=== PATIENT | female | born 1975 | race Caucasian/White ===

== ENCOUNTER → 2017-11-04 10:59 | Outpatient (CLI) | payer OTHER, SELFPAY ==
--- NOTE | 2017-11-04 11:03 | XR_ITS ---
XR chest 2V HISTORY: ITS.REASON: Dyspnea ORDERING PHYSICIAN: CATHY Corral PATIENT AGE: 42 years COMPARISON: 07/19/2009 FINDINGS: The cardiomediastinal silhouette and pulmonary vascularity are within normal limits. The lungs are clear without infiltrates, suspicious nodules, or pleural effusions. There is a small opacity in the left lung base adjacent to the cardiac apex which could be due to small area of atelectasis or even summation artifact. Follow-up may confirm stability. No acute bony abnormalities. IMPRESSION: 1. No definite acute finding. 2. Nonspecific nodular opacity left lung base for which follow-up may confirm stability or resolution
== END ==
PROVIDERS: PCP Physician Assistant; Visit Provider Physician Assistant
DX: R60.0 Localized edema (principal)
CPT/HCPCS: 71046

== ENCOUNTER → 2017-11-26 07:49 | Outpatient (CLI) | payer OTHER, SELFPAY ==
--- NOTE | 2017-11-26 07:52 | CA_ITS ---
PROCEDURE: 2-D M-mode and color Doppler study INDICATIONS FOR THE TEST: Chest pain COPD Heart Murmur Tobacco Smoking+ Palpitations Fatigue+ Syncope Edema+ Hypertension Diabetes Mellitus Rheumatic Fever SOB+HTOMAS+Obesity Hyperlipidemia+ Family History HD Additional History PATIENT INFORMATION HEIGHT: 60 WEIGHT: 142 GENDER: Female B/P: 102/75 2-D/M-MODE INTERPRETATION: 2-D MEASUREMENTS OBSERVED VALUES IN CMS Right Ventricular Dimension (RVDd) 2.2 Interventricular Septum (Thickness)(IVsd) 0.9 Left Ventricular Internal Dimensions(LVIDd) 4.1 Left Ventricular Posterior Wall (Thickness)(LVPWd) 0.8 Aortic Root 2.6 Aortic Cusp Separation 2.0 Left Atrial Dimensions (LAD) 3.4 2D 1. Left atrium is normal size, left ventricle is normal size, there is no concentric left ventricular hypertrophy, visually estimated ejection fraction of 55% with no obvious regional wall motion abnormality. 2. The right atrium and right ventricle are normal size and contractility. 3. The aortic, mitral and tricuspid valve are structurally normal. 4. The pulmonic valve is poorly visualized. 5. No significant pericardial effusion noted. DOPPLER INTERROGATION: Doppler interrogation of the aortic, mitral and tricuspid valvular presence of mild mitral and tricuspid regurgitation, tricuspid and jet velocity insufficient for calculation of the right ventricular systolic pressure, grade 1 diastolic dysfunction seen without tissue Doppler evidence of raised left atrial pressure. CONCLUSION: 1. Normal left ventricular size, preserved left ventricular systolic function, visually estimated ejection fraction 55% with no obvious regional wall motion abnormality, grade 1 diastolic dysfunction seen without tissue Doppler evidence of raised left atrial pressure. 2. Mild mitral and tricuspid regurgitation 3. No significant pericardial effusion noted.
== END ==
PROVIDERS: Family Provider Physician Assistant; PCP Physician Assistant; Visit Provider Physician Assistant
DX: R06.02 Shortness of breath (principal)
CPT/HCPCS: 93306

== ENCOUNTER → 2018-02-22 06:27 | Outpatient (CLI) | payer OTHER, SELFPAY ==
--- NOTE | 2018-02-22 06:30 | CT_ITS ---
CT chest wo con HISTORY: Chest pain ITS.REASON: cp ORDERING PHYSICIAN: Raj Levin MD PATIENT AGE: 43 years COMPARISON: None Technique: Axial images obtained. Sagittal and coronal reformatted images are also generated and reviewed. All CT scans at the facility use one or more dose reduction, viz: automated exposure control; ma/kV adjustment per patient size (including targeted exams where dose is matched to indication; i.e. head); or iterative reconstruction technique. FINDINGS: No mediastinal or hilar mass or adenopathy. Normal heart size. No coronary artery calcifications evident. No evidence of pericardial effusion. Scattered small nodes are present in the axilla. Lungs are clear aside from a few 2 mm nodular opacities one in the right lower lobe anteriorly and one in the right lower lobe posteriorly. These are too small to categorize. No acute bony anomalies. Upper abdominal images are unremarkable. IMPRESSION: Essentially negative CT chest without contrast
--- NOTE | 2018-02-22 06:30 | NM_ITS ---
SPECT MYOCARDIAL PERFUSION SCAN, REST AND STRESS: EXERCISE STRESS: [facility] REVIEW QGS EF AND WALL MOTION EVALUATION: QPS - PERFUSION EVALUATION: HISTORY: Chest pain, SOB, Tobacco use, Fatigue PROCEDURE: Rest imaging performed after administration of10.20 millicuries Tc MIBI. Dose administered at6:45 a.m., with imaging thereafter. Stress imaging was then performed following7 minutes 30 seconds of exercise stress. The patient achieved a heart [id number] with projected heart rate of150 . Resting BP101/55 with stress 116/60. At maximum exercise stress,29.7 millicuries Tc MIBI administered at8:20 a.m. with [id number] minutes thereafter. FINDINGS: Perfusion Evaluation: The single slice spect images as well as the [facility] bull's-eye data summary were reviewed. Wall Motion and Ejection Fraction Evaluation: Gated SPECT review and analysis used to evaluate these features. There is a 56 % left ventricular ejection fraction. There seems to be good wall motion Uniform myocardial activity at both stress and rest IMPRESSION: No scintigraphic evidence of exercise-induced myocardial ischemia. Normal ejection fraction normal wall motion
--- NOTE | 2018-02-22 09:01 | HMH.ITSHM ---
ASA DEPRESSION MED 3 MIGRAINE MEDS MUSCLE RELAXER ACID REFLUX MED
== END ==
PROVIDERS: Family Provider Physician Assistant; PCP Physician Assistant; Visit Provider Internal Medicine
DX: R06.09 Other forms of dyspnea (principal); R11.0 Nausea; R00.2 Palpitations; R07.9 Chest pain, unspecified; R14.0 Abdominal distension (gaseous); E78.5 Hyperlipidemia, unspecified; Z82.49 Family history of ischemic heart disease and other diseases of the circulatory system
CPT/HCPCS: 71250; 78452; 93017; A9502

== ENCOUNTER → 2018-08-30 21:42 | Outpatient (CLI) | payer OTHER, SELFPAY ==
[2018-08-30 21:48] LABS: Basophils # 0.1 K/mm3 (0-0.2); Basophils % 0.4 % (0.1-2.0); Eosinophils # 0.2 K/mm3 (0.0-0.4); Eosinophils % 1.7 % (0.1-12.0); Hematocrit 38.6 % (37.0-47.0); Hemoglobin 12.4 g/dL (12.2-16.2); Lymphocytes # 3.5 K/mm3 (0.7-4.5); Lymphocytes % 27.4 % (10-50); Mean Corpuscular HGB Conc 32.1 g/dL (31.8-35.4); Mean Corpuscular Hemoglobin 31.5 pg (27.0-31.2); Mean Corpuscular Volume 98.3 fl (81-99); Mean Platelet Volume 9.9 fl (7.4-10.4); Monocytes # 0.8 K/mm3 (0.1-1.0); Monocytes % 6.4 % (1.7-9.3); Neutrophils # 8.2 K/mm3 (1.8-7.8); Neutrophils % 64.1 % (37.0-80.0); Platelet Count 366 K/mm3 (142-424); Red Blood Count 3.93 M/mm3 (4.20-5.40); Red Cell Distribution Width 13.6 % (11.5-17.5); White Blood Count 12.8 K/mm3 (4.8-10.8)
[2018-08-30 22:37] LABS: Alanine Aminotransferase 23 U/L (12-78); Albumin Level 3.7 gm/dL (3.4-5.0); Albumin/Globulin Ratio 0.9 (1.1-1.8); Alkaline Phosphatase 115 U/L (46-116); Anion Gap 16.9 mEq/L (5-15); Aspartate Amino Transferase 12 U/L (15-37); Bilirubin,Total 0.3 mg/dL (0.2-1.0); Blood Urea Nitrogen 5 mg/dL (7-18); Calcium 8.7 mg/dL (8.5-10.1); Carbon Dioxide 24 mmol/L (21.0-32.0); Chloride 103 mmol/L (98-107); Chol/HDL Ratio 4.9 (1-3.5); Cholesterol 171 mg/dL (140-200); Creatinine,Serum 0.68 mg/dL (0.55-1.02); Estimated Glomerular Filt Rate 94 ml/min (>60); GFR (African American) 114 ML/MIN (>60); Globulin 3.9 gm/dl (1.3-3.2); Glucose 68 mg/dL (74-106); HDL Cholesterol 35 mg/dL (29-89); LDL Cholesterol 82 mg/dL (0-130); Sodium 141 mmol/L (136-145); T4 (Thyroxine) 6.9 ug/dl (4.7-13.3); Thyroid Stimulating Hormone 1.38 uIU/ml (0.358-3.740); Total Protein,Serum 7.6 gm/dL (6.4-8.2); Triglycerides 270 mg/dL (30-200); VLDL Cholesterol 54 mg/dL (0-40)
[2018-08-30 22:58] LABS: Potassium 2.9 mmoL/L (3.5-5.1)
[2018-09-01 19:50] LABS: Vitamin D 25 Hydroxy 39.8 ng/mL (30.0-100.0)
== END ==
PROVIDERS: Visit Provider Physician Assistant
DX: R42 Dizziness and giddiness (principal); R55 Syncope and collapse
CPT/HCPCS: 80053; 80061; 82652; 84436; 84443; 85025

== ENCOUNTER → 2019-06-16 09:42 | Outpatient (CLI) | payer OTHER, SELFPAY | PROVIDERS: PCP Physician Assistant; Visit Provider Physician Assistant | DX: R06.02 Shortness of breath (principal); R94.2 Abnormal results of pulmonary function studies; Z13.0 Encounter for screening for diseases of the blood and blood-forming organs and certain disorders involving the immune mechanism | CPT/HCPCS: 94060; 94618; 94727; 94729 ==

== ENCOUNTER → 2019-06-20 15:06 | Outpatient (CLI) | payer OTHER, SELFPAY ==
[2019-06-20 15:56] LABS: Basophils % 0.3 % (0.1-2.0); Eosinophils # 0.3 K/mm3 (0.0-0.4); Eosinophils % 2.6 % (0.1-12.0); Hematocrit 35.9 % (37.0-47.0); Lymphocytes # 4.2 K/mm3 (0.7-4.5); Lymphocytes % 35.4 % (10-50); Mean Corpuscular HGB Conc 33.4 g/dL (31.8-35.4); Mean Corpuscular Hemoglobin 31.5 pg (27.0-31.2); Mean Corpuscular Volume 94.3 fl (81-99); Mean Platelet Volume 7.5 fl (7.4-10.4); Monocytes # 0.8 K/mm3 (0.1-1.0); Monocytes % 6.3 % (1.7-9.3); Neutrophils # 6.6 K/mm3 (1.8-7.8); Neutrophils % 55.4 % (37.0-80.0); Platelet Count 350 K/mm3 (142-424); Red Blood Count 3.81 M/mm3 (4.20-5.40); Red Cell Distribution Width 13.2 % (11.5-17.5); White Blood Count 11.9 K/mm3 (4.8-10.8)
== END ==
PROVIDERS: Visit Provider Physician Assistant
DX: R94.2 Abnormal results of pulmonary function studies (principal); Z13.0 Encounter for screening for diseases of the blood and blood-forming organs and certain disorders involving the immune mechanism
CPT/HCPCS: 36415; 85025

== ENCOUNTER → 2019-11-22 13:30 | Outpatient (CLI) | payer MEDICAID, SELFPAY ==
[2019-11-22 13:38] LABS: Basophils % 0.4 % (0.1-2.0); Eosinophils # 0.2 K/mm3 (0.0-0.4); Eosinophils % 1.5 % (0.1-12.0); Lymphocytes # 3.6 K/mm3 (0.7-4.5); Lymphocytes % 36.1 % (10-50); Mean Corpuscular HGB Conc 33.3 g/dL (31.8-35.4); Mean Corpuscular Hemoglobin 32.3 pg (27.0-31.2); Mean Corpuscular Volume 97.1 fl (81-99); Mean Platelet Volume 9.5 fl (7.4-10.4); Monocytes # 0.8 K/mm3 (0.1-1.0); Monocytes % 7.8 % (1.7-9.3); Neutrophils # 5.4 K/mm3 (1.8-7.8); Neutrophils % 54.2 % (37.0-80.0); Platelet Count 314 K/mm3 (142-424); Red Blood Count 4.02 M/mm3 (4.20-5.40); White Blood Count 9.9 K/mm3 (4.8-10.8)
[2019-11-22 13:59] LABS: Alanine Aminotransferase 23 U/L (9-52); Albumin Level 3.6 g/dL (3.4-5.0); Alkaline Phosphatase 101 U/L (46-116); Anion Gap 17.3 mEq/L (5-15); Aspartate Amino Transferase 14 U/L (15-37); Bilirubin,Total 0.2 mg/dL (0.2-1.0); Blood Urea Nitrogen 7 mg/dL (7-18); Calcium 8.7 mg/dL (8.5-10.1); Carbon Dioxide 22 mmol/L (21.0-32.0); Chloride 109 mmol/L (98-107); Chol/HDL Ratio 5.3 (1-3.5); Cholesterol 192 mg/dL (140-200); Creatinine,Serum 0.78 mg/dL (0.55-1.02); Estimated Glomerular Filt Rate 80 ml/min (>60); GFR (African American) 97 ML/MIN (>60); Globulin 3.5 gm/dl (1.3-3.2); Glucose 85 mg/dL (74-106); HDL Cholesterol 36 mg/dL (29-89); LDL Cholesterol 110 mg/dL (0-130); Potassium 4.3 mmoL/L (3.5-5.1); Sodium 144 mmol/L (137-145); T4 (Thyroxine) 4.6 ug/dl (4.7-13.3); Thyroid Stimulating Hormone 0.78 uIU/ml (0.358-3.740); Total Protein,Serum 7.1 g/dL (6.4-8.2); Triglycerides 228 mg/dL (30-200); VLDL Cholesterol 46 mg/dL (0-40)
[2019-11-23 09:25] LABS: Iron 57 ug/dL (27-159); UIBC 262 ug/dL (131-425)
[2019-11-23 10:29] LABS: Iron Saturation 18 % (15-55); Vitamin D 25 Hydroxy 27.8 ng/mL (30.0-100.0)
== END ==
PROVIDERS: Visit Provider Physician Assistant
DX: R11.0 Nausea (principal); E78.5 Hyperlipidemia, unspecified; D64.9 Anemia, unspecified; E55.9 Vitamin D deficiency, unspecified
CPT/HCPCS: 80053; 80061; 82652; 83540; 83550; 84436; 84443; 85025

== ENCOUNTER → 2020-06-26 15:05 | Outpatient (CLI) | payer MEDICAID, SELFPAY ==
[2020-06-26 15:17] LABS: Basophils % 0.5 % (0.1-2.0); Eosinophils # 0.1 K/mm3 (0.0-0.4); Eosinophils % 1.6 % (0.1-12.0); Hematocrit 40.5 % (37.0-47.0); Hemoglobin 13.7 g/dL (12.2-16.2); Lymphocytes # 2.8 K/mm3 (0.7-4.5); Lymphocytes % 31.7 % (10-50); Mean Corpuscular HGB Conc 33.8 g/dL (31.8-35.4); Mean Corpuscular Hemoglobin 33.4 pg (27.0-31.2); Mean Platelet Volume 9.5 fl (7.4-10.4); Monocytes # 0.7 K/mm3 (0.1-1.0); Monocytes % 7.5 % (1.7-9.3); Neutrophils # 5.1 K/mm3 (1.8-7.8); Neutrophils % 58.8 % (37.0-80.0); Platelet Count 313 K/mm3 (142-424); Red Blood Count 4.09 M/mm3 (4.20-5.40); Red Cell Distribution Width 13.2 % (11.5-17.5); White Blood Count 8.7 K/mm3 (4.8-10.8)
[2020-06-26 15:25] LABS: Chloride 109 mmol/L (98-107); Potassium 3.8 mmoL/L (3.5-5.1); Sodium 142 mmol/L (136-145)
[2020-06-26 15:28] LABS: Alanine Aminotransferase 18 U/L (12-78); Albumin Level 3.9 g/dl (3.5-5.0); Albumin/Globulin Ratio 1.3 (1.1-1.8); Alkaline Phosphatase 102 U/L (38-126); Anion Gap 13.8 mEq/L (5-15); Aspartate Amino Transferase 20 U/L (14-36); Bilirubin,Total 0.3 mg/dl (0.2-1.3); Blood Urea Nitrogen 6 mg/dl (7-17); Carbon Dioxide 23 mmol/L (22.0-30.0); Estimated Glomerular Filt Rate 90 ml/min (>60); GFR (African American) 109 ML/MIN (>60); Globulin 3.1 g/dL (1.3-3.2)
[2020-06-26 15:29] LABS: Calcium 9.1 mg/dl (8.4-10.2); Glucose 89 mg/dl (74-100)
[2020-06-26 15:34] LABS: C-Reactive Protein 4.9 mg/L (0-4)
[2020-06-26 15:40] LABS: Erythrocyte Sedimentation Rate 42 mm/hr (0-20)
[2020-06-26 15:45] LABS: T4 (Thyroxine) 5.7 ug/dl (5.53-11.0)
[2020-06-29 18:14] LABS: RA Latex Turbid. <10.0 IU/mL (0.0-13.9)
[2020-07-01 09:28] LABS: Antinuclear Antibodies (ANA) Negative
== END ==
PROVIDERS: Visit Provider Physician Assistant
DX: R60.9 Edema, unspecified (principal); J40 Bronchitis, not specified as acute or chronic; M54.31 Sciatica, right side
CPT/HCPCS: 80053; 84436; 84443; 85025; 85651; 86038; 86140; 86431

== ENCOUNTER 2020-09-22 10:20 | Emergency (ER) | payer MEDICAID, SELFPAY ==
[2020-09-22 10:29] VITALS: BP 117/89; PULSE 87; RESP 19; TEMP 37; O2SAT 99; BMI 23.1
--- NOTE | 2020-09-22 10:32 | XR_ITS ---
PROCEDURE: XR CHEST 2V CLINICAL HISTORY: cough congestion COMPARISON: DX CXR2V XR chest 2V from 11/04/[address] chest wo con from 02/22/2018 FINDINGS: The cardiomediastinal silhouette and pulmonary vascularity are within normal limits. Mild or borderline emphysematous changes seen with mild hyperexpansion lung marin. There is no infiltrate and there is no pleural fluid. IMPRESSION: No acute findings. Dictated by: Dr. Nathan Mckinnon MD 09/22/2020 12:07 Dr. Nathan Mckinnon MD in [place] 09/22/2020 12:07
--- NOTE | 2020-09-22 10:33 | HMH.EDUTC ---
[facility] [place] Disposition Clinical Impression: Bronchitis Disposition: Home, Self-Care Condition on Discharge: Good Instructions: DI for Cough -- Adult, Preventing the Spread of Coronavirus Discharge Instructions, Benzonatate Additional Instructions: ? Monitor temp. Tylenol every 4 hours as needed and / or ibuprofen every 6 hours as needed ( As long as your primary care physician has told you that it ok to take both. For fever/aches/pains ER if no less than 101 despite Tylenol or Motrin ? Humidifier/vaporizer or hot steamy shower *Warm salt water gargles may help to soothe the throat *Throat Lozenges *Warm fluids like tea with honey may help to soothe the throat *Sleep elevated Follow up IMMEDIATELY for new or worsening of symptoms OR no noticeable improvement over the next 48-72 hours. 911 immediately for any life threatening symptoms such as chest pain or difficulty breathing You were tested for today for COVID19 your test result should be back in the next 24-48 hours, you may call to the [facility] to see if your test results are back in the next 48 hours [phone] [facility] hours are 9am-9pm You was given a handout with instructions for Self Quarantine and Self isolation for while you wait on test results and what to do if they are positive If you are positive the Health Dept will be contacting you also Prescriptions: Promethazine HCl [Phenergan 12.5mg tablet] 12.5 mg PO Q6H PRN #4 tab PRN Reason: Vomiting Transmission Status: Pending to [facility] Benzonatate [Tessalon Perle 100mg Cap*] 100 mg PO TID PRN #15 cap PRN Reason: Cough Transmission Status: Pending to [facility] Referrals: Maddy Sims PA [Primary Care Provider] - As needed Time of Disposition: 11:41 Medical Decision Making - Carmelo Inquiry Pt receiving controlled substance: No Carmelo was queried for this patient: No Vital Signs: 09/22/20 10:29 Temperature 98.6 F Temperature Source Oral Pulse Rate [Radial] 87 Respiratory Rate 19 Blood Pressure [Right Radial Artery] 117/89 Blood Pressure Mean [Right Radial Artery] 98 Blood Pressure Source [Right Radial Artery] Automatic Cuff Blood Pressure Position [Right Radial Artery] Sitting 02 Sat by Pulse Oximetry 99 Oxygen Delivery Method Room Air Orders (Tests/Meds): ORDERS Category Date Time Status XR chest 2V Stat Exams 09/22/20 10:32 Taken - Radiology Data #1 Image(s): Chest Image Reviewed: Yes I reviewed the patient's radiology image w/the ED provider Preliminary Findings: Normal/NAD no acute finding Medical Decision Narrative: Patient states that she has taken Phenergan before without reactions or complications [facility] HPI - General Stated complaint: lungs hurt, vomiting Time Seen by Provider: 09/22/20 10:33 Mode of Arrival: Ambulatory Source of Information: Patient Limitations: No Limitations Description of Symptoms (Recalled from Triage Doc. by RN): cough, vomiting, SOB, lung pain x 1 week HEENT Symptoms (Recalled from RN notes): Yes Resp Symptoms (Recalled from RN notes): No Skin Symptoms (Recalled from RN notes): No MS Symptoms (Recalled from RN notes): No Functional Status (Recalled from RN notes): wnl - History of Present Illness Provider Complaint: Patient state thats he has been having pain in her lungs when she coughs States that she is an everyday smoker, States thats that at times when she is coughing she feels a little SOA States that she hasnt been exposed to COVID that she is aware of and vomited earlier this morning - Related Data Previous Rx's Medication Instructions Recorded aspirin 81 mg tablet,delayed 81 mg PO DAILY #90 tab 08/10/18 release esomeprazole magnesium 40 mg 40 mg PO DAILY #30 cap 08/30/18 capsule,delayed release gemfibrozil 600 mg tablet 600 mg PO BID #180 tab 08/30/18 loratadine 10 mg tablet 10 mg PO Q24H #30 tab 08/30/18 potassium chloride 20 mEq 20 meq PO DAILY #30 tab 08/31/18 tablet,extended release albut
[2020-09-22 11:45] VITALS: BP 117/89; PULSE 87; RESP 19; TEMP 37; O2SAT 99
[2020-09-23 09:37] LABS: Covid-19 Nasal PCR Sendout UK Not Detected
== END 2020-09-22 11:47 | disposition home or self-care (01) ==
PROVIDERS: Emergency Provider Nurse Practitioner; PCP Physician Assistant
DX: Z20.828 Contact with and (suspected) exposure to other viral communicable diseases (principal); J20.9 Acute bronchitis, unspecified; F17.210 Nicotine dependence, cigarettes, uncomplicated; F41.8 Other specified anxiety disorders; E78.5 Hyperlipidemia, unspecified; Z79.899 Other long term (current) drug therapy
CPT/HCPCS: 71046; 99202; U0003

== ENCOUNTER → 2020-10-21 09:46 | Outpatient (CLI) | payer MEDICAID, SELFPAY | PROVIDERS: PCP Physician Assistant; Visit Provider Physician Assistant | DX: Z11.52 Encounter for screening for COVID-19 (principal) | CPT/HCPCS: U0003 ==

== ENCOUNTER 2020-12-08 11:01 | Emergency (ER) | payer MEDICAID, SELFPAY ==
[2020-12-08] VITALS (8 sets, daily range): BP systolic 92–127; BP diastolic 58–87; PULSE 72–84; RESP 16–18; TEMP 36.9–37; O2SAT 98–100; BMI 27.2
--- NOTE | 2020-12-08 10:59 | ECG_ITS ---
APPROVED REPORT Exam: Resting ECG HR:79 bpm ECG Measurements Heart Rate 79 AXES UT 136 P 55 QRSd 78 QRS 31 QT 392 T 48 QTc 449 Conclusion Normal sinus rhythm Possible Left atrial enlargement Borderline ECG Electronically signed by : Raffy Smith, 12/08/2020 11:43:52
--- NOTE | 2020-12-08 11:02 | HMH.EDGENADL ---
ED Disposition Clinical Impression: Atypical chest pain Disposition: Home, Self-Care Condition on Discharge: Good Instructions: DI for Atypical Chest Pain Additional Instructions: Additional instructions for CHEST PAIN: See your physician as soon as possible for further evaluation, call tomorrow. Return immediately if worsening chest pain, vomiting, shortness of breath, fever, coughing of blood. Referrals: PCP,No [Non-Staff] - Forms: Work/School Release - Critical Care Critical Care Time: No Attestation: On , the high probability of a clinically significant, sudden or life threatening deterioration of the following system(s) required my full and direct attention, intervention and personal management. The time I documented below is in addition to time spent performing reported procedures but includes the following listed in this critical care notation. Medical Decision Making - Medical Records Medical records reviewed: Yes: I reviewed the patient's medical records. MR Comment: Reviewed cardiac cath and stress test results from 2018, see below - Carmelo Inquiry Pt receiving controlled substance: No Vital Signs: 12/08/20 11:01 12/08/20 11:50 12/08/20 12:41 Temperature 98.6 F Temperature Source Oral Pulse Rate Pulse Rate [Left] 82 79 78 Respiratory Rate 16 16 18 Blood Pressure Blood Pressure [Right Arm] 113/73 92/58 L 102/63 L Blood Pressure Mean [Right Arm] 86 69 76 Blood Pressure Source Blood Pressure Source [Right Arm] Automatic Cuff Blood Pressure Position Blood Pressure Position [Right Arm] Sitting 02 Sat by Pulse Oximetry 100 99 99 Oxygen Delivery Method Room Air 12/08/20 13:09 12/08/20 13:40 12/08/20 14:05 Temperature Temperature Source Pulse Rate Pulse Rate [Left] 72 77 73 Respiratory Rate 16 16 16 Blood Pressure Blood Pressure [Right Arm] 108/74 L 121/78 97/73 L Blood Pressure Mean [Right Arm] 85 92 81 Blood Pressure Source Blood Pressure Source [Right Arm] Automatic Cuff Blood Pressure Position Blood Pressure Position [Right Arm] Sitting 02 Sat by Pulse Oximetry 100 100 100 Oxygen Delivery Method Room Air 12/08/20 14:47 12/08/20 15:03 Temperature 98.5 F Temperature Source Oral Pulse Rate 84 Pulse Rate [Left] 79 Respiratory Rate 18 16 Blood Pressure 127/87 Blood Pressure [Right Arm] 117/72 Blood Pressure Mean [Right Arm] 87 Blood Pressure Source Automatic Cuff Blood Pressure Source [Right Arm] Blood Pressure Position Sitting Blood Pressure Position [Right Arm] 02 Sat by Pulse Oximetry 100 Oxygen Delivery Method Room Air - Lab Data Lab results reviewed: Yes: I reviewed the patient's lab results. Lab Results 12/08/20 11:05: WBC 13.0 H, RBC 4.01 L, Hgb 12.8, Hct 38.7, MCV 96.5, MCH 31.8 H, MCHC 32.9, RDW 13.1, Plt Count 302, MPV 8.6, Neut % (Auto) 55.3, Lymph % (Auto) 38.4, Avery % (Auto) 4.7, Eos % (Auto) 1.2, Baso % (Auto) 0.4, Neut # (Auto) 7.2, Lymph # (Auto) 5.0 H, Avery # (Auto) 0.6, Eos # (Auto) 0.2, Baso # (Auto) 0.1 12/08/20 11:05: Sodium 140, Potassium 3.4 L, Chloride 109 H, Carbon Dioxide 24, Anion Gap 10.4, BUN 7, Creatinine 0.80, Estimated Creat Clear 86, Estimated GFR 78, Est GFR ( Amer) 94, Glucose 105 H, Calcium 9.0, Troponin I < 0.01 12/08/20 14:04: Troponin I < 0.01 Result diagrams: 12/08/20 11:05 12/08/20 11:05 Orders (Tests/Meds): ED MEDICATIONS Discontinued Medications Generic Name Dose Route Start Last Admin Trade Name Freq PRN Reason Stop Dose Admin Aspirin 324 mg 12/08/20 11:06 12/08/20 11:10 Aspirin 81mg Chewable Tablet PO 12/08/20 11:07 324 mg ONCE ONE Administration Ketorolac Tromethamine 30 mg 12/08/20 11:29 12/08/20 11:32 Ketorolac 30mg/Ml Vial IV 12/08/20 11:30 30 mg ONCE ONE Administration - Radiology Data #1 Image(s): Chest Image Reviewed: Yes I reviewed the patient's radiology image Preliminary Findings: Normal/NAD - ECG
--- NOTE | 2020-12-08 11:06 | XR_ITS ---
PROCEDURE: XR CHEST 2V CLINICAL HISTORY: chest pain COMPARISON: DX CXR2V XR chest 2V from 11/04/[address] chest wo con from 02/22/2018 CR XR CHEST 2V from 09/22/2020 FINDINGS: The cardiomediastinal silhouette and pulmonary vascularity are within normal limits. COPD changes with mild prominence of the interstitium. No acute bony abnormalities. IMPRESSION: COPD. No change with no acute finding Dictated by: Clemente Dixon MD 12/08/2020 11:48 Clemente Dixon MD in [place] 12/08/2020 11:48
[2020-12-08 11:16] LABS: Basophils # 0.1 K/mm3 (0-0.2); Basophils % 0.4 % (0.1-2.0); Eosinophils # 0.2 K/mm3 (0.0-0.4); Eosinophils % 1.2 % (0.1-12.0); Hematocrit 38.7 % (37.0-47.0); Hemoglobin 12.8 g/dL (12.2-16.2); Lymphocytes % 38.4 % (10-50); Mean Corpuscular HGB Conc 32.9 g/dL (31.8-35.4); Mean Corpuscular Hemoglobin 31.8 pg (27.0-31.2); Mean Corpuscular Volume 96.5 fl (81-99); Mean Platelet Volume 8.6 fl (7.4-10.4); Monocytes # 0.6 K/mm3 (0.1-1.0); Monocytes % 4.7 % (1.7-9.3); Neutrophils # 7.2 K/mm3 (1.8-7.8); Neutrophils % 55.3 % (37.0-80.0); Platelet Count 302 K/mm3 (142-424); Red Blood Count 4.01 M/mm3 (4.20-5.40); Red Cell Distribution Width 13.1 % (11.5-17.5)
[2020-12-08 11:21] LABS: Chloride 109 mmol/L (98-107)
[2020-12-08 11:22] LABS: Potassium 3.4 mmoL/L (3.5-5.1); Sodium 140 mmol/L (136-145)
[2020-12-08 11:24] LABS: Blood Urea Nitrogen 7 mg/dl (7-17); Creatinine Clearance Estimated 86 mL/min (50-200); Estimated Glomerular Filt Rate 78 ml/min (>60); GFR (African American) 94 ML/MIN (>60)
[2020-12-08 11:25] LABS: Anion Gap 10.4 mEq/L (5-15); Carbon Dioxide 24 mmol/L (22.0-30.0); Glucose 105 mg/dl (74-100)
[2020-12-08 11:38] LABS: Troponin I < 0.01 ng/ml (0.00-0.034)
--- NOTE | 2020-12-08 13:41 | PC.NURSE ---
Pt resting. No needs at this time
[2020-12-08 14:47] LABS: Troponin I < 0.01 ng/ml (0.00-0.034)
== END 2020-12-08 15:04 | disposition home or self-care (01) ==
PROVIDERS: Emergency Provider Emergency Medicine; PCP Physician Assistant
DX: R07.89 Other chest pain (principal); M54.5 Low back pain; E78.5 Hyperlipidemia, unspecified; F41.8 Other specified anxiety disorders; F17.210 Nicotine dependence, cigarettes, uncomplicated; Z79.899 Other long term (current) drug therapy
CPT/HCPCS: 71046; 80048; 84484; 85025; 93005; 99283

== ENCOUNTER 2021-01-30 09:36 | Emergency (ER) | payer MEDICAID, SELFPAY ==
[2021-01-30 09:37] VITALS: BP 116/79; PULSE 89; RESP 18; TEMP 37.1; O2SAT 97; BMI 27.1
--- NOTE | 2021-01-30 10:05 | HMH.EDUTC ---
[facility] [place] Disposition Clinical Impression: Otitis media Qualifiers: Otitis media type: unspecified Laterality: bilateral Qualified Code(s): H66.93 - Otitis media, unspecified, bilateral Sinusitis Qualifiers: Sinusitis location: unspecified location Chronicity: unspecified Qualified Code(s): J32.9 - Chronic sinusitis, unspecified Disposition: Home, Self-Care Condition on Discharge: Good Instructions: Sinusitis, Middle Ear Infection, DI for Sinusitis, Amoxicillin and Clavulanic Acid Additional Instructions: *Monitor Temp, Over the counter Motrin or Tylenol as directed/as needed Tylenol every 4 hours and Motrin every 6 hours (as long as your family doctor has told you that you can take it) for fever or pain. and straight to ER if unable to lower temp less than 101.0 after medication given *Warm salt water gargles may help to soothe the throat *Throat Lozenges *Warm fluids like tea with honey may help to soothe the throat *Sleep elevated *Humidifier/Vaporizer Take medication as prescribed Follow up with Family Doctor if no improvement or any worsening of symptoms Follow up IMMEDIATELY for new or worsening symptoms or no Noticeable improvement over the next 48-72 hours. 911 for difficulty breathing or swallowing Prescriptions: Amoxicillin/Potassium Clav [Augmentin 875-125 Tablet] 1 tab PO Q12H 10 Days #20 tab Transmission Status: Received by [facility] Fluticasone Propionate [Flonase 50mcg nasal spray 16gm] 1 spr NS DAILY #1 bottle Transmission Status: Received by [facility] Referrals: Maddy Sims PA [Primary Care Provider] - As needed Forms: Work/School Release Time of Disposition: 10:18 Medical Decision Making - Carmelo Inquiry Pt receiving controlled substance: No Carmelo was queried for this patient: No Vital Signs: 01/30/21 09:37 01/30/21 10:24 Temperature 98.8 F 98.1 F Temperature Source Oral Oral Pulse Rate 79 Pulse Rate [Right] 89 Respiratory Rate 18 18 Blood Pressure 122/71 Blood Pressure [Right Arm] 116/79 Blood Pressure Mean [Right Arm] 91 02 Sat by Pulse Oximetry 97 Oxygen Delivery Method Room Air [facility] [place] HPI - General Stated complaint: ear pain and sinus pain Time Seen by Provider: 01/30/21 10:05 Mode of Arrival: Family Vehicle Source of Information: Patient Limitations: No Limitations Description of Symptoms (Recalled from Triage Doc. by RN): PATIENT C/O EAT ACHE, SINUS INFECTION AND VOMITTING FOR THE LAST TWO DAYS. HEENT Symptoms (Recalled from RN notes): No Resp Symptoms (Recalled from RN notes): No Skin Symptoms (Recalled from RN notes): No MS Symptoms (Recalled from RN notes): No Functional Status (Recalled from RN notes): NA - History of Present Illness Provider Complaint: Patient states that she has been having sinus problems for over a week but for the last couple of days she has been having worsnening of sinus pain and pressure and feeling of pressure behind her eyes States that she also started having pain in both ears with the worse being in her right ear States that she has also been having some vomiting so this morning they sent her home from work and wanted her to get checked - Related Data Previous Rx's Medication Instructions Recorded aspirin 81 mg tablet,delayed 81 mg PO DAILY #90 tab 08/10/18 release esomeprazole magnesium 40 mg 40 mg PO DAILY #30 cap 08/30/18 capsule,delayed release potassium chloride 20 mEq 20 meq PO DAILY #30 tab 08/31/18 tablet,extended release albuterol sulfate 90 mcg/actuation 2 puff INHALATION Q6H 30 Days #6.7 05/25/19 aerosol inhaler g venlafaxine 75 mg capsule,extended See Rx Instructions .ROUTE 09/03/20 release 24 hr .COMPLEX #90 each ergocalciferol (vitamin D2) 1,250 See Rx Instructions .ROUTE 11/12/20 mcg (50,000 unit) capsule .COMPLEX #12 cap cariprazine 3 mg capsule See Rx Instructions .ROUTE 11/16/20 .COMPLEX #90 cap topiramate 50 mg tablet See Rx Instructions .ROUTE 11/27/20 .COMPLEX #
[2021-01-30 10:24] VITALS: BP 122/71; PULSE 79; RESP 18; TEMP 36.7; O2SAT 99
== END 2021-01-30 10:23 | disposition home or self-care (01) ==
PROVIDERS: Emergency Provider Nurse Practitioner; PCP Physician Assistant
DX: H66.93 Otitis media, unspecified, bilateral (principal); J32.9 Chronic sinusitis, unspecified; F41.8 Other specified anxiety disorders; E78.5 Hyperlipidemia, unspecified; F17.210 Nicotine dependence, cigarettes, uncomplicated; Z79.899 Other long term (current) drug therapy
CPT/HCPCS: 99202; G0463

== ENCOUNTER → 2021-02-04 09:11 | Outpatient (CLI) | payer MEDICAID, SELFPAY | PROVIDERS: PCP Physician Assistant; Referring Provider Physician Assistant; Visit Provider Physician Assistant | DX: Z20.822 Contact with and (suspected) exposure to COVID-19 (principal) | CPT/HCPCS: U0003 ==

== ENCOUNTER → 2021-02-25 14:51 | Outpatient (CLI) | payer MEDICAID, SELFPAY ==
[2021-02-25 15:01] LABS: Basophils # 0.1 K/mm3 (0-0.2); Basophils % 0.5 % (0.1-2.0); Eosinophils # 0.1 K/mm3 (0.0-0.4); Eosinophils % 1.4 % (0.1-12.0); Hematocrit 38.5 % (37.0-47.0); Hemoglobin 13.2 g/dL (12.2-16.2); Lymphocytes # 3.8 K/mm3 (0.7-4.5); Lymphocytes % 36.2 % (10-50); Mean Corpuscular HGB Conc 34.1 g/dL (31.8-35.4); Mean Corpuscular Volume 96.6 fl (81-99); Monocytes # 0.5 K/mm3 (0.1-1.0); Monocytes % 5.2 % (1.7-9.3); Neutrophils # 5.9 K/mm3 (1.8-7.8); Neutrophils % 56.8 % (37.0-80.0); Platelet Count 305 K/mm3 (142-424); Red Blood Count 3.99 M/mm3 (4.20-5.40); Red Cell Distribution Width 13.2 % (11.5-17.5); White Blood Count 10.4 K/mm3 (4.8-10.8)
[2021-02-25 15:20] LABS: Alanine Aminotransferase 16 U/L (12-78); Albumin Level 4.4 g/dl (3.5-5.0); Albumin/Globulin Ratio 1.4 (1.1-1.8); Alkaline Phosphatase 80 U/L (38-126); Anion Gap 12.3 mEq/L (5-15); Aspartate Amino Transferase 20 U/L (14-36); Bilirubin,Total 0.4 mg/dl (0.2-1.3); Blood Urea Nitrogen 4 mg/dl (7-17); Calcium 8.9 mg/dl (8.4-10.2); Carbon Dioxide 21 mmol/L (22.0-30.0); Chloride 111 mmol/L (98-107); Chol/HDL Ratio 4.8 (1-3.5); Cholesterol 205 mg/dl (140-200); Estimated Glomerular Filt Rate 90 ml/min (>60); GFR (African American) 109 ML/MIN (>60); Globulin 3.2 g/dL (1.3-3.2); Glucose 90 mg/dl (74-100); HDL Cholesterol 43 mg/dl (40-60); Potassium 3.3 mmoL/L (3.5-5.1); Sodium 141 mmol/L (136-145); Total Protein,Serum 7.6 g/dl (6.3-8.2); Triglycerides 156 mg/dl (30-150); VLDL Cholesterol 31 mg/dL (0-40)
[2021-02-25 15:32] LABS: Direct LDL Cholesterol 126.43 mg/dL (100-129)
[2021-02-25 15:36] LABS: 25-OH Vitamin D, Total 42.6 ng/mL (30-100)
[2021-02-25 15:39] LABS: Free T4 (Free Thyroxine) 0.74 ng/dl (0.78-2.19)
[2021-02-25 15:51] LABS: Thyroid Stimulating Hormone 0.86 uIU/mL (0.465-4.68)
[2021-02-25 16:11] LABS: Vitamin B12 247 pg/mL (239-931)
== END ==
PROVIDERS: Visit Provider Physician Assistant
DX: R69 Illness, unspecified (principal); E78.5 Hyperlipidemia, unspecified; F41.9 Anxiety disorder, unspecified; K21.9 Gastro-esophageal reflux disease without esophagitis; Z82.49 Family history of ischemic heart disease and other diseases of the circulatory system; Z68.27 Body mass index [BMI] 27.0-27.9, adult
CPT/HCPCS: 80053; 80061; 82306; 82607; 84439; 84443; 85025

== ENCOUNTER 2021-04-30 11:25 | Emergency (ER) | payer OTHER, SELFPAY ==
[2021-04-30 11:27] VITALS: BP 120/85; PULSE 89; RESP 18; TEMP 36.8; O2SAT 99; BMI 27.2
--- NOTE | 2021-04-30 11:51 | HMH.EDGENADL ---
ED Disposition Clinical Impression: Lumbar strain Qualifiers: Encounter type: initial encounter Qualified Code(s): S39.012A - Strain of muscle, fascia and tendon of lower back, initial encounter Disposition: Home, Self-Care Condition on Discharge: Good Instructions: DI for Low Back Pain Additional Instructions: Toradol as needed for pain. Robaxin for muscle relaxation. Do not take this while at work or driving. Only take while at home or at night. Sitting job only for 2 days. Follow-up with your primary care provider if not improved in 2 days. Additional instructions for BACK PAIN: See your physician as soon as possible for further evaluation. Return immediately if back pain becomes intolerable, or if fever, numbness or weakness of your legs, loss of control of your bowels or bladder. Prescriptions: Ketorolac Tromethamine [Toradol 10mg tablet] 10 mg PO Q6HP PRN #10 tab PRN Reason: Moderate Pain Transmission Status: Pending to [facility] methocarbamoL [Methocarbamol] 750 mg PO TIDP PRN #10 tab PRN Reason: Muscle Pain Transmission Status: Pending to [facility] Referrals: Maddy Sims PA [Primary Care Provider] - Forms: Work/School Release - Critical Care Critical Care Time: No Attestation: On 04/30/21, the high probability of a clinically significant, sudden or life threatening deterioration of the following system(s) required my full and direct attention, intervention and personal management. The time I documented below is in addition to time spent performing reported procedures but includes the following listed in this critical care notation. Medical Decision Making - Carmelo Inquiry Pt receiving controlled substance: No Vital Signs: 04/30/21 11:27 Temperature 98.2 F Temperature Source Oral Pulse Rate [Right] 89 Respiratory Rate 18 Blood Pressure [Right Arm] 120/85 Blood Pressure Mean [Right Arm] 96 02 Sat by Pulse Oximetry 99 Oxygen Delivery Method Room Air Orders (Tests/Meds): ED MEDICATIONS Discontinued Medications Generic Name Dose Route Start Last Admin Trade Name Freq PRN Reason Stop Dose Admin Ketorolac Tromethamine 60 mg 04/30/21 11:57 04/30/21 12:36 Ketorolac 60mg/2ml Vial IM 04/30/21 11:58 60 mg ONCE ONE Administration - Radiology Data #1 Image(s): L-Spine Image Reviewed: Yes I have reviewed radiologist's interpretation PROCEDURE: XR LUMBAR SPINE 2-3V CLINICAL INDICATION: injury COMPARISON: No exams were available for comparison FINDINGS: There is normal curvature and alignment. L1 through L5 appear intact, disc spaces are well maintained throughout. The SI joints are normal. There is a large amount stool in the visualized portion of the colon. There are opaque densities projecting through the stool in the distal transverse colon and also in the mid rectum possibly representing non digested tablets. There are surgical clips right upper quadrant likely from previous cholecystectomy. IMPRESSION: Essentially unremarkable lumbar spine Dictated by: Dr. Nathan Mckinnon MD 04/30/2021 12:42 Dr. Nathan Mckinnon MD in [place] 04/30/2021 12:42 General Adult HPI - General Chief complaint: Back Pain/Injury Stated complaint: ao pulled back muscle 04/30 11:00 Time Seen by Provider: 04/30/21 11:51 Mode of Arrival: Ambulatory Limitations: No Limitations Description of Symptoms (Recalled from ER Triage Doc. by RN): Pt was at work, lifted an empty pallet heard pop to lower back now with 10/10 pain. denies numbness/tingling down legs, denies incontinence. - History of Present Illness HPI narrative: States that at 11 AM at work she tried to lift a palate, estimated weight 10 pounds, and felt a pop in her back. Now has pain across her mid lumbar area. Denies any numbness or weakness. Denies loss of bowel or bladder control. Denies previous back problems. Pain is increased with movement, walkin
--- NOTE | 2021-04-30 11:58 | XR_ITS ---
PROCEDURE: XR LUMBAR SPINE 2-3V CLINICAL INDICATION: injury COMPARISON: No exams were available for comparison FINDINGS: There is normal curvature and alignment. L1 through L5 appear intact, disc spaces are well maintained throughout. The SI joints are normal. There is a large amount stool in the visualized portion of the colon. There are opaque densities projecting through the stool in the distal transverse colon and also in the mid rectum possibly representing non digested tablets. There are surgical clips right upper quadrant likely from previous cholecystectomy. IMPRESSION: Essentially unremarkable lumbar spine Dictated by: Dr. Nathan Mckinnon MD 04/30/2021 12:42 Dr. Nathan Mckinnon MD in [place] 04/30/2021 12:42
[2021-04-30 13:21] VITALS: BP 126/84; PULSE 73; RESP 16; TEMP 36.6; O2SAT 100
== END 2021-04-30 13:23 | disposition home or self-care (01) ==
PROVIDERS: Emergency Provider Emergency Medicine; PCP Physician Assistant
DX: S39.012A Strain of muscle, fascia and tendon of lower back, initial encounter (principal); X50.0XXA Overexertion from strenuous movement or load, initial encounter; Y92.69 Other specified industrial and construction area as the place of occurrence of the external cause; Y99.0 Civilian activity done for income or pay
CPT/HCPCS: 72100; 99282

== ENCOUNTER → 2021-05-20 10:42 | Outpatient (CLI) | payer MEDICAID, SELFPAY | PROVIDERS: PCP Physician Assistant; Visit Provider Physician Assistant | DX: Z20.822 Contact with and (suspected) exposure to COVID-19 (principal) | CPT/HCPCS: U0003 ==

== ENCOUNTER 2021-06-06 13:00 | Outpatient (RCR) | payer OTHER, SELFPAY ==
--- NOTE | 2021-05-28 14:29 | HMH.PTOPEV ---
PT Outpatient Evaluation Rehab PT Outpatient Evaluation Start: 05/28/21 14:12 Freq: Status: Active Protocol: Document 05/28/21 14:12 VICK (Rec: 05/28/21 14:29 VICK [id number]) Electronically Signed By Neil Wynn, PT 05/28/21 14:12 Outpatient Therapy Subjective History Subjective History Pt reports injury to low back ~3 weeks ago while at work at . Pt reports lifting/ twisting injury caused by attempting to throw pallet. Pt reports right>left sided LBP since injury, and reports RLE s/s from hip to posterior thigh to knee level. Pt reports severe stiffness, pain , and weakness. Chief Complaint Pain,Stiff,Paresthesia, Weakness Symptom Type Ache,Sharp,Dull Symptoms Relieved By Rest/Positioning,Heat Symptoms Aggravated By Standing,Twisting,Walking, Lifting Prior Functional Limitations None Current Functional Limitations Lifting,Housework,Standing, Walking,Bending/Stooping Symptom Description Constant but Variable Level of pain today (0-10) 5 Pain scale - at its best (0-10) 4 Pain scale - at its worst (0-10) 9 Lumbopelvic Eval Posture Thoracic Spine Posture Standing Position Neutral Lumbar Spine Posture Standing Position Increased Lordosis Gait Observation General Gait Pattern Observation Antalgic Gait Palapation tenderness bilateral lumbar spinal tenderness Yes: 3/4 paraspinal tenderness Yes: 4/4 buttock tenderness Yes: 4/4 Lumbar/Sacral Palpation Findings Tenderness,Spasm,Trigger Point ,Muscle Guarding Accessory Movement L-spine Vertebrae Accessory Movements [facility] [place] that Elicit Symptoms L2 bilateral L3 bilateral L4 bilateral L5 bilateral S1 bilateral Range of Motion Lumbar Spine Active Flexion Range of 0-30 Motion (degrees) Lumbar Spine Active Extension Range of 0 Motion (degrees) Left Lumbar Spine Lateral Flexion Active 0-15 Range of Motion (degrees) Right Lumbar Spine Lateral Flexion 0-10 Active Range of Motion (degrees) Lumbar Spine ROM Limitations Soft Tissue Tightness,Pain Manual Muscle Test Right Knee Extension Strength Grade 3+ Fair+ Knee Flexion Strength Grade 3+ Fair+ Hip Flexion Strength Grade 4- Good- Extensor H
== END 2021-06-06 13:05 | disposition home or self-care (01) ==
LOC: PT 13:00
PROVIDERS: PCP Physician Assistant; Visit Provider Physician Assistant
DX: M54.5 Low back pain (principal)
CPT/HCPCS: 97010; 97014; 97035; 97110; 97163; G0283

== ENCOUNTER 2021-07-09 09:03 | Emergency (ER) | payer MEDICAID, SELFPAY ==
[2021-07-09 09:26] VITALS: BP 121/71; PULSE 92; RESP 20; TEMP 36.8; O2SAT 98; BMI 26.4
--- NOTE | 2021-07-09 10:13 | HMH.EDUTC ---
[facility] [place] Clinical Impression: Viral syndrome Otitis media Qualifiers: Otitis media type: suppurative Chronicity: acute Laterality: bilateral Recurrence: non-recurrent Spontaneous tympanic membrane rupture: without spontaneous rupture Qualified Code(s): H66.003 - Acute suppurative otitis media without spontaneous rupture of ear drum, bilateral Disposition: Home, Self-Care Condition on Discharge: Good Instructions: Middle Ear Infection, DI for COVID-19 (Suspected or Confirmed ), Preventing the Spread of Coronavirus Discharge Instructions Additional Instructions: Drink plenty of fluids. Take tylenol or ibuprofen for pain or fever. Take the medications as directed. Follow up with your regular doctor. GO TO THE ER FOR ANY WORSENING SYMPTOMS Quarantine until you know the results of your covid-19 test. If it is positive, the health department should call you and give you further instructions about your length of Quarantine and other things. Notify your school or workplace of your results and follow their instructions regarding return to work/school. Prescriptions: predniSONE [Prednisone 20mg Tab] 20 mg PO BID 4 Days #8 tab Transmission Status: Received by [facility] Benzonatate [Tessalon Perle 100mg Cap] 100 mg PO TIDP PRN #30 cap PRN Reason: Cough Transmission Status: Received by [facility] Azithromycin [Z-Jayy 250mg Tab*] 250 mg PO UD DOSE PK #6 tab Transmission Status: Received by [facility] Referrals: Maddy Sims PA [Primary Care Provider] - Forms: Work/School Release Time of Disposition: 10:27 Medical Decision Making - Medical Records Medical records reviewed: No: I reviewed the patient's medical records. - Carmelo Inquiry Pt receiving controlled substance: No Vital Signs: 07/09/21 09:26 07/09/21 10:39 Temperature 98.2 F 98 F Temperature Source Oral Oral Pulse Rate 74 Pulse Rate [Radial] 92 H Respiratory Rate 20 16 Blood Pressure 132/74 Blood Pressure [Right Arm] 121/71 Blood Pressure Mean [Right Arm] 87 Blood Pressure Position Sitting Blood Pressure Position [Right Arm] Sitting 02 Sat by Pulse Oximetry 98 Oxygen Delivery Method Room Air Room Air - Lab Data Lab results reviewed: Yes: I reviewed the patient's lab results. Lab Results 07/09/21 10:11: Strep Scn Rapid Clinic Negative Orders (Tests/Meds): ORDERS Category Date Time Status Covid-19 Nasal PCR ([facility]) Routine Lab 07/09/21 10:19 Received Strep Screen Confirmation Stat Micro 07/09/21 10:11 Received [facility] [place] HPI - General Stated complaint: sore throat, bilateral ear ache Time Seen by Provider: 07/09/21 10:13 Mode of Arrival: Ambulatory Source of Information: Patient Limitations: No Limitations Description of Symptoms (Recalled from Triage Doc. by RN): to [facility] with c/o sorethroat, earache, bodyaches, headache x 2 days. motrin lastnight HEENT Symptoms (Recalled from RN notes): No Resp Symptoms (Recalled from RN notes): Yes Skin Symptoms (Recalled from RN notes): No MS Symptoms (Recalled from RN notes): No Functional Status (Recalled from RN notes): na - History of Present Illness Provider Complaint: She was running a low grade fever at her job at the [email or web address] this morning, so she was sent home. She came here to get tested for covid-19 and check out. She has been having sore throat, nonproductive cough, nausea, diarrhea and body aches since yesterday. She has been vaccinated against covid-19. Her boyfriend is also sick with simialar symptoms at this time. - Related Data Previous Rx's Medication Instructions Recorded aspirin 81 mg tablet,delayed 81 mg PO DAILY #90 tab 08/10/18 release potassium chloride 20 mEq 20 meq PO DAILY #30 tab 08/31/18 tablet,extended release venlafaxine 75 mg capsule,extended See Rx Instructions .ROUTE 09/03/20 release 24 hr .COMPLEX #90 each ergocalciferol (vitamin D2) 1,250 See Rx Instructions .ROUTE 01/11
[2021-07-09 10:31] LABS: UTC Strep Screen (Rapid) Negative (Negative)
[2021-07-09 10:39] VITALS: BP 132/74; PULSE 74; RESP 16; TEMP 36.6; O2SAT 98
== END 2021-07-09 10:41 | disposition home or self-care (01) ==
PROVIDERS: Emergency Provider Nurse Practitioner Family; PCP Physician Assistant
DX: U07.1 COVID-19 (principal); H66.003 Acute suppurative otitis media without spontaneous rupture of ear drum, bilateral; B34.9 Viral infection, unspecified; F41.8 Other specified anxiety disorders; E78.5 Hyperlipidemia, unspecified; F17.210 Nicotine dependence, cigarettes, uncomplicated
CPT/HCPCS: 87880; 99202; C9803; G0463; U0003; U0005

== ENCOUNTER → 2021-08-01 12:54 | Outpatient (CLI) | payer OTHER, SELFPAY ==
--- NOTE | 2021-08-01 12:54 | MR_ITS ---
PROCEDURE: MR LUMBAR SPINE WO CON CLINICAL INDICATION: low back pain COMPARISON: CR XR LUMBAR SPINE 2-3V from 04/30/2021 TECHNIQUE: Standard multiplanar multiecho sequences are performed without contrast. 3-D MIP and myelographic images are also rendered and reviewed FINDINGS: There is normal alignment. The spinal cord ends at the L1 level. L1-L2: Unremarkable. L2-L3: Unremarkable. L3-L4: Unremarkable. L4-5: Minimal bulging disc with facet and ligamentum hypertrophy with mild bilateral lateral recess narrowing left greater than right and mild left-sided foraminal narrowing. L5-S1: Mild facet and ligamentum hypertrophic change with mild bilateral foraminal narrowing left greater than IMPRESSION: 1. L4-5: Minimal bulging disc with facet and ligamentum hypertrophy with mild bilateral lateral recess narrowing left greater than right and mild left-sided foraminal narrowing. 2. L5-S1: Mild facet and ligamentum hypertrophic change with mild bilateral foraminal narrowing left greater than 3. No extruded herniated disc or canal stenosis Dictated by: Clemente Dixon MD 08/03/2021 07:08 Clemente Dixon MD in [place] 08/03/2021 07:08
== END ==
PROVIDERS: PCP Physician Assistant; Visit Provider Physician Assistant
DX: M54.50 Low back pain, unspecified (principal)
CPT/HCPCS: 72148; 76376

== ENCOUNTER → 2021-08-06 12:12 | Outpatient (CLI) | payer OTHER, SELFPAY ==
--- NOTE | 2021-08-06 12:13 | XR_ITS ---
PROCEDURE: XR CHEST PORTABLE CLINICAL HISTORY: s/p covid, cough, shortness of breath COMPARISON: DX CXR2V XR chest 2V from 11/04/[address] chest wo con from 02/22/2018 CR XR CHEST 2V from 09/22/2020 CR XR CHEST 2V from 12/08/2020 FINDINGS: The cardiomediastinal silhouette and pulmonary vascularity are within normal limits. There is mild hyperinflation lung marin. The lungs are clear without infiltrates, suspicious nodules, or pleural effusions. There is minimal linear stranding in the right upper lobe probably representing postinflammatory scarring. No acute bony abnormalities. IMPRESSION: Mild or borderline COPD, no definite acute chest pathology noted Dictated by: Dr. Nathan Mckinnon MD 08/06/2021 12:41 Dr. Nathan Mckinnon MD in [place] 08/06/2021 12:41
== END ==
PROVIDERS: PCP Physician Assistant; Visit Provider Physician Assistant
DX: Z86.16 Personal history of COVID-19 (principal); R06.02 Shortness of breath; R05.9 Cough, unspecified
CPT/HCPCS: 71045

== ENCOUNTER → 2021-08-14 10:28 | Outpatient (POV) | payer OTHER, SELFPAY ==
[2021-08-14 10:59] VITALS: BP 130/76; PULSE 68; RESP 18; O2SAT 99; BMI 28.8
--- NOTE | 2021-08-14 12:33 | HMH.PMCON ---
Assessment and Plan (1) Degenerative joint disease (DJD) of lumbar spine Status: Chronic Category: Medical Code(s): M47.816 - Spondylosis without myelopathy or radiculopathy, lumbar region (2) Facet arthropathy, lumbar Status: Chronic Category: Medical Code(s): M47.816 - Spondylosis without myelopathy or radiculopathy, lumbar region (3) Lumbar spondylosis Status: Chronic Category: Medical Code(s): M47.816 - Spondylosis without myelopathy or radiculopathy, lumbar region - Assessment and plan all Dx Assessment and Plan for all problems:: Patient and I did review her MRI today. She does have facet arthropathy and spondylosis noted at the L4-L5 and L5-S1 area per her MRI report. Patient does have a positive Kemps test. She is tender to palpation to her low back area. She has tried physical therapy but unable to tolerate due to significant pain. She attempts home stretching but is modified due to pain. She does take anti-inflammatories. We will schedule the patient for medial branch block/facet joint injections at L4-L5 L5-S1 bilaterally. We will plan to see the patient back after her medial branch block/facet joint injections to see if she gets relief. If the patient does undergo 2 rounds of medial branch block/facet joint injections with greater than 70 to 80% relief, we can proceed with RFA. We did discuss this today. If patient does not get relief she may be a candidate for an epidural steroid injection. Patient's MRI does report her to also have a disc bulge at the L4-L5 area. Patient is not diabetic and is not on any anticoagulation therapy. Possible side effects of corticosteroids have been discussed with the patient. Risks and benefits of the procedure have been explained to the patient. Patient would like to proceed with the procedure. Patient has been instructed to contact the clinic with any concerns before the next appointment. Dr. Briones has reviewed this note and agrees with this plan of care. This note was dictated using voice recognition software and make contain errors or omissions. HPI - Data of Consult Patient: new to practice Consult date: 08/14/21 Requesting Physician: Trinh Jaed APRN - Consult Narrative Reason for consult: Low back pain History of present illness: Ms. Blevins is a 46 year old female who presents today for consultation for 4 months of low back pain. Patient says while working with a pallet at work she bent forward and did feel a popping sensation. Patient says that she experienced severe pain that progressively worsened. She does not have any radicular pain into bilateral lower extremities. She is experiencing pain in bilateral groin. Pain is made worse with bending forward as well as with extension and twisting at waist. She does rate her pain a 7 or an 8 out of 10. She has tried ibuprofen without significant relief. She has also tried physical therapy but unable to tolerate the therapy without significant pain. She continues with a limited home stretching program. She reports the pain is throbbing sensation across the low back area. The pain is worse on the right side. Ice and heat therapy have been provided minimal relief. Patient is not on anticoagulation therapy and is not diabetic. She does have imaging of her lumbar spine. CC: Trinh Jade APRN [facility] History I have reviewed the patient's past medical history: Yes Medical History: Reports:: Anxiety, Depression, Gastroesophageal Reflux Disease(GERD), Hyperlipidemia, Palpitations Denies:: Cancer, Diabetes Mellitus Type 2, Internal Pacemaker, MRSA, Seizures *Have you ever received a pneumonia vaccine?: No *Have you received a flu vaccine this season?: Yes Other Surgeries: Yes: Cardiac Catheterization, Cholecystectomy, (x2), Dilation and Curettage, Diagnostic Lap, Hysterectomy-Total. No: Pacemaker Amputation: No Fractures: No - *Social History Smoking Status: Current every day smoker [place]
== END ==
PROVIDERS: Visit Provider Clinical Nurse Specialist Family Health
DX: M47.816 Spondylosis without myelopathy or radiculopathy, lumbar region (principal); M51.36 Other intervertebral disc degeneration, lumbar region; M54.06 Panniculitis affecting regions of neck and back, lumbar region
CPT/HCPCS: 99202; G0463

== ENCOUNTER 2021-08-29 13:24 | Day surgery (SDC) | payer MEDICAID, SELFPAY ==
[2021-08-29 13:32] VITALS: BP 130/76; PULSE 83; RESP 18; TEMP 36.7; O2SAT 100; BMI 27.8
[2021-08-29 14:12] VITALS: BP 136/88; PULSE 76; RESP 18; O2SAT 99
[2021-08-29 14:13] VITALS: PULSE 78; RESP 18; O2SAT 99
--- NOTE | 2021-08-29 14:16 | HMH.PMPROC ---
- Procedure Date: 08/29/21 Time: 14:16 Anesthesiologist:: Angelic Leong MD Complications:: None Pre-procedure Diagnosis:: Disc disease of the lumbar spine, lumbar facet arthropathy, lumbar spondylosis Post-procedure Diagnosis:: Same Indications for Procedure:: Patient is a very pleasant 46-year-old white female who presents today with chronic low back pain related to the above diagnosis. She has tried and failed conservative treatment including oral pain medications and home stretching program for greater than 6 weeks. The pain is worse with bending and twisting activities and is worse on the right side. The plan for today is for the patient to undergo diagnostic lumbar facet joint/medial branch block injections at L4-L5 and L5-S1 bilaterally #1 Procedure Details:: Lumbar medial branch block Informed consent was obtained and the risks and benefits of the procedure was explained to the patient. The back was prepped using ChloraPrep. The skin and subcutaneous tissues were anesthetized using lidocaine. I placed 22-gauge spinal needles into the facet joint/medial branches of L4-L5 and L5-S1 bilaterally. Needle placement was confirmed with dye. After this we injected 3 mL bupivacaine 0.25% and Depo-Medrol 13 mg into each facet joint/medial branch of L4- L5 and L5-S1 bilaterally. We used a total of 80 mg Depo-Medrol for all 2 levels bilaterally. The patient tolerated the procedure well with no complications. Plan and Disposition:: We will follow-up with patient in 2 weeks. Will reevaluate pain symptoms at that time.
[2021-08-29 14:27] VITALS: BP 140/87; PULSE 80; RESP 20; O2SAT 100
== END 2021-08-29 14:28 | disposition home or self-care (01) ==
LOC: SC.PAINP 13:25
PROVIDERS: PCP Physician Assistant; Visit Provider Anesthesiology Pain Medicine
DX: M51.36 Other intervertebral disc degeneration, lumbar region (principal); M54.06 Panniculitis affecting regions of neck and back, lumbar region; M47.816 Spondylosis without myelopathy or radiculopathy, lumbar region; I10 Essential (primary) hypertension; K21.9 Gastro-esophageal reflux disease without esophagitis; F32.A Depression, unspecified; F41.9 Anxiety disorder, unspecified; Z72.0 Tobacco use; E78.5 Hyperlipidemia, unspecified; G43.909 Migraine, unspecified, not intractable, without status migrainosus; Z88.1 Allergy status to other antibiotic agents
CPT/HCPCS: 64493; 64494; J1040

== ENCOUNTER → 2021-09-18 14:23 | Outpatient (POV) | payer MEDICAID, SELFPAY ==
[2021-09-18 14:56] VITALS: BP 129/75; PULSE 88; RESP 18; O2SAT 99; BMI 27.8
--- NOTE | 2021-09-18 15:07 | HMH.PAINSOAP ---
[facility] Pain Management SOAP Note Subjective:: Patient is a pleasant 56-year-old female who comes in for a follow-up after a lumbar medial branch block. Patient is currently being treated for degenerative disc disease of the lumbar spine, lumbar facet arthropathy, lumbar spondylosis. After the procedure, patient says that it is helped her tremendously and had 80% relief for about 2 days. Patient rates her pain today as 6 out of 10. Patient denies any side effects from this procedure. Patient is currently not taking any oral medications right now. Patient has tried and failed oral medication and home stretching program for greater than 6 weeks. Her Laisha number is [phone] with an active morphine equivalent of 0. Drug screens have been reviewed and appropriate Review of Systems General: No recent weight changes, no fever, no sleep disturbances Respiratory: No cough, no shortness of air, no recurring pulmonary infections Cardiovascular/peripheral vascular: No chest pain, no palpitations, no edema, no shortness of breath Gastrointestinal: No new onset incontinence, normal bowel movements reported Genitourinary: No new onset incontinence Musculoskeletal: Low back pain Psychiatric: [Normal mood/affect] Neurological: [Denies weakness in extremities], [denies balance issues] Objective:: Physical exam General: Alert and oriented x3, no acute distress, pleasant and cooperative Lungs: Respirations even and unlabored, symmetrical chest expansion Eyes: PERRL Musculoskeletal: Flexion and extension of lumbar [spine] somewhat guarded secondary to pain, [antalgic gait noted] Neurological: Speech clear, no gross sensory deficit Assessment:: Degenerative disc disease of the lumbar spine Lumbar facet arthropathy Lumbar spondylosis Plan:: Patient has tried and failed oral medication at home exercises for greater than 6 weeks. Patient had about 80% relief after the medial branch block. We we will schedule the patient for an RFA at the level of L4-L5 and L5-S1 bilaterally. Patient is currently not on any blood thinners risks and benefits of the procedure have been explained to the patient. Patient would like to proceed with the procedure. If for some reason the insurance denies this procedure, we will proceed with another lumbar medial branch block. Risks and benefits of the medication have been explained in detail to the patient. The patient does understand the risk of dependence on the medication when given over a prolonged period. Patient has been advised of risks of oversedation with the prescribed medication. Narcan has been offered to the paitent in the event of oversedation. Patient has been advised that a family member should also be educated regarding administration of Narcan. The patient has been advised to consult with his/her primary care provider and pharmacist regarding drug-drug interaction of medications currently prescribed. Patient has been prescribed a controlled substance after being counseled on the medication, medication safety, and possible side effects. LAISHA report has been obtained and reviewed prior to prescription and found to be appropriate. Opioid contract was reviewed and signed by the patient, and that they have agreed to all of the terms set forth by our compliance program. Patient has been instructed to contact the clinic with any concerns before the next appointment. Dr. Briones has reviewed this note and agrees with this plan of care. This note was dictated using voice recognition software and make contain errors or omissions. [facility] History Medical History: Reports:: Anxiety, Depression, Gastroesophageal Reflux Disease(GERD), Hyperlipidemia, Hypertension, Palpitations Denies:: Cancer, Diabetes Mellitus Type 1, Diabetes Mellitus Type 2, Internal Pacemaker, MRSA, Seizures *Have you ever received a pneumonia vaccine?: No *Have you received a flu vaccine this season?: Yes Other Surgeries:
== END ==
PROVIDERS: Visit Provider Clinical Nurse Specialist Family Health
DX: M51.36 Other intervertebral disc degeneration, lumbar region (principal); M47.816 Spondylosis without myelopathy or radiculopathy, lumbar region; M54.06 Panniculitis affecting regions of neck and back, lumbar region
CPT/HCPCS: 99212; G0463

== ENCOUNTER 2021-10-15 11:23 | Day surgery (SDC) | payer MEDICAID, SELFPAY ==
[2021-10-15 11:32] VITALS: BP 124/80; PULSE 93; RESP 20; TEMP 36.4; O2SAT 97; BMI 27.8
[2021-10-15 11:51] VITALS: BP 104/73; PULSE 81; RESP 18; O2SAT 97
[2021-10-15 11:52] VITALS: BP 120/68; PULSE 89; RESP 18; O2SAT 97
--- NOTE | 2021-10-15 12:07 | P.PCN_ITS ---
- Procedure Date: 10/15/21 Time: 12:08 Anesthesiologist:: Lamine Briones MD Complications:: None Pre-procedure Diagnosis:: Degenerative disc disease of lumbar spine with lumbar spondylosis and lumbar facet arthropathy Post-procedure Diagnosis:: Same Indications for Procedure:: This patient is a pleasant 46-year-old white female who we are treating for low back pain with lumbar facet arthropathy and lumbar spondylosis. She is done well with previous medial branch blocks. She got 80% relief for several weeks. Her pain is now returned. She presents for RF ablation to the facet joint/ medial branches of L4-5 and L5-S1 today. Procedure Details:: Lumbar RFA Lumbar RFA informed consent was obtained and the risk and benefits of the procedure was explained to the patient. Patient was placed prone on the procedure table. The patient was prepped and draped in sterile fashion. C-arm fluoroscopy was used to view the lumbar spine. The skin and subcutaneous tissues were anesthetized using lidocaine. I placed 20-gauge RF needles into the facet joints of L4-5 and L5-S1 bilaterally. We underwent sensory stimulation. There is good sensory stimulation at 0.8 V. We underwent motor stimulation. There is no motor stimulation at 2 V. We then anesthetized these levels with lidocaine and Depo- Medrol. I used a total of 80 mg Depo-Medrol for both levels. I then burned both levels of L4-5 and L5-S1 facet joint/medial branches bilaterally for 4 minutes at 80 ?C. Patient tolerated the procedure well with no complication. Plan and Disposition:: We will follow-up with her in 2 weeks. Will reevaluate symptoms at that time.
[2021-10-15 12:17] VITALS: BP 125/73; PULSE 84; RESP 18; O2SAT 98
== END 2021-10-15 12:08 | disposition home or self-care (01) ==
LOC: SC.PAINP 11:23
PROVIDERS: PCP Physician Assistant; Visit Provider Anesthesiology
DX: M51.36 Other intervertebral disc degeneration, lumbar region (principal); M47.816 Spondylosis without myelopathy or radiculopathy, lumbar region; M54.06 Panniculitis affecting regions of neck and back, lumbar region; E78.5 Hyperlipidemia, unspecified; I10 Essential (primary) hypertension; K21.9 Gastro-esophageal reflux disease without esophagitis; F41.9 Anxiety disorder, unspecified; F32.A Depression, unspecified; Z72.0 Tobacco use; J44.9 Chronic obstructive pulmonary disease, unspecified; M19.90 Unspecified osteoarthritis, unspecified site; Z90.49 Acquired absence of other specified parts of digestive tract
CPT/HCPCS: 64635; 64636

== ENCOUNTER → 2021-11-11 09:09 | Outpatient (POV) | payer OTHER, SELFPAY ==
[2021-11-11 09:23] VITALS: BP 136/72; PULSE 78; RESP 18; O2SAT 97; BMI 27.2
--- NOTE | 2021-11-11 09:48 | P.CONS_ITS ---
[facility] Pain Management SOAP Note Subjective:: Patient is a 46-year-old white female who presents today for follow-up. She recently had an RFA bilaterally L4-L5 L5-S1. She got 80% relief and is continuing to get relief. Rates her pain a 3 out of 10 today. Review of Systems General: No recent weight changes, no fever, no sleep disturbances Respiratory: No cough, no shortness of air, no recurring pulmonary infections Cardiovascular/peripheral vascular: No chest pain, no palpitations, no edema, no shortness of breath Gastrointestinal: No new onset incontinence, normal bowel movements reported Genitourinary: No new onset incontinence Musculoskeletal: Minimal pain at this time Psychiatric: [Normal mood/affect] Neurological: [Denies weakness in extremities], [denies balance issues] Objective:: Physical exam General: Alert and oriented x3, no acute distress, pleasant and cooperative Lungs: Respirations even and unlabored, symmetrical chest expansion Eyes: PERRL Musculoskeletal: Flexion and extension of lumbar [spine] somewhat guarded secondary to pain, [antalgic gait noted] Neurological: Speech clear, no gross sensory deficit Assessment:: Degenerative disc disease lumbar spine with lumbar facet arthropathy and lumbar spondylosis Plan:: Patient is doing well at this time. We will plan to follow-up with her in 3 months for evaluation. She has been instructed to contact clinic she has any concerns for next 1 month. ORT is low risk. Patient has signed and completed a pain management agreement/contract today. [facility] History I have reviewed the patient's past medical history: Yes Medical History: Reports:: Anxiety, Depression, Gastroesophageal Reflux Disease(GERD), Hyperlipidemia, Hypertension, Palpitations Denies:: Cancer, Diabetes Mellitus Type 1, Diabetes Mellitus Type 2, Internal Pacemaker, MRSA, Seizures *Have you ever received a pneumonia vaccine?: No *Have you received a flu vaccine this season?: Yes Other Medical History: Reports: Arthritis Other Surgeries: Yes: Cardiac Catheterization, Cholecystectomy, (x2), Dilation and Curettage, Diagnostic Lap, Hysterectomy-Total. No: Pacemaker Amputation: No Fractures: No - *Social History Smoking Status: Current every day smoker Tobacco Type: cigarettes # Packs/Day (cigarettes): 1 #Yrs smoked (if former smoker): 20 Alcohol Intake: never Alcohol Intake Frequency:: other Substance Use Type: denies use *Occupational Status:: unemployed Housing: house Household Members: none *Travel in the last 8 weeks: None - Psychiatric History Pschychiatric History:: Reports:: Anxiety, Depression Family Hx:: Other
== END ==
PROVIDERS: Visit Provider Clinical Nurse Specialist Family Health
DX: M51.36 Other intervertebral disc degeneration, lumbar region (principal); M47.816 Spondylosis without myelopathy or radiculopathy, lumbar region; M54.06 Panniculitis affecting regions of neck and back, lumbar region
CPT/HCPCS: 99212; G0463

== ENCOUNTER 2022-01-09 15:13 | Emergency (ER) | payer MEDICAID, SELFPAY ==
[2022-01-09 15:20] VITALS: BP 118/77; PULSE 83; RESP 18; TEMP 36.6; O2SAT 98; BMI 27.0
[2022-01-09 15:39] LABS: UTC Influenza A Antigen Negative (Negative); UTC Influenza B Antigen Negative (Negative)
[2022-01-09 15:44] LABS: Strep Scrn Group A (Rapid) Negative (Negative)
--- NOTE | 2022-01-09 15:47 | HMH.EDUTC ---
[facility] [place] Disposition Clinical Impression: URI (upper respiratory infection) Qualifiers: URI type: unspecified URI Qualified Code(s): J06.9 - Acute upper respiratory infection, unspecified Disposition: Home, Self-Care Condition on Discharge: Good Instructions: Sore Throat, DI for Sinusitis, Middle Ear Infection Additional Instructions: *Monitor Temp, Over the counter Motrin or Tylenol as directed/as needed Tylenol every 4 hours and Motrin every 6 hours (as long as your family doctor has told you that you can take it) for fever or pain. and straight to ER if unable to lower temp less than 101.0 after medication given *Warm salt water gargles may help to soothe the throat *Throat Lozenges *Warm fluids like tea with honey may help to soothe the throat *Sleep elevated *Humidifier/Vaporizer *Flonase 2 sprays in each nostril daily but be aware that it may take 2-3 days before you notice improvement Take medication as prescribed Return if needed Follow up IMMEDIATELY for new or worsening symptoms or no Noticeable improvement over the next 48-72 hours. 911 for difficulty breathing or swallowing Prescriptions: predniSONE [Deltasone 10mg tablet] 10 mg PO BID #10 tab Transmission Status: Pending to [facility] Azithromycin [Z-Jayy 250mg Tab] 250 mg PO DIRECTED #6 tab [facility]: [id number] Referrals: Maddy Sims PA [Primary Care Provider] - As needed Forms: Work/School Release Medical Decision Making - Carmelo Inquiry Pt receiving controlled substance: No Carmelo was queried for this patient: No Vital Signs: 01/09/22 15:20 Temperature 97.8 F Temperature Source Oral Pulse Rate [Right Brachial] 83 Respiratory Rate 18 Blood Pressure [Right Arm] 118/77 Blood Pressure Mean [Right Arm] 90 Blood Pressure Source [Right Arm] Automatic Cuff Blood Pressure Position [Right Arm] Sitting 02 Sat by Pulse Oximetry 98 Oxygen Delivery Method Room Air - Lab Data Lab results reviewed: Yes: I reviewed the patient's lab results. Lab Results 01/09/22 15:27: Group A Strep Rapid Negative 01/09/22 15:29: Influenza Type A Ag Negative, Influenza Type B Ag Negative Orders (Tests/Meds): ORDERS Category Date Time Status Strep Screen Confirmation Stat Micro 01/09/22 15:27 Received Medical Decision Narrative: Patient states that she has taken both azithromycin and Prednisone in the past without complications or reactions [facility] [place] HPI - General Stated complaint: possible ear infection, congestion, sore throat Time Seen by Provider: 01/09/22 15:47 Mode of Arrival: Ambulatory Source of Information: Patient Limitations: No Limitations Description of Symptoms (Recalled from Triage Doc. by RN): PATIENT C/O SORE THROAT, HEAD CONGESTION AND LEFT EAR PAIN SINCE YESTERDAY HEENT Symptoms (Recalled from RN notes): Yes Resp Symptoms (Recalled from RN notes): No Skin Symptoms (Recalled from RN notes): No MS Symptoms (Recalled from RN notes): No Functional Status (Recalled from RN notes): WNL - History of Present Illness Provider Complaint: Patient states that she has been having pain in her left ear, sinus congestion and pressure and sore throat that has got worse since yesterday States that she feels pressure behind her eyes and into her left ear States that she wasnt sure if she may have a sinus infection or ear infection - Related Data Home Medications Medication Instructions Recorded Confirmed Albuterol Sulfate [Proventil HFA] 2 puff INHALATION Q6H 08/29/21 12/03/21 Aspirin [Low Dose Aspirin EC] 81 mg PO DAILY 08/29/21 12/03/21 Budesonide/Formoterol Fumarate 2 puff INHALATION BID 08/29/21 12/03/21 [Budesonide-Formoterol 160-4.5] Cholecalciferol (Vitamin D3) See Rx Instructions .ROUTE .COMPLEX 08/29/21 12/03/21 [Vitamin D3 1,000 Unit Cap] Ergocalciferol (Vitamin D2) See Rx Instructions .ROUTE .COMPLEX 08/29/21 12/03/21 [Drisdol] Loratadine [Allergy Relief] 10 mg
[2022-01-09 15:54] VITALS: BP 118/77; PULSE 83; RESP 18; TEMP 36.6; O2SAT 98
== END 2022-01-09 16:06 | disposition home or self-care (01) ==
PROVIDERS: Emergency Provider Nurse Practitioner; PCP Physician Assistant
DX: J06.9 Acute upper respiratory infection, unspecified (principal); F41.8 Other specified anxiety disorders; K21.9 Gastro-esophageal reflux disease without esophagitis; I10 Essential (primary) hypertension; E78.5 Hyperlipidemia, unspecified; F17.210 Nicotine dependence, cigarettes, uncomplicated; Z79.899 Other long term (current) drug therapy
CPT/HCPCS: 87430; 87804; 99212; G0463

== ENCOUNTER → 2022-02-09 09:36 | Outpatient (POV) | payer MEDICAID, SELFPAY ==
--- NOTE | 2022-02-09 10:06 | P.CONS_ITS ---
[facility] Pain Management SOAP Note Subjective:: Patient is a very pleasant 46-year-old white female that returns our clinic today for follow-up regarding lumbar back pain that she describes as constant, dull, aching. Patient is status post lumbar ablation bilaterally L4-5, L5-S1 back in October. Patient reports 1 to 2 months of relief in terms of her lumbar back pain. Today she is complaining of continued low back pain. Upon examination her pain is not in the midline. Her pain is rather intense over the bilateral SI joints. The right greater than the left. She states pain increases when sitting for any length of time. Standing for any length of time. Walking for any length increases the pain. The transition from sitting to standing is extremely painful. Specifically, on the right side. However she does have some left side pain as well. She has extreme point tenderness over the bilateral SI joints. I discussed in detail with the patient regarding SI joint injections. She wishes to proceed. Objective:: Patient is awake alert oriented x3. No acute distress. Flexion-extension lumbar spine somewhat guarded secondary to pain. Deep tendon reflexes upper and lower extremities normal. Motor strength upper and lower extremities normal. There is no gross sensory deficit. Gait is normal. Assessment:: Degenerative disc disease lumbar spine. Lumbar facet arthropathy. Bilateral sacroiliitis. Plan:: I think the patient's pain is coming from the SI joints at this time. She has extreme point tenderness over each SI joint upon examination. I discussed in detail with the patient regarding bilateral SI blocks. She wishes to proceed. [facility] History Medical History: Reports:: Anxiety, Depression, Gastroesophageal Reflux Disease(GERD), Hyperlipidemia, Hypertension, Palpitations Denies:: Cancer, Diabetes Mellitus Type 1, Diabetes Mellitus Type 2, Internal Pacemaker, MRSA, Seizures *Have you ever received a pneumonia vaccine?: No *Have you received a flu vaccine this season?: Yes Other Medical History: Reports: Arthritis Other Surgeries: Yes: Cardiac Catheterization, Cholecystectomy, (x2), Dilation and Curettage, Diagnostic Lap, Hysterectomy-Total. No: Pacemaker Amputation: No Fractures: No - *Social History Smoking Status: Current every day smoker Tobacco Type: cigarettes # Packs/Day (cigarettes): 1 #Yrs smoked (if former smoker): 20 Alcohol Intake: never Alcohol Intake Frequency:: other Substance Use Type: denies use *Occupational Status:: unemployed Housing: house Household Members: none *Travel in the last 8 weeks: Inside the [place] - Psychiatric History Pschychiatric History:: Reports:: Anxiety, Depression Family Hx:: Other
[2022-02-09 10:32] VITALS: BP 109/67; PULSE 89; RESP 18; TEMP 36.7; O2SAT 100; BMI 27.2
== END ==
PROVIDERS: Visit Provider Nurse Anesthetist, Certified Registered
DX: M51.36 Other intervertebral disc degeneration, lumbar region (principal); M47.816 Spondylosis without myelopathy or radiculopathy, lumbar region; M46.1 Sacroiliitis, not elsewhere classified
CPT/HCPCS: 99212; G0463

== ENCOUNTER 2022-02-16 11:03 | Emergency (ER) | payer OTHER, MEDICAID, SELFPAY ==
[2022-02-16 11:10] VITALS: BP 116/86; PULSE 75; RESP 18; TEMP 36.6; O2SAT 99; BMI 20.5
--- NOTE | 2022-02-16 11:27 | HMH.EDUTC ---
[facility] [place] Disposition Clinical Impression: Abdominal pain Qualifiers: Abdominal location: unspecified location Qualified Code(s): R10.9 - Unspecified abdominal pain Disposition: Still a Patient Condition on Discharge: Fair Referrals: Maddy Sims PA [Primary Care Provider] - Medical Decision Making - Carmelo Inquiry Pt receiving controlled substance: No Carmelo was queried for this patient: No Vital Signs: 02/16/22 11:10 Temperature 98 F Temperature Source Oral Pulse Rate [Right Brachial] 75 Respiratory Rate 18 Blood Pressure [Right Arm] 116/86 Blood Pressure Mean [Right Arm] 96 Blood Pressure Source [Right Arm] Automatic Cuff Blood Pressure Position [Right Arm] Sitting 02 Sat by Pulse Oximetry 99 Oxygen Delivery Method Room Air Medical Decision Narrative: Patient complaining of severe lower abdominal pain with spotting after heavy lifting yesterday at work and hx of hysterectomy Patient holding abdomen and advised she could not sit up straight and pain worse with movement or walking Due to symptoms and complaints recommended transfer to the ED for further work up and evaluation and patient agreed Called ED spoke with Janae RN and patient was moved to room 10 [facility] [place] HPI - General Stated complaint: WC 5/8 abd pain Time Seen by Provider: 02/16/22 11:27 Mode of Arrival: Ambulatory Source of Information: Patient Limitations: No Limitations Description of Symptoms (Recalled from Triage Doc. 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 SHE REPORTS SPOTTING BLOOD FROM GENITAL AREA LAST NIGHT, ALTHOUGH SHE HAS HAD A TOTAL HYSTERECTOMY. SHE IS CURRENTLY GUARDING THE AREA AND RATES HER PAIN 9/10. HEENT Symptoms (Recalled from RN notes): No Resp Symptoms (Recalled from RN notes): No Skin Symptoms (Recalled from RN notes): No MS Symptoms (Recalled from RN notes): No Functional Status (Recalled from RN notes): WNL - History of Present Illness Provider Complaint: Patient states that she was straining hard yesterday moving a large TV at work State that she started having pain in her lower abdomen and pelvic area immediatly after States that last night she started having some spotting so she elevated her legs and she had a hysterectomy in the early States that since then she has continued to have pain in her lower abdomen and pelvic area and unable to sit or stand up straight Rates pain 9/10 - Related Data Home Medications Medication Instructions Recorded Confirmed Albuterol Sulfate [Proventil HFA] 2 puff INHALATION Q6H 08/29/21 02/09/22 Aspirin [Low Dose Aspirin EC] 81 mg PO DAILY 08/29/21 02/09/22 Budesonide/Formoterol Fumarate 2 puff INHALATION BID 08/29/21 02/09/22 [Budesonide-Formoterol 160-4.5] Cholecalciferol (Vitamin D3) See Rx Instructions .ROUTE .COMPLEX 08/29/21 02/09/22 [Vitamin D3 1,000 Unit Cap] Ergocalciferol (Vitamin D2) See Rx Instructions .ROUTE .COMPLEX 08/29/21 02/09/22 [Drisdol] Loratadine [Allergy Relief] 10 mg PO DAILY 08/29/21 02/09/22 Potassium Chloride 20 meq PO DAILY 08/29/21 02/09/22 Quetiapine Fumarate See Rx Instructions .ROUTE .COMPLEX 10/15/21 02/09/22 Atorvastatin Calcium [Lipitor 20mg See Rx Instructions .ROUTE .COMPLEX 02/09/22 02/09/22 Tab] Azithromycin [Z-Jayy 250mg Tab] 250 mg PO DIRECTED 02/09/22 02/09/22 Buspirone HCl [Buspar 10mg See Rx Instructions .ROUTE .COMPLEX 02/09/22 02/09/22 tablet] Cariprazine HCl [Vraylar] 4.5 mg PO DAILY 02/09/22 02/09/22 Celecoxib See Rx Instructions .ROUTE .COMPLEX 02/09/22 02/09/22 Doxycycline Hyclate [Vibra-Tab 100 mg PO BID 02/09/22 02/09/22 100mg tablet] SUMAtriptan succinate [Sumatriptan See Rx Instructions .ROUTE .COMPLEX 02/09/22 02/09/22 Succinate] Topiramate See Rx Instructions .ROUTE .COMPLEX 02/09/22 02/09/22 Venlafaxine HCl [Effexor XR 150mg] 150 mg PO DAILY 02/09/22 02/09/22 gemfibroziL [Gemfibrozi
[2022-02-16 11:30] VITALS: BP 141/91; PULSE 78; RESP 16; TEMP 36.8; O2SAT 99; BMI 27.2
--- NOTE | 2022-02-16 11:46 | HMH.EDGENADL ---
ED Disposition Clinical Impression: Abdominal wall strain Abdominal pain Qualifiers: Abdominal location: unspecified location Qualified Code(s): R10.9 - Unspecified abdominal pain Disposition: Home, Self-Care Condition on Discharge: Fair Instructions: DI for Abdominal Muscle Strain Additional Instructions: Follow-up with your primary care doctor in 3 days if you do not feel any better. Return to the emergency department if you feel worse in any way. Do not lift anything over 5 pounds for the next 3 days. Your work-up in the emergency department today did not find any acute abnormalities. It appears that you are suffering from a muscle strain of your abdominal wall. Prescriptions: Cyclobenzaprine HCl [Flexeril 10mg tablet] 10 mg PO Q8HP PRN 30 Days #12 tab PRN Reason: Muscle Spasm Transmission Status: Pending to [id number] Referrals: Maddy Sims PA [Primary Care Provider] - - Critical Care Critical Care Time: No Attestation: On 02/16/22, the high probability of a clinically significant, sudden or life threatening deterioration of the following system(s) required my full and direct attention, intervention and personal management. The time I documented below is in addition to time spent performing reported procedures but includes the following listed in this critical care notation. Medical Decision Making - Medical Records Medical records reviewed: Yes: I reviewed the patient's medical records. - Carmelo Inquiry Pt receiving controlled substance: No Vital Signs: 02/16/22 11:10 02/16/22 11:30 02/16/22 13:16 Temperature 98 F 98.3 F Temperature Source Oral Oral Pulse Rate 79 Pulse Rate [Right Brachial] 75 78 Respiratory Rate 18 16 16 Blood Pressure 115/77 Blood Pressure [Right Arm] 116/86 141/91 H Blood Pressure Mean 85 Blood Pressure Mean [Right Arm] 96 107 Blood Pressure Source [Right Arm] Automatic Cuff Automatic Cuff Blood Pressure Position [Right Arm] Sitting Sitting 02 Sat by Pulse Oximetry 99 99 100 Oxygen Delivery Method Room Air Room Air 02/16/22 13:35 02/16/22 14:27 Temperature Temperature Source Pulse Rate 78 Pulse Rate [Right Brachial] 87 Respiratory Rate 16 16 Blood Pressure 125/79 Blood Pressure [Right Arm] 120/68 Blood Pressure Mean Blood Pressure Mean [Right Arm] 85 Blood Pressure Source [Right Arm] Automatic Cuff Blood Pressure Position [Right Arm] Sitting 02 Sat by Pulse Oximetry 97 100 Oxygen Delivery Method Room Air - Lab Data Lab Results 02/16/22 11:30: Urine Color Yellow, Urine Appearance Clear, Urine pH 6.0, Ur Specific [place] <= 1.005, Urine Protein Negative, Urine Glucose (UA) Negative, Urine Ketones Negative, Urine Blood Negative, Urine Nitrate Negative, Urine Bilirubin Negative, Urine Urobilinogen 0.2, Ur Leukocyte Esterase Negative, Urine RBC None, Urine WBC None, Ur Squamous Epith Cells None, Urine Bacteria Trace 02/16/22 11:40: WBC 10.3, RBC 4.18 L, Hgb 14.2, Hct 43.7, MCV 104.5 H, MCH 33.9 H, MCHC 32.4, RDW 12.8, Plt Count 293, MPV 9.4, Neut % (Auto) 61.0, Lymph % (Auto) 26.5, [place] % (Auto) 7.9, Eos % (Auto) 3.0, Baso % (Auto) 1.5, Neut # (Auto) 6.3, Lymph # (Auto) 2.7, [place] # (Auto) 0.8, Eos # (Auto) 0.3, Baso # (Auto) 0.2 02/16/22 11:40: Sodium 141, Potassium 3.7, Chloride 111 H, Carbon Dioxide 23, Anion Gap 10.7, BUN 9, Creatinine 0.70, Estimated Creat Clear 96, Estimated GFR 90, Est GFR ( Amer) 109, Glucose 96, Calcium 9.5, Total Bilirubin 0.5, AST 28, ALT 21, Alkaline Phosphatase 95, Total Protein 7.3, Albumin 4.3, Globulin 3.0, Albumin/Globulin Ratio 1.4, Lipase 63 Result diagrams: 02/16/22 11:40 02/16/22 11:40 Orders (Tests/Meds): ED MEDICATIONS Discontinued Medications Generic Name Dose Route Start Last Admin Trade Name Freq PRN Reason Stop Dose Admin Hydromorphone HCl 1 mg 02/16/22 13:15 02/16/22 14:12 Hydromorphone 2mg/Ml Syringe IV 02/16/22 13:16 1 mg ONCE ONE Administ
[2022-02-16 11:50] LABS: Microscopic, Urine URINE MICROSCOPIC (MICROSCOPIC)
[2022-02-16 12:01] LABS: Basophils # 0.2 K/mm3 (0-0.2); Basophils % 1.5 % (0.1-2.0); Chloride 111 mmol/L (98-107); Eosinophils # 0.3 K/mm3 (0.0-0.4); Hematocrit 43.7 % (37.0-47.0); Hemoglobin 14.2 g/dL (12.2-16.2); Lymphocytes # 2.7 K/mm3 (0.7-4.5); Lymphocytes % 26.5 % (10-50); Mean Corpuscular HGB Conc 32.4 g/dL (31.8-35.4); Mean Corpuscular Hemoglobin 33.9 pg (27.0-31.2); Mean Corpuscular Volume 104.5 fl (81-99); Mean Platelet Volume 9.4 fl (7.4-10.4); Monocytes # 0.8 K/mm3 (0.1-1.0); Monocytes % 7.9 % (1.7-9.3); Neutrophils # 6.3 K/mm3 (1.8-7.8); Platelet Count 293 K/mm3 (142-424); Potassium 3.7 mmoL/L (3.5-5.1); Red Blood Count 4.18 M/mm3 (4.20-5.40); Red Cell Distribution Width 12.8 % (11.5-17.5); Sodium 141 mmol/L (136-145); White Blood Count 10.3 K/mm3 (4.8-10.8)
[2022-02-16 12:02] LABS: Appearance,Urine CLEAR (Clear); Bilirubin,Urine Negative (Negative); Blood, Urine Negative (Negative); Color,Urine YELLOW (Yellow); Glucose,Urine (UA) Negative (Negative); Ketones,Urine Negative (Negative); Leukocyte Esterase,Urine Negative (Negative); Nitrate,Urine Negative (Negative); Protein,Urine Negative (Negative); Specific Gravity, Urine <= 1.005 (1.005-1.030); Urobilinogen,Urine 0.2 EU/dl (0.2)
[2022-02-16 12:04] LABS: Bacteria,Urine Trace /lpf
[2022-02-16 12:04] LABS: Alanine Aminotransferase 21 U/L (12-78); Albumin Level 4.3 g/dl (3.5-5.0); Albumin/Globulin Ratio 1.4 (1.1-1.8); Alkaline Phosphatase 95 U/L (38-126); Anion Gap 10.7 mEq/L (5-15); Aspartate Amino Transferase 28 U/L (14-36); Bilirubin,Total 0.5 mg/dl (0.2-1.3); Blood Urea Nitrogen 9 mg/dl (7-17); Calcium 9.5 mg/dl (8.4-10.2); Carbon Dioxide 23 mmol/L (22.0-30.0); Creatinine Clearance Estimated 96 mL/min (50-200); Estimated Glomerular Filt Rate 90 ml/min (>60); GFR (African American) 109 ML/MIN (>60); Glucose 96 mg/dl (74-100); Lipase 63 U/L (23-300); Total Protein,Serum 7.3 g/dl (6.3-8.2)
--- NOTE | 2022-02-16 13:10 | PC.NURSE ---
PT updated on POC. Advised pt MD would be in as soon as possible to perform pelvic exam. Pt agreeable with POC at this time. No new needs
--- NOTE | 2022-02-16 13:15 | CT_ITS ---
FINAL REPORT CLINICAL HISTORY: Abdominal pain, pt lifted a large tv and felt a pull now having abd pain FINDINGS: Technique: The patient was injected with intravenous contrast. Axial images through the abdomen and pelvis were performed. This study was performed with techniques to keep radiation doses as low as reasonably achievable (ALARA). Individualized dose reduction techniques using automated exposure control or adjustment of mA and/or kV according to the patient's size were employed. Abdomen: There is mild bibasilar atelectasis. The liver is normal in size and attenuation. The gallbladder is surgically absent. There is mild biliary ductal dilatation which is likely due to post cholecystectomy change. The spleen is unremarkable. The adrenals are normal. The pancreas is unremarkable. The kidneys enhance appropriately. The aorta is normal in caliber. There is no free fluid or adenopathy. Pelvis: The appendix is normal. The urinary bladder is unremarkable. There is no free fluid or adenopathy. The patient is status post hysterectomy. IMPRESSION: No acute process. No mass, fluid collection or hernia identified. Reviewed, Interpreted and Dictated by Ralf Pandya III, MD Transcribed by Shyanne Roberts Authenticated by Ralf Pandya III, MD on 02/16/2022 02:27:16 PM [facility]
[2022-02-16 13:16] VITALS: BP 115/77; PULSE 79; RESP 16; O2SAT 100
--- NOTE | 2022-02-16 13:27 | PC.NURSE ---
Pt to rad
[2022-02-16 13:35] VITALS: BP 125/79; PULSE 78; RESP 16; O2SAT 97
--- NOTE | 2022-02-16 14:13 | PC.NURSE ---
Updated pt we were waiting on CT results. No new needs
[2022-02-16 14:27] VITALS: BP 120/68; PULSE 87; RESP 16; O2SAT 100
--- NOTE | 2022-02-16 14:28 | PC.NURSE ---
Rounded on patient at this time. No new needs. Pt sitting up on side of bed.
[2022-02-16 14:44] VITALS: BP 110/70; PULSE 70; RESP 16; TEMP 36.9; O2SAT 98
== END 2022-02-16 14:48 | disposition home or self-care (01) ==
LOC: UTC 11:23 → ER 11:29
PROVIDERS: Emergency Provider Emergency Medicine; PCP Physician Assistant
DX: R10.31 Right lower quadrant pain (principal); R10.32 Left lower quadrant pain; X50.0XXA Overexertion from strenuous movement or load, initial encounter; Y92.69 Other specified industrial and construction area as the place of occurrence of the external cause; Y99.0 Civilian activity done for income or pay
CPT/HCPCS: 74177; 80053; 81001; 83690; 85025; 96374; 96375; 99284; J2405; Q9967

== ENCOUNTER 2022-02-20 08:33 | Day surgery (SDC) | payer MEDICAID, SELFPAY ==
[2022-02-20 08:44] VITALS: BP 113/71; BP 117/70; PULSE 75; PULSE 76; RESP 18; TEMP 36.5; O2SAT 100; O2SAT 99; BMI 27.0
[2022-02-20 08:59] VITALS: BP 117/75; PULSE 72; RESP 18; O2SAT 98
[2022-02-20 09:00] VITALS: BP 112/45; PULSE 71; RESP 18; O2SAT 99
--- NOTE | 2022-02-20 09:07 | P.PCN_ITS ---
- Procedure Date: 02/20/22 Time: 09:07 Anesthesiologist:: Andrew Daniels CRNA Complications:: None Pre-procedure Diagnosis:: Bilateral sacroiliitis Post-procedure Diagnosis:: Same Indications for Procedure:: Pleasant 46-year-old female that returns our clinic today for bilateral SI joint injections. Patient has had these injections in the past with some significant improvement. She returns today for repeat injections. Procedure Details:: Procedure: Bilateral sacroiliac joint injections under fluoroscopy Informed consent was obtained and the risks and benefits of the procedure were explained to the patient.~ The patient was taken to the procedure room and noninvasive monitors were placed including a noninvasive blood pressure cuff and pulse oximeter.~ The patient was placed prone on the procedure table. Both hips were cleansed using Betadine as a cleansing solution. C-arm fluoroscopy was used to view the right sacroiliac joint.~ The skin and subcutaneous tissues were anesthetized using lidocaine 1.5% and a 25-gauge needle.~ After this, a 22-gauge spinal needle was inserted under fluoroscopic guidance into the inferior aspect of the right sacroiliac joint.~ Omnipaque dye was injected and good spread was seen throughout the joint.~ After this, approximately 5 mL of bupivacaine, 0.25% and Depo-Medrol, 40 mg was incrementally injected into the right sacroiliac joint. We then moved to the left sacroiliac joint.~ The skin and subcutaneous tissues were anesthetized using lidocaine 1.5% and a 25-gauge needle.~ After this, a 22- gauge spinal needle was inserted under fluoroscopic guidance into the inferior aspect of the left sacroiliac joint.~ Omnipaque dye was injected and good spread was seen throughout the joint. After this, approximately 5 mL of bupivacaine, 0.25% and Depo-Medrol, 40 mg was incrementally injected into the left sacroiliac joint.~ The patient tolerated the procedure well with no complications. The patient was observed in the Pain Clinic and then was discharged home neurologically intact. Plan and Disposition:: Patient was discharged without incident
== END 2022-02-20 09:19 | disposition home or self-care (01) ==
LOC: SC.PAINP 08:34
PROVIDERS: PCP Physician Assistant; Visit Provider Nurse Anesthetist, Certified Registered
DX: M46.1 Sacroiliitis, not elsewhere classified (principal); K21.9 Gastro-esophageal reflux disease without esophagitis; E78.5 Hyperlipidemia, unspecified; I10 Essential (primary) hypertension; R00.2 Palpitations; F41.9 Anxiety disorder, unspecified; F32.A Depression, unspecified; M19.90 Unspecified osteoarthritis, unspecified site; Z72.0 Tobacco use; J44.9 Chronic obstructive pulmonary disease, unspecified; Z88.1 Allergy status to other antibiotic agents
CPT/HCPCS: 27096; G0260; J1040

== ENCOUNTER 2022-02-27 13:02 | Emergency (ER) | payer MEDICAID, SELFPAY ==
[2022-02-27] VITALS (11 sets, daily range): BP systolic 95–122; BP diastolic 53–81; PULSE 72–86; RESP 14–18; TEMP 36.6–36.9; O2SAT 96–98; BMI 27.2
--- NOTE | 2022-02-27 13:01 | ECG_ITS ---
APPROVED REPORT Exam: Resting ECG HR:78 bpm ECG Measurements Heart Rate 78 AXES SC 122 P 64 QRSd 89 QRS 43 QT 367 T 56 QTc 401 Conclusion SINUS RHYTHM NORMAL ECG UNCONFIRMED REPORT Electronically signed by : Raffy Smith MD 03/02/2022 17:47:50
--- NOTE | 2022-02-27 13:04 | XR_ITS ---
FINAL REPORT CLINICAL HISTORY: Chest pain, smoker COMPARISON: 08/06/2021 FINDINGS: The heart size is normal. The mediastinum is normal. There is no focal infiltrate or edema. There are no pleural effusions. There is no pneumothorax. There is no osseous abnormality. IMPRESSION: No acute cardiopulmonary process Reviewed, Interpreted and Dictated by Ralf Pandya III, MD Transcribed by Mehran Hollingsworth Authenticated by Ralf Pandya III, MD on 02/27/2022 01:37:25 PM [facility]
[2022-02-27 13:17] LABS: Basophils # 0.3 K/mm3 (0-0.2); Basophils % 1.7 % (0.1-2.0); Eosinophils # 0.5 K/mm3 (0.0-0.4); Eosinophils % 3.4 % (0.1-12.0); Hematocrit 45.5 % (37.0-47.0); Hemoglobin 15.2 g/dL (12.2-16.2); Lymphocytes # 3.6 K/mm3 (0.7-4.5); Mean Corpuscular HGB Conc 33.5 g/dL (31.8-35.4); Mean Corpuscular Hemoglobin 34.4 pg (27.0-31.2); Mean Corpuscular Volume 102.7 fl (81-99); Mean Platelet Volume 9.4 fl (7.4-10.4); Monocytes % 6.7 % (1.7-9.3); Neutrophils # 9.1 K/mm3 (1.8-7.8); Neutrophils % 63.2 % (37.0-80.0); Platelet Count 362 K/mm3 (142-424); Red Blood Count 4.43 M/mm3 (4.20-5.40); Red Cell Distribution Width 13.1 % (11.5-17.5); White Blood Count 14.4 K/mm3 (4.8-10.8)
--- NOTE | 2022-02-27 13:20 | HMH.EDGENADL ---
ED Disposition Clinical Impression: Atypical chest pain Disposition: Home, Self-Care Condition on Discharge: Good Instructions: DI for Atypical Chest Pain Additional Instructions: Ibuprofen for pain. Off work today. Additional instructions for CHEST PAIN: Call Dr. Levin's office Wednesday to make appointment for follow-up. Return immediately if worsening chest pain, vomiting, shortness of breath, fever, coughing of blood. Prescriptions: Ibuprofen [Ibuprofen 600mg Tab] 600 mg PO Q6HP PRN #20 tab PRN Reason: Moderate Pain Transmission Status: Pending to [facility] Referrals: Maddy Sims PA [Primary Care Provider] - - Critical Care Critical Care Time: No Attestation: On 02/27/22, the high probability of a clinically significant, sudden or life threatening deterioration of the following system(s) required my full and direct attention, intervention and personal management. The time I documented below is in addition to time spent performing reported procedures but includes the following listed in this critical care notation. Medical Decision Making - Medical Records Medical records reviewed: Yes: I reviewed the patient's medical records. MR Comment: Reviewed prior cardiac cath results, see below. Reviewed emergency department visit for chest pain 12/08/2020. Seen by me in the emergency department. Negative cardiac work-up. - Carmelo Inquiry Pt receiving controlled substance: No Vital Signs: 02/27/22 13:03 02/27/22 13:11 02/27/22 13:18 Temperature 98 F Temperature Source Oral Pulse Rate 80 Pulse Rate [Radial] 81 Respiratory Rate 16 Blood Pressure 122/73 95/59 L Blood Pressure [Right Arm] 122/73 Blood Pressure Mean Blood Pressure Mean [Right Arm] 89 Blood Pressure Position Sitting Blood Pressure Position [Right Arm] Sitting 02 Sat by Pulse Oximetry 98 Oxygen Delivery Method Room Air 02/27/22 13:32 02/27/22 14:51 02/27/22 14:59 Temperature Temperature Source Pulse Rate 77 Pulse Rate [Radial] Respiratory Rate 16 Blood Pressure 100/60 L 101/68 L 112/75 Blood Pressure [Right Arm] Blood Pressure Mean Blood Pressure Mean [Right Arm] Blood Pressure Position Sitting Blood Pressure Position [Right Arm] 02 Sat by Pulse Oximetry 96 Oxygen Delivery Method Room Air 02/27/22 15:03 02/27/22 15:30 02/27/22 15:42 Temperature Temperature Source Pulse Rate 72 75 Pulse Rate [Radial] Respiratory Rate 14 14 Blood Pressure 96/53 L 116/81 116/78 Blood Pressure [Right Arm] Blood Pressure Mean 72 92 Blood Pressure Mean [Right Arm] Blood Pressure Position Sitting Blood Pressure Position [Right Arm] 02 Sat by Pulse Oximetry 97 98 Oxygen Delivery Method Room Air Room Air 02/27/22 16:00 Temperature Temperature Source Pulse Rate 80 Pulse Rate [Radial] Respiratory Rate 16 Blood Pressure 108/76 L Blood Pressure [Right Arm] Blood Pressure Mean 84 Blood Pressure Mean [Right Arm] Blood Pressure Position Blood Pressure Position [Right Arm] 02 Sat by Pulse Oximetry 98 Oxygen Delivery Method Room Air - Lab Data Lab Results 02/27/22 13:00: WBC 14.4 H, RBC 4.43, Hgb 15.2, Hct 45.5, MCV 102.7 H, MCH 34.4 H, MCHC 33.5, RDW 13.1, Plt Count 362, MPV 9.4, Neut % (Auto) 63.2, Lymph % (Auto) 25.0, [place] % (Auto) 6.7, Eos % (Auto) 3.4, Baso % (Auto) 1.7, Neut # (Auto) 9.1 H, Lymph # (Auto) 3.6, [place] # (Auto) 1.0, Eos # (Auto) 0.5 H, Baso # (Auto) 0.3 H 02/27/22 13:00: Sodium 142, Potassium 3.8, Chloride 109 H, Carbon Dioxide 25, Anion Gap 11.8, BUN 12, Creatinine 0.70, Estimated Creat Clear 96, Estimated GFR 90, Est GFR ( Amer) 109, Glucose 100, Calcium 9.3, Troponin I < 0.01 02/27/22 15:59: Troponin I < 0.01 Result diagrams: 02/27/22 13:00 02/27/22 13:00 Orders (Tests/Meds): ED MEDICATIONS Discontinued Medications Generic Name Dose Route Start Last Admin Trade Name Freq PRN Reason Sto
[2022-02-27 13:22] LABS: Chloride 109 mmol/L (98-107); Potassium 3.8 mmoL/L (3.5-5.1); Sodium 142 mmol/L (136-145)
[2022-02-27 13:25] LABS: Blood Urea Nitrogen 12 mg/dl (7-17); Creatinine Clearance Estimated 96 mL/min (50-200); Estimated Glomerular Filt Rate 90 ml/min (>60); GFR (African American) 109 ML/MIN (>60)
[2022-02-27 13:26] LABS: Anion Gap 11.8 mEq/L (5-15); Calcium 9.3 mg/dl (8.4-10.2); Carbon Dioxide 25 mmol/L (22.0-30.0); Glucose 100 mg/dl (74-100)
[2022-02-27 13:42] LABS: Troponin I < 0.01 ng/ml (0.00-0.034)
--- NOTE | 2022-02-27 15:02 | PC.NURSE ---
GAGE DE LOS SANTOS at discussing test results with pt.
--- NOTE | 2022-02-27 15:59 | PC.NURSE ---
specimen to lab at this time for second troponin at this time. pt states no needs at this time.
[2022-02-27 16:34] LABS: Troponin I < 0.01 ng/ml (0.00-0.034)
== END 2022-02-27 16:53 | disposition home or self-care (01) ==
PROVIDERS: Emergency Provider Emergency Medicine; PCP Physician Assistant
DX: R07.89 Other chest pain (principal); I10 Essential (primary) hypertension; E78.5 Hyperlipidemia, unspecified; K21.9 Gastro-esophageal reflux disease without esophagitis; F41.8 Other specified anxiety disorders; F17.210 Nicotine dependence, cigarettes, uncomplicated; Z79.899 Other long term (current) drug therapy
CPT/HCPCS: 71045; 80048; 84484; 85025; 93005; 96374; 96375; 99284; J2405

== ENCOUNTER 2022-03-15 08:36 | Emergency (ER) | payer MEDICAID, SELFPAY ==
[2022-03-15 08:37] VITALS: BP 107/80; PULSE 84; RESP 16; TEMP 36.8; O2SAT 98; BMI 26.2; BMI 27.0
--- NOTE | 2022-03-15 08:52 | XR_ITS ---
PROCEDURE INFORMATION: Exam: XR Chest Exam date and time: 03/15/2022 9:17 AM Age: 47 years old Clinical indication: Shortness of breath; Additional info: SOB pain TECHNIQUE: Imaging protocol: XR of the chest. Views: 2 views. COMPARISON: CR XR CHEST PORTABLE 02/27/2022 1:10 PM FINDINGS: Lungs: No focal airspace disease. Pleural spaces: Unremarkable. No pleural effusion. No pneumothorax. Heart/Mediastinum: Cardiomediastinal silhouette is within normal limits. Bones/joints: Unremarkable. IMPRESSION: No acute cardiopulmonary abnormality.
--- NOTE | 2022-03-15 08:58 | HMH.EDGENADL ---
ED Disposition Clinical Impression: Chest wall pain Acute bronchitis Qualifiers: Bronchitis organism: unspecified organism Qualified Code(s): J20.9 - Acute bronchitis, unspecified Disposition: Home, Self-Care Condition on Discharge: Good Instructions: DI for Acute Bronchitis, DI for Atypical Chest Pain Additional Instructions: Tessalon Perles and Zithromax as prescribed. Off work for 2 days. Follow-up with primary care provider this week, call tomorrow make appointment. Prescriptions: Benzonatate [Benzonatate 100mg cap] 100 mg PO TIDP PRN #15 cap PRN Reason: Cough Transmission Status: Received by [facility] Azithromycin [Zithromax 250mg tab] 250 mg PO DIRECTED #6 tab Transmission Status: Received by [facility] Referrals: Maddy Sims PA [Primary Care Provider] - Forms: Work/School Release - Critical Care Critical Care Time: No Attestation: On 03/15/22, the high probability of a clinically significant, sudden or life threatening deterioration of the following system(s) required my full and direct attention, intervention and personal management. The time I documented below is in addition to time spent performing reported procedures but includes the following listed in this critical care notation. Medical Decision Making - Medical Records Medical records reviewed: Yes: I reviewed the patient's medical records. MR Comment: Reviewed primary care provider office note from 03/03/2022. Chest x-ray was not ordered and there is no documentation of a chest x-ray report here since her emergency department visit on 02/27/2022. The patient was given an injection of Rocephin and Solu-Medrol in the office and discharged on prednisone and doxycycline. Diagnosis was pleurisy. Reviewed ED note from 02/27/22, cardiac cath and CT chest results from 2018. - Carmelo Inquiry Pt receiving controlled substance: No Vital Signs: 03/15/22 08:37 Temperature 98.3 F Temperature Source Oral Pulse Rate [Radial] 84 Respiratory Rate 16 Blood Pressure [Right Arm] 107/80 L Blood Pressure Mean [Right Arm] 89 Blood Pressure Position [Right Arm] Sitting 02 Sat by Pulse Oximetry 98 Oxygen Delivery Method Room Air - Lab Data Lab Results 03/15/22 09:25: WBC 9.5, RBC 4.48, Hgb 15.0, Hct 46.3, MCV 103.4 H, MCH 33.4 H, MCHC 32.3, RDW 13.2, Plt Count 280, MPV 8.8, Neut % (Auto) 56.7, Lymph % (Auto) 29.8, Trimble % (Auto) 8.9, Eos % (Auto) 3.3, Baso % (Auto) 1.4, Neut # (Auto) 5.4, Lymph # (Auto) 2.8, Trimble # (Auto) 0.9, Eos # (Auto) 0.3, Baso # (Auto) 0.1 03/15/22 09:25: Sodium 140, Potassium 3.5, Chloride 109 H, Carbon Dioxide 24, Anion Gap 10.5, BUN 9, Creatinine 0.70, Estimated Creat Clear 92, Estimated GFR 90, Est GFR ( Amer) 109, Glucose 84, Calcium 9.4, Total Bilirubin 0.6, AST 29, ALT 23, Alkaline Phosphatase 93, Total Protein 7.5, Albumin 4.4, Globulin 3.1, Albumin/Globulin Ratio 1.4 03/15/22 09:25: SARS-CoV-2 (PCR) Not detected, Influenza A Untype (PCR) Not detected, Influenza Type B (PCR) Not detected Result diagrams: 03/15/22 09:25 03/15/22 09:25 Orders (Tests/Meds): ED MEDICATIONS Discontinued Medications Generic Name Dose Route Start Last Admin Trade Name Freq PRN Reason Stop Dose Admin Ketorolac Tromethamine 30 mg 03/15/22 09:15 03/15/22 09:15 Ketorolac 30mg/Ml Vial IV 03/15/22 09:16 30 mg ONCE ONE Administration - Radiology Data #1 Image(s): Chest Image Reviewed: Yes I reviewed the patient's radiology image, Yes I have reviewed radiologist's interpretation Preliminary Findings: Normal/NAD PROCEDURE INFORMATION: Exam: XR Chest Exam date and time: 03/15/2022 9:17 AM Age: 47 years old Clinical indication: Shortness of breath; Additional info: SOB pain TECHNIQUE: Imaging protocol: XR of the chest. Views: 2 views. COMPARISON: CR XR CHEST PORTABLE 02/27/2022 1:10 PM FINDINGS: Lungs: No focal airspace disease. Pleural spaces: Unre
[2022-03-15 09:46] LABS: Coronavirus 19, PCR Not Detected (NotDetected); Influenza A, PCR Not Detected (NotDetected); Influenza B, PCR Not Detected (NotDetected)
[2022-03-15 09:59] LABS: Basophils # 0.1 K/mm3 (0-0.2); Basophils % 1.4 % (0.1-2.0); Eosinophils # 0.3 K/mm3 (0.0-0.4); Eosinophils % 3.3 % (0.1-12.0); Hematocrit 46.3 % (37.0-47.0); Lymphocytes # 2.8 K/mm3 (0.7-4.5); Lymphocytes % 29.8 % (10-50); Mean Corpuscular HGB Conc 32.3 g/dL (31.8-35.4); Mean Corpuscular Hemoglobin 33.4 pg (27.0-31.2); Mean Corpuscular Volume 103.4 fl (81-99); Mean Platelet Volume 8.8 fl (7.4-10.4); Monocytes # 0.9 K/mm3 (0.1-1.0); Monocytes % 8.9 % (1.7-9.3); Neutrophils # 5.4 K/mm3 (1.8-7.8); Neutrophils % 56.7 % (37.0-80.0); Platelet Count 280 K/mm3 (142-424); Red Blood Count 4.48 M/mm3 (4.20-5.40); Red Cell Distribution Width 13.2 % (11.5-17.5); White Blood Count 9.5 K/mm3 (4.8-10.8)
[2022-03-15 10:03] LABS: Chloride 109 mmol/L (98-107); Potassium 3.5 mmoL/L (3.5-5.1); Sodium 140 mmol/L (136-145)
[2022-03-15 10:06] LABS: Alanine Aminotransferase 23 U/L (12-78); Albumin Level 4.4 g/dl (3.5-5.0); Albumin/Globulin Ratio 1.4 (1.1-1.8); Alkaline Phosphatase 93 U/L (38-126); Anion Gap 10.5 mEq/L (5-15); Aspartate Amino Transferase 29 U/L (14-36); Bilirubin,Total 0.6 mg/dl (0.2-1.3); Blood Urea Nitrogen 9 mg/dl (7-17); Carbon Dioxide 24 mmol/L (22.0-30.0); Creatinine Clearance Estimated 92 mL/min (50-200); Estimated Glomerular Filt Rate 90 ml/min (>60); GFR (African American) 109 ML/MIN (>60); Globulin 3.1 g/dL (1.3-3.2); Total Protein,Serum 7.5 g/dl (6.3-8.2)
[2022-03-15 10:07] LABS: Calcium 9.4 mg/dl (8.4-10.2); Glucose 84 mg/dl (74-100)
[2022-03-15 11:01] VITALS: BP 118/62; PULSE 78; RESP 16; TEMP 36.6; O2SAT 98
== END 2022-03-15 11:03 | disposition home or self-care (01) ==
PROVIDERS: Emergency Provider Emergency Medicine; PCP Physician Assistant
DX: R07.89 Other chest pain (principal); J20.9 Acute bronchitis, unspecified; Z72.0 Tobacco use; I10 Essential (primary) hypertension; K21.9 Gastro-esophageal reflux disease without esophagitis; F41.8 Other specified anxiety disorders; E78.5 Hyperlipidemia, unspecified
CPT/HCPCS: 71046; 80053; 85025; C9803; U0003; U0005

== ENCOUNTER → 2022-03-18 14:08 | Outpatient (CLI) | payer MEDICAID, SELFPAY ==
[2022-03-18 13:08] LABS: Adenovirus,PCR Not Detected (NotDetected); Bordetella Pertussis Not Detected (NotDetected); Chlamydophila Pneumoniae, PCR Not Detected (NotDetected); Coronavirus 19, PCR Not Detected (NotDetected); Coronavirus 229E Not Detected (NotDetected); Coronavirus NL63 Not Detected (NotDetected); Coronavirus OC43 Not Detected (NotDetected); Coronovirus HKU1,PCR Not Detected (NotDetected); Human Metapneumovirus Not Detected (NotDetected); Influenza A, PCR Not Detected (NotDetected); Influenza AH1, 2009 Not Detected (NotDetected); Influenza AH1, PCR Not Detected (NotDetected); Influenza AH3,PCR Not Detected (NotDetected); Influenza B, PCR Not Detected (NotDetected); Mycoplasma Pneumoniae, PCR Not Detected (NotDetected); Parainfluenza 1, PCR Not Detected (NotDetected); Parainfluenza 2, PCR Not Detected (NotDetected); Parainfluenza 3, PCR Not Detected (NotDetected); Parainfluenza 4, PCR Not Detected (NotDetected); Respiratory Syncytial Virus Not Detected (NotDetected); Rhinovirus/Enterovirus Not Detected (NotDetected)
== END ==
PROVIDERS: PCP Physician Assistant; Visit Provider Physician Assistant
DX: Z20.822 Contact with and (suspected) exposure to COVID-19 (principal); R06.02 Shortness of breath; R05.9 Cough, unspecified; M54.9 Dorsalgia, unspecified
CPT/HCPCS: 87581; 87632; 87798; C9803; U0003; U0005

== ENCOUNTER → 2022-03-23 10:31 | Outpatient (POV) | payer MEDICAID, SELFPAY ==
[2022-03-23 11:30] VITALS: BP 121/84; PULSE 86; RESP 20; TEMP 36.4; O2SAT 100; BMI 25.8
--- NOTE | 2022-03-23 12:33 | HMH.PAINSOAP ---
[facility] Pain Management SOAP Note Subjective:: Patient is a pleasant 47-year-old female who presents today for follow-up after a bilateral SI injection on February 20, 2022. Patient is currently being treated for degenerative disc disease of lumbar spine, lumbar facet arthropathy, lumbar spondylosis, sacroiliitis. After procedure, patient had significant relief of his 60 to 70%. Denies any issues after this procedure. Patient is not complaining of any tenderness around the bilateral SI joints. However, patient is complaining of pain around her low back. This is worse with any lumbar flexion, extension and especially rotation. She did have a lumbar RFA bilaterally at L4-L5 and L5-S1 in October. This procedure provided her with 80 to 90% relief. She rates her pain today as 9 out of 10. Review of Systems: General: No recent weight changes, no fever, no sleep disturbances Respiratory: No cough, no shortness of air, no recurring pulmonary infections Cardiovascular/peripheral vascular: No chest pain, no palpitations, no edema, no shortness of breath Gastrointestinal: No new onset incontinence, normal bowel movements reported Genitourinary: No new onset incontinence Musculoskeletal: Low back pain, improving hip pain Psychiatric: [Normal mood/affect] Neurological: [Denies weakness in extremities], [denies balance issues] Objective:: Physical Exam: General: Alert and oriented x3, no acute distress, pleasant and cooperative Lungs: Respirations even and unlabored, symmetrical chest expansion Eyes: PERRL Musculoskeletal: Flexion and extension of lumbar [spine] somewhat guarded secondary to pain, [antalgic gait noted]; positive Turner, tenderness to palpation around the lumbar facets Neurological: Speech clear, no gross sensory deficit Assessment:: Degenerative disease of lumbar spine, lumbar facet arthropathy, lumbar spondylosis, sacroiliitis Plan:: It has been almost 6 months since the patient's last lumbar RFA of bilateral L4-L5 and L5-S1. She had 80 to 90% relief after the RFA. Patient is tender to palpation around the lumbar facet joints. We will schedule the patient for a repeat lumbar RFA on bilateral L4-L5 and L5-S1. Risks and benefits of the procedure have been explained to the patient. Patient would like to proceed with the procedure. Patient has been instructed to contact the clinic with any concerns before the next appointment. Dr. Briones has reviewed this note and agrees with this plan of care. This note was dictated using voice recognition software and make contain errors or omissions. [facility] History Medical History: Reports:: Anxiety, Depression, Gastroesophageal Reflux Disease(GERD), Hyperlipidemia, Hypertension, Palpitations Denies:: Cancer, Diabetes Mellitus Type 1, Diabetes Mellitus Type 2, Internal Pacemaker, MRSA, Seizures *Have you ever received a pneumonia vaccine?: No *Have you received a flu vaccine this season?: Yes Other Medical History: Reports: Arthritis Other Surgeries: Yes: Cardiac Catheterization, Cholecystectomy, (x2), Dilation and Curettage, Diagnostic Lap, Hysterectomy-Total. No: Pacemaker Amputation: No Fractures: No - *Social History Smoking Status: Current every day smoker Tobacco Type: cigarettes # Packs/Day (cigarettes): 1 #Yrs smoked (if former smoker): 20 Alcohol Intake: never Alcohol Intake Frequency:: other Substance Use Type: denies use *Occupational Status:: other Housing: house Household Members: none *Travel in the last 8 weeks: None - Psychiatric History Pschychiatric History:: Reports:: Anxiety, Depression Family Hx:: No significant family history
== END ==
PROVIDERS: Visit Provider Student in an Organized Health Care Education/Training Program
DX: M51.36 Other intervertebral disc degeneration, lumbar region (principal); M46.1 Sacroiliitis, not elsewhere classified; M54.06 Panniculitis affecting regions of neck and back, lumbar region; M47.816 Spondylosis without myelopathy or radiculopathy, lumbar region
CPT/HCPCS: 99212; G0463

== ENCOUNTER 2022-03-27 08:54 | Day surgery (SDC) | payer MEDICAID, SELFPAY ==
[2022-03-27 08:59] VITALS: BP 105/71; PULSE 81; RESP 18; TEMP 36.4; O2SAT 98; BMI 25.8
--- NOTE | 2022-03-27 09:13 | P.PCN_ITS ---
- Procedure Date: 03/27/22 Time: 09:13 Anesthesiologist:: Andrew Daniels CRNA Complications:: None Pre-procedure Diagnosis:: Disc disease lumbar spine multilevels. Lumbar spondylosis. Lumbar facet arthropathy bilateral L4-5, L5-S1. Post-procedure Diagnosis:: Same Indications for Procedure:: This patient is a pleasant 47-year-old who has received lumbar facet radiofrequency ablation bilateral L4-5, L5-S1 in the past. She does quite well 6 to 8 months relief regarding low back pain as well as bilateral hip pain. She rates her pain 7/10 today. Procedure Details:: Lumbar RFA None Pre-procedure Diagnosis: Degenerative disc disease of lumbar spine with lumbar spondylosis and facet arthropathy Post-procedure Diagnosis: Same Indications for Procedure: Patient is a pleasant 68-year-old white female who we are treating for low back pain with lumbar spondylosis and facet arthropathy. She is done well with medial branch blocks with 80% relief of her pain symptoms. She presents for radiofrequency ablation to the facet joint/medial branches of L3-L4, L4-5 and L5-S1 today. She has already had the right side done and is doing very well. She presents for the left side today. Procedure Details: Lumbar RFA Informed consent was obtained and the risk and benefits of the procedure was explained to the patient. Patient was placed prone on the procedure table. The patient was prepped and draped in sterile fashion. C-arm fluoroscopy was used to view the lumbar spine. The skin and subcutaneous tissues were anesthetized using lidocaine. I placed 20-gauge RF needles into the facet joints of L3-L4, L4-L5 and L5-S1 on the left side. We underwent sensory stimulation. There is good sensory stimulation at 0.8 V. We underwent motor stimulation. There is no motor stimulation at 2 V. We then anesthetized these levels with lidocaine and Depo- Medrol. I used a total of 40 mg Depo-Medrol for all 3 levels. I then burned all 3 levels of L3-L4, L4-5 and L5-S1 on the left side for 4 minutes at 80 ?C. Patient tolerated the procedure well with no complication. Plan and Disposition:: We will follow-up with this patient in 2 weeks. We will reevaluate her symptoms at that time. Plan and Disposition:: Patient was discharged without incident.
[2022-03-27 09:18] VITALS: BP 120/75; PULSE 74; RESP 20
[2022-03-27 09:33] VITALS: BP 146/88; PULSE 86; RESP 18; O2SAT 100
== END 2022-03-27 09:33 | disposition home or self-care (01) ==
LOC: SC.PAINP 08:54
PROVIDERS: PCP Physician Assistant; Visit Provider Nurse Anesthetist, Certified Registered
DX: M51.36 Other intervertebral disc degeneration, lumbar region (principal); M47.816 Spondylosis without myelopathy or radiculopathy, lumbar region; M19.90 Unspecified osteoarthritis, unspecified site
CPT/HCPCS: 64635; 64636; J1040

== ENCOUNTER 2022-03-27 09:42 | Emergency (ER) | payer MEDICAID, SELFPAY ==
--- NOTE | 2022-03-27 09:54 | XR_ITS ---
FINAL REPORT CLINICAL HISTORY: pain, pt stated that she kicked her coffee table 3 days ago and the pain has been increasing ever since. FINDINGS: LEFT FOOT Three views were obtained. There is a nondisplaced oblique fracture of the 5th proximal phalanx. No other fracture or dislocation is identified IMPRESSION: Nondisplaced fracture of the 5th proximal phalanx. Reviewed, Interpreted and Dictated by Ralf Pandya III, MD Transcribed by Janice Rodriguez Authenticated and [facility]
--- NOTE | 2022-03-27 09:57 | HMH.EDUTC ---
[facility] [place] Disposition Clinical Impression: Fracture of fifth toe, left, closed Qualifiers: Encounter type: initial encounter Qualified Code(s): S92.502A - Displaced unspecified fracture of left lesser toe(s), initial encounter for closed fracture Disposition: Home, Self-Care Condition on Discharge: Good Instructions: How to Use Crutches, Toe Fracture, DI for Toe Fracture Additional Instructions: Rest the extremity, apply ice for 15 minutes as tolerated three or four times per day, Elevate the extremity as tolerated while you are resting. Take ibuprofen for pain. I sent in a prescription to your pharmacy. Follow up with Dr. Mesa (podiatry). I put in a referral but you need to call her office and schedule an appointment. Follow up with your regular doctor. GO TO THE ER FOR ANY WORSENING SYMPTOMS Prescriptions: Ibuprofen [Ibuprofen 800mg Tablet] 800 mg PO Q8HP PRN #30 tab PRN Reason: Moderate Pain Transmission Status: Received by [facility] Referrals: Maddy Sims PA [Primary Care Provider] - Phuong Mesa DPM [Staff Physician] - Forms: Work/School Release Time of Disposition: 10:30 Medical Decision Making - Medical Records Medical records reviewed: No: I reviewed the patient's medical records. - Carmelo Inquiry Pt receiving controlled substance: No Vital Signs: 03/27/22 10:04 03/27/22 10:40 Temperature 97.8 F 97.8 F Temperature Source Oral Pulse Rate 90 Pulse Rate [Left Radial] 90 Respiratory Rate 18 18 Blood Pressure 128/77 Blood Pressure [Right Arm] 128/77 Blood Pressure Mean [Right Arm] 94 02 Sat by Pulse Oximetry 100 - Radiology Data #1 Image(s): Foot/Toes Image Reviewed: Yes I reviewed the patient's radiology image, Yes I have reviewed radiologist's interpretation Preliminary Findings: Abnormal FINAL REPORT CLINICAL HISTORY: pain, pt stated that she kicked her coffee table 3 days ago and the pain has been increasing ever since. FINDINGS: LEFT FOOT Three views were obtained. There is a nondisplaced oblique fracture of the 5th proximal phalanx. No other fracture or dislocation is identified IMPRESSION: Nondisplaced fracture of the 5th proximal phalanx. Reviewed, Interpreted and Dictated by Ralf Pandya III, MD Transcribed by Janice Rodriguez Authenticated and [facility] HPI - General Stated complaint: lt foot injury, 03/24/22 Time Seen by Provider: 03/27/22 09:57 - History of Present Illness Provider Complaint: She states that 2 days ago she accidentily kicked the leg of her kitchen table with her left foot as she was walking. She has had left foot pain, swelling and bruising since then. She came in today because her foot is not getting any better. - Related Data Home Medications Medication Instructions Recorded Confirmed Albuterol Sulfate [Proventil HFA] 2 puff IH Q6H 08/29/21 03/27/22 Aspirin [Low Dose Aspirin EC] 81 mg PO DAILY 08/29/21 03/27/22 Budesonide/Formoterol Fumarate 2 puff IH BID 08/29/21 03/27/22 [Budesonide-Formoterol 160-4.5] Cholecalciferol (Vitamin D3) See Rx Instructions .ROUTE .COMPLEX 08/29/21 03/27/22 [Vitamin D3 1,000 Unit Cap] Ergocalciferol (Vitamin D2) See Rx Instructions .ROUTE .COMPLEX 08/29/21 03/27/22 [Drisdol] Loratadine [Allergy Relief] 10 mg PO DAILY 08/29/21 03/27/22 Potassium Chloride 20 meq PO DAILY 08/29/21 03/27/22 Quetiapine Fumarate See Rx Instructions .ROUTE .COMPLEX 10/15/21 03/27/22 Buspirone HCl [Buspar 10mg See Rx Instructions .ROUTE .COMPLEX 02/09/22 03/27/22 tablet] SUMAtriptan succinate [Sumatriptan See Rx Instructions .ROUTE .COMPLEX 02/09/22 03/27/22 Succinate] lamoTRIgine [Lamotrigine] See Rx Instructions .ROUTE .COMPLEX 02/09/22 03/27/22 Celecoxib See Rx Instructions .ROUTE .COMPLEX 02/20/22 03/27/22 Albuterol Sulfate [Proventil Hfa] 2 puff IH Q6H 03/23/2203/27
[2022-03-27 10:04] VITALS: BP 128/77; PULSE 90; RESP 18; TEMP 36.6; O2SAT 100; BMI 25.8
[2022-03-27 10:40] VITALS: BP 128/77; PULSE 90; RESP 18; TEMP 36.6
== END 2022-03-27 10:40 | disposition home or self-care (01) ==
PROVIDERS: Emergency Provider Nurse Practitioner Family; PCP Physician Assistant
DX: S92.502A Displaced unspecified fracture of left lesser toe(s), initial encounter for closed fracture (principal); R42 Dizziness and giddiness; M54.41 Lumbago with sciatica, right side; R00.2 Palpitations; I10 Essential (primary) hypertension; K21.9 Gastro-esophageal reflux disease without esophagitis; E78.5 Hyperlipidemia, unspecified; E55.9 Vitamin D deficiency, unspecified; K59.00 Constipation, unspecified; F31.9 Bipolar disorder, unspecified; F41.9 Anxiety disorder, unspecified; F17.210 Nicotine dependence, cigarettes, uncomplicated; Z79.51 Long term (current) use of inhaled steroids; Z79.52 Long term (current) use of systemic steroids; Z79.899 Other long term (current) drug therapy; Z88.0 Allergy status to penicillin; Z88.1 Allergy status to other antibiotic agents; Z88.3 Allergy status to other anti-infective agents; W22.8XXA Striking against or struck by other objects, initial encounter
CPT/HCPCS: 73630; 99213; G0463

== ENCOUNTER 2022-04-18 09:16 | Emergency (ER) | payer MEDICAID, SELFPAY ==
[2022-04-18 10:40] VITALS: BP 130/82; PULSE 85; RESP 18; TEMP 36.6; O2SAT 97; BMI 20.8
--- NOTE | 2022-04-18 11:06 | HMH.EDUTC ---
[facility] [place] Disposition Clinical Impression: Exposure to COVID-19 virus Disposition: Home, Self-Care Condition on Discharge: Good Instructions: DI for COVID-19 (Suspected or Confirmed ) Additional Instructions: COVID19 test is pending. Please isolate yourself and quarantine until test results received. Prescriptions: Guaifenesin/Pseudoephedrne HCl [Mucinex D ER 1,200-120 mg Tab] 1 each PO BID 10 Days #20 tab Transmission Status: Pending to [facility] Ondansetron [Ondansetron Odt 8mg Tab] 8 mg PO Q8HP PRN 10 Days #30 tab PRN Reason: Nausea Transmission Status: Pending to [facility] predniSONE [Prednisone 20mg Tab] 20 mg PO BID 5 Days #10 tab Transmission Status: Pending to [facility] Albuterol Sulfate [Proair Hfa] 2 inh IH Q4HP PRN 30 Days #1 each PRN Reason: Wheezing Transmission Status: Pending to [facility] Referrals: Maddy Sims PA [Primary Care Provider] - Forms: Work/School Release Time of Disposition: 11:17 Medical Decision Making - Carmelo Inquiry Pt receiving controlled substance: No Vital Signs: 04/18/22 10:40 Temperature 97.9 F Temperature Source Oral Pulse Rate [Right Brachial] 85 Respiratory Rate 18 Blood Pressure [Right Arm] 130/82 Blood Pressure Mean [Right Arm] 98 Blood Pressure Source [Right Arm] Automatic Cuff Blood Pressure Position [Right Arm] Sitting 02 Sat by Pulse Oximetry 97 Oxygen Delivery Method Room Air Orders (Tests/Meds): ORDERS Category Date Time Status Full Resp Panel w/COVID ([facility]) Routine Lab 04/18/22 10:51 Ordered [facility] [place] HPI - General Stated complaint: covid exposure, vomiting, chills, h/a, body aches Time Seen by Provider: 04/18/22 11:06 Mode of Arrival: Ambulatory Source of Information: Patient Limitations: No Limitations Description of Symptoms (Recalled from Triage Doc. by RN): PATIENT C/O CHILLS, VOMITING, BODY ACHES, AND HEADACHE SINCE YESTERDAY HEENT Symptoms (Recalled from RN notes): Yes Resp Symptoms (Recalled from RN notes): No Skin Symptoms (Recalled from RN notes): No MS Symptoms (Recalled from RN notes): No Functional Status (Recalled from RN notes): WNL - History of Present Illness Provider Complaint: Exposed to COVID19 on 04/13 at a [employer]. Started having headache, body aches, chills, runny eyes, runny nose, vomiting and diarrhea last night. Had COVID19 8-9 months ago Onset (ago): day(s) (1) Consistency: constant Relieving factors: none Exacerbating factors: none Associated symptoms: headaches, malaise, shortness of breath Treatments prior to arrival: none - Related Data Home Medications Medication Instructions Recorded Confirmed Aspirin [Low Dose Aspirin EC] 81 mg PO DAILY 08/29/21 04/01/22 Budesonide/Formoterol Fumarate 2 puff IH BID 08/29/21 04/01/22 [Budesonide-Formoterol 160-4.5] Cholecalciferol (Vitamin D3) See Rx Instructions .ROUTE .COMPLEX 08/29/21 04/01/22 [Vitamin D3 1,000 Unit Cap] Ergocalciferol (Vitamin D2) See Rx Instructions .ROUTE .COMPLEX 08/29/21 04/01/22 [Drisdol] Loratadine [Allergy Relief] 10 mg PO DAILY 08/29/21 04/01/22 Potassium Chloride 20 meq PO DAILY 08/29/21 04/01/22 Quetiapine Fumarate See Rx Instructions .ROUTE .COMPLEX 10/15/21 04/01/22 SUMAtriptan succinate [Sumatriptan See Rx Instructions .ROUTE .COMPLEX 02/09/22 04/01/22 Succinate] lamoTRIgine [Lamotrigine] See Rx Instructions .ROUTE .COMPLEX 02/09/22 04/01/22 Celecoxib See Rx Instructions .ROUTE .COMPLEX 02/20/22 04/01/22 Albuterol Sulfate [Proventil Hfa] 2 puff IH Q6H 03/23/22 04/01/22 Atorvastatin Calcium [Lipitor 20mg See Rx Instructions .ROUTE .COMPLEX 03/23/22 04/01/22 Tab] Topiramate See Rx Instructions .ROUTE .COMPLEX 03/23/22 04/01/22 gemfibroziL [Gemfibrozil] See Rx Instructions .ROUTE .COMPLEX 03/23/22 04/01/22 Previous Rx's Medication Instructions Recorded fluticasone propionate 50 1 spray NS BID #16 g 03/03/ mcg/actuation nasal spray,suspension
[2022-04-18 11:08] LABS: Adenovirus,PCR Not Detected (NotDetected); Bordetella Pertussis Not Detected (NotDetected); Chlamydophila Pneumoniae, PCR Not Detected (NotDetected); Coronavirus 19, PCR Not Detected (NotDetected); Coronavirus 229E Not Detected (NotDetected); Coronavirus NL63 Not Detected (NotDetected); Coronavirus OC43 Not Detected (NotDetected); Coronovirus HKU1,PCR Not Detected (NotDetected); Human Metapneumovirus Not Detected (NotDetected); Influenza A, PCR Not Detected (NotDetected); Influenza AH1, 2009 Not Detected (NotDetected); Influenza AH1, PCR Not Detected (NotDetected); Influenza AH3,PCR Not Detected (NotDetected); Influenza B, PCR Not Detected (NotDetected); Mycoplasma Pneumoniae, PCR Not Detected (NotDetected); Parainfluenza 1, PCR Not Detected (NotDetected); Parainfluenza 2, PCR Not Detected (NotDetected); Parainfluenza 3, PCR Not Detected (NotDetected); Parainfluenza 4, PCR Not Detected (NotDetected); Respiratory Syncytial Virus Not Detected (NotDetected); Rhinovirus/Enterovirus Not Detected (NotDetected)
[2022-04-18 11:27] VITALS: BP 130/82; PULSE 85; RESP 18; TEMP 36.6; O2SAT 97
== END 2022-04-18 11:37 | disposition home or self-care (01) ==
PROVIDERS: Emergency Provider Physician Assistant; PCP Physician Assistant
DX: R11.10 Vomiting, unspecified (principal); R68.83 Chills (without fever); R51.9 Headache, unspecified; M79.10 Myalgia, unspecified site; R09.81 Nasal congestion; H53.143 Visual discomfort, bilateral; H57.89 Other specified disorders of eye and adnexa; R19.7 Diarrhea, unspecified; R53.81 Other malaise; R06.02 Shortness of breath; R05.9 Cough, unspecified; K21.9 Gastro-esophageal reflux disease without esophagitis; F41.9 Anxiety disorder, unspecified; F32.A Depression, unspecified; E78.5 Hyperlipidemia, unspecified; I10 Essential (primary) hypertension; R00.2 Palpitations; M19.90 Unspecified osteoarthritis, unspecified site; Z86.16 Personal history of COVID-19; Z20.822 Contact with and (suspected) exposure to COVID-19; Z72.0 Tobacco use
CPT/HCPCS: 87581; 87632; 87798; 99212; C9803; G0463; U0003; U0005

== ENCOUNTER → 2022-05-18 11:45 | Outpatient (POV) | payer OTHER, SELFPAY ==
[2022-05-18 11:50] VITALS: BP 128/80; PULSE 87; RESP 20; O2SAT 99; BMI 26.2
--- NOTE | 2022-05-18 12:03 | HMH.PAINSOAP ---
[facility] Pain Management SOAP Note Subjective:: Patient is a pleasant 47-year-old female who presents today for a follow-up of lumbar RFA on 03/27/2022. We are currently seeing the patient for degenerative disc disease of lumbar spine multilevels with lumbar spondylosis and lumbar facet arthropathy bilateral L4-5, L5-S1. Patient states she is gotten 0 relief from her last procedure. She states in the past that her last RFA did provide significant relief of 60% lasting 2 weeks. Today she rates her pain a 7 out of 10. She states the pain is all in her low back area that radiates to her bilateral legs all the way to her feet. Patient states she has tried rcoo-lid-vaodbrv medications with minimal relief. Patient denies any new trauma or injury to the site. She denies any change to the location of the or type of pain she experiences. Her Carmelo is [phone]. It has been reviewed and appropriate. Review of Systems: General: No recent weight changes, no fever, no sleep disturbances Respiratory: No cough, no shortness of air, no recurring pulmonary infections Cardiovascular/peripheral vascular: No chest pain, no palpitations, no edema, no shortness of breath Gastrointestinal: No new onset incontinence, normal bowel movements reported Genitourinary: No new onset incontinence Musculoskeletal: Low back pain Psychiatric: [Normal mood/affect] Neurological: [Denies weakness in extremities], [denies balance issues] Objective:: Physical Exam: General: Alert and oriented x3, no acute distress, pleasant and cooperative Lungs: Respirations even and unlabored, symmetrical chest expansion Eyes: PERRL Musculoskeletal: Flexion and extension of lumbar [spine] somewhat guarded secondary to pain, [antalgic gait noted] point tenderness along lumbar spine Neurological: Speech clear, no gross sensory deficit Assessment:: Degenerative disc disease of lumbar spine multilevels with lumbar radiculopathy symptoms, lumbar spondylosis and lumbar facet arthropathy bilateral L4-5, L5-S1 Plan:: Patient is experiencing significant pain in her low back and bilateral legs. I have discussed with the patient regarding a lumbar epidural steroid injection. Risk and benefits were discussed with the patient. The patient would like to proceed forward with this injection. Patient is not currently on any blood thinners. I have also discussed with the patient regarding adding diclofenac 75 mg twice daily. She has been counseled on taking this medication with food and discontinuing any other NSAIDs while using this medicine. Patient is currently taking Celebrex, I have tried to call and confirm if she is taking this medication and if it is working. Patient did not answer and I am unable to leave a voicemail. At this time I will not send prescription until I have confirmed with the patient regarding stopping Celebrex and starting diclofenac. We will schedule the patient for a lumbar epidural steroid injection L4-L5. Patient has been instructed to contact the clinic with any concerns before the next appointment. Dr. Briones has reviewed this note and agrees with this plan of care. This note was dictated using voice recognition software and make contain errors or omissions. [facility] History I have reviewed the patient's past medical history: Yes Medical History: Reports:: Anxiety, Depression, Gastroesophageal Reflux Disease(GERD), Hyperlipidemia, Hypertension, Palpitations Denies:: Cancer, Diabetes Mellitus Type 1, Diabetes Mellitus Type 2, Internal Pacemaker, MRSA, Seizures *Have you ever received a pneumonia vaccine?: No *Have you received a flu vaccine this season?: Yes Other Medical History: Reports: Arthritis Other Surgeries: Yes: Cardiac Catheterization, Cholecystectomy, , Dilation and Curettage, Diagnostic Lap, Hysterectomy-Total. No: Pacemaker Amputation: No Fractures: No - *Social History Smoking Status: Current every day smoker Tobacco Type: cigarettes # Packs/Day (cigarettes):
== END ==
PROVIDERS: PCP Physician Assistant; Visit Provider Nurse Practitioner Family
DX: M51.36 Other intervertebral disc degeneration, lumbar region (principal); M47.26 Other spondylosis with radiculopathy, lumbar region
CPT/HCPCS: 99212; G0463

== ENCOUNTER 2022-06-30 09:02 | Day surgery (SDC) | payer MEDICAID, SELFPAY ==
[2022-06-30 09:17] VITALS: BP 108/64; PULSE 72; RESP 18; TEMP 36.7; O2SAT 99; BMI 27.2
[2022-06-30 09:36] VITALS: BP 108/60; PULSE 76; RESP 18; O2SAT 98
[2022-06-30 09:37] VITALS: BP 108/60; PULSE 77; RESP 18; O2SAT 99
--- NOTE | 2022-06-30 09:42 | P.PCN_ITS ---
Procedure Date: 06/30/22 Time: 09:43 Anesthesiologist:: Andrew Daniels CRNA Complications:: None Pre-procedure Diagnosis:: Degenerative disc disease lumbar spine multilevels. Lumbar radiculopathy. Post-procedure Diagnosis:: Same Indications for Procedure:: Patient is a pleasant 47-year-old female that comes to our injection clinic today for an initial lumbar epidural steroid injection at L4-5 level. Patient reports low back pain as well as bilateral hip and leg radicular symptoms at ti mes. She rates her pain 7/10. Procedure Details:: Procedure: Lumbar epidural steroid injection under fluoroscopy Informed consent was obtained and the risks and benefits of the procedure were explained to the patient. The patient was taken to the procedure room and noninvasive monitors placed, including noninvasive blood pressure cuff and pulse oximeter. The back was viewed using C-arm Fluoroscopy and prepped using Betadine as a cleansing solution and the L4-L5 interspace was palpated. Skin and subcutaneous tissues were anesthetized using lidocaine 1.5% and a 25-gauge needle. After this, an 18-gauge Touhy epidural needle was placed into the L4-L5 interspace and advanced using fluoroscopic guidance and loss of resistance to air until the epidural space was encountered. After confirmation of needle placement in the epidural space, with dye, a solution containing lidocaine 1.5%, 4 mL and Depo-Medrol 80 mg were incrementally injected into the lumbar epidural space. The patient tolerated the procedure well with no complications. The patient was observed in the Pain Clinic and then discharged home neurologically intact. Plan and Disposition:: Patient was discharged without incident.
[2022-06-30 09:43] VITALS: BP 122/78; PULSE 82; RESP 18; O2SAT 99
== END 2022-06-30 09:43 | disposition home or self-care (01) ==
PROVIDERS: PCP Physician Assistant; Visit Provider Nurse Anesthetist, Certified Registered
DX: M51.16 Intervertebral disc disorders with radiculopathy, lumbar region (principal); M19.90 Unspecified osteoarthritis, unspecified site; Z72.0 Tobacco use
CPT/HCPCS: 62323; J1040

== ENCOUNTER → 2022-07-28 13:41 | Outpatient (CLI) | payer MEDICAID, SELFPAY ==
[2022-07-28 13:05] LABS: Adenovirus,PCR Not Detected (NotDetected); Bordetella Pertussis Not Detected (NotDetected); Chlamydophila Pneumoniae, PCR Not Detected (NotDetected); Coronavirus 19, PCR Not Detected (NotDetected); Coronavirus 229E Not Detected (NotDetected); Coronavirus NL63 Not Detected (NotDetected); Coronavirus OC43 Not Detected (NotDetected); Coronovirus HKU1,PCR Not Detected (NotDetected); Human Metapneumovirus Not Detected (NotDetected); Influenza A, PCR Not Detected (NotDetected); Influenza AH1, 2009 Not Detected (NotDetected); Influenza AH1, PCR Not Detected (NotDetected); Influenza AH3,PCR Not Detected (NotDetected); Influenza B, PCR Not Detected (NotDetected); Mycoplasma Pneumoniae, PCR Not Detected (NotDetected); Parainfluenza 1, PCR Not Detected (NotDetected); Parainfluenza 2, PCR Not Detected (NotDetected); Parainfluenza 3, PCR Not Detected (NotDetected); Parainfluenza 4, PCR Not Detected (NotDetected); Respiratory Syncytial Virus Not Detected (NotDetected); Rhinovirus/Enterovirus Not Detected (NotDetected)
== END ==
PROVIDERS: PCP Physician Assistant; Visit Provider Physician Assistant
DX: R05.9 Cough, unspecified; R09.81 Nasal congestion; R50.81 Fever presenting with conditions classified elsewhere; R68.89 Other general symptoms and signs; R52 Pain, unspecified; F17.210 Nicotine dependence, cigarettes, uncomplicated
CPT/HCPCS: 87581; 87632; 87798; C9803; U0003; U0005

== ENCOUNTER → 2022-12-10 06:54 | Outpatient (CLI) | payer MEDICAID, SELFPAY ==
[2022-12-10 18:04] LABS: Adenovirus,PCR Not Detected (NotDetected); Bordetella Pertussis Not Detected (NotDetected); Chlamydophila Pneumoniae, PCR Not Detected (NotDetected); Coronavirus 19, PCR Not Detected (NotDetected); Coronavirus 229E Not Detected (NotDetected); Coronavirus NL63 Not Detected (NotDetected); Coronavirus OC43 Not Detected (NotDetected); Coronovirus HKU1,PCR Not Detected (NotDetected); Human Metapneumovirus Not Detected (NotDetected); Influenza A, PCR Not Detected (NotDetected); Influenza AH1, 2009 Not Detected (NotDetected); Influenza AH1, PCR Not Detected (NotDetected); Influenza AH3,PCR Not Detected (NotDetected); Influenza B, PCR Not Detected (NotDetected); Mycoplasma Pneumoniae, PCR Not Detected (NotDetected); Parainfluenza 1, PCR Not Detected (NotDetected); Parainfluenza 2, PCR Not Detected (NotDetected); Parainfluenza 3, PCR Not Detected (NotDetected); Parainfluenza 4, PCR Not Detected (NotDetected); Respiratory Syncytial Virus Not Detected (NotDetected); Rhinovirus/Enterovirus Not Detected (NotDetected)
== END ==
PROVIDERS: PCP Physician Assistant; Visit Provider Physician Assistant
DX: R51.9 Headache, unspecified (principal); R50.9 Fever, unspecified; R11.2 Nausea with vomiting, unspecified; R19.7 Diarrhea, unspecified
CPT/HCPCS: 87581; 87632; 87798; C9803; U0003; U0005

== ENCOUNTER 2022-12-20 12:45 | Emergency (ER) | payer MEDICAID, SELFPAY ==
[2022-12-20 14:00] VITALS: BP 121/75; PULSE 86; RESP 20; TEMP 37.1; O2SAT 100; BMI 24.4
--- NOTE | 2022-12-20 14:06 | EXP.UTC ---
Discharge Plan Disposition Patient Disposition: Home, Self-Care Condition: Good Prescriptions Prescriptions: New azithromycin [Zithromax] 250 mg tablet 250 mg PO UD DOSE PK Qty: 6 0RF Rx Instructions: Take two (2) tablets today, then one (1) tablet days #2 thru #5 benzonatate [benzonatate] 100 mg capsule 100 mg PO TIDP PRN (Reason: Cough) Qty: 30 0RF methylprednisolone 4 mg Tablets,Dose Pack 4 mg PO DIRECTED Qty: 21 0RF No Action promethazine 12.5 mg tablet 12.5 mg PO TID PRN (Reason: nausea and vomiting) Qty: 14 0RF cyclobenzaprine 5 mg tablet 5 mg PO TID PRN (Reason: muscle spasm) Qty: 20 0RF fluticasone propionate 50 mcg/actuation spray,suspension 1 spray NS BID Qty: 16 5RF Rx Instructions: administer into each nostril loratadine 10 mg tablet 10 mg PO DAILY Qty: 90 2RF Nurtec ODT 75 mg tablet,disintegrating 75 mg PO ONCE PRN (Reason: migraine headache) Qty: 16 0RF sumatriptan succinate 100 mg tablet See Rx Instructions .ROUTE .COMPLEX Qty: 9 0RF Dose Instruction: TAKE 1 TABLET BY MOUTH AT ONSET OF HEADACHE. IF THERE IS NO RELIEF, MAY REPEAT 1 TABLET IN 2 HOURS. MAXIMUM OF 2 TABLETS IN 24 HOURS. Rx Instructions: TAKE 1 TABLET BY MOUTH AT ONSET OF HEADACHE. IF THERE IS NO RELIEF, MAY REPEAT 1 TABLET IN 2 HOURS. MAXIMUM OF 2 TABLETS IN 24 HOURS. ondansetron 8 mg tablet,disintegrating 8 mg PO Q8HP PRN (Reason: Nausea) 10 Days Qty: 30 1RF Ubrelvy 100 mg tablet 100 mg PO ONCE PRN (Reason: migraine headache) Qty: 16 2RF Ajovy Autoinjector 225 mg/1.5 mL auto-injector See Rx Instructions .ROUTE .COMPLEX Qty: 2 0RF Dose Instruction: INJECT 1 AUTO-INJECTOR SUBCUTANEOUSLY ONCE EVERY MONTH Rx Instructions: INJECT 1 AUTO-INJECTOR SUBCUTANEOUSLY ONCE EVERY MONTH Vraylar 4.5 mg capsule See Rx Instructions .ROUTE .COMPLEX Qty: 90 3RF Dose Instruction: Take 1 capsule by mouth once daily Rx Instructions: Take 1 capsule by mouth once daily venlafaxine 150 mg capsule,extended release 24hr See Rx Instructions .ROUTE .COMPLEX Qty: 30 0RF Dose Instruction: Take 1 capsule by mouth once daily Rx Instructions: Take 1 capsule by mouth once daily methocarbamol 500 mg tablet See Rx Instructions .ROUTE .COMPLEX Qty: 90 0RF Dose Instruction: TAKE 1 TABLET BY MOUTH THREE TIMES DAILY FOR MUSCLE SPASM Rx Instructions: TAKE 1 TABLET BY MOUTH THREE TIMES DAILY FOR MUSCLE SPASM buspirone 15 mg tablet See Rx Instructions .ROUTE .COMPLEX Qty: 90 0RF Dose Instruction: TAKE 1 TABLET BY MOUTH THREE TIMES DAILY Rx Instructions: TAKE 1 TABLET BY MOUTH THREE TIMES DAILY aspirin 81 MG tablet,delayed release (DR/EC) 81 mg PO DAILY ergocalciferol (vitamin D2) 1,250 MCG capsule See Rx Instructions .Route .COMPLEX Rx Instructions: Take 1 capsule by mouth once a week cholecalciferol (vitamin D3) 1,000 UNIT capsule See Rx Instructions .Route .COMPLEX Rx Instructions: TAKE 1 CAPSULE BY MOUTH ONCE DAILY WITH MEALS budesonide-formoterol 10.2 GM HFA aerosol inhaler 2 puff IH BID potassium chloride 20 MEQ tablet extended release 20 meq PO DAILY quetiapine 25 MG tablet 25 mg PO BID Rx Instructions: Take 1 tablet by mouth twice daily lamotrigine 25 MG tablet 25 mg PO DAILY Rx Instructions: Take 1 tablet by mouth once daily albuterol sulfate 8.5 GM HFA aerosol inhaler 2 inh IH Q4HP PRN (Reason: Wheezing) 30 Days Qty: 1 0RF atorvastatin 20 mg tablet See Rx Instructions .ROUTE .COMPLEX Rx Instructions: TAKE 1 TABLET BY MOUTH ONCE DAILY AT BEDTIME gemfibrozil 600 mg tablet See Rx Instructions .ROUTE .COMPLEX Rx Instructions: Take 1 tablet by mouth twice daily topiramate 50 mg tablet See Rx Instructions .ROUTE .COMPLEX Rx Instructions: Take 1 tablet by mouth twice daily
[2022-12-20 15:17] VITALS: BP 121/75; PULSE 86; RESP 20; TEMP 37.1; O2SAT 100
== END 2022-12-20 15:17 | disposition home or self-care (01) ==
PROVIDERS: Emergency Provider Nurse Practitioner Family; PCP Physician Assistant
DX: J20.9 Acute bronchitis, unspecified (principal); M54.6 Pain in thoracic spine; R50.9 Fever, unspecified; K21.9 Gastro-esophageal reflux disease without esophagitis; F31.9 Bipolar disorder, unspecified
CPT/HCPCS: 99212; 99214; G0463

== ENCOUNTER → 2022-12-24 15:45 | Outpatient (CLI) | payer MEDICAID, SELFPAY ==
--- NOTE | 2022-12-24 15:49 | XR_ITS ---
FINAL REPORT CLINICAL HISTORY: cough, smoker, no chest surgeries. COMPARISON: 03/15/2022 FINDINGS: Two views of the chest were obtained. The heart size and pulmonary vascularity are within normal limits. The mediastinum is normal. The lungs are hyperinflated consistent with COPD. No acute pulmonary abnormality is identified. There is no pneumothorax. The bony thorax is intact. IMPRESSION: No acute cardiopulmonary process. Reviewed, Interpreted and Dictated by Ralf Pandya III, MD Transcribed by Savi Baer Authenticated and . [facility]
== END ==
PROVIDERS: PCP Physician Assistant; Visit Provider Physician Assistant
DX: R05.9 Cough, unspecified (principal)
CPT/HCPCS: 71046

== ENCOUNTER → 2023-03-01 11:37 | Outpatient (POV) | payer MEDICAID, SELFPAY ==
[2023-03-01 11:53] VITALS: BP 114/81; PULSE 80; RESP 18; O2SAT 98; BMI 25.6
--- NOTE | 2023-03-01 12:08 | EXP.PAIN.SOA ---
[facility] Pain Management SOAP Note Subjective:: Patient is a pleasant 48-year-old female who presents today for medication refill and follow-up. We are currently treating the patient for degenerative disc disease of lumbar spine with lumbar radiculopathy symptoms. Today she rates her pain a 10 out of 10. Patient states she has not had any new injury or trauma or any change to the type of pain she experiences. Patient states she continues to have worsening low back pain that radiates into her bilateral legs. She does describe this as an aching, throbbing sensation that is worse with increased activity. Patient does walk frequently and also does heavy lifting which worsens her pain symptoms. Patient does state the pain interferes with her ability to perform activities of daily living such as cooking and cleaning. Patient has been on Celebrex 200 mg and Robaxin 500 mg for over a year with minimal improvement. She is not currently on any scheduled medications. Patient has previously had a lumbar epidural steroid injection that provided at least 50% improvement lasting approximately 4 months. Patient has tried oral medications, heat and ice, topicals, physical therapy, at home stretching and exercise for longer than 6 weeks. Her Carmelo is [phone]. Its been reviewed and appropriate. Review of Systems: General: No recent weight changes, no fever, no sleep disturbances Respiratory: No cough, no shortness of air, no recurring pulmonary infections Cardiovascular/peripheral vascular: No chest pain, no palpitations, no edema, no shortness of breath Gastrointestinal: No new onset incontinence, normal bowel movements reported Genitourinary: No new onset incontinence Musculoskeletal: Low back pain Psychiatric: [Normal mood/affect] Neurological: [Denies weakness in extremities], [denies balance issues] Objective:: Physical Exam: General: Alert and oriented x3, no acute distress, pleasant and cooperative Lungs: Respirations even and unlabored, symmetrical chest expansion Eyes: PERRL Musculoskeletal: Flexion and extension of lumbar [spine] somewhat guarded secondary to pain, [antalgic gait noted] Neurological: Speech clear, no gross sensory deficit Assessment:: Degenerative disc disease of lumbar spine with lumbar radiculopathy symptoms Plan:: Patient is experiencing significant pain in her low back with limited range of motion. I have discussed with the patient that she may benefit from repeat lumbar epidural steroid injection. Her previous injection she did get at least 50% improvement lasting 4 months. Patient has tried and failed conservative therapy such as oral medications, heat and ice, topicals, at home stretching and exercise for longer than 6 weeks, physical therapy. Patient is not on any blood thinners. I have counseled the patient that we will change her methocarbamol to 750 mg and that to discontinue her Celebrex. I will send in a new order of diclofenac 75 mg twice daily and provide a 14-day supply of this medication. Patient has been counseled to take this medication with food to minimize GI upset and discontinue all other NSAIDs while taking this medication. Patient denies any heart or kidney issues. We will schedule the patient for an LESI L4-L5. Patient has been instructed to contact the clinic with any concerns before the next appointment. Dr. Briones has reviewed this note and agrees with this plan of care. This note was dictated using voice recognition software and make contain errors or omissions. [facility] Disclaimer: The information contained in this section may have been updated after the patient was seen, as this information can be updated by other users. Medical History Anxiety Bipolar disorder Constipation Depression Encounter for smoking cessation counseling Facet hypertrophy of lumbar region GERD (gastroesophageal reflux disease) Lumbar back pain Sciatica of right side Sin
== END | disposition home or self-care (01) ==
PROVIDERS: Visit Provider Nurse Practitioner Family
DX: M51.16 Intervertebral disc disorders with radiculopathy, lumbar region (principal)
CPT/HCPCS: 99212; G0463

== ENCOUNTER 2023-03-16 08:43 | Day surgery (SDC) | payer MEDICAID, SELFPAY ==
[2023-03-16 09:03] VITALS: BP 119/71; PULSE 83; RESP 18; TEMP 36.4; O2SAT 100; BMI 25.6
[2023-03-16 09:35] VITALS: BP 123/75; PULSE 74; RESP 18; O2SAT 96
[2023-03-16 09:37] VITALS: BP 118/75; PULSE 80; RESP 16; O2SAT 100
--- NOTE | 2023-03-16 09:37 | EXP.PAIN.PRO ---
Procedure Date: 03/16/23 Time: 09:33 Anesthesiologist:: Andrew Daniels CRNA Complications:: None Pre-procedure Diagnosis:: Degenerative disc lumbar spine multilevels. Lumbar radiculopathy Post-procedure Diagnosis:: Same. Indications for Procedure:: Patient is a very pleasant 48-year-old female that comes our clinic today for lumbar epidural steroid injections L4-5 level. Patient rates her pain 8/10 today. She describes low back pain as well as bilateral hip and leg radicular symptoms. Procedure Details:: Procedure: Lumbar epidural steroid injection under fluoroscopy Informed consent was obtained and the risks and benefits of the procedure were explained to the patient. The patient was taken to the procedure room and noninvasive monitors placed, including noninvasive blood pressure cuff and pulse oximeter. The back was viewed using C-arm Fluoroscopy and prepped using Chloraprep as a cleansing solution and the L4-L5 interspace was palpated. Skin and subcutaneous tissues were anesthetized using lidocaine 1.5% and a 25-gauge needle. After this, an 18-gauge Touhy epidural needle was placed into the L4-L5 interspace and advanced using fluoroscopic guidance and loss of resistance to air until the epidural space was encountered. After confirmation of needle placement in the epidural space, with dye, a solution containing normal saline, 3 mL and Depo-Medrol 80 mg were incrementally injected into the lumbar epidural space. The patient tolerated the procedure well with no complications. The patient was observed in the Pain Clinic and then discharged home neurologically intact. Plan and Disposition:: Patient was discharged without incident.
== END 2023-03-16 09:37 | disposition home or self-care (01) ==
PROVIDERS: PCP Physician Assistant; Visit Provider Nurse Anesthetist, Certified Registered
DX: M51.16 Intervertebral disc disorders with radiculopathy, lumbar region (principal); M25.552 Pain in left hip; M25.551 Pain in right hip
CPT/HCPCS: 62323; J1040

== ENCOUNTER → 2023-03-31 10:36 | Outpatient (POV) | payer MEDICAID, SELFPAY ==
--- NOTE | 2023-03-31 10:57 | EXP.PAIN.SOA ---
[facility] Pain Management SOAP Note Subjective:: Patient is a pleasant 48-year-old female who presents today for follow-up of lumbar epidural steroid injection of L4-L5 on 03/16/2023. We are currently treating the patient for degenerative disc disease of lumbar spine with lumbar radiculopathy symptoms. Today she rates her pain a 9 out of 10. Patient states that the injection did not provide any additional relief and that she did even experience worsening pain. Patient did go to her primary care provider and was prescribed lidocaine patches and meloxicam however she states this has not helped any additionally. Patient does describe her back pain as an aching, throbbing sensation that is worse with increased activity. Patient did previously have a lumbar epidural steroid injection that provided 50% improvement lasting for months. Patient denies any new injury or trauma. At our last visit patient had been prescribed diclofenac 75 mg twice a day and an increase to methocarbamol 750 mg. Patient states that she did notice some improvement with the diclofenac and states that it is done better than the meloxicam or the Celebrex she was on in the past. She is requesting a refill at today's visit. Patient is not on any scheduled medications. Her Carmelo is [phone]. Its been reviewed and appropriate. Review of Systems: General: No recent weight changes, no fever, no sleep disturbances Respiratory: No cough, no shortness of air, no recurring pulmonary infections Cardiovascular/peripheral vascular: No chest pain, no palpitations, no edema, no shortness of breath Gastrointestinal: No new onset incontinence, normal bowel movements reported Genitourinary: No new onset incontinence Musculoskeletal: Low back pain Psychiatric: [Normal mood/affect] Neurological: [Denies weakness in extremities], [denies balance issues] Objective:: Physical Exam: General: Alert and oriented x3, no acute distress, pleasant and cooperative Lungs: Respirations even and unlabored, symmetrical chest expansion Eyes: PERRL Musculoskeletal: Flexion and extension of lumbar [spine] somewhat guarded secondary to pain, [antalgic gait noted] Neurological: Speech clear, no gross sensory deficit \ FINDINGS: There is normal alignment.? The spinal cord ends at the L1 level. L1-L2: Unremarkable. L2-L3: Unremarkable. L3-L4: Unremarkable. L4-5: Minimal bulging disc with facet and ligamentum hypertrophy with mild bilateral lateral recess narrowing left greater than right and mild left-sided foraminal narrowing. L5-S1: Mild facet and ligamentum hypertrophic change with mild bilateral foraminal narrowing left greater than IMPRESSION: 1. L4-5: Minimal bulging disc with facet and ligamentum hypertrophy with mild bilateral lateral recess narrowing left greater than right and mild left-sided foraminal narrowing. 2. L5-S1: Mild facet and ligamentum hypertrophic change with mild bilateral foraminal narrowing left greater than 3. No extruded herniated disc or canal stenosis Dictated by: ? Clemente Dixon MD? 08/03/2021 07:08 ?Clemente Dixon MD in [place] 08/03/2021 07:08 Assessment:: Degenerative disc disease of lumbar spine with lumbar radiculopathy symptoms, ligamentum flavum hypertrophy, lumbar facet arthropathy Plan:: Patient continues to experience significant pain in her low back with radiating symptoms into her legs. I have discussed with the patient that she may be a beneficial candidate of the minimally invasive lumbar decompression. Risk and benefits and educational handouts were given during today's visit. I will send in a refill of her diclofenac 75 mg twice daily and provide a 1 month supply of this medication. I have counseled the patient to discontinue the meloxicam and not take any other NSAIDs while taking this medication. Patient has also been educated to take this medication with food to minimize GI upset. I will also send in a prescription of cyclobenzaprine 10 mg 3 times daily and provide a
[2023-03-31 12:38] VITALS: BP 139/87; PULSE 85; RESP 18; O2SAT 97; BMI 26.6
== END | disposition home or self-care (01) ==
PROVIDERS: PCP Physician Assistant; Visit Provider Nurse Practitioner Family
DX: M51.16 Intervertebral disc disorders with radiculopathy, lumbar region (principal); M24.28 Disorder of ligament, vertebrae; M47.26 Other spondylosis with radiculopathy, lumbar region
CPT/HCPCS: 99212; G0463

== ENCOUNTER → 2023-04-28 08:53 | Outpatient (POV) | payer MEDICAID, SELFPAY ==
[2023-04-28 09:26] VITALS: BP 109/79; PULSE 82; RESP 18; O2SAT 100; BMI 26.9
--- NOTE | 2023-04-28 09:37 | EXP.PAIN.SOA ---
[facility] Pain Management SOAP Note Subjective:: Patient is a pleasant 48-year-old female who presents today for 1 month follow-up. We are currently treating the patient for degenerative disc disease of lumbar spine with lumbar radiculopathy symptoms. Today she rates her pain an 8 out of 10. Patient denies any new trauma or injury. She denies any change to location or type of pain she experiences. Patient does state that she has constant pain in her low back that does affect her ability to work on a regular basis. She states that the medication she is currently on only takes the edge off. She is currently managed with diclofenac 75 mg twice a day and cyclobenzaprine 10 mg 3 times a day. Patient denies any side effects from these medications. Her Carmelo is [phone]. Its been reviewed and appropriate. Review of Systems: General: No recent weight changes, no fever, no sleep disturbances Respiratory: No cough, no shortness of air, no recurring pulmonary infections Cardiovascular/peripheral vascular: No chest pain, no palpitations, no edema, no shortness of breath Gastrointestinal: No new onset incontinence, normal bowel movements reported Genitourinary: No new onset incontinence Musculoskeletal: Low back pain, leg pain Psychiatric: [Normal mood/affect] Neurological: [Denies weakness in extremities], [denies balance issues] Objective:: Physical Exam: General: Alert and oriented x3, no acute distress, pleasant and cooperative Lungs: Respirations even and unlabored, symmetrical chest expansion Eyes: PERRL Musculoskeletal: Flexion and extension of lumbar [spine] somewhat guarded secondary to pain, [antalgic gait noted] Neurological: Speech clear, no gross sensory deficit Assessment:: Degenerative disc disease of lumbar spine with lumbar radiculopathy symptoms Plan:: Patient continues to experience severe debilitating pain in her low back and legs. Patient had limited range of motion of her lumbar spine during today's visit. I have discussed with the patient that she may benefit from a intrathecal pain pump trial. Risk and benefits and educational handouts were given during today's visit and she would like to proceed forward with this option. I will order a psych eval today and if she is deemed an appropriate candidate for the device we will proceed forward with the trial in the future. I will refill the patient's diclofenac 75 mg twice a day and cyclobenzaprine 10 mg 3 times a day and provide a 2-month supply of this medication. Patient will return to clinic in 6 weeks for reevaluation of symptoms and plan of care. Patient has been instructed to contact the clinic with any concerns before the next appointment. Dr. Briones has reviewed this note and agrees with this plan of care. This note was dictated using voice recognition software and make contain errors or omissions. [facility] Disclaimer: The information contained in this section may have been updated after the patient was seen, as this information can be updated by other users. Medical History Anxiety Bipolar disorder Constipation Depression Encounter for smoking cessation counseling Facet hypertrophy of lumbar region GERD (gastroesophageal reflux disease) Lumbar back pain Sciatica of right side Sinusitis Vertigo Social History Smoking Status: Current every day smoker tobacco type: cigarettes packs per day: 2 second hand exposure: Yes alcohol intake: never substance use type: denies use current occupational status: employed Travel in the last 8 weeks: None household members: none housing: house current occupational exposures/hazards: No caffeine: Yes
== END | disposition home or self-care (01) ==
PROVIDERS: PCP Physician Assistant; Visit Provider Nurse Practitioner Family
DX: M51.16 Intervertebral disc disorders with radiculopathy, lumbar region (principal)
CPT/HCPCS: 99212; G0463

== ENCOUNTER → 2023-05-24 10:10 | Outpatient (POV) | payer MEDICAID, SELFPAY ==
[2023-05-24 10:44] VITALS: BP 109/82; PULSE 88; RESP 18; O2SAT 99; BMI 26.6
--- NOTE | 2023-05-24 11:35 | A.OFFVIS_ITS ---
[facility] Pain Management SOAP Note Subjective:: Patient is a pleasant 48-year-old female who presents today for follow-up. We are currently treating the patient for degenerative disc disease of lumbar spine with lumbar radiculopathy symptoms. Today she rates her pain a 9 out of 10. Patient denies any new trauma. She does state that she has been doing a lot around her home including lifting which is causing significant pain. Patient does state that she recently was sent in a prescription of pregabalin 75 mg twice a day from her primary care doctor. She states that she has not noticed any additional improvement at this time. She is also managed with diclofenac 75 mg twice a day and cyclobenzaprine 10 mg 3 times a day from our office. She denies any side effects from this medication. She is also waiting for a psych eval for possible intrathecal pain pump trial in the future. Her Carmelo is [phone]. Its been reviewed and appropriate. Review of Systems: General: No recent weight changes, no fever, no sleep disturbances Respiratory: No cough, no shortness of air, no recurring pulmonary infections Cardiovascular/peripheral vascular: No chest pain, no palpitations, no edema, no shortness of breath Gastrointestinal: No new onset incontinence, normal bowel movements reported Genitourinary: No new onset incontinence Musculoskeletal: Low back pain Psychiatric: [Normal mood/affect] Neurological: [Denies weakness in extremities], [denies balance issues] Objective:: Physical Exam: General: Alert and oriented x3, no acute distress, pleasant and cooperative Lungs: Respirations even and unlabored, symmetrical chest expansion Eyes: PERRL Musculoskeletal: Flexion and extension of lumbar [spine] somewhat guarded secondary to pain, [antalgic gait noted] Neurological: Speech clear, no gross sensory deficit Assessment:: Degenerative disc disease of lumbar spine with lumbar radiculopathy symptoms Plan:: At her last visit she did get a 2-month supply of her diclofenac and cyclobenzaprine and does not need a refill at this time. We will plan on refilling this at her next appointment. I will send in a 5-day dose of prednisone 20 mg twice daily. We have also contacted the office for psychological evaluation and left a voicemail. We have given the patient their office number to call about her upcoming appointment for psych eval. We will follow-up with her at her next visit. Patient will return to clinic in 1 month for reevaluation of symptoms and plan of care. Patient has been instructed to contact the clinic with any concerns before the next appointment. Dr. Briones has reviewed this note and agrees with this plan of care. This note was dictated using voice recognition software and make contain errors or omissions. [facility] Disclaimer: The information contained in this section may have been updated after the patient was seen, as this information can be updated by other users. Medical History Anxiety Bipolar disorder Constipation Depression Encounter for smoking cessation counseling Facet hypertrophy of lumbar region GERD (gastroesophageal reflux disease) Lumbar back pain Sciatica of right side Sinusitis Vertigo Social History Smoking Status: Current every day smoker tobacco type: cigarettes packs per day: 2 second hand exposure: Yes alcohol intake: never substance use type: denies use current occupational status: employed Travel in the last 8 weeks: None household members: none housing: house current occupational exposures/hazards: No caffeine:
== END | disposition home or self-care (01) ==
PROVIDERS: PCP Physician Assistant; Visit Provider Nurse Practitioner Family
DX: M51.16 Intervertebral disc disorders with radiculopathy, lumbar region (principal)
CPT/HCPCS: 99212; G0463

== ENCOUNTER → 2023-06-24 09:27 | Outpatient (POV) | payer MEDICAID, SELFPAY ==
--- NOTE | 2023-06-24 10:22 | A.OFFVIS_ITS ---
[facility] Pain Management SOAP Note Subjective:: Patient is a pleasant 48-year-old female who presents today for medication refill and follow-up. We are currently treating the patient for degenerative disc disease of lumbar spine with lumbar radiculopathy symptoms. Today she rates her pain a 6 out of 10. Patient denies any new trauma or injury. She denies any change location or type of pain she experiences. Patient states she has gone for further psych evaluation and would like to proceed forward with the intrathecal pain pump trial as soon as possible. She is currently managed with diclofenac 75 mg twice a day and cyclobenzaprine 10 mg 3 times a day from our office and pregabalin 75 mg twice a day from her primary care doctor. Patient denies any side effects from this medication. Her Carmelo is [id number]. Its been reviewed and appropriate. Review of Systems: General: No recent weight changes, no fever, no sleep disturbances Respiratory: No cough, no shortness of air, no recurring pulmonary infections Cardiovascular/peripheral vascular: No chest pain, no palpitations, no edema, no shortness of breath Gastrointestinal: No new onset incontinence, normal bowel movements reported Genitourinary: No new onset incontinence Musculoskeletal: Low back pain Psychiatric: [Normal mood/affect] Neurological: [Denies weakness in extremities], [denies balance issues] Objective:: Physical Exam: General: Alert and oriented x3, no acute distress, pleasant and cooperative Lungs: Respirations even and unlabored, symmetrical chest expansion Eyes: PERRL Musculoskeletal: Flexion and extension of lumbar [spine] somewhat guarded secondary to pain, [antalgic gait noted] Neurological: Speech clear, no gross sensory deficit Assessment:: Degenerative disc disease of lumbar spine with lumbar radiculopathy symptoms Plan:: I will refill the patient's diclofenac 75 mg twice a day and cyclobenzaprine 10 mg 3 times a day and provide a 3-month supply of this medication. Patient will return to office in 1 month for reevaluation of symptoms and plan of care. I have counseled the patient that at this time we do not have her psych evaluation in the computer however hopefully at her next visit this will be and we can proceed forward with the intrathecal pain pump trial. Patient has been instructed to contact the clinic with any concerns before the next appointment. Dr. Briones has reviewed this note and agrees with this plan of care. This note was dictated using voice recognition software and make contain errors or omissions. [facility] Disclaimer: The information contained in this section may have been updated after the patient was seen, as this information can be updated by other users. Medical History Anxiety Bipolar disorder Constipation Depression Encounter for smoking cessation counseling Facet hypertrophy of lumbar region GERD (gastroesophageal reflux disease) Lumbar back pain Sciatica of right side Sinusitis Vertigo Social History Smoking Status: Current every day smoker tobacco type: cigarettes packs per day: 2 second hand exposure: Yes alcohol intake: never substance use type: denies use current occupational status: employed Travel in the last 8 weeks: None household members: none housing: house current occupational exposures/hazards: No caffeine: Yes
[2023-06-24 11:30] VITALS: BP 118/82; PULSE 84; RESP 18; O2SAT 99; BMI 28.3
== END | disposition home or self-care (01) ==
PROVIDERS: PCP Physician Assistant; Visit Provider Nurse Practitioner Family
DX: M51.16 Intervertebral disc disorders with radiculopathy, lumbar region (principal)
CPT/HCPCS: 99212; G0463

== ENCOUNTER → 2023-07-07 23:19 | Outpatient (CLI) | payer MEDICAID, SELFPAY ==
[2023-07-07 18:46] LABS: Coronavirus 19, PCR Not Detected (NotDetected); Influenza A, PCR Not Detected (NotDetected); Influenza B, PCR Not Detected (NotDetected)
[2023-07-07 18:48] LABS: Basophils # 0.1 K/mm3 (0-0.2); Basophils % 0.6 % (0.1-2.0); Eosinophils # 0.8 K/mm3 (0.0-0.4); Eosinophils % 5.9 % (0.1-12.0); Hematocrit 40.9 % (37.0-47.0); Hemoglobin 13.2 g/dL (12.2-16.2); Lymphocytes # 3.3 K/mm3 (0.7-4.5); Lymphocytes % 23.6 % (10-50); Mean Corpuscular HGB Conc 32.3 g/dL (31.8-35.4); Mean Corpuscular Hemoglobin 33.4 pg (27.0-31.2); Mean Corpuscular Volume 103.3 fl (81-99); Mean Platelet Volume 11.3 fl (7.4-10.4); Monocytes # 1.5 K/mm3 (0.1-1.0); Monocytes % 10.7 % (1.7-9.3); Neutrophils # 8.3 K/mm3 (1.8-7.8); Neutrophils % 59.2 % (37.0-80.0); Platelet Count 277 K/mm3 (142-424); Red Blood Count 3.96 M/mm3 (4.20-5.40); Red Cell Distribution Width 13.6 % (11.5-17.5)
== END ==
PROVIDERS: PCP Physician Assistant; Visit Provider Internal Medicine
DX: J02.9 Acute pharyngitis, unspecified (principal); R05.9 Cough, unspecified; R53.83 Other fatigue; R53.81 Other malaise; E78.5 Hyperlipidemia, unspecified; R69 Illness, unspecified
CPT/HCPCS: 85025; 87636

== ENCOUNTER → 2023-07-23 09:28 | Outpatient (POV) | payer MEDICAID, SELFPAY ==
[2023-07-23 09:45] VITALS: BP 114/86; PULSE 92; RESP 20; BMI 29.9
--- NOTE | 2023-07-23 10:27 | EXP.PAIN.SOA ---
[facility] Pain Management SOAP Note Subjective:: This patient is a very pleasant 48-year-old female that comes our clinic today for for medication refill and follow-up. Also, we reviewed the patient's psych eval. Psych eval reports she is a good candidate for intrathecal pain pump trial and management. Were currently treat the patient for low lumbar back pain as well as bilateral hip and leg radicular symptoms. Patient's lumbar MRI shows degenerative disc lumbar spine multilevels. Patient has tried and failed conservative treatment such as NSAIDs, home exercise program, physical therapy, injective therapy. I discussed in detail with the patient regarding intrathecal pain pump trial. Patient wishes to proceed. I answered her questions. We currently manage the patient with diclofenac 75 mg 1 p.o. twice daily. Flexeril 10 mg 1 p.o. 3 times daily. Patient also taking Lyrica 75 mg 1 p.o. twice daily from her primary care doctor. Patient states the medications do help. However, the pain of low back and bilateral hip and leg radicular symptoms continue. Lumbar MRI shows 1. L4-5: Minimal bulging disc with facet and ligamentum hypertrophy with mild bilateral lateral recess narrowing left greater than right and mild left-sided foraminal narrowing.2. L5-S1: Mild facet and ligamentum hypertrophic change with mild bilateral foraminal narrowing left greater than right. Patient states she is having difficulty with ADLs. Light housework requires her to rest in bed for a couple of hours. Light yard work is out of the question due to increased pain. Objective:: Patient is awake alert [place] x3. No acute distress. Flexion-extension lumbar spine very guarded secondary to pain. Deep tendon reflexes upper and lower extremities normal. Motor strength upper and lower extremities normal. There is no gross sensory deficit. Gait is antalgic today secondary to pain. Assessment:: Degenerative disc lumbar spine multilevels. Lumbar radiculopathy Plan:: We discussed in detail intrathecal pain pump trial. Answered her questions. She wishes to proceed. We will we will get this scheduled for today. We will also send in refills for medication noted above. [facility] Disclaimer: The information contained in this section may have been updated after the patient was seen, as this information can be updated by other users. Medical History Anxiety Bipolar disorder Constipation Depression Encounter for smoking cessation counseling Facet hypertrophy of lumbar region GERD (gastroesophageal reflux disease) Lumbar back pain Sciatica of right side Sinusitis Vertigo Social History Smoking Status: Current every day smoker tobacco type: cigarettes packs per day: 2 second hand exposure: Yes alcohol intake: never substance use type: denies use current occupational status: other Travel in the last 8 weeks: None household members: none housing: house current occupational exposures/hazards: No caffeine: Yes
== END ==
PROVIDERS: PCP Physician Assistant; Visit Provider Nurse Anesthetist, Certified Registered
DX: M51.16 Intervertebral disc disorders with radiculopathy, lumbar region (principal)
CPT/HCPCS: 99212; G0463

== ENCOUNTER → 2023-08-04 06:33 | Outpatient (CLI) | payer MEDICAID, SELFPAY ==
[2023-08-04 18:19] LABS: Basophils # 0.1 K/mm3 (0-0.2); Basophils % 0.4 % (0.1-2.0); Eosinophils # 0.5 K/mm3 (0.0-0.4); Eosinophils % 3.7 % (0.1-12.0); Hematocrit 40.3 % (37.0-47.0); Hemoglobin 13.9 g/dL (12.2-16.2); Lymphocytes # 3.9 K/mm3 (0.7-4.5); Lymphocytes % 31.5 % (10-50); Mean Corpuscular HGB Conc 34.5 g/dL (31.8-35.4); Mean Corpuscular Hemoglobin 35.7 pg (27.0-31.2); Mean Corpuscular Volume 103.4 fl (81-99); Monocytes # 0.8 K/mm3 (0.1-1.0); Monocytes % 6.7 % (1.7-9.3); Neutrophils # 7.2 K/mm3 (1.8-7.8); Neutrophils % 57.7 % (37.0-80.0); Platelet Count 262 K/mm3 (142-424); Red Cell Distribution Width 13.8 % (11.5-17.5); White Blood Count 12.4 K/mm3 (4.8-10.8)
[2023-08-04 18:22] LABS: Alanine Aminotransferase 43 U/L (12-78); Albumin/Globulin Ratio 1.2 (1.1-1.8); Alkaline Phosphatase 104 U/L (38-126); Anion Gap 17.1 mEq/L (5-15); Aspartate Amino Transferase 37 U/L (14-36); Bilirubin,Total 0.2 mg/dl (0.2-1.3); Blood Urea Nitrogen 10 mg/dl (7-17); Carbon Dioxide 22 mmol/L (22.0-30.0); Chloride 106 mmol/L (98-107); Chol/HDL Ratio 5.9 (1-3.5); Cholesterol 208 mg/dl (140-200); Estimated Glomerular Filt Rate 89 ml/min (>60); GFR (African American) 108 ML/MIN (>60); Globulin 3.3 g/dL (1.3-3.2); Glucose 75 mg/dl (74-100); HDL Cholesterol 35 mg/dl (40-60); Potassium 4.1 mmoL/L (3.5-5.1); Sodium 141 mmol/L (136-145); Total Protein,Serum 7.3 g/dl (6.3-8.2); Triglycerides 277 mg/dl (30-150); VLDL Cholesterol 55 mg/dL (0-40)
[2023-08-04 18:34] LABS: Direct LDL Cholesterol 123.98 mg/dL (100-129)
[2023-08-04 18:39] LABS: 25-OH Vitamin D, Total 46.3 ng/mL (30-100)
[2023-08-04 18:53] LABS: Thyroid Stimulating Hormone 0.07 uIU/mL (0.465-4.68)
== END ==
PROVIDERS: PCP Physician Assistant; Visit Provider Physician Assistant
DX: M54.31 Sciatica, right side (principal); Z68.31 Body mass index [BMI] 31.0-31.9, adult
CPT/HCPCS: 80053; 80061; 82306; 84443; 85025

== ENCOUNTER 2023-08-06 14:07 | Emergency (ER) | payer MEDICAID, SELFPAY ==
[2023-08-06 14:20] VITALS: BP 132/77; PULSE 123; RESP 23; TEMP 37.3; O2SAT 96; BMI 31.8
--- NOTE | 2023-08-06 14:31 | EXP.UTC ---
Discharge Plan Disposition Patient Disposition: Home, Self-Care Condition: Good Prescriptions Prescriptions: New fluticasone propionate [Flonase Allergy Relief] 50 mcg/actuation spray,suspension 1 - 2 spray intranasal DAILY Qty: 16 0RF Rx Instructions: administer into each nostril azithromycin [Zithromax Z-Jayy] 250 mg tablet See Rx Instructions .ROUTE .COMPLEX 5 Days Qty: 6 0RF Rx Instructions: For 250 mg dose pack: take 500 mg today (day 1), then 250 mg for 4 days (days 2-5) No Action albuterol sulfate 90 mcg/actuation HFA aerosol inhaler 2 inh IH Q4HP PRN (Reason: Wheezing) 30 Days Qty: 1 0RF loratadine 10 mg tablet 10 mg PO DAILY Qty: 90 2RF atorvastatin 20 mg tablet See Rx Instructions .ROUTE .COMPLEX Qty: 90 3RF Rx Instructions: TAKE 1 TABLET BY MOUTH ONCE DAILY AT BEDTIME topiramate [Topamax] 100 mg tablet 100 mg PO BID Qty: 60 2RF pregabalin [Lyrica] 150 mg capsule 150 mg PO BID Qty: 60 2RF fluticasone propionate 50 mcg/actuation spray,suspension 1 spray NS BID Qty: 16 5RF Rx Instructions: administer into each nostril sumatriptan succinate 100 mg tablet 100 mg PO ONCE PRN (Reason: migraine headache) Qty: 9 5RF buspirone 15 mg tablet See Rx Instructions .ROUTE .COMPLEX Qty: 90 0RF Dose Instruction: TAKE 1 TABLET BY MOUTH THREE TIMES DAILY Rx Instructions: TAKE 1 TABLET BY MOUTH THREE TIMES DAILY Ubrelvy 100 mg tablet 100 mg PO ONCE PRN (Reason: headache) Qty: 16 0RF Ajovy Autoinjector 225 mg/1.5 mL auto-injector See Rx Instructions .ROUTE .COMPLEX Qty: 2 0RF Dose Instruction: INJECT 1 AUTO-INJECTOR SUBCUTANEOUSLY ONCE EVERY MONTH Rx Instructions: INJECT 1 AUTO-INJECTOR SUBCUTANEOUSLY ONCE EVERY MONTH ergocalciferol (vitamin D2) 1,250 MCG capsule See Rx Instructions .Route .COMPLEX Rx Instructions: Take 1 capsule by mouth once a week budesonide-formoterol 10.2 GM HFA aerosol inhaler 2 puff IH BID gemfibrozil 600 mg tablet See Rx Instructions .ROUTE .COMPLEX Rx Instructions: Take 1 tablet by mouth twice daily venlafaxine 150 mg capsule,extended release 24hr See Rx Instructions .ROUTE .COMPLEX Rx Instructions: Take 1 capsule by mouth once daily Vraylar 4.5 mg capsule See Rx Instructions .ROUTE .COMPLEX Rx Instructions: Take 1 capsule by mouth once daily Stiolto Respimat 2.5-2.5 mcg/actuation mist See Rx Instructions .ROUTE .COMPLEX Rx Instructions: INHALE 2 PUFFS BY MOUTH ONCE DAILY methocarbamol 500 mg tablet See Rx Instructions .ROUTE .COMPLEX Rx Instructions: TAKE 1 TABLET BY MOUTH THREE TIMES DAILY FOR MUSCLE SPASM lidocaine 5 % adhesive patch,medicated See Rx Instructions .ROUTE .COMPLEX Rx Instructions: APPLY 1 PATCH TOPICALLY DAILY LEAVE ON MOST PAINFUL AREA FOR UP TO 12 HOURS cyclobenzaprine 10 mg tablet 10 mg PO TID Qty: 90 2RF diclofenac sodium 75 mg tablet,delayed release (DR/EC) 75 mg PO BID Qty: 60 2RF lamotrigine 25 mg tablet See Rx Instructions .ROUTE .COMPLEX Rx Instructions: Take 1 tablet by mouth once daily Referrals Follow up/Referrals: Maddy Sims PA [Primary Care Provider] - See instructions Activity Restrictions/Add. Instructions Additional Instructions/Restrictions: GO home and take some Motrin and/or Tylenol for fever as your fever is starting to go up Take medication as prescribed Straight to ER if any life threatening symptoms as discussed in the UTC today Make sure to drink plenty of fluids like Gatoraide, water, and electrolye drinks to keep hydrated *Monitor Temp, Over the counter Motrin or Tylenol as directed/as needed Tylenol every 4 hours and Motrin every 6 hours (as long as your family doctor has told you that you can take it) for fever or pain. and straight to ER if unable to lower temp less than 101.0 after medication
[2023-08-06 14:38] LABS: UTC Influenza A Antigen Negative (Negative); UTC Influenza B Antigen Negative (Negative)
[2023-08-06 14:48] VITALS: BP 132/77; PULSE 123; RESP 23; TEMP 37.3; O2SAT 96
[2023-08-06 15:16] LABS: Adenovirus,PCR Not Detected (NotDetected); Coronavirus 19, PCR Not Detected (NotDetected); Coronavirus 229E Not Detected (NotDetected); Coronavirus NL63 Not Detected (NotDetected); Coronavirus OC43 Not Detected (NotDetected); Coronovirus HKU1,PCR Not Detected (NotDetected); Human Metapneumovirus Not Detected (NotDetected); Influenza A, PCR Not Detected (NotDetected); Influenza AH1, 2009 Not Detected (NotDetected); Influenza AH1, PCR Not Detected (NotDetected); Influenza AH3,PCR Not Detected (NotDetected); Influenza B, PCR Not Detected (NotDetected); Parainfluenza 1, PCR Not Detected (NotDetected); Parainfluenza 2, PCR Not Detected (NotDetected); Parainfluenza 3, PCR Not Detected (NotDetected); Parainfluenza 4, PCR Not Detected (NotDetected); Respiratory Syncytial Virus Not Detected (NotDetected); Rhinovirus/Enterovirus Not Detected (NotDetected)
== END 2023-08-06 15:11 | disposition home or self-care (01) ==
PROVIDERS: Emergency Provider Nurse Practitioner; PCP Physician Assistant
DX: H66.92 Otitis media, unspecified, left ear (principal); R50.9 Fever, unspecified; R20.0 Anesthesia of skin; F17.210 Nicotine dependence, cigarettes, uncomplicated; K21.9 Gastro-esophageal reflux disease without esophagitis; F31.9 Bipolar disorder, unspecified
CPT/HCPCS: 87632; 87635; 87804; 99212; 99214; G0463

== ENCOUNTER → 2023-08-13 15:47 | Outpatient (CLI) | payer MEDICAID, SELFPAY ==
[2023-08-13 16:15] LABS: Free Thyroxine Index 2.5 ug/dL (5.93-13.13); Triiodothryronine (T3) Uptake 41 % (23.5-40.5)
[2023-08-13 16:29] LABS: Thyroid Stimulating Hormone 0.69 uIU/mL (0.465-4.68)
== END ==
PROVIDERS: PCP Physician Assistant; Visit Provider Emergency Medicine
DX: R53.83 Other fatigue (principal)
CPT/HCPCS: 36415; 84436; 84443; 84479

== ENCOUNTER 2023-08-27 09:46 | Day surgery (SDC) | payer MEDICAID, SELFPAY ==
[2023-08-27 10:16] VITALS: BP 121/70; PULSE 86; RESP 16; TEMP 36.3; O2SAT 100; BMI 31.5
[2023-08-27 11:42] VITALS: BP 106/62; PULSE 76; RESP 18; O2SAT 98
[2023-08-27 11:43] VITALS: BP 106/62; PULSE 82; RESP 18; O2SAT 100
[2023-08-27 11:50] VITALS: BP 118/82; PULSE 84; RESP 18; O2SAT 99
[2023-08-27 12:15] VITALS: BP 105/65; PULSE 85; O2SAT 98
[2023-08-27 12:30] VITALS: BP 113/78; PULSE 84; O2SAT 98
--- NOTE | 2023-08-27 15:05 | P.PCN_ITS ---
Procedure Date: 08/27/23 Time: 15:05 Anesthesiologist:: Lamine Briones MD Complications:: None Pre-procedure Diagnosis:: Degenerative disc disease of lumbar spine with lumbar radiculopathy symptoms Post-procedure Diagnosis:: Same Indications for Procedure:: This patient is a pleasant 48-year-old white female who we are treating for low back pain with lumbar radiculopathy symptoms. She has increasing pain in her back radiating down both legs. She has failed all previous conservative treatm ents including injections, oral medications, physical therapy and she is not a surgical candidate. She has had a successful psychological evaluation. She presents for intrathecal pump trial today. Procedure Details:: Pain pump trial Informed consent was obtained and the risk and benefits of the procedure was explained to the patient. The patient was taken to the procedure room and placed prone on the procedure table. Patient was prepped and draped in sterile fashion. C-arm fluoroscopy was used to view the lumbar spine. The skin and barron bcutaneous tissues were anesthetized using lidocaine. I placed a 18-gauge spinal needle into the L4-5 interspace and advanced until clear CSF was obtained. After this intrathecal catheter was inserted and advanced very easily to the L1 vertebral body. The needle was withdrawn. We were able to freely withdraw clear CSF through the catheter. We then injected intrathecal opioid single shot bolus of 25 mcg followed by saline and followed by the previous CSF that was withdrawn. The needle and catheter were then removed and a Band-Aid was placed. Patient tolerated the procedure well with no complications. We reevaluated the patient after 30 minutes to 1 hour. She was also reassessed by physical therapy. She was 90 to 100% better. She had no pain she was walking much better. By all indications this did seem to be a successful intrathecal pump trial. Patient was discharged home neurologic intact with good relief of pain symptoms. Plan and Disposition:: We will follow-up in 1 week if this is a successful trial we will plan on permanent placement with intrathecal morphine 1 mg per ml to start at 100 mcg/day.
== END 2023-08-27 12:30 | disposition home or self-care (01) ==
LOC: SC.PAINP 09:46
PROVIDERS: PCP Physician Assistant; Visit Provider Anesthesiology
DX: M51.16 Intervertebral disc disorders with radiculopathy, lumbar region (principal)
CPT/HCPCS: 62323

== ENCOUNTER → 2023-08-30 15:38 | Outpatient (CLI) | payer MEDICAID, SELFPAY ==
[2023-09-01 08:18] LABS: Thyroid Peroxidase Antibodies 16 IU/mL (0-34)
[2023-09-02 06:14] LABS: Thyroid Stimulating Immunoglob <0.10 IU/L (0.00-0.55)
== END ==
PROVIDERS: PCP Physician Assistant; Visit Provider Physician Assistant
DX: R79.89 Other specified abnormal findings of blood chemistry (principal)
CPT/HCPCS: 36415; 84445; 86376

== ENCOUNTER → 2023-08-30 15:58 | Outpatient (CLI) | payer MEDICAID, SELFPAY ==
--- NOTE | 2023-08-30 16:01 | US_ITS ---
FINAL REPORT CLINICAL HISTORY: abnoral thyroid labs COMPARISON: None FINDINGS: THYROID ULTRASOUND: The right lobe of the thyroid measures 4.6 x 1.6 x 1.3 cm in size. There is no evidence of focal mass or nodule in the right lobe of the thyroid gland. The left lobe of the thyroid gland measures 4.1 x 1.7 x 1.2 cm in size. There is no evidence of focal mass or nodule in the left lobe of the thyroid gland. The isthmus is unremarkable in appearance and measures 5 mm in thickness. IMPRESSION: Unremarkable thyroid ultrasound without evidence of focal mass. Reviewed, Interpreted and Dictated by Ralf Pandya III, MD Transcribed by Nadiya More Authenticated and [facility]
== END ==
PROVIDERS: PCP Physician Assistant; Visit Provider Physician Assistant
DX: R79.89 Other specified abnormal findings of blood chemistry (principal)
CPT/HCPCS: 76536

== ENCOUNTER → 2023-09-08 07:13 | Outpatient (CLI) | payer MEDICAID, SELFPAY ==
[2023-09-08 18:27] LABS: Coronavirus 19, PCR Not Detected (NotDetected); Influenza A, PCR Not Detected (NotDetected); Influenza B, PCR Not Detected (NotDetected)
== END ==
PROVIDERS: PCP Family Medicine; Visit Provider Family Medicine
DX: R05.8 Other specified cough (principal); R50.9 Fever, unspecified; R19.7 Diarrhea, unspecified; R09.81 Nasal congestion; H92.01 Otalgia, right ear; R51.9 Headache, unspecified
CPT/HCPCS: 87636

== ENCOUNTER → 2023-11-03 15:18 | Outpatient (POV) | payer MEDICAID, SELFPAY ==
--- NOTE | 2023-11-03 15:46 | EXP.PAIN.SOA ---
[facility] Pain Management SOAP Note Subjective:: Patient is a pleasant 48-year-old female who presents today for follow-up of her intrathecal pain pump trial on 08/27/2023 and medication refill. We are currently treating the patient for degenerative disc disease of lumbar spine with lumbar radiculopathy symptoms. Today she rates her pain an 8 out of 10. Patient denies any new trauma or injury from her last visit. Patient states she continues to have chronic low back pain that does interfere with her ability perform activities of daily living. Patient does state that she did have 100% improvement following the intrathecal pump trial and that she actually ended up having continued improvement up to 3 days. Patient states the only side effect she had was that she did sleep quite a bit during those 3 days. Patient is very interested in proceeding forward with the intrathecal implant however she states that she would like to minimize how much work she misses and is requesting if this can be done in and around February of this year. Patient is currently managed with diclofenac 75 mg twice a day and Flexeril 10 mg 3 times a day. She denies any side effects from this medication. Her Carmelo has been reviewed and is appropriate. Review of Systems: General: No recent weight changes, no fever, no sleep disturbances Respiratory: No cough, no shortness of air, no recurring pulmonary infections Cardiovascular/peripheral vascular: No chest pain, no palpitations, no edema, no shortness of breath Gastrointestinal: No new onset incontinence, normal bowel movements reported Genitourinary: No new onset incontinence Musculoskeletal: Low back pain Psychiatric: [Normal mood/affect] Neurological: [Denies weakness in extremities], [denies balance issues] Objective:: Physical Exam: General: Alert and oriented x3, no acute distress, pleasant and cooperative Lungs: Respirations even and unlabored, symmetrical chest expansion Eyes: PERRL Musculoskeletal: Flexion and extension of lumbar [spine] somewhat guarded secondary to pain, [antalgic gait noted] Neurological: Speech clear, no gross sensory deficit Assessment:: Degenerative disc disease of lumbar spine with lumbar radiculopathy symptoms, lumbar spondylosis, lumbar facet arthropathy, right-sided sacroiliitis Plan:: Patient did have significant improvement of upwards of 100% relief following her intrathecal pain pump trial and would like to proceed forward with the implant however would like to wait until February in order to be off work. I have gone over the risk and benefits of this procedure and counseled the patient that I we will plan on following up with her in approximately 2 months to confirm she would like to still proceed forward with the pump. I will refill the patient's Flexeril 10 mg 3 times a day and diclofenac 75 mg twice a day and provide a 2-month supply of this medication. Patient will return to clinic in 2 months for reevaluation of symptoms and plan of care. Patient has been instructed to contact the clinic with any concerns before the next appointment. Dr. Briones has reviewed this note and agrees with this plan of care. This note was dictated using voice recognition software and make contain errors or omissions. [facility] Disclaimer: The information contained in this section may have been updated after the patient was seen, as this information can be updated by other users. Medical History Anxiety Bipolar disorder Constipation Depression Encounter for smoking cessation counseling Facet hypertrophy of lumbar region GERD (gastroesophageal reflux disease) Lumbar back pain Desire needs to see Dr. Briones and we will try to get her in tomorrow morning. For the short-term we will give her dexamethasone and ketorolac injection and hopefully these will help her pain until she can see Dr. Briones. Sciatica of right side Sinusitis Vertigo Social History Smoking Status: Current every day smoker tobacco type: cigarettes packs per day: 2 second hand exposure: Yes alcohol intake: never substance use type: denies use current occupational status: other Travel in the last 8 weeks: None household members: none housing: house current occupational exposures/hazards: No caffeine: Yes
[2023-11-03 16:00] VITALS: BP 108/77; PULSE 88; RESP 18; O2SAT 99; BMI 31.3
== END | disposition home or self-care (01) ==
PROVIDERS: PCP Physician Assistant; Visit Provider Nurse Practitioner Family
DX: M51.16 Intervertebral disc disorders with radiculopathy, lumbar region (principal); M47.26 Other spondylosis with radiculopathy, lumbar region; M46.1 Sacroiliitis, not elsewhere classified
CPT/HCPCS: 99212; G0463

== ENCOUNTER 2023-11-03 15:49 | Outpatient (CLI) | payer MEDICAID, SELFPAY ==
[2023-11-03 17:27] LABS: Triiodothryronine (T3) Uptake 41 % (23.5-40.5)
[2023-11-03 17:28] LABS: Free Thyroxine Index 3.2 ug/dL (5.93-13.13); T4 (Thyroxine) 7.7 ug/dl (5.53-11.0)
[2023-11-03 17:42] LABS: Thyroid Stimulating Hormone 0.34 uIU/mL (0.465-4.68)
== END 2023-11-03 23:59 ==
LOC: LAB 15:50
PROVIDERS: PCP Physician Assistant; Visit Provider Physician Assistant
DX: E03.9 Hypothyroidism, unspecified (principal)
CPT/HCPCS: 36415; 84436; 84443; 84479

== ENCOUNTER 2023-11-03 16:18 | Emergency (ER) | payer MEDICAID, SELFPAY ==
[2023-11-03 16:30] VITALS: BP 123/87; PULSE 85; RESP 19; TEMP 36.9; O2SAT 98; BMI 29.2
--- NOTE | 2023-11-03 16:43 | EXP.UTC ---
Discharge Plan Disposition Patient Disposition: Home, Self-Care Condition: Good Prescriptions Prescriptions: New azithromycin [Zithromax Z-Jayy] 250 mg tablet See Rx Instructions .ROUTE .COMPLEX 5 Days Qty: 6 0RF Rx Instructions: For 250 mg dose pack: take 500 mg today (day 1), then 250 mg for 4 days (days 2-5) benzonatate 100 mg capsule 100 mg PO TID PRN (Reason: cough) Qty: 30 0RF methylprednisolone [Medrol (Jayy)] 4 mg tablets,dose pack See Rx Instructions .Route .COMPLEX 6 Days Qty: 21 0RF Rx Instructions: taper pack; No Action cyclobenzaprine 10 mg tablet 10 mg PO TID Patient Comments: TAKE 1 TABLET BY MOUTH THREE TIMES DAILY FOR PAIN atorvastatin 20 mg tablet 20 mg PO HS Patient Comments: TAKE 1 TABLET BY MOUTH ONCE DAILY AT BEDTIME FOR CHOLESTEROL sumatriptan succinate 100 mg tablet 100 mg PO DAILY Patient Comments: TAKE 1 TABLET BY MOUTH ONCE NEEDED FOR MIGRAINE HEADACHE venlafaxine 150 mg capsule,extended release 24hr 150 mg PO DAILY Patient Comments: TAKE 1 CAPSULE BY MOUTH ONCE DAILY levothyroxine 25 mcg tablet 25 mcg PO DAILY Patient Comments: Take 1 tablet by mouth once daily lamotrigine 25 mg tablet 25 mg PO DAILY Patient Comments: TAKE 1 TABLET BY MOUTH ONCE DAILY FOR SEIZURES diclofenac sodium 75 mg tablet,delayed release (DR/EC) 75 mg PO BID Patient Comments: TAKE 1 TABLET BY MOUTH TWICE DAILY FOR PAIN topiramate 100 mg tablet 100 mg PO DAILY Patient Comments: Take 1 tablet by mouth twice daily loratadine 10 mg tablet 10 mg PO DAILY Patient Comments: TAKE 1 TABLET BY MOUTH ONCE DAILY buspirone 15 mg tablet 15 mg PO DAILY Patient Comments: TAKE 1 TABLET BY MOUTH THREE TIMES DAILY Vraylar 4.5 mg capsule 4.5 mg PO DAILY Patient Comments: TAKE 1 CAPSULE BY MOUTH ONCE DAILY Ajovy Autoinjector 225 mg/1.5 mL auto-injector 225 mg SQ WEEKLY Patient Comments: INJECT 1 AUTO-INJECTOR SUBCUTANEOUSLY ONCE EVERY MONTH Referrals Follow up/Referrals: Maddy Sims PA [Primary Care Provider] - See instructions Activity Restrictions/Add. Instructions Additional Instructions/Restrictions: *Monitor Temp, Over the counter Motrin or Tylenol as directed/as needed Tylenol every 4 hours and Motrin every 6 hours (as long as your family doctor has told you that you can take it) for fever or pain. and straight to ER if unable to lower temp less than 101.0 after medication given *Warm salt water gargles may help to soothe the throat *Throat Lozenges? *Warm fluids like tea with honey may help to soothe the throat? *Sleep elevated *Humidifier/Vaporizer *Flonase 2 sprays in each nostril daily but be aware that it may take 2-3 days before you notice improvement *Bromfed may cause drowsiness. Know how it effects you (your child) before driving, caring for small child, or sending your child to school. Not other antihistamines/allergy medications while taking bromfed Your throat swab was sent for culture. Those results are typically sent to your primary care. Be sure to follow up in 2-3 days with your family doctor/primary care physician if no improvement so they can review those result and treat if necessary. If you don?t have a primary care doctor, I recommend you get one but in the mean time, you will have to return to a walk in clinic Follow up IMMEDIATELY for new or worsening symptoms or no Noticeable improvement over the next 48-72 hours. 911 for difficulty breathing or swallowing Clinical Impressions Clinical Impression: Otitis media Qualifiers: Otitis media type: unspecified Laterality: left Qualified Code(s): H66.92 - Otitis media, unspecified, left ear Stand Alone Forms Stand Alone Forms: Work/School Release Instructions Patient Instructions: Middle Ear Infection, DI for Nasal Congestion Discharge ED [place] [facility] [place] General Stated complaint: Body aches,DREW,Nausea Mode of Arrival: Ambulatory Source of Information: Patient Limitations: No Limitations Time Seen by Provider: 11/03/23 16:43 Description of Symptoms (Recalled from Triage Doc. by RN): PATIENT C/O BODY ACHES, HEADACHE, EAR ACHE, FEVER, NAUSEA AND COUGH X 3 DAYS HEENT Symptoms (Recalled from RN notes): Yes Resp Symptoms (Recalled from RN notes): Yes Skin Symptoms (Recalled from RN notes): No MS Symptoms (Recalled from RN notes): No Functional Status (Recalled from RN notes): WNL History of Present Illness Provider Complaint: Patient states that she has been having pain and pressure in her ears feels like she has an ear infection then about 2-3 days ago she started with body aches, chills, nasal congestion and feeling tired States that she has been around several people with the flu and wanted to get tested and have her ears checked States that she was recently on antibiotics and she has finished them but still having pain in her ears Related Data Home Medications Medication Instructions Recorded Confirmed atorvastatin 20 mg tablet 20 mg PO HS 11/03/23 11/03/23 buspirone 15 mg tablet 15 mg PO DAILY 11/03/23 11/03/23 cariprazine 4.5 mg capsule 4.5 mg PO DAILY 11/03/23 11/03/23 (Vraylar) cyclobenzaprine 10 mg tablet 10 mg PO TID 11/03/23 11/03/23 diclofenac sodium 75 mg 75 mg PO BID 11/03/23 11/03/23 tablet,delayed release fremanezumab-vfrm 225 mg/1.5 mL 225 mg SQ WEEKLY 11/03/23 11/03/23 subcutaneous auto-injector (Ajovy) lamotrigine 25 mg tablet 25 mg PO DAILY 11/03/23 11/03/23 levothyroxine 25 mcg tablet 25 mcg PO DAILY 11/03/23 11/03/23 loratadine 10 mg tablet 10 mg PO DAILY 11/03/23 11/03/23 sumatriptan succinate 100 mg tablet 100 mg PO DAILY 11/03/23 11/03/23 topiramate 100 mg tablet 100 mg PO DAILY 11/03/23 11/03/23 venlafaxine 150 mg 150 mg PO DAILY 11/03/23 11/03/23 capsule,extended release 24 hr Previous Rx's Medication Instructions Recorded azithromycin 250 mg tablet See Rx Instructions PO .COMPLEX 5 11/03/23 (Zithromax Z-Jayy) days #6 tabs benzonatate 100 mg capsule 100 mg PO TID PRN cough #30 caps 11/03/23 methylprednisolone 4 mg tablets in See Rx Instructions .Route 11/03/23 a dose pack (Medrol (Jayy)) .COMPLEX 6 days #21 tabs Allergies Allergy/AdvReac Type Severity Reaction Status Date / Time amoxicillin AdvReac Severe Diarrhea Verified 10/21/23 16:10 Worker's Comp Is this a Worker's Comp case?: No PFSH PFSH Disclaimer: The information contained in this section may have been updated after the patient was seen, as this information can be updated by other users. Medical History Anxiety Bipolar disorder Constipation Depression Encounter for smoking cessation counseling Facet hypertrophy of lumbar region GERD (gastroesophageal reflux disease) Lumbar back pain Desire needs to see Dr. Briones and we will try to get her in tomorrow morning. For the short-term we will give her dexamethasone and ketorolac injection and hopefully these will help her pain until she can see Dr. Briones. Sciatica of right side Sinusitis Vertigo Social History Smoking Status: Current every day smoker tobacco type: cigarettes packs per day: 2 second hand exposure: Yes alcohol intake: never substance use type: denies use current occupational status: unemployed Travel in the last 8 weeks: None household members: none housing: house current occupational exposures/hazards: No caffeine: Yes ROS Obtained: Yes All systems reviewed & no additional complaints except as documented and Yes Systems reviewed as appropriate & no additional complaints except as documented Constitutional Constitutional: Reports system reviewed and no additional complaints, except as documented, Reports as per HPI, Reports body ache, Reports chills and Reports headache(s) ENT Ears, Nose, Mouth, and Throat: Reports system reviewed and no additional complaints, except as documented, Reports as per HPI, Reports otalgia, Reports headache(s) and Reports nasal congestion Cardiovascular Cardiovascular: Reports system reviewed and no additional complaints, except as documented and Reports as per HPI Respiratory Respiratory: Reports system reviewed and no additional complaints, except as documented, Reports as per HPI and Reports cough Gastrointestinal Gastrointestingal: Reports system reviewed and no additional complaints, except as documented and as per HPI Neurologic Neurologic: Reports headache(s) Physical Exam General General appearance: alert and in no apparent distress ENT ENT exam: Present mucous membranes moist Expanded ENT Exam TM/Canal exam: Left TM: erythema and Bilateral TM: bulging Respiratory Respiratory exam: Present normal lung sounds bilaterally; Absent respiratory distress or wheezes Cardiovascular Cardiovascular exam: Present regular rate, normal rhythm and normal heart sounds Abdominal Exam Abdominal exam: Present soft and normal bowel sounds; Absent distention or tenderness Neurological Exam Neurological exam: Present alert, oriented X3 and normal gait Medical Decision Making [facility] Inquiry Pt receiving controlled substance: No Carmelo was queried for this patient: No Vital Signs: 11/03/23 16:30 Temperature 98.5 F Temperature Source Oral Pulse Rate [Right Brachial] 85 Respiratory Rate 19 Blood Pressure [Right Arm] 123/87 Blood Pressure Mean [Right Arm] 99 Blood Pressure Source [Right Arm] Automatic Cuff Blood Pressure Position [Right Arm] Sitting 02 Sat by Pulse Oximetry 98 Oxygen Delivery Method Room Air Lab Data Lab results reviewed: Yes I reviewed the patient's lab results. Medical Decision Narrative: Patient states that she has take Medrol and azithromycin in the past without complications or reactions
[2023-11-03 16:47] VITALS: BP 123/87; PULSE 85; RESP 19; TEMP 36.9; O2SAT 98
[2023-11-03 16:53] LABS: UTC Influenza A Antigen Negative (Negative)
[2023-11-03 16:54] LABS: UTC Influenza B Antigen Negative (Negative)
[2023-11-03 19:43] LABS: Adenovirus,PCR Not Detected (NotDetected); Coronavirus 19, PCR Not Detected (NotDetected); Coronavirus 229E Not Detected (NotDetected); Coronavirus NL63 Not Detected (NotDetected); Coronavirus OC43 Not Detected (NotDetected); Coronovirus HKU1,PCR Not Detected (NotDetected); Human Metapneumovirus Not Detected (NotDetected); Influenza A, PCR Not Detected (NotDetected); Influenza AH1, 2009 Not Detected (NotDetected); Influenza AH1, PCR Not Detected (NotDetected); Influenza AH3,PCR Not Detected (NotDetected); Influenza B, PCR Not Detected (NotDetected); Parainfluenza 1, PCR Not Detected (NotDetected); Parainfluenza 2, PCR Not Detected (NotDetected); Parainfluenza 3, PCR Not Detected (NotDetected); Parainfluenza 4, PCR Not Detected (NotDetected); Respiratory Syncytial Virus Not Detected (NotDetected); Rhinovirus/Enterovirus Not Detected (NotDetected)
== END 2023-11-03 17:09 | disposition home or self-care (01) ==
PROVIDERS: Emergency Provider Nurse Practitioner; PCP Physician Assistant
DX: H66.92 Otitis media, unspecified, left ear (principal); R51.9 Headache, unspecified; R09.81 Nasal congestion; R05.9 Cough, unspecified; M79.18 Myalgia, other site; F17.210 Nicotine dependence, cigarettes, uncomplicated; K21.9 Gastro-esophageal reflux disease without esophagitis
CPT/HCPCS: 87632; 87635; 87804; 99212; 99214; G0463

== ENCOUNTER 2023-12-01 10:21 | Emergency (ER) | payer MEDICAID, SELFPAY ==
[2023-12-01 10:43] VITALS: BP 130/88; PULSE 92; RESP 20; TEMP 36.6; O2SAT 98; BMI 31.8
--- NOTE | 2023-12-01 10:54 | ED_ITS ---
Discharge Plan Disposition Patient Disposition: Home, Self-Care Condition: Good Prescriptions Prescriptions: New ondansetron 4 mg tablet,disintegrating 4 mg PO Q8H PRN (Reason: nausea and vomiting) Qty: 10 0RF guaifenesin [Mucinex] 600 mg tablet extended release 12hr 1,200 mg PO BID PRN (Reason: cough) Qty: 20 0RF No Action cefdinir 300 mg capsule 300 mg PO Q12H 10 Days Qty: 20 0RF prednisone 20 mg tablet 20 mg PO BID Qty: 10 0RF Rx Instructions: administer with food or milk promethazine-DM 6.25-15 mg/5 mL syrup 5 ml PO Q6H PRN (Reason: cough) Qty: 180 0RF Vraylar 4.5 mg capsule See Rx Instructions .ROUTE .COMPLEX Qty: 90 0RF Dose Instruction: Take 1 capsule by mouth once daily Rx Instructions: Take 1 capsule by mouth once daily cyclobenzaprine 10 mg tablet 10 mg PO TID Patient Comments: TAKE 1 TABLET BY MOUTH THREE TIMES DAILY FOR PAIN atorvastatin 20 mg tablet 20 mg PO HS Patient Comments: TAKE 1 TABLET BY MOUTH ONCE DAILY AT BEDTIME FOR CHOLESTEROL sumatriptan succinate 100 mg tablet 100 mg PO DAILY Patient Comments: TAKE 1 TABLET BY MOUTH ONCE NEEDED FOR MIGRAINE HEADACHE venlafaxine 150 mg capsule,extended release 24hr 150 mg PO DAILY Patient Comments: TAKE 1 CAPSULE BY MOUTH ONCE DAILY levothyroxine 25 mcg tablet 25 mcg PO DAILY Patient Comments: Take 1 tablet by mouth once daily lamotrigine 25 mg tablet 25 mg PO DAILY Patient Comments: TAKE 1 TABLET BY MOUTH ONCE DAILY FOR SEIZURES diclofenac sodium 75 mg tablet,delayed release (DR/EC) 75 mg PO BID Patient Comments: TAKE 1 TABLET BY MOUTH TWICE DAILY FOR PAIN topiramate 100 mg tablet 100 mg PO DAILY Patient Comments: Take 1 tablet by mouth twice daily loratadine 10 mg tablet 10 mg PO DAILY Patient Comments: TAKE 1 TABLET BY MOUTH ONCE DAILY buspirone 15 mg tablet 15 mg PO DAILY Patient Comments: TAKE 1 TABLET BY MOUTH THREE TIMES DAILY Ajovy Autoinjector 225 mg/1.5 mL auto-injector 225 mg SQ WEEKLY Patient Comments: INJECT 1 AUTO-INJECTOR SUBCUTANEOUSLY ONCE EVERY MONTH Referrals Follow up/Referrals: Maddy Sims PA [Primary Care Provider] - See instructions Activity Restrictions/Add. Instructions Additional Instructions/Restrictions: *Monitor Temp, Over the counter Motrin or Tylenol as directed/as needed Tylenol every 4 hours and Motrin every 6 hours (as long as your family doctor has told you that you can take it) for fever or pain. and straight to ER if unable to lower temp less than 101.0 after medication given *Warm salt water gargles may help to soothe the throat *Throat Lozenges? *Warm fluids like tea with honey may help to soothe the throat? *Sleep elevated *Humidifier/Vaporizer *Flonase 2 sprays in each nostril daily but be aware that it may take 2-3 days before you notice improvement *Bromfed may cause drowsiness. Know how it effects you (your child) before driving, caring for small child, or sending your child to school. Not other antihistamines/allergy medications while taking bromfed Your throat swab was sent for culture. Those results are typically sent to your primary care. Be sure to follow up in 2-3 days with your family do ctor/primary care physician if no improvement so they can review those result and treat if necessary. If you don?t have a primary care doctor, I recommend you get one but in the mean time, you will have to return to a walk in clinic Follow up IMMEDIATELY for new or worsening symptoms or no Noticeable improvement over the next 48-72 hours. 911 for difficulty breathing or swallowing You were tested for today for COVID19 your test result should be back in the next 24hours, you may Check your Results on the [facility] [employer] [facility] if your COVID test is positive you must Quarantine for 5 days Clinical Impressions Clinical Impression: Viral syndrome Stand Alone Forms Stand Alone Forms: Work/School Release Instructions Patient Instructions: DI for Viral Syndrome, Cough Discharge ED Provider: Dalia Shannon [facility] [place] HPI General Stated complaint: sore throat, pain in ears, body aches, V/D Mode of Arrival: Ambulatory Source of Information: Patient Limitations: No Limitations Time Seen by Provider: 12/01/23 10:54 Description of Symptoms (Recalled from Triage Doc. by RN): Patient reports vomiting, diarrhea, sore throat, headahce, and bodyaches for 2 days. HEENT Symptoms (Recalled from RN notes): Yes Resp Symptoms (Recalled from RN notes): No Skin Symptoms (Recalled from RN notes): No MS Symptoms (Recalled from RN notes): No Functional Status (Recalled from RN notes): wnl History of Present Illness Provider Complaint: Patient states that she has been sick for the last couple of days States that she has been having flu like symptoms, chills, body aches, sore throat, headache N/V/D States that today she is having a cough too and not feeling any better so she came in States that she has been exposed to the flu Related Data Home Medications Medication Instructions Recorded Confirmed atorvastatin 20 mg tablet 20 mg PO HS 11/03/23 11/15/23 buspirone 15 mg tablet 15 mg PO DAILY 11/03/23 11/15/23 cyclobenzaprine 10 mg tablet 10 mg PO TID 11/03/23 11/15/23 diclofenac sodium 75 mg 75 mg PO BID 11/03/23 11/15/23 tablet,delayed release fremanezumab-vfrm 225 mg/1.5 mL 225 mg SQ WEEKLY 11/03/23 11/15/23 subcutaneous auto-injector (Ajovy) lamotrigine 25 mg tablet 25 mg PO DAILY 11/03/23 11/15/23 levothyroxine 25 mcg tablet 25 mcg PO DAILY 11/03/23 11/15/23 loratadine 10 mg tablet 10 mg PO DAILY 11/03/23 11/15/23 sumatriptan succinate 100 mg tablet 100 mg PO DAILY 11/03/23 11/15/23 topiramate 100 mg tablet 100 mg PO DAILY 11/03/23 11/15/23 venlafaxine 150 mg 150 mg PO DAILY 11/03/23 11/15/23 capsule,extended release 24 hr Previous Rx's Medication Instructions Recorded cariprazine 4.5 mg capsule See Rx Instructions .Route 11/05/23 (Vraylar) .COMPLEX #90 caps cefdinir 300 mg capsule 300 mg PO Q12H 10 days #20 caps 11/15/23 prednisone 20 mg tablet 20 mg PO BID #10 tabs 11/15/23 promethazine-DM 6.25 mg-15 mg/5 mL 5 ml PO Q6H PRN cough #180 mL 11/15/23 oral syrup guaifenesin 600 mg tablet, 1,200 mg PO BID PRN cough #20 tabs 12/01/23 extended release 12 hr (Mucinex) ondansetron 4 mg disintegrating 4 mg PO Q8H PRN nausea and 12/01/23 tablet vomiting #10 tabs Allergies Allergy/AdvReac Type Severity Reaction Status Date / Time amoxicillin AdvReac Severe Diarrhea Verified 11/15/23 15:34 Worker's Comp Is this a Worker's Comp case?: No PFSH PFS Disclaimer: The information contained in this section may have been updated after the patient was seen, as this information can be updated by other users. Medical History Anxiety Bipolar disorder Constipation Depression Encounter for smoking cessation counseling Facet hypertrophy of lumbar region GERD (gastroesophageal reflux disease) Lumbar back pain Desire needs to see Dr. Briones and we will try to get her in tomorrow morning. For the short-term we will give her dexamethasone and ketorolac injection and hopefully these will help her pain until she can see Dr. Briones. Sciatica of right side Sinusitis Vertigo Social History Smoking Status: Current every day smoker tobacco type: cigarettes packs per day: 2 second hand exposure: Yes alcohol intake: never substance use type: denies use current occupational status: unemployed Travel in the last 8 weeks: None household members: none housing: house current occupational exposures/hazards: No caffeine: Yes ROS Obtained: Yes All systems reviewed & no additional complaints except as documented and Yes Systems reviewed as appropriate & no additional complaints except as documented Constitutional Constitutional: Reports system reviewed and no additional complaints, except as documented, Reports as per HPI, Reports body ache, Reports chills, Reports fever(s) and Reports headache(s) ENT Ears, Nose, Mouth, and Throat: Reports system reviewed and no additional complaints, except as documented, Reports as per HPI, Reports headache(s), Reports nasal congestion, Reports sinus pressure and Reports sore throat Cardiovascular Cardiovascular: Reports system reviewed and no additional complaints, except as documented and Reports as per HPI Respiratory Respiratory: Reports system reviewed and no additional complaints, except as documented, Reports as per HPI and Reports cough Gastrointestinal Gastrointestingal: Reports system reviewed and no additional complaints, except as documented, as per HPI, diarrhea, nausea and vomiting Neurologic Neurologic: Reports headache(s) Physical Exam General General appearance: alert and in no apparent distress ENT ENT exam: Present mucous membranes moist Expanded ENT Exam Nose exam: Absent sinus tenderness Throat exam: Present other (Pharyngeal erythema noted with PND) Chest Chest inspection: Present normal inspection and symmetric chest wall rise Respiratory Respiratory exam: Present normal lung sounds bilaterally; Absent respiratory distress or wheezes Cardiovascular Cardiovascular exam: Present regular rate, normal rhythm and normal heart sounds Abdominal Exam Abdominal exam: Present soft and normal bowel sounds; Absent distention or tenderness Neurological Exam Neurological exam: Present alert, oriented X3 and normal gait Medical Decision Making Carmelo Inquiry Pt receiving controlled substance: No Carmelo was queried for this patient: No Vital Signs: 12/01/23 10:43 Temperature 97.8 F Temperature Source Oral Pulse Rate [Radial] 92 H Respiratory Rate 20 Blood Pressure [Right Arm] 130/88 Blood Pressure Mean [Right Arm] 102 Blood Pressure Source [Right Arm] Automatic Cuff Blood Pressure Position [Right Arm] Sitting 02 Sat by Pulse Oximetry 98 Oxygen Delivery Method Room Air Lab Data Lab results reviewed: Yes I reviewed the patient's lab results.
[2023-12-01 11:29] VITALS: BP 130/88; PULSE 92; RESP 20; TEMP 36.6; O2SAT 98
[2023-12-01 12:05] LABS: UTC Influenza A Antigen Negative (Negative); UTC Influenza B Antigen Negative (Negative); UTC Strep Screen (Rapid) Negative (Negative)
== END 2023-12-01 11:30 | disposition home or self-care (01) ==
PROVIDERS: Emergency Provider Nurse Practitioner; PCP Physician Assistant
DX: R51.9 Headache, unspecified (principal); R09.81 Nasal congestion; R11.2 Nausea with vomiting, unspecified; R07.0 Pain in throat; B34.9 Viral infection, unspecified; F17.210 Nicotine dependence, cigarettes, uncomplicated; K21.9 Gastro-esophageal reflux disease without esophagitis
CPT/HCPCS: 87635; 87804; 87880; 99212; 99214; G0463

== ENCOUNTER 2023-12-27 15:10 | Outpatient (POV) | payer MEDICAID, SELFPAY ==
--- NOTE | 2023-12-27 15:30 | A.OFFVIS_ITS ---
[facility] Pain Management SOAP Note Subjective:: Patient is a pleasant 48-year-old female who presents today for follow-up. We are currently treating the patient for degenerative disc disease of lumbar spine with lumbar radiculopathy symptoms, chronic pain syndrome. Today she rates her pain a 8 out of 10. She denies any new trauma or injury. She does state that her previous prescriptions of diclofenac and Flexeril seem to not be working as well. She states that she is constantly in pain and that she has had very little sleep the last couple of days. Patient did have a intrathecal pain pump trial that did end up providing 100% relief and at our last visit she did want to proceed forward with this option however was wanting to wait a couple months before we submitted for it so she had better times when she chose to be off work. Patient does state that she would like to proceed forward with this option. Patient has been on Percocet and pregabalin in the past. Her Carmelo has been reviewed and is appropriate. Review of Systems: General: No recent weight changes, no fever, no sleep disturbances Respiratory: No cough, no shortness of air, no recurring pulmonary infections Cardiovascular/peripheral vascular: No chest pain, no palpitations, no edema, no shortness of breath Gastrointestinal: No new onset incontinence, normal bowel movements reported Genitourinary: No new onset incontinence Musculoskeletal: Low back pain Psychiatric: [Normal mood/affect] Neurological: [Denies weakness in extremities], [denies balance issues] Objective:: Physical Exam: General: Alert and oriented x3, no acute distress, pleasant and cooperative Lungs: Respirations even and unlabored, symmetrical chest expansion Eyes: PERRL Musculoskeletal: Flexion and extension of lumbar [spine] somewhat guarded secondary to pain, [antalgic gait noted] Neurological: Speech clear, no gross sensory deficit Assessment:: Patient has tried and failed conservative treatment including oral medications, heat and ice, topicals, physical therapy and at home stretching exercise for longer than 6 weeks. Patient did have a appropriate psychological evaluation and 100% relief with her intrathecal pain pump trial. Risk and benefits of the implant were explained to the patient and she would like to proceed forward with this plan of care. I will discontinue her diclofenac and Flexeril and send in a 2-week dose of meloxicam 15 mg daily and baclofen 10 mg 3 times daily. Patient has been counseled to discontinue all other NSAIDs while taking the meloxicam and to take it with food to minimize GI upset. We will submit to insurance for the intrathecal pain pump placement and contact the patient once we have official date and time of this procedure. Patient did present today with paperwork for her work to fill out regarding the upcoming procedure. Patient will return to clinic in 2 weeks for reevaluation of symptoms and plan of care. Patient has been instructed to contact the clinic with any concerns before the next appointment. Dr. Briones has reviewed this note and agrees with this plan of care. This note was dictated using voice recognition software and make contain errors or omissions. [facility] Disclaimer: The information contained in this section may have been updated after the patient was seen, as this information can be updated by other users. Medical History Anxiety Bipolar disorder Constipation Depression Encounter for smoking cessation counseling Facet hypertrophy of lumbar region GERD (gastroesophageal reflux disease) Lumbar back pain Desire needs to see Dr. Briones and we will try to get her in tomorrow morning. For the short-term we will give her dexamethasone and ketorolac injection and hopefully these will help her pain until she can see Dr. Briones. Sciatica of right side Sinusitis Vertigo Social History Smoking Status: Current every day smoker tobacco type: cigarettes packs per da y: 2 second hand exposure: Yes alcohol intake: never substance use type: denies use current occupational status: unemployed Travel in the last 8 weeks: None household members: none housing: house current occupational exposures/hazards: No caffeine: Yes
[2023-12-27 15:35] VITALS: BP 122/89; PULSE 105; RESP 18; O2SAT 99; BMI 35.5
== END 2023-12-27 23:59 | disposition home or self-care (01) ==
PROVIDERS: PCP Physician Assistant; Visit Provider Nurse Practitioner Family
DX: M51.16 Intervertebral disc disorders with radiculopathy, lumbar region (principal); G89.4 Chronic pain syndrome
CPT/HCPCS: 99212; G0463

== ENCOUNTER 2024-01-10 11:24 | Outpatient (POV) | payer MEDICAID, SELFPAY ==
[2024-01-10 11:35] VITALS: BP 117/80; PULSE 89; RESP 18; O2SAT 99; BMI 31.8
--- NOTE | 2024-01-10 11:44 | EXP.PAIN.SOA ---
[facility] Pain Management SOAP Note Subjective:: Patient is a pleasant 48-year-old female who presents today for medication follow-up. Today she rates her pain an 8 out of 10. Patient at our last visit was changed from her diclofenac and Flexeril to meloxicam 15 mg daily and baclofen 10 mg 3 times a day. Patient states that this did not seem to improve her overall symptoms and she did feel that she had worsening pain. Patient states that she felt like her other medications were working better and would like to be put back on those medications. Patient did also have a previous 100% relief from her intrathecal pain pump trial and she still would like to proceed forward with the implant however she is trying to minimize how much work that she misses and is requesting that it be more around February when school lets out so she is not taking off any extra. Her Carmelo has been reviewed and is appropriate. Review of Systems: General: No recent weight changes, no fever, no sleep disturbances Respiratory: No cough, no shortness of air, no recurring pulmonary infections Cardiovascular/peripheral vascular: No chest pain, no palpitations, no edema, no shortness of breath Gastrointestinal: No new onset incontinence, normal bowel movements reported Genitourinary: No new onset incontinence Musculoskeletal: Low back pain Psychiatric: [Normal mood/affect] Neurological: [Denies weakness in extremities], [denies balance issues] Objective:: Physical Exam: General: Alert and oriented x3, no acute distress, pleasant and cooperative Lungs: Respirations even and unlabored, symmetrical chest expansion Eyes: PERRL Musculoskeletal: Flexion and extension of lumbar [spine] somewhat guarded secondary to pain, [antalgic gait noted] Neurological: Speech clear, no gross sensory deficit Assessment:: Lumbar radiculopathy symptoms, chronic pain syndrome Plan:: I will send in refills on her diclofenac 75 mg twice daily and Flexeril 10 mg 3 times a day and provide a 3-month supply of these medications. We will plan on scheduling the patient for her intrathecal pain pump implant on around February to March once school lets out. Patient will be scheduled for a intrathecal pain pump implant. Patient has been instructed to contact the clinic with any concerns before the next appointment. Dr. Briones has reviewed this note and agrees with this plan of care. This note was dictated using voice recognition software and make contain errors or omissions. [facility] Disclaimer: The information contained in this section may have been updated after the patient was seen, as this information can be updated by other users. Medical History Facet hypertrophy of lumbar region Lumbar back pain Desire needs to see Dr. Briones and we will try to get her in tomorrow morning. For the short-term we will give her dexamethasone and ketorolac injection and hopefully these will help her pain until she can see Dr. Briones. Sciatica of right side Bipolar disorder Constipation Vertigo GERD (gastroesophageal reflux disease) Anxiety Sinusitis Encounter for smoking cessation counseling Depression Social History Smoking Status: Current every day smoker tobacco type: cigarettes packs per day: 2 second hand exposure: Yes alcohol intake: never substance use type: denies use current occupational status: unemployed Travel in the last 8 weeks: None household members: none housing: house current occupational exposures/hazards: No caffeine: Yes
== END 2024-01-10 23:59 | disposition home or self-care (01) ==
PROVIDERS: PCP Physician Assistant; Visit Provider Nurse Practitioner Family
DX: M54.16 Radiculopathy, lumbar region (principal); G89.4 Chronic pain syndrome
CPT/HCPCS: 99212; G0463

== ENCOUNTER 2024-01-20 12:53 | Outpatient (CLI) | payer MEDICAID, SELFPAY ==
--- NOTE | 2024-01-20 12:54 | CA_ITS ---
APPROVED REPORT EXAM: Comprehensive 2D, Doppler, and color-flow Echocardiogram Real Estate Developer: Addie De Leon RT(R) Ht: 4 ft 11 in Wt: 153lbs BSA: 1.65 BP: 124/86 mmHg Indications: SOB, smoker, fatigue, edema 2D Dimensions EF AP4 68.30 % GL Strain -23.5 % M-Mode Dimensions RVDd 2.18 cm (0.9-2.6) LA Diam 3.23 cm (1.9-4.0) LVDd 4.44 cm (3.5-5.7) LVDs 3.26 cm (3.5-5.7) IVSd 0.93 cm (0.6-1.1) PWd 0.82 cm (0.6-1.1) EF (Teich) 52.20% FS 26.60% EDV (Teich) 89.60 mL TAPSE 1.33 (<1.7) ESV (Teich) 42.80 mL LV Diastology E Decel Time 203 (160-240 msec) E/A Ratio 0.6 Mitral Valve MV E Max Luciano. 57.0 (40-130 cm/s) MV A Velocity 101.0 (40-130 cm/s) E/A Ratio 0.56 MV PHT 60.0 ms Left Ventricle The left ventricle is normal size. The left ventricular systolic function is normal. The left ventricular ejection fraction is within the normal range. There is increased LV wall thickness. There is normal LV segmental wall motion. Transmitral Doppler flow pattern suggests impaired LV relaxation. LVEF is 60%. Right Ventricle The right ventricle is normal size. The right ventricular systolic function is normal. Atria The left atrium size is normal. The right atrium size is normal. There is no Doppler evidence of interatrial shunt. Aortic Valve The aortic valve opens well. There is no aortic valvular stenosis. No aortic regurgitation is present. Mitral Valve The mitral valve is normal in structure. No evidence of mitral valve stenosis. There is no mitral valve regurgitation noted. Tricuspid Valve The tricuspid valve leaflets are thin and pliable. Trace tricuspid regurgitation. RVSP is 25-30 mmHg. Pulmonic Valve The pulmonary valve is normal in structure. Trace pulmonic regurgitation. Great Vessels The aortic root is normal in size. The ascending aorta is normal in size. IVC is normal in size and collapses >50% with inspiration. Pericardium There is no pericardial effusion. Other Information Study Quality: Technically Difficult Conclusion Technically difficult study due to poor acoustic windows. Normal biventricular systolic function. No significant valvular stenosis or regurgitation. Electronically signed by : Lyndsey Masters MD 01/24/2024 12:31:03
[2024-01-20] MEDS: ALBUTEROL 0.083% 2.5 MG/3 ML NEB IH (14:16)
--- NOTE | 2024-01-20 14:16 | PC.NURSE ---
PFT completed without incident. Albuterol 0.083% given via HHN, per written protocol, Pt tolerated tx well.
== END 2024-01-20 23:59 ==
LOC: RT 12:54
PROVIDERS: PCP Physician Assistant; Visit Provider Physician Assistant
DX: R06.00 Dyspnea, unspecified (principal); R60.9 Edema, unspecified
CPT/HCPCS: 93306; 94060; 94727; 94729

== ENCOUNTER 2024-02-29 07:05 | Outpatient (CLI) | payer MEDICAID, SELFPAY ==
--- NOTE | 2024-02-29 07:06 | CT_ITS ---
FINAL REPORT TECHNIQUE: Axial images through the abdomen and pelvis were performed without contrast. This study was performed with techniques to keep radiation doses as low as reasonably achievable, (ALARA). Individualized dose reduction techniques using automated exposure control or adjustment of mA and/or kV according to the patient's size were employed. CLINICAL HISTORY: Abd pain COMPARISON: 02/16/2022 FINDINGS: ABDOMEN: The lung bases are clear. The heart size is normal. There is moderate fatty infiltration of the liver. The gallbladder is absent. The spleen is normal. No adrenal mass is identified. The aorta is normal in caliber. There is no significant free fluid or adenopathy. There is no nephrolithiasis. There is no hydronephrosis. PELVIS: The appendix is normal. Calcified phleboliths are seen in the floor of the pelvis. The urinary bladder is decompressed. There is no significant free fluid or adenopathy. IMPRESSION: Fatty liver. Reviewed, Interpreted and Dictated by Adolfo Foster MD Transcribed by Janice Rodriguez Authenticated and . [facility]
== END 2024-02-29 23:59 | disposition home or self-care (01) ==
LOC: RAD 07:06
PROVIDERS: PCP Physician Assistant; Visit Provider Nurse Practitioner Family
DX: R10.9 Unspecified abdominal pain (principal); R11.2 Nausea with vomiting, unspecified
CPT/HCPCS: 74176

== ENCOUNTER 2024-04-06 09:24 | Outpatient (POV) | payer MEDICAID, SELFPAY ==
--- NOTE | 2024-04-06 09:50 | A.OFFVIS_ITS ---
[facility] Disclaimer: The information contained in this section may have been updated after the patient was seen, as this information can be updated by other users. Medical History Facet hypertrophy of lumbar region Lumbar back pain Desire needs to see Dr. Briones and we will try to get her in tomorrow morning. For the short-term we will give her dexamethasone and ketorolac injection and hopefully these will help her pain until she can see Dr. Briones. Sciatica of right side Bipolar disorder Constipation Vertigo GERD (gastroesophageal reflux disease) Anxiety Sinusitis Encounter for smoking cessation counseling Depression Social History Smoking Status: Current every day smoker tobacco type: cigarettes packs per day: 2 second hand exposure: Yes alcohol intake: never substance use type: denies use current occupational status: employed Travel in the last 8 weeks: None household members: none housing: house current occupational exposures/hazards: No caffeine: Yes PM Subjective & Objective Subjective Subjective:: Patient is a pleasant 49-year-old female who presents today for follow-up. Today she rates her pain an 8 out of 10. Patient denies any new trauma or injury. She does state that from her last visit her family did not want her to proceed forward with the pump implant. Patient is currently managed with diclofenac 75 mg twice a day, Flexeril 10 mg 3 times a day and lidocaine patches. She does state that this combination does seem to help a little. Her Carmelo has been reviewed and is appropriate. Review of Systems: General: No recent weight changes, no fever, no sleep disturbances Respiratory: No cough, no shortness of air, no recurring pulmonary infections Cardiovascular/peripheral vascular: No chest pain, no palpitations, no edema, no shortness of breath Gastrointestinal: No new onset incontinence, normal bowel movements reported Genitourinary: No new onset incontinence Musculoskeletal: Low back pain Psychiatric: [Normal mood/affect] Neurological: [Denies weakness in extremities], [denies balance issues] Pain at rest (0-10 scale): 8 Objective Objective:: Physical Exam: General: Alert and oriented x3, no acute distress, pleasant and cooperative Lungs: Respirations even and unlabored, symmetrical chest expansion Eyes: PERRL Musculoskeletal: Flexion and extension of lumbar [spine] somewhat guarded secondary to pain, [antalgic gait noted] Neurological: Speech clear, no gross sensory deficit Has patient had previous pain injection?: No Conservative treatment options previously tried: Home exercise plan Length of treatment: >6 weeks and Prescription medications Length of treatment: 6 weeks Meds Home Medications and Allergies Home Medications Medication Instructions Recorded Confirmed Type atorvastatin 20 mg tablet 20 mg PO HS 11/03/23 02/16/24 History fremanezumab-vfrm 225 mg/1.5 mL 225 mg SQ WEEKLY 11/03/23 02/16/24 History subcutaneous auto-injector (Ajovy) loratadine 10 mg tablet 10 mg PO DAILY 11/03/23 02/16/24 History sumatriptan succinate 100 mg tablet 100 mg PO DAILY 11/03/23 02/16/24 History meloxicam 15 mg tablet 15 mg PO DAILY #14 tabs 12/27/23 02/16/24 Rx cyclobenzaprine 10 mg tablet 10 mg PO TID PRN muscle spasm #90 01/10/24 02/16/24 Rx tabs diclofenac sodium 75 mg 75 mg PO BID #60 tabs 01/10/24 02/16/24 Rx tablet,delayed release hydrochlorothiazide 12.5 mg tablet 12.5 mg PO DAILY #30 tabs 01/10/24 02/16/24 Rx lamotrigine 25 mg tablet 25 mg PO DAILY #90 tabs 01/18/24 02/16/24 Rx topiramate 100 mg tablet See Rx Instructions .Route 02/03/24 02/16/24 Rx .COMPLEX #180 tabs cariprazine 4.5 mg capsule See Rx Instructions .Route 02/14/24 02/16/24 Rx (Vraylar) .COMPLEX #90 caps promethazine 12.5 mg tablet 12.5 mg PO Q6H PRN nausea and 02/16/24 02/16/24 Rx vomiting #60 tabs buspirone 15 mg tablet See Rx Instructions .Route 03/15/24 Rx .COMPLEX #90 tabs venlafaxine 150 mg See Rx Instructions .Route 03/20/24 Rx capsule,extended release 24 hr .COMPLEX #90 caps levothyroxine 25 mcg tablet See Rx Instructions .Route 03/22/24 Rx .COMPLEX #90 tabs New Prescriptions to Start Prescriptions: Allergies Allergy/AdvReac Type Severity Reaction Status Date / Time amoxicillin AdvReac Severe Diarrhea Verified 02/16/24 09:37 Assessment and Plan *Assessment and plan (1) Facet arthropathy, lumbar: Status: Chronic Category: Medical Code(s): M47.816 - Spondylosis without myelopathy or radiculopathy, lumbar region (2) Lumbar back pain: Problem Comment: Patient sees pain management later this morning but requests injections Status: Chronic Category: Medical Code(s): M54.50 - Low back pain, unspecified (3) Degenerative joint disease (DJD) of lumbar spine: Status: Chronic Qualifiers: Spinal osteoarthritis complication: with radiculopathy Qualified Code(s): M47.26 - Other spondylosis with radiculopathy, lumbar region Category: Medical Code(s): M47.816 - Spondylosis without myelopathy or radiculopathy, lumbar region (4) Leg pain: Status: Acute Qualifiers: Laterality: bilateral Qualified Code(s): M79.604 - Pain in right leg; M79.605 - Pain in left leg Category: Medical Code(s): M79.606 - Pain in leg, unspecified Plan Patient continues to have her chronic pain throughout her low back and legs. Patient has not had any updated imaging since 2020. I have discussed with the patient that I will order x-ray and MRI without contrast. I will verify that she has refills on her diclofenac and Flexeril and send in a refill on her lidocaine patches. Patient is clinically for reevaluation of symptoms and plan of care. Patient has been instructed to contact the clinic with any concerns before the next appointment. Dr. Briones has reviewed this note and agrees with this plan of care. This note was dictated using voice recognition software and make contain errors or omissions.
[2024-04-06 09:58] VITALS: BP 125/81; PULSE 94; RESP 18; O2SAT 98; BMI 29.2
== END 2024-04-06 23:59 | disposition home or self-care (01) ==
PROVIDERS: PCP Physician Assistant; Visit Provider Nurse Practitioner Family
DX: G89.29 Other chronic pain (principal); M47.26 Other spondylosis with radiculopathy, lumbar region
CPT/HCPCS: 99212; G0463

== ENCOUNTER 2024-05-12 08:01 | Outpatient (CLI) | payer MEDICAID, SELFPAY ==
--- NOTE | 2024-05-12 | MR_ITS ---
FINAL REPORT CLINICAL HISTORY: LBP, follow up from previous mri 2020 COMPARISON: 08/01/2021 FINDINGS: Multiplanar MR imaging of the lumbar spine was performed without contrast. There is motion artifact on many of the images decreasing sensitivity of this exam. On the sagittal T2-weighted images, disc degeneration is seen at several levels. The vertebral alignment is normal. There is no evidence of fracture. No bony mass is identified. The conus has an unremarkable appearance. L2-3: There is no significant canal stenosis or neural foraminal narrowing. L3-4: There is no significant canal stenosis or neural foraminal narrowing. L4-5: Annular disc bulge and facet arthropathy. Small central disc protrusion. Mild left neuroforaminal narrowing. L5-S1: Partial lumbarization of S1. Annular disc bulge. There is no significant canal stenosis or neural foraminal narrowing. IMPRESSION: Multilevel degenerative disc disease and spondylosis as described. Small central disc protrusion L4-5. Reviewed, Interpreted and Dictated by Ralf Pandya III, MD Transcribed by Savi Baer Authenticated and [facility]
== END 2024-05-12 23:59 | disposition home or self-care (01) ==
LOC: RAD 08:02
PROVIDERS: PCP Physician Assistant; Visit Provider Nurse Practitioner Family
DX: M54.50 Low back pain, unspecified (principal)
CPT/HCPCS: 72148

== ENCOUNTER 2024-05-15 08:32 | Outpatient (POV) | payer MEDICAID, SELFPAY ==
--- NOTE | 2024-05-15 09:01 | A.OFFVIS_ITS ---
[facility] Disclaimer: The information contained in this section may have been updated after the patient was seen, as this information can be updated by other users. Medical History Facet hypertrophy of lumbar region Lumbar back pain Patient sees pain management later this morning but requests injections Sciatica of right side Bipolar disorder Constipation Vertigo GERD (gastroesophageal reflux disease) Anxiety Sinusitis Encounter for smoking cessation counseling Depression Social History Smoking Status: Current every day smoker tobacco type: cigarettes packs per day: 2 second hand exposure: Yes alcohol intake: never substance use type: denies use current occupational status: employed Travel in the last 8 weeks: None household members: none housing: house current occupational exposures/hazards: No caffeine: Yes PM Subjective & Objective Subjective Subjective:: Patient is a pleasant 49-year-old female who presents today for follow-up of x- ray and MRI of her lumbar spine. Today she rates her pain at a 8 out of 10. Patient denies any new trauma or injury. She does state that she continues to have the chronic low back pain. Patient does state that she went for her MRI on Wednesday. Patient is currently managed with diclofenac 75 mg twice a day, Flexeril 10 mg 3 times a day and lidocaine patches. She denies any side effects from this medication. She does state that the lidocaine patches have not seem to do anything. Her Carmelo has been reviewed and is appropriate. Review of Systems: General: No recent weight changes, no fever, no sleep disturbances Respiratory: No cough, no shortness of air, no recurring pulmonary infections Cardiovascular/peripheral vascular: No chest pain, no palpitations, no edema, no shortness of breath Gastrointestinal: No new onset incontinence, normal bowel movements reported Genitourinary: No new onset incontinence Musculoskeletal: Low back pain Psychiatric: [Normal mood/affect] Neurological: [Denies weakness in extremities], [denies balance issues] Pain at rest (0-10 scale): 8 Objective Objective:: Physical Exam: General: Alert and oriented x3, no acute distress, pleasant and cooperative Lungs: Respirations even and unlabored, symmetrical chest expansion Eyes: PERRL Musculoskeletal: Flexion and extension of lumbar [spine] somewhat guarded secondary to pain, [antalgic gait noted] Neurological: Speech clear, no gross sensory deficit Has patient had previous pain injection?: No Conservative treatment options previously tried: Home exercise plan Length of treatment: Longer than 6 weeks and Prescription medications Length of treatment: Longer than 6 weeks Meds Home Medications and Allergies Home Medications ?Medication ?Instructions ?Recorded ?Confirmed ?Type atorvastatin 20 mg tablet 20 mg PO HS 11/03/23 04/06/24 History fremanezumab-vfrm 225 mg/1.5 mL 225 mg SQ WEEKLY 11/03/23 04/06/24 History subcutaneous auto-injector (Ajovy) loratadine 10 mg tablet 10 mg PO DAILY 11/03/23 04/06/24 History topiramate 100 mg tablet See Rx Instructions .Route 02/03/24 04/06/24 Rx .COMPLEX #180 tabs cariprazine 4.5 mg capsule See Rx Instructions .Route 02/14/24 04/06/24 Rx (Vraylar) .COMPLEX #90 caps promethazine 12.5 mg tablet 12.5 mg PO Q6H PRN nausea and 02/16/24 04/06/24 Rx vomiting #60 tabs venlafaxine 150 mg See Rx Instructions .Route 03/20/24 04/06/24 Rx capsule,extended release 24 hr .COMPLEX #90 caps azithromycin 250 mg tablet 500 mg (2 x 250 mg) PO DAILY #6 04/06/24 04/06/24 Rx (Zithromax Z-Jayy) tabs diclofenac sodium 75 mg 75 mg PO BID #60 tabs 04/06/24 04/06/24 Rx tablet,delayed release prednisone 20 mg tablet 20 mg PO BID #10 tabs 04/06/24 04/06/24 Rx promethazine-DM 6.25 mg-15 mg/5 mL 5 ml PO Q6H PRN cough #180 mL 04/06/24 04/06/24 Rx oral syrup sumatriptan succinate 100 mg tablet See Rx Instructions .Route 04/19/24 Rx .COMPLEX #9 tabs ubrogepant 100 mg tablet (Ubrelvy) 100 mg PO ONCE PRN migraine #16 04/28/24 Rx tabs buspirone 15 mg tablet See Rx Instructions .Route 05/11/24 Rx .COMPLEX #90 tabs capsaicin-menthol 0.025 %-1.25 % 1 patch topical TID #6 ea 05/15/24 Rx topical patch (Salonpas (capsaicin-menthol)) cyclobenzaprine 10 mg tablet 10 mg PO TID #90 tabs 05/15/24 Rx New Prescriptions to Start Prescriptions: capsaicin-menthol [Salonpas (capsaicin-menthol)] Sally Nieto A cyclobenzaprine Sally Nieto Allergies Allergy/AdvReac Type Severity Reaction Status Date / Time amoxicillin AdvReac Severe Diarrhea Verified 04/06/24 10:44 Assessment and Plan *Assessment and plan (1) Degenerative joint disease (DJD) of lumbar spine: Status: Chronic Qualifiers: Spinal osteoarthritis complication: with radiculopathy Qualified Code( s): M47.26 - Other spondylosis with radiculopathy, lumbar region Category: Medical Code(s): M47.816 - Spondylosis without myelopathy or radiculopathy, lumbar region (2) Facet arthropathy, lumbar: Status: Chronic Category: Medical Code(s): M47.816 - Spondylosis without myelopathy or radiculopathy, lumbar region (3) Lumbar spondylosis: Status: Chronic Category: Medical Code(s): M47.816 - Spondylosis without myelopathy or radiculopathy, lumbar region (4) Facet hypertrophy of lumbar region: Status: Chronic Category: Medical Code(s): M47.816 - Spondylosis without myelopathy or radiculopathy, lumbar region Plan I did review over with the patient's x-ray findings however her MRI from Wednesday has still not been read by the radiologist. I will refill the patient's diclofenac and Flexeril and also send in a new prescription for Salonpas patches. Patient will return to clinic in 1 week for reevaluation of symptoms and plan of care. Patient has been instructed to contact the clinic with any concerns before the next appointment. Dr. Briones has reviewed this note and agrees with this plan of care. This note was dictated using voice recognition software and make contain errors or omissions. All injections are used with Lidocaine or Bupivacaine and Depo Medrol.
[2024-05-15 10:28] VITALS: BP 119/78; PULSE 100; RESP 19; O2SAT 97; BMI 31.1
== END 2024-05-15 23:59 | disposition home or self-care (01) ==
PROVIDERS: PCP Physician Assistant; Visit Provider Nurse Practitioner Family
DX: M47.26 Other spondylosis with radiculopathy, lumbar region (principal); F17.210 Nicotine dependence, cigarettes, uncomplicated; Z79.899 Other long term (current) drug therapy
CPT/HCPCS: 99212; G0463

== ENCOUNTER 2024-05-25 08:54 | Outpatient (POV) | payer MEDICAID, SELFPAY ==
[2024-05-25 09:01] VITALS: BP 108/73; PULSE 90; RESP 16; O2SAT 99; BMI 32.1
--- NOTE | 2024-05-25 09:19 | A.OFFVIS_ITS ---
[facility] Disclaimer: The information contained in this section may have been updated after the patient was seen, as this information can be updated by other users. Medical History Facet hypertrophy of lumbar region Lumbar back pain Patient sees pain management later this morning but requests injections Sciatica of right side Bipolar disorder Constipation Vertigo GERD (gastroesophageal reflux disease) Anxiety Sinusitis Encounter for smoking cessation counseling Depression Social History Smoking Status: Current every day smoker tobacco type: cigarettes packs per day: 2 second hand exposure: Yes alcohol intake: never substance use type: denies use current occupational status: unemployed Travel in the last 8 weeks: None household members: none housing: house current occupational exposures/hazards: No caffeine: Yes PM Subjective & Objective Subjective Subjective:: Patient is a pleasant 49-year-old female who presents today for MRI follow-up. Today she rates her pain an 8 out of 10. She denies any new trauma or injury. Patient does state that she continues to have pain throughout her low back that does go down into her legs. Patient describes it as an aching, throbbing sensation with numbness and tingling. She does state the pain interferes with her ability perform activities of daily living such as cooking and cleaning. Patient is currently managed with diclofenac 75 mg twice a day, Flexeril 10 mg 3 times a day and lidocaine patches. Patient was recently started on Salonpas patches because the lidocaine was not doing anything however she states that these did not seem to work either. Her Carmelo has been reviewed and is appropriate. Review of Systems: General: No recent weight changes, no fever, no sleep disturbances Respiratory: No cough, no shortness of air, no recurring pulmonary infections Cardiovascular/peripheral vascular: No chest pain, no palpitations, no edema, no shortness of breath Gastrointestinal: No new onset incontinence, normal bowel movements reported Genitourinary: No new onset incontinence Musculoskeletal: Low back pain, leg pain Psychiatric: [Normal mood/affect] Neurological: [Denies weakness in extremities], [denies balance issues] Pain at rest (0-10 scale): 8 Objective Objective:: Physical Exam: General: Alert and oriented x3, no acute distress, pleasant and cooperative Lungs: Respirations even and unlabored, symmetrical chest expansion Eyes: PERRL Musculoskeletal: Flexion and extension of lumbar [spine] somewhat guarded secondary to pain, [antalgic gait noted] Neurological: Speech clear, no gross sensory deficit Has patient had previous pain injection?: No Conservative treatment options previously tried: Home exercise plan Length of treatment: Longer than 6 weeks Meds Home Medications and Allergies Home Medications ?Medication ?Instructions ?Recorded ?Confirmed ?Type atorvastatin 20 mg tablet 20 mg PO HS 11/03/23 05/25/24 History fremanezumab-vfrm 225 mg/1.5 mL 225 mg SQ WEEKLY 11/03/23 05/25/24 History subcutaneous auto-injector (Ajovy) loratadine 10 mg tablet 10 mg PO DAILY 11/03/23 05/25/24 History topiramate 100 mg tablet See Rx Instructions .Route 02/03/24 05/25/24 Rx .COMPLEX #180 tabs venlafaxine 150 mg See Rx Instructions .Route 03/20/24 05/25/24 Rx capsule,extended release 24 hr .COMPLEX #90 caps diclofenac sodium 75 mg 75 mg PO BID #60 tabs 04/06/24 05/25/24 Rx tablet,delayed release sumatriptan succinate 100 mg tablet See Rx Instructions .Route 04/19/24 05/25/24 Rx .COMPLEX #9 tabs ubrogepant 100 mg tablet (Ubrelvy) 100 mg PO ONCE PRN migraine #16 04/28/24 05/25/24 Rx tabs buspirone 15 mg tablet See Rx Instructions .Route 05/11/24 05/25/24 Rx .COMPLEX #90 tabs capsaicin-menthol 0.025 %-1.25 % 1 patch topical TID #6 ea 05/15/24 05/25/24 Rx topical patch (Salonpas (capsaicin-menthol)) cyclobenzaprine 10 mg tablet 10 mg PO TID #90 tabs 05/15/24 05/25/24 Rx lidocaine 5 % topical patch 1 patch topical DIRECTED Pain 05/15/24 05/25/24 History prednisone 20 mg tablet 20 mg PO BID #10 tabs 05/15/24 05/25/24 Rx cariprazine 4.5 mg capsule See Rx Instructions .Route 05/18/24 05/25/24 Rx (Vraylar) .COMPLEX #90 caps New Prescriptions to Start Prescriptions: Allergies Allergy/AdvReac Type Severity Reaction Status Date / Time amoxicillin AdvReac Severe Diarrhea Verified 05/15/24 09:49 Assessment and Plan *Assessment and plan (1) Degenerative joint disease (DJD) of lumbar spine: Status: Chronic Qualifiers: Spinal osteoarthritis complication: with radiculopathy Qualified Code(s): M47.26 - Other spondylosis with radiculopathy, lumbar region Category: Medical Code(s): M47.816 - Spondylosis without myelopathy or radiculopathy, lumbar region (2) Facet arthropathy, lumbar: Status: Chronic Category: Medical Code(s): M47.816 - Spondylosis without myelopathy or radiculopathy, lumbar region (3) Lumbar radiculopathy: Status: Acute Category: Medical Code(s): M54.16 - Radiculopathy, lumbar region Plan Patient continues to experience significant pain throughout her low back and legs with numbness and tingling. Patient did have her MRI reviewed over in office and did discuss that she may benefit from a lumbar epidural at the L4-L5 level where she does have a bulging disc, protruding disc arthritis and narrowing of her neuroforamen. Risk and benefits were discussed with the patient and she would like to proceed forward with this plan of care. Patient has tried and failed conservative therapy including continued at home stretching exercise for longer than 6 weeks. We will schedule the patient for an LESI L4- L5 under fluoroscopy. Patient has been instructed to contact the clinic with any concerns before the next appointment. Dr. Briones has reviewed this note and agrees with this plan of care. This note was dictated using voice recognition software and make contain errors or omissions. All injections are used with Lidocaine or Bupivacaine and Depo Medrol.
== END 2024-05-25 23:59 | disposition home or self-care (01) ==
LOC: SC.PAIN 08:55
PROVIDERS: PCP Physician Assistant; Visit Provider Nurse Practitioner Family
DX: M47.26 Other spondylosis with radiculopathy, lumbar region (principal); F17.210 Nicotine dependence, cigarettes, uncomplicated; Z73.89 Other problems related to life management difficulty; Z79.899 Other long term (current) drug therapy
CPT/HCPCS: 99212; G0463

== ENCOUNTER → 2024-06-06 11:31 | Day surgery (SDC) | payer MEDICAID, SELFPAY ==
[2024-06-06 11:48] VITALS: BP 118/85; PULSE 85; RESP 16; TEMP 36.4; O2SAT 97; BMI 32.1
[2024-06-06 12:12] VITALS: BP 123/90; PULSE 88; RESP 16; O2SAT 97
--- NOTE | 2024-06-06 12:12 | EXP.PAIN.PRO ---
Procedure Date: 06/06/24 Time: 12:00 Anesthesiologist:: Andrew Daniels CRNA Complications:: None Pre-procedure Diagnosis:: Degenerative disc lumbar spine multilevels. Lumbar radiculopathy. Post-procedure Diagnosis:: Same. Indications for Procedure:: Patient is a very pleasant 49-year-old female that comes our clinic today for lumbar epidural steroid injection at the L4-5 level. Patient reports moderate improvement terms of her overall low back pain as well as bilateral hip and leg radicular symptoms with previous injection at the same level. Today, she describes low back pain as constant, dull, aching. Patient also reports bilateral hip and leg radicular symptoms at times. She rates her pain 7/10. Procedure Details:: Procedure: Lumbar epidural steroid injection under fluoroscopy Informed consent was obtained and the risks and benefits of the procedure were explained to the patient. The patient was taken to the procedure room and noninvasive monitors placed, including noninvasive blood pressure cuff and pulse oximeter. The back was viewed using C-arm Fluoroscopy and prepped using Chloraprep as a cleansing solution and the L4-L5 interspace was palpated. Skin and subcutaneous tissues were anesthetized using lidocaine 1.5% and a 25-gauge needle. After this, an 18-gauge Touhy epidural needle was placed into the L4-L5 interspace and advanced using fluoroscopic guidance and loss of resistance to air until the epidural space was encountered. After confirmation of needle placement in the epidural space, with dye, a solution containing normal saline, 3 mL and Depo-Medrol 80 mg were incrementally injected into the lumbar epidural space. The patient tolerated the procedure well with no complications. The patient was observed in the Pain Clinic and then discharged home neurologically intact. Plan and Disposition:: Patient was discharged without incident.
[2024-06-06] MEDS: methylPREDNISolone ACETATE 80MG/ML VIAL 80 MG (12:29)
[2024-06-06 12:30] VITALS: BP 117/85; PULSE 79; RESP 18; O2SAT 97
[2024-06-06 12:33] VITALS: BP 117/85; PULSE 79; RESP 18; O2SAT 95
== END | disposition home or self-care (01) ==
PROVIDERS: PCP Physician Assistant; Visit Provider Nurse Anesthetist, Certified Registered
DX: M51.16 Intervertebral disc disorders with radiculopathy, lumbar region (principal)
CPT/HCPCS: 62323; J1010

== ENCOUNTER 2024-07-25 10:46 | Outpatient (CLI) | payer MEDICAID, SELFPAY ==
[2024-07-25 18:19] LABS: Influenza A, PCR Not Detected (NotDetected); Influenza B, PCR Not Detected (NotDetected)
[2024-07-25 20:58] LABS: Coronavirus 19, PCR Detected (NotDetected)
== END 2024-07-25 23:59 | disposition home or self-care (01) ==
LOC: LAB.DROPOF 07-26 10:46
PROVIDERS: PCP Internal Medicine; Visit Provider Internal Medicine
DX: U07.1 COVID-19 (principal)
CPT/HCPCS: 87636

== ENCOUNTER 2024-09-25 15:00 | Outpatient (CLI) | payer MEDICAID, SELFPAY ==
[2024-09-25 18:40] LABS: Basophils # 0.1 K/mm3 (0-0.2); Basophils % 0.5 % (0.1-2.0); Eosinophils # 0.5 K/mm3 (0.0-0.4); Eosinophils % 3.3 % (0.1-12.0); Hematocrit 40.2 % (37.0-47.0); Hemoglobin 13.6 g/dL (12.2-16.2); Lymphocytes # 4.1 K/mm3 (0.7-4.5); Lymphocytes % 26.6 % (10-50); Mean Corpuscular HGB Conc 33.7 g/dL (31.8-35.4); Mean Corpuscular Hemoglobin 33.7 pg (27.0-31.2); Mean Corpuscular Volume 99.9 fl (81-99); Mean Platelet Volume 9.2 fl (7.4-10.4); Monocytes # 1.1 K/mm3 (0.1-1.0); Monocytes % 7.3 % (1.7-9.3); Neutrophils # 9.5 K/mm3 (1.8-7.8); Neutrophils % 62.3 % (37.0-80.0); Platelet Count 333 K/mm3 (142-424); Red Blood Count 4.03 M/mm3 (4.20-5.40); Red Cell Distribution Width 13.7 % (11.5-17.5); White Blood Count 15.3 K/mm3 (4.8-10.8)
[2024-09-25 18:44] LABS: MANUAL DIFFERENTIAL MANUAL DIFFERENTIAL (MANUAL DIFF)
[2024-09-25 19:06] LABS: Alanine Aminotransferase 33 U/L (12-78); Albumin Level 3.9 g/dl (3.5-5.0); Albumin/Globulin Ratio 1.3 (1.1-1.8); Alkaline Phosphatase 95 U/L (38-126); Anion Gap 10.5 mEq/L (5-15); Aspartate Amino Transferase 33 U/L (14-36); Bilirubin,Total 0.3 mg/dl (0.2-1.3); Blood Urea Nitrogen 4 mg/dl (7-17); Calcium 8.9 mg/dl (8.4-10.2); Carbon Dioxide 23 mmol/L (22.0-30.0); Chloride 112 mmol/L (98-107); Chol/HDL Ratio 7.5 (1-3.5); Cholesterol 202 mg/dl (140-200); Estimated Glomerular Filt Rate 76 ml/min (>60); GFR (African American) 92 ML/MIN (>60); Globulin 2.9 g/dL (1.3-3.2); Glucose 81 mg/dl (74-100); HDL Cholesterol 27 mg/dl (40-60); Potassium 3.5 mmoL/L (3.5-5.1); Sodium 142 mmol/L (136-145); Total Protein,Serum 6.8 g/dl (6.3-8.2)
[2024-09-25 19:17] LABS: Direct LDL Cholesterol 110.28 mg/dL (100-129)
[2024-09-25 19:31] LABS: Triglycerides 509 mg/dl (30-150)
[2024-09-25 19:36] LABS: Thyroid Stimulating Hormone 1.12 uIU/mL (0.465-4.68)
[2024-09-25 20:02] LABS: Eosinophils % 4 % (0-3); Lymphocytes % 19 % (10-50); Monocytes % 9 % (2-9); Neutrophils % 68 % (42-76); Total Cells Counted 100
[2024-09-25 20:03] LABS: Anisocytosis 1+; Macrocytosis 1+; Microcytosis 1+; Platelet Estimate Normal
[2024-09-25 20:04] LABS: Hemoglobin A1C 5.2 % (4.0-6.0)
[2024-09-26 11:16] LABS: HIV Combo NEGATIVE (Negative)
[2024-09-27 06:22] LABS: HCV Ab Non Reactive (Non Reactive)
[2024-09-27 10:00] LABS: Vitamin B12 344 pg/mL (239-931)
== END 2024-09-25 23:59 | disposition home or self-care (01) ==
LOC: LAB.DROPOF 09-26 12:55
PROVIDERS: PCP Family Medicine; Visit Provider Family Medicine
DX: E03.9 Hypothyroidism, unspecified (principal); R19.7 Diarrhea, unspecified; Z11.59 Encounter for screening for other viral diseases; Z13.1 Encounter for screening for diabetes mellitus; D75.89 Other specified diseases of blood and blood-forming organs; E78.5 Hyperlipidemia, unspecified
CPT/HCPCS: 80050; 80053; 80061; 82306; 82607; 83036; 84443; 85007; 85025; 86803; 87389

== ENCOUNTER 2024-11-03 07:06 | Outpatient (CLI) | payer MEDICAID, SELFPAY ==
[2024-11-03 18:17] LABS: Coronavirus 19, PCR Not Detected (NotDetected); Influenza A, PCR Not Detected (NotDetected); Influenza B, PCR Not Detected (NotDetected)
== END 2024-11-03 23:59 | disposition home or self-care (01) ==
LOC: LAB.DROPOF 11-04 07:06
PROVIDERS: PCP Family Medicine; Visit Provider Family Medicine
DX: R53.83 Other fatigue (principal)
CPT/HCPCS: 87636

== ENCOUNTER 2024-11-08 14:58 | Outpatient (POV) | payer MEDICAID, SELFPAY ==
[2024-11-08 15:45] VITALS: BP 113/71; PULSE 95; RESP 14; O2SAT 98; BMI 30.4
--- NOTE | 2024-11-08 15:50 | A.OFFVIS_ITS ---
[facility] Disclaimer: The information contained in this section may have been updated after the patient was seen, as this information can be updated by other users. Medical History Facet hypertrophy of lumbar region Lumbar back pain Patient sees pain management later this morning but requests injections Sciatica of right side Bipolar disorder Constipation Vertigo GERD (gastroesophageal reflux disease) Anxiety Sinusitis Encounter for smoking cessation counseling Depression Social History Smoking Status: Current every day smoker tobacco type: cigarettes packs per day: 2 second hand exposure: Yes alcohol intake: never substance use type: denies use current occupational status: employed Travel in the last 8 weeks: None household members: none housing: house current occupational exposures/hazards: No caffeine: Yes PM Subjective & Objective Subjective Subjective:: Patient is a pleasant 49-year-old female who presents today for worsening pain. She rates her pain today a 9 out of 10. Patient does state that she had a fall on the ice about 3 weeks ago and it really aggravated her chronic back pain and hip pain. Patient states that is progressively worsened and describes it as a aching sensation with sharp stabbing pains into her low back and hips. She states she has tried everything and nothing seems to improve it. She states that is interfering with her ability to perform activities of daily living such as cooking and cleaning. Patient is interested in injection therapy. Patient is currently managed with diclofenac 75 mg twice a day, Flexeril 10 mg 3 times a day and lidocaine patches. She denies any side effects. Her Carmelo has been reviewed and is appropriate. Review of Systems: General: No recent weight changes, no fever, no sleep disturbances Respiratory: No cough, no shortness of air, no recurring pulmonary infections Cardiovascular/peripheral vascular: No chest pain, no palpitations, no edema, no shortness of breath Gastrointestinal: No new onset incontinence, normal bowel movements reported Genitourinary: No new onset incontinence Musculoskeletal: Low back pain, bilateral hip pain Psychiatric: [Normal mood/affect] Neurological: [Denies weakness in extremities], [denies balance issues] Pain at rest (0-10 scale): 9 Objective Objective:: Physical Exam: General: Alert and oriented x3, no acute distress, pleasant and cooperative Lungs: Respirations even and unlabored, symmetrical chest expansion Eyes: PERRL Musculoskeletal: Flexion and extension of lumbar [spine] somewhat guarded secondary to pain, [antalgic gait noted] point tenderness along bilateral SIs with positive bilateral Vivienne's, Chelly's, Gaenslen's, compression and distraction exam Neurological: Speech clear, no gross sensory deficit Has patient had previous pain injection?: No Conservative treatment options previously tried: Home exercise plan Length of treatment: Longer than 12-week Meds Home Medications and Allergies Home Medications ?Medication ?Instructions ?Recorded ?Confirmed ?Type atorvastatin 20 mg tablet 20 mg PO HS 11/03/23 11/08/24 History diclofenac sodium 75 mg 75 mg PO BID #60 tabs 04/06/24 11/08/24 Rx tablet,delayed release ubrogepant 100 mg tablet (Ubrelvy) 100 mg PO ONCE PRN migraine #16 04/28/24 11/08/24 Rx tabs cyclobenzaprine 10 mg tablet 10 mg PO TID #90 tabs 05/15/24 11/08/24 Rx lidocaine 5 % topical patch 1 patch topical DIRECTED Pain 05/15/24 11/08/24 History cariprazine 6 mg capsule (Vraylar) 6 mg PO DAILY #30 caps 05/25/24 11/08/24 Rx lamotrigine 25 mg tablet 25 mg PO DAILY #90 tabs 05/25/24 11/08/24 Rx olanzapine 5 mg-samidorphan 10 mg 1 tab PO DAILY #30 tabs 05/25/24 11/08/24 Rx tablet (Lybalvi) sumatriptan succinate 100 mg tablet See Rx Instructions .Route 05/29/24 11/08/24 Rx .COMPLEX #9 tabs levothyroxine 25 mcg tablet See Rx Instructions .Route 07/26/24 11/08/24 Rx .COMPLEX #90 tabs topiramate 100 mg tablet See Rx Instructions .Route 09/11/24 11/08/24 Rx .COMPLEX #180 tabs venlafaxine 150 mg See Rx Instructions .Route 09/26/24 11/08/24 Rx capsule,extended release 24 hr .COMPLEX #90 caps dicyclomine 10 mg capsule 10 mg PO QID PRN abdominal pain 09/28/24 11/08/24 Rx #60 caps buspirone 30 mg tablet 30 mg PO TID #90 tabs 10/13/24 11/08/24 Rx qudcclarqrwggeu-cwuieshataudtfm-GE 10 ml PO Q6H PRN cold symptoms 11/03/24 11/08/24 Rx 2 mg-30 mg-10 mg/5 mL oral syrup #118 mL (Bromfed DM) loratadine 10 mg tablet 10 mg PO DAILY #30 tabs 11/03/24 11/08/24 Rx ondansetron HCl 4 mg tablet 4 mg PO TID PRN nausea and 11/03/24 11/08/24 Rx vomiting 3 days #30 tabs New Prescriptions to Start Prescriptions: Allergies Allergy/AdvReac Type Severity Reaction Status Date / Time amoxicillin AdvReac Severe Diarrhea Verified 11/03/24 09:07 Assessment and Plan *Assessment and plan (1) Bilateral sacroiliitis: Status: Acute Category: Medical Code(s): M46.1 - Sacroiliitis, not elsewhere classified Plan Patient is experiencing worsening pain along the low back and bilateral hips. They did have limited range of motion of the lumbar spine along with point tenderness along bilateral SI joints and a positive bilateral Vivienne's, Chelly's, Gaenslen's, compression and distraction exam. I did discuss with the patient that I do believe they would benefit from bilateral SI injections. Risk and benefits were discussed with the patient and they would like to proceed forward with this option. Patient has tried and failed conservative therapy including continued at home stretching exercise for longer than 12 weeks. Patient has had chronic low back pain and SI pain for longer than 3 months. Patient has had SI injections in the past with her last ones back in February 2022 that did provide upwards of 80% relief lasting longer than 3 months. Patient has not had this severe pain in her SI joints since and has not required any additional injections in these joints. Patient will be refilled on her medications but the 3-month supply. Patient will be scheduled for bilateral SI injections under fluoroscopy. Patient has been instructed to contact the clinic with any concerns before the next appointment. Dr. Briones has reviewed this note and agrees with this plan of care. This note was dictated using voice recognition software and make contain errors or omissions. All injections are used with Lidocaine or Bupivacaine and Depo Medrol.
== END 2024-11-08 23:59 | disposition home or self-care (01) ==
PROVIDERS: PCP Family Medicine; Visit Provider Nurse Practitioner Family
DX: M46.1 Sacroiliitis, not elsewhere classified (principal); F17.210 Nicotine dependence, cigarettes, uncomplicated; Z73.89 Other problems related to life management difficulty; Z79.899 Other long term (current) drug therapy
CPT/HCPCS: 99212; G0463

== ENCOUNTER 2024-11-19 10:12 | Emergency (ER) | payer MEDICAID, SELFPAY ==
[2024-11-19 10:51] VITALS: BP 117/78; PULSE 92; RESP 18; TEMP 36.8; O2SAT 100; BMI 27.2
--- NOTE | 2024-11-19 10:53 | ED_ITS ---
Discharge Plan Disposition Patient Disposition: Home, Self-Care Condition: Good Prescriptions Prescriptions: New azithromycin [Zithromax] 250 mg tablet 250 mg PO UD DOSE PK Qty: 6 0RF Rx Instructions: Take two (2) tablets today, then one (1) tablet days #2 thru #5 benzonatate 100 mg capsule 100 mg PO TIDP PRN (Reason: Cough) Qty: 30 0RF methylprednisolone 4 mg Tablets,Dose Pack 4 mg PO DIRECTED 6 Days Qty: 21 0RF Rx Instructions: Take 1 pack as directed for 6 days No Action lamotrigine 25 mg tablet 25 mg PO DAILY Qty: 90 0RF Lybalvi 5-10 mg tablet 1 tab PO DAILY Qty: 30 2RF Vraylar 6 mg capsule 6 mg PO DAILY Qty: 30 2RF venlafaxine 150 mg capsule,extended release 24hr See Rx Instructions .ROUTE .COMPLEX Qty: 90 2RF Dose Instruction: Take 1 capsule by mouth once daily Rx Instructions: Take 1 capsule by mouth once daily cgvvhlecuiaigze-amlwbsoxe-OF [Bromfed DM] 2-30-10 mg/5 mL syrup 10 ml PO Q6H PRN (Reason: cold symptoms) Qty: 118 0RF loratadine 10 mg tablet 10 mg PO DAILY Qty: 30 6RF ondansetron HCl 4 mg tablet 4 mg PO TID PRN (Reason: nausea and vomiting) 3 Days Qty: 30 0RF dicyclomine 10 mg capsule 10 mg PO QID PRN (Reason: abdominal pain) Qty: 60 2RF Ubrelvy 100 mg tablet 100 mg PO ONCE PRN (Reason: migraine) Qty: 16 5RF sumatriptan succinate 100 mg tablet See Rx Instructions .ROUTE .COMPLEX Qty: 9 2RF Dose Instruction: TAKE 1 TABLET BY MOUTH ONCE NEEDED FOR MIGRAINE HEADACHE Rx Instructions: TAKE 1 TABLET BY MOUTH ONCE NEEDED FOR MIGRAINE HEADACHE levothyroxine 25 mcg tablet See Rx Instructions .ROUTE .COMPLEX Qty: 90 0RF Dose Instruction: Take 1 tablet by mouth once daily Rx Instructions: Take 1 tablet by mouth once daily topiramate 100 mg tablet See Rx Instructions .ROUTE .COMPLEX Qty: 180 0RF Dose Instruction: Take 1 tablet by mouth twice daily Rx Instructions: Take 1 tablet by mouth twice daily buspirone 30 mg tablet 30 mg PO TID Qty: 90 2RF peg 3350-electrolytes [Golytely] 236-22.74-6.74 -5.86 gram recon soln 240 ml PO Q10M Qty: 4000 0RF Rx Instructions: at 6pm day before surgery take first dose. After mixing prep as directed, drink half of the gallon by drinking 8 ounces, or 1 cup, every 15 mins until half is remaining. refrigerate the remaining and continue clear liquids till midnight. 5-6 hours before exam, take the second dosage, 8oz every 15 mins till gone. atorvastatin 20 mg tablet 20 mg PO HS Patient Comments: TAKE 1 TABLET BY MOUTH ONCE DAILY AT BEDTIME FOR CHOLESTEROL cyclobenzaprine 10 mg tablet 10 mg PO TID Qty: 90 2RF lidocaine 5 % adhesive patch,medicated 1 patch topical DIRECTED Qty: 30 0RF diclofenac sodium 75 mg tablet,delayed release (DR/EC) 75 mg PO BID Qty: 60 2RF Referrals Follow up/Referrals: Larissa Patterson APRN [Primary Care Provider] - See instructions Activity Restrictions/Add. Instructions Additional Instructions/Restrictions: Drink plenty of fluids. Take tylenol or ibuprofen for pain or fever. Take the medications as directed. Follow up with your regular doctor. GO TO THE ER FOR ANY WORSENING SYMPTOMS Clinical Impressions Clinical Impression: Acute bronchitis, Acute viral syndrome Stand Alone Forms Stand Alone Forms: Work/School Release Instructions Patient Instructions: DI for Acute Bronchitis Print Language Print Language: Kyr[place]z Discharge ED [place]ke[place] [facility] [place] General Stated complaint: headache, chills, body aches, cough, diarrhea Mode of Arrival: Ambulatory Source of Information: Patient Time Seen by Provider: 11/19/24 10:53 Description of Symptoms (Recalled from Triage Doc. by RN): COUGH, CHILLS, BA, DREW, N/D HEENT Symptoms (Recalled from RN notes): Yes Resp Symptoms (Recalled from RN notes): Yes Skin Symptoms (Recalled from RN notes): No MS Symptoms (Recalled from RN notes): No Functional Status (Recalled from RN notes): WNL Related Data Home Medications ?Medication ?Instructions ?Recorded ?Confirmed atorvastatin 20 mg tablet 20 mg PO HS 11/03/23 11/08/24 Previous Rx's ?Medication ?Instructions ?Recorded ubrogepant 100 mg tablet (Ubrelvy) 100 mg PO ONCE PRN migraine #16 04/28/24 tabs cariprazine 6 mg capsule (Vraylar) 6 mg PO DAILY #30 caps 05/25/24 lamotrigine 25 mg tablet 25 mg PO DAILY #90 tabs 05/25/24 olanzapine 5 mg-samidorphan 10 mg 1 tab PO DAILY #30 tabs 05/25/24 tablet (Lybalvi) sumatriptan succinate 100 mg tablet See Rx Instructions .Route 05/29/24 .COMPLEX #9 tabs levothyroxine 25 mcg tablet See Rx Instructions .Route 07/26/24 .COMPLEX #90 tabs topiramate 100 mg tablet See Rx Instructions .Route 09/11/24 .COMPLEX #180 tabs venlafaxine 150 mg See Rx Instructions .Route 09/26/24 capsule,extended release 24 hr .COMPLEX #90 caps dicyclomine 10 mg capsule 10 mg PO QID PRN abdominal pain 09/28/24 #60 caps buspirone 30 mg tablet 30 mg PO TID #90 tabs 10/13/24 vcnvflccrlgqrsk-olquovrorwycurl-GN 10 ml PO Q6H PRN cold symptoms 11/03/24 2 mg-30 mg-10 mg/5 mL oral syrup #118 mL (Bromfed DM) loratadine 10 mg tablet 10 mg PO DAILY #30 tabs 11/03/24 ondansetron HCl 4 mg tablet 4 mg PO TID PRN nausea and 11/03/24 vomiting 3 days #30 tabs cyclobenzaprine 10 mg tablet 10 mg PO TID #90 tabs 11/08/24 diclofenac sodium 75 mg 75 mg PO BID #60 tabs 11/08/24 tablet,delayed release lidocaine 5 % topical patch 1 patch topical DIRECTED Pain 11/08/24 #30 ea peg 3350-electrolytes 236 240 ml PO Q10M colonscopy #4,000 mL 11/10/24 gram-22.74 gram-6.74 gram-5.86 gram solution (Golytely) azithromycin 250 mg tablet 250 mg PO UD DOSE PK #6 tabs 11/19/24 (Zithromax) benzonatate 100 mg capsule 100 mg PO TIDP PRN Cough #30 caps 11/19/24 methylprednisolone 4 mg tablets in 4 mg PO DIRECTED 6 days #21 tabs 11/19/24 a dose pack Allergies Allergy/AdvReac Type Severity Reaction Status Date / Time amoxicillin AdvReac Severe Diarrhea Verified 11/03/24 09:07 Worker's Comp Is this a Worker's Comp case?: No [facility] Disclaimer: The information contained in this section may have been updated after the patient was seen, as this information can be updated by other users. Medical History Facet hypertrophy of lumbar region Lumbar back pain Patient sees pain management later this morning but requests injections Sciatica of right side Bipolar disorder Constipation Vertigo GERD (gastroesophageal reflux disease) Anxiety Sinusitis Encounter for smoking cessation counseling Depression Social History Smoking Status: Current every day smoker tobacco type: cigarettes packs per day: 2 second hand exposure: Yes alcohol intake: never substance use type: denies use current occupational status: other Travel in the last 8 weeks: None household members: none housing: house current occupational exposures/hazards: No caffeine: Yes Have you lived/traveled outside [place] in past 30 days?: No Contact w/someone who lives/traveled outside [place] past 30 days?: No Exposure to someone with infectious disease in past 14 days?: Yes Do you have a fever (greater than 100.4 F or 38 C)?: No Have you tested positive for COVID-19: No Exposed to someone with COVID-19 in past 14 days?: No Do you have a sore throat?: No Do you have a cough?: Yes Do you have any weakness?: No Do you have any diarrhea?: Yes Are you experiencing any unusual bleeding?: No Do you have any muscle aches/pain?: Yes Do you have any abdominal pain?: No Are you experiencing loss of taste or smell?: No ROS Obtained: Yes All systems reviewed & no additional complaints except as documented Constitutional Constitutional: Reports chills and Reports fever(s) Eyes Eyes: Denies eye discharge ENT Ears, Nose, Mouth, and Throat: Reports as per HPI Cardiovascular Cardiovascular: Denies chest pain Respiratory Respiratory: Denies chest congestion and Reports cough Gastrointestinal Gastrointestingal: Reports nausea; Denies abdominal pain, constipation, cramping, diarrhea or vomiting Musculoskeletal Musculoskeletal: Denies arthralgias Integumentary/Breasts Skin/Breast: Denies rash Neurologic Neurologic: Denies paresthesias Physical Exam General General appearance: alert and in no apparent distress Eye Eye exam: Present normal appearance, PERRL and EOMI ENT ENT exam: Present mucous membranes moist and normal external ear exam Expanded ENT Exam External ear exam: Present normal external inspection TM/Canal exam: Bilateral TM: erythema and bulging Nose exam: Absent sinus tenderness Nasal speculum exam: Bilateral: normal Mouth exam: Present normal external inspection; Absent drooling Teeth exam: Present normal inspection Throat exam: Present tonsillar erythema and tonsillomegaly Neck Neck exam: Present normal inspection, full ROM and trachea midline; Absent tenderness, lymphadenopathy or thyromegaly Chest Chest inspection: Present normal inspection and symmetric chest wall rise; Absent tenderness or rash Respiratory Respiratory exam: Present normal lung sounds bilaterally; Absent respiratory distress, wheezes, stridor or accessory muscle use Cardiovascular Cardiovascular exam: Present regular rate, normal rhythm and normal heart sounds Abdominal Exam Abdominal exam: Present soft; Absent distention, tenderness, guarding, rebound or rigidity Extremities Exam Extremities exam: Present normal inspection, full ROM and normal capillary refill; Absent tenderness or calf tenderness Back Exam Back exam: Present normal inspection and full ROM; Absent tenderness Neurological Exam Neurological exam: Present alert and oriented X3 Psychiatric Psychiatric exam: Present normal affect and normal mood Skin Skin exam: Present warm, dry, intact and normal color Lymphatic Lymphatic Findings: no adenopathy Medical Decision Making Medical Records Medical records reviewed: No I reviewed the patient's medical records. Screening: Per USPSTF and CDC recommendations, given the prevalence of disease in our region, it is our hospital?s policy to screen for HIV and viral Hepatitis for all patients aged 18 and over and those with ongoing risk factors. Carmelo Inquiry Pt receiving controlled substance: No Vital Signs: 11/19/24 10:51 Temperature 98.3 F Temperature Source Oral Pulse Rate [Right Radial] 92 H Respiratory Rate 18 Blood Pressure [Left Arm] 117/78 Blood Pressure Mean [Left Arm] 91 02 Sat by Pulse Oximetry 100 Lab Data Lab results reviewed: Yes I reviewed the patient's lab results.
[2024-11-19 11:07] LABS: UTC Influenza A Antigen Negative (Negative); UTC Influenza B Antigen Negative (Negative)
[2024-11-19 11:17] VITALS: BP 117/78; PULSE 92; RESP 18; TEMP 36.8
[2024-11-19 11:23] LABS: Coronavirus 19, PCR Not Detected (NotDetected); Influenza B, PCR Not Detected (NotDetected)
[2024-11-19 11:59] LABS: Influenza A, PCR Detected (NotDetected)
== END 2024-11-19 11:22 | disposition home or self-care (01) ==
PROVIDERS: Emergency Provider Nurse Practitioner Family; PCP Family Medicine
DX: J20.9 Acute bronchitis, unspecified (principal); B34.9 Viral infection, unspecified
CPT/HCPCS: 87636; 87804; 99212; G0381

== ENCOUNTER 2024-12-05 13:47 | Day surgery (SDC) | payer MEDICAID, SELFPAY ==
[2024-12-05 14:02] VITALS: BP 101/62; PULSE 79; RESP 16; TEMP 36.9; O2SAT 98; BMI 30.1
[2024-12-05] MEDS: methylPREDNISolone ACETATE 80MG/ML VIAL 80 MG (14:22)
[2024-12-05] MEDS: LIDOCAINE 1% 5ML PF VIAL 5 ML (14:22)
[2024-12-05 14:23] VITALS: BP 117/70; PULSE 89; RESP 18; O2SAT 96
[2024-12-05] MEDS: BUPIVACAINE 0.25% 10ML INJ 25 MG IJ (14:23)
[2024-12-05 14:24] VITALS: BP 117/70; PULSE 86; RESP 18; O2SAT 95
[2024-12-05 14:30] VITALS: BP 117/79; PULSE 86; RESP 16; TEMP 36.9; O2SAT 98
--- NOTE | 2024-12-05 14:37 | P.PCN_ITS ---
Procedure Date: 12/05/24 Time: 14:30 Anesthesiologist:: Andrew Daniels CRNA Complications:: None Pre-procedure Diagnosis:: Bilateral sacroiliitis Post-procedure Diagnosis:: Same Indications for Procedure:: Patient is a pleasant 49-year-old female who comes our clinic today for bilateral sacroiliac joint injections cortisone local anesthetic. Patient describes low lumbar back pain off the midline bilaterally. Bilateral posterior hip pain. Difficulty with ambulation. Difficulty transitioning from sitting to standing. She rates her pain 7/10. Procedure Details:: Procedure: Bilateral sacroiliac joint injections under fluoroscopy Informed consent was obtained and the risks and benefits of the procedure were explained to the patient.~ The patient was taken to the procedure room and noninvasive monitors were placed including a noninvasive blood pressure cuff and pulse oximeter.~ The patient was placed prone on the procedure table. Both hips were cleansed using Betadine as a cleansing solution. C-arm fluoroscopy was used to view the right sacroiliac joint.~ The skin and subcutaneous tissues were anesthetized using lidocaine 1.5% and a 25-gauge needle.~ After this, a 22-gauge spinal needle was inserted under fluoroscopic guidance into the inferior aspect of the right sacroiliac joint.~ Omnipaque dye was injected and good spread was seen throughout the joint.~ After this, approximately 5 mL of bupivacaine, 0.25% and Depo-Medrol, 40 mg was incrementally injected into the right sacroiliac joint. We then moved to the left sacroiliac joint.~ The skin and subcutaneous tissues were anesthetized using lidocaine 1.5% and a 25-gauge needle.~ After this, a 22- gauge spinal needle was inserted under fluoroscopic guidance into the inferior aspect of the left sacroiliac joint.~ Omnipaque dye was injected and good spread was seen throughout the joint. After this, approximately 5 mL of bupivacaine, 0.25% and Depo-Medrol, 40 mg was incrementally injected into the left sacroiliac joint.~ The patient tolerated the procedure well with no complications. The patient was observed in the Pain Clinic and then was discharged home neurologically intact. Plan and Disposition:: Patient was discharged without incident.
== END 2024-12-05 14:30 | disposition home or self-care (01) ==
LOC: SC.PAINP 13:48
PROVIDERS: PCP Family Medicine; Visit Provider Nurse Anesthetist, Certified Registered
DX: M46.1 Sacroiliitis, not elsewhere classified (principal)
CPT/HCPCS: 27096; G0260; J1010

== ENCOUNTER 2024-12-18 13:43 | Outpatient (POV) | payer MEDICAID, SELFPAY ==
--- NOTE | 2024-12-18 13:51 | EXP.PAIN.SOA ---
[facility] Disclaimer: The information contained in this section may have been updated after the patient was seen, as this information can be updated by other users. Medical History Facet hypertrophy of lumbar region Lumbar back pain Patient sees pain management later this morning but requests injections Sciatica of right side Bipolar disorder Constipation Vertigo GERD (gastroesophageal reflux disease) Anxiety Sinusitis Encounter for smoking cessation counseling Depression Surgical History History of hysterectomy History of section History of cholecystectomy Family History Other Family history of diabetes mellitus type II Social History Smoking Status: Current every day smoker tobacco type: cigarettes packs per day: 2 second hand exposure: Yes alcohol intake: never substance use type: denies use current occupational status: other Travel in the last 8 weeks: None household members: none housing: house current occupational exposures/hazards: No caffeine: Yes PM Subjective & Objective Subjective Subjective:: Patient is a pleasant 49-year-old female who presents today for follow-up of bilateral SI injections on 12/05/2024. She rates her pain today a 7 out of 10. She states that while the injection was nice and numb she had 100% relief. She states the pain was gone however she still felt like she had more weakness into her right leg. She states that it was very short-lived and as soon as the numbing medication wore off she was back to the same aches and pains that she was previously. Patient does still state that the symptoms are more prominent along the right side and into her right leg. She states that she feels like it is just going to give out randomly at times. Patient denies any recent falls or injuries. Patient is managed with diclofenac 75 mg twice a day, Flexeril 10 mg 3 times a day and lidocaine patches. She denies any side effects. Her Carmelo has been reviewed and is appropriate. Review of Systems: General: No recent weight changes, no fever, no sleep disturbances Respiratory: No cough, no shortness of air, no recurring pulmonary infections Cardiovascular/peripheral vascular: No chest pain, no palpitations, no edema, no shortness of breath Gastrointestinal: No new onset incontinence, normal bowel movements reported Genitourinary: No new onset incontinence Musculoskeletal: Low back pain, right hip pain, right leg weakness Psychiatric: [Normal mood/affect] Neurological: [Denies weakness in extremities], [denies balance issues] Pain at rest (0-10 scale): 7 Objective Objective:: Physical Exam: General: Alert and oriented x3, no acute distress, pleasant and cooperative Lungs: Respirations even and unlabored, symmetrical chest expansion Eyes: PERRL Musculoskeletal: Flexion and extension of right hip somewhat guarded secondary to pain, [antalgic gait noted] Neurological: Speech clear, no gross sensory deficit Has patient had previous pain injection?: Yes Percent improvement in pain since last injection: 100% while numb Conservative treatment options previously tried: Home exercise plan Length of treatment: Longer than 12-week Meds Home Medications and Allergies Home Medications ?Medication ?Instructions ?Recorded ?Confirmed ?Type atorvastatin 20 mg tablet 20 mg PO HS 11/03/23 12/05/24 History cariprazine 6 mg capsule (Vraylar) 6 mg PO DAILY #30 caps 05/25/24 12/05/24 Rx sumatriptan succinate 100 mg tablet See Rx Instructions .Route 05/29/24 12/05/24 Rx .COMPLEX #9 tabs levothyroxine 25 mcg tablet See Rx Instructions .Route 07/26/24 12/05/24 Rx .COMPLEX #90 tabs venlafaxine 150 mg See Rx Instructions .Route 09/26/24 12/05/24 Rx capsule,extended release 24 hr .COMPLEX #90 caps dicyclomine 10 mg capsule 10 mg PO QID PRN abdominal pain 09/28/24 12/05/24 Rx #60 caps buspirone 30 mg tablet 30 mg PO TID #90 tabs 10/13/24 12/05/24 Rx loratadine 10 mg tablet 10 mg PO DAILY #30 tabs 11/03/24 12/05/24 Rx ondansetron HCl 4 mg tablet 4 mg PO TID PRN nausea and 11/03/24 12/05/24 Rx vomiting 3 days #30 tabs cyclobenzaprine 10 mg tablet 10 mg PO TID #90 tabs 11/08/24 12/05/24 Rx diclofenac sodium 75 mg 75 mg PO BID #60 tabs 11/08/24 12/05/24 Rx tablet,delayed release azithromycin 250 mg tablet 250 mg PO UD DOSE PK #6 tabs 11/19/24 12/05/24 Rx (Zithromax) zokjfavrdagpohe-kxgzsaidppowcao-PI 10 ml PO Q6H PRN cold symptoms 11/22/24 12/05/24 Rx 2 mg-30 mg-10 mg/5 mL oral syrup #118 mL (Bromfed DM) topiramate 100 mg tablet See Rx Instructions .Route 12/04/24 12/05/24 Rx .COMPLEX #180 tabs lidocaine 5 % topical patch See Rx Instructions .Route 12/13/24 Rx .COMPLEX #30 patches New Prescriptions to Start Prescriptions: Allergies Allergy/AdvReac Type Severity Reaction Status Date / Time amoxicillin AdvReac Severe Diarrhea Verified 11/22/24 15:06 Assessment and Plan *Assessment and plan (1) Chronic right hip pain: Status: Acute Category: Medical Code(s): M25.551 - Pain in right hip; G89.29 - Other chronic pain (2) Right leg weakness: Status: Acute Category: Medical Code(s): R29.898 - Other symptoms and signs involving the musculoskeletal system Plan I did review over again with the patient regarding her most up-to-date lumbar imaging that did not show significant narrowing along the right side to explain the increased right leg symptoms with weakness. Patient did have 100% relief with the right SI injection however it was very short-lived. Patient in future may benefit from a right SI stabilization procedure. I did discuss with the patient that I would like to order x-ray imaging of her right hip. We also discussed possible physical therapy however she states that generally she always has worsening pain with this and it never seems to help. I will also change her Flexeril to baclofen 5 mg 3 times daily as needed. Patient will return to clinic next week for follow-up of her x-ray imaging. Patient has been instructed to contact the clinic with any concerns before the next appointment. Dr. Briones has reviewed this note and agrees with this plan of care. This note was dictated using voice recognition software and make contain errors or omissions. All injections are used with Lidocaine, Bupivacaine and Depo Medrol. Occasionally urine drug screen is needed to verify patient's compliance with our office pain contract. This is ordered based off specific treatments related to chronic pain with the potential to abuse certain medications.
--- NOTE | 2024-12-18 14:18 | XR_ITS ---
FINAL REPORT CLINICAL HISTORY: right hip pain COMPARISON: None FINDINGS: RIGHT HIP Two views of the right hip with an AP view of the pelvis demonstrate no acute fracture or dislocation. The femoral head has a normal smooth contour. The hip joint space is preserved. No acute soft tissue abnormality is seen. Ingested tablets are seen within loops of bowel in the pelvis. IMPRESSION: No acute bony abnormality. Reviewed, Interpreted and Dictated by Adolfo Foster MD Transcribed by Savi Baer Authenticated and [facility]
[2024-12-18 15:50] VITALS: BP 104/76; PULSE 85; RESP 14; O2SAT 98; BMI 30.1
== END 2024-12-18 23:59 | disposition home or self-care (01) ==
PROVIDERS: PCP Family Medicine; Visit Provider Nurse Practitioner Family
DX: M25.551 Pain in right hip (principal); G89.29 Other chronic pain; R29.898 Other symptoms and signs involving the musculoskeletal system; F17.210 Nicotine dependence, cigarettes, uncomplicated
CPT/HCPCS: 73502; 99212; G0463

== ENCOUNTER 2024-12-25 13:28 | Outpatient (POV) | payer MEDICAID, SELFPAY ==
--- NOTE | 2024-12-25 13:53 | EXP.PAIN.SOA ---
[facility] Disclaimer: The information contained in this section may have been updated after the patient was seen, as this information can be updated by other users. Medical History (Updated 12/22/24 @ 08:39 by Larissa Patterson APRN) Influenza A Facet hypertrophy of lumbar region Lumbar back pain Sciatica of right side Bipolar disorder Constipation Vertigo GERD (gastroesophageal reflux disease) Anxiety Sinusitis Encounter for smoking cessation counseling Depression Surgical History History of hysterectomy History of section History of cholecystectomy Family History Other Family history of diabetes mellitus type II Social History Smoking Status: Current every day smoker tobacco type: cigarettes packs per day: 2 second hand exposure: Yes alcohol intake: never substance use type: denies use current occupational status: other Travel in the last 8 weeks: None household members: none housing: house current occupational exposures/hazards: No caffeine: Yes PM Subjective & Objective Subjective Subjective:: Patient is a pleasant 49-year-old female who presents today for x-ray follow-up of her right hip. Today she rates her pain an 8 out of 10. She denies any new falls or injuries. Patient does state that she continues to have the low back and right hip pain that is pretty much constant. She does state the pain interferes with her ability perform activities of daily living such as cooking and cleaning. Patient at her last visit was changed from Flexeril to baclofen. She does state that this medication did seem like it worked better however did cause increased fatigue. Patient denies any other side effects. Patient was prescribed 5 mg 3 times a day. Her Carmelo has been reviewed and is appropriate. Review of Systems: General: No recent weight changes, no fever, no sleep disturbances Respiratory: No cough, no shortness of air, no recurring pulmonary infections Cardiovascular/peripheral vascular: No chest pain, no palpitations, no edema, no shortness of breath Gastrointestinal: No new onset incontinence, normal bowel movements reported Genitourinary: No new onset incontinence Musculoskeletal: Low back pain, right hip pain Psychiatric: [Normal mood/affect] Neurological: [Denies weakness in extremities], [denies balance issues] Pain at rest (0-10 scale): 8 Objective Objective:: Physical Exam: General: Alert and oriented x3, no acute distress, pleasant and cooperative Lungs: Respirations even and unlabored, symmetrical chest expansion Eyes: PERRL Musculoskeletal: Flexion and extension of right hip somewhat guarded secondary to pain, [antalgic gait noted] Neurological: Speech clear, no gross sensory deficit Has patient had previous pain injection?: No Conservative treatment options previously tried: Home exercise plan Length of treatment: Longer than 12 weeks Meds Home Medications and Allergies Home Medications ?Medication ?Instructions ?Recorded ?Confirmed ?Type atorvastatin 20 mg tablet 20 mg PO HS 11/03/23 12/21/24 History sumatriptan succinate 100 mg tablet See Rx Instructions .Route 05/29/24 12/21/24 Rx .COMPLEX #9 tabs levothyroxine 25 mcg tablet See Rx Instructions .Route 07/26/24 12/21/24 Rx .COMPLEX #90 tabs venlafaxine 150 mg See Rx Instructions .Route 09/26/24 12/21/24 Rx capsule,extended release 24 hr .COMPLEX #90 caps dicyclomine 10 mg capsule 10 mg PO QID PRN abdominal pain 09/28/24 12/21/24 Rx #60 caps buspirone 30 mg tablet 30 mg PO TID #90 tabs 10/13/24 12/21/24 Rx loratadine 10 mg tablet 10 mg PO DAILY #30 tabs 11/03/24 12/21/24 Rx ondansetron HCl 4 mg tablet 4 mg PO TID PRN nausea and 11/03/24 12/21/24 Rx vomiting 3 days #30 tabs cyclobenzaprine 10 mg tablet 10 mg PO TID #90 tabs 11/08/24 12/21/24 Rx diclofenac sodium 75 mg 75 mg PO BID #60 tabs 11/08/24 12/21/24 Rx tablet,delayed release baclofen 5 mg tablet 5 mg PO TID #42 tabs 12/18/24 12/21/24 Rx cariprazine 6 mg capsule (Vraylar) 6 mg PO DAILY #30 caps 12/19/24 12/21/24 Rx atogepant 60 mg tablet (Qulipta) 60 mg PO DAILY #30 tabs 12/21/24 12/21/24 Rx topiramate 100 mg tablet See Rx Instructions .Route 12/21/24 12/21/24 Rx .COMPLEX #180 tabs New Prescriptions to Start Prescriptions: Allergies Allergy/AdvReac Type Severity Reaction Status Date / Time amoxicillin AdvReac Severe Diarrhea Verified 12/21/24 14:06 Assessment and Plan *Assessment and plan (1) Chronic right hip pain: Status: Acute Category: Medical Code(s): M25.551 - Pain in right hip; G89.29 - Other chronic pain (2) Degenerative joint disease (DJD) of lumbar spine: Status: Chronic Qualifiers: Spinal osteoarthritis complication: with radiculopathy Qualified Code(s): M47.26 - Other spondylosis with radiculopathy, lumbar region Category: Medical Code(s): M47.816 - Spondylosis without myelopathy or radiculopathy, lumbar region Plan Due to the patient's continued right hip pain I will proceed forward with ordering an MRI without contrast of the right hip. I did discuss with the patient regarding the baclofen that it is a tablet and that she can cut it in half and see at the 2.5 mg dose if it does still provide significant improvements on not causing the increased fatigue. Patient does not need refills at this time. Patient will return to clinic following her advanced imaging of her right hip in 1 month. Patient has been instructed to contact the clinic with any concerns before the next appointment. Dr. Briones has reviewed this note and agrees with this plan of care. This note was dictated using voice recognition software and make contain errors or omissions. All injections are used with Lidocaine, Bupivacaine and Depo Medrol. Occasionally urine drug screen is needed to verify patient's compliance with our office pain contract. This is ordered based off specific treatments related to chronic pain with the potential to abuse certain medications.
[2024-12-25 14:44] VITALS: BP 108/72; PULSE 84; RESP 14; O2SAT 98; BMI 29.5
== END 2024-12-25 23:59 | disposition home or self-care (01) ==
LOC: SC.PAIN 13:29
PROVIDERS: PCP Family Medicine; Visit Provider Nurse Practitioner Family
DX: M25.551 Pain in right hip (principal); G89.29 Other chronic pain; M47.26 Other spondylosis with radiculopathy, lumbar region; F17.210 Nicotine dependence, cigarettes, uncomplicated; Z73.89 Other problems related to life management difficulty
CPT/HCPCS: 99212; G0463

== ENCOUNTER 2025-01-09 13:39 | Outpatient (CLI) | payer MEDICAID, SELFPAY ==
--- NOTE | 2025-01-09 | CA_ITS ---
APPROVED REPORT EXAM: Comprehensive 2D, Doppler, and color-flow Echocardiogram Sling Operator: Maryellen Worrell CRT Ht: 4 ft 11 in Wt: 146lbs BSA: 1.61 BP: 112/78 mmHg Indications: Murmur, Worsening migraines Echo Enhancing Agent Indication: Rule out Shunt Agent(s) / Amount(s) Used: Agitated Saline 5 cc Comments: B/S appears positive. 2D Dimensions LA Volume 30.70 mL LA Volume Index 18.60 mL/m2 (M/F) 16-34 M-Mode Dimensions RVDd 2.29 cm (0.9-2.6) LA Diam 3.09 cm (1.9-4.0) LVDd 3.19 cm (3.5-5.7) LVDs 1.77 cm (3.5-5.7) IVSd 1.74 cm (0.6-1.1) PWd 0.58 cm (0.6-1.1) EF (Teich) 77.10% FS 44.50% EDV (Teich) 40.60 mL TAPSE 1.48 (<1.7) ESV (Teich) 9.30 mL LV Diastology E Decel Time 200 (160-240 msec) E/A Ratio 0.85 MED A' 15.00 cm/s LAT A' 14.20 cm/s Aortic Valve AO Peak GR. 5.90 mmHg Mitral Valve MV A Velocity 90.0 (40-130 cm/s) E/A Ratio 0.85 Pulmonary Valve PV Peak Velocity 81.0 (50-150 cm/s) Tricuspid Valve TR P. Velocity 244.00 cm/s RAP Estimate 10.00 mmHg RVSP 33.80 mmHg Left Ventricle The left ventricle is normal size. The left ventricular systolic function is normal. The left ventricular ejection fraction is within the normal range. Proximal septal thickening is noted. There is normal LV segmental wall motion. The left ventricular diastolic function is normal. LVEF is 55%. Right Ventricle The right ventricle is normal size. The right ventricular systolic function is normal. Atria The left atrium size is normal. The right atrium size is normal. Agitated saline administration demonstrates presence of interatrial shunt. Aortic Valve The aortic valve opens well. There is no aortic valvular stenosis. No aortic regurgitation is present. Mitral Valve The mitral valve is normal in structure. No evidence of mitral valve stenosis. Mild mitral regurgitation. Tricuspid Valve Tricuspid valve is grossly normal in structure and function. Trace tricuspid regurgitation. There is insufficient TR jet to estimate RVSP. Pulmonic Valve The pulmonary valve is normal in structure. Trace pulmonic regurgitation. Great Vessels The aortic root is normal in size. IVC is normal in size and collapses >50% with inspiration. Pericardium There is no pericardial effusion. Other Information Study Quality: Fair Conclusion Normal biventricular size and systolic function. Mild MR Agitated saline administration demonstrates presence of interatrial shunt. Electronically signed by : Lyndsey Masters MD 01/09/2025 20:57:15
--- NOTE | 2025-01-09 14:00 | MR_ITS ---
FINAL REPORT TECHNIQUE: Multiplanar MR, without and with gadolinium enhancement CLINICAL HISTORY: worsening headaches migraines x 6 years starts at back of head and goes up to front of head towards eyes blurry vision with vomiting 14 ml prohance COMPARISON: None FINDINGS: MRI HEAD WITH AND WITHOUT CONTRAST: Diffusion sequences show no signal abnormality to indicate acute infarct. No mass, hemorrhage or edema is seen. Ventricles are normal. Major vascular flow voids are intact. Note is made of left maxillary sinusitis. Following contrast administration, no mass or abnormal enhancement is seen. IMPRESSION: Left maxillary sinusitis. Otherwise, unremarkable MR evaluation the brain with contrast Reviewed, Interpreted and Dictated by Bran Aguilar MD Transcribed by Nadiya More Authenticated and [facility]
[2025-01-09] MEDS: SODIUM CHLORIDE 0.9% 10ML SYR (RAD ONLY) 10 ML IV (14:34)
[2025-01-09] MEDS: GADOTERIDOL INJ 20ML SYRINGE 14 ML IV (14:35)
== END 2025-01-09 23:59 | disposition home or self-care (01) ==
LOC: RAD 13:39
PROVIDERS: PCP Nurse Practitioner Family; Visit Provider Nurse Practitioner Family
DX: R51.9 Headache, unspecified (principal); H53.8 Other visual disturbances; I34.0 Nonrheumatic mitral (valve) insufficiency; R01.1 Cardiac murmur, unspecified
CPT/HCPCS: 70553; 93306; A9576

== ENCOUNTER 2025-01-30 11:21 | Outpatient (POV) | payer MEDICAID, SELFPAY ==
--- OUTSIDE RECORDS SUMMARY | 2025-01-30 11:24 | XMS_ITS | Data Portability ---
Author Organization [facility] ADMIN Address [address] [place] [address] Assessment No assessment recorded. Plan of Treatment Reminders Order Date Submit Date Provider Last Modified By Organization Details Last Modified Time Details Appointments None recorde d. Lab None recorde d. Referral None recorde d. Procedures None recorde d. Surgeries None recorde d. Imaging XR, ankle 024 08/04/20 [facility], [address] [place] [address] [place], [address], 11:52:30 Medication Orders None recorde d. Patient TargetsNo targets recorded. Patient InstructionsNo instructions recorded. Reason for Referral None Reported. Results Created Date Observation Date Name Description Value Unit Range Abnormal Flag Note LastModifiedBy Organization Detail LastModifiedTime 08/04/20 XR, ankle No observ ation record ed. KRYSTAL [address] [place], [address], 08/04/2024 11:16:43 Result Notes None recorded. Procedures Surgical History Date Name Laterality Status Provider Name and Address Organization Details Recorded Time 200 0 Production Officer Surgery completed Lis Solis [facility] & [place] 08/04/2024 11:11:32 Imaging Results Imaging Date Name Status LastModified by Organiz ation Details LastModified Time 08/04/2024 XR, ankle completed KRYSTAL Cifuentes [address] [place], [address], 08/04/2024 11:16:43 Procedure Notes None recorded. Medical Equipment None Reported. Allergies No known drug allergies Medications Name Sig Start Date Stop Date Status Note LastModified by Organization Details LastModified Time eq sinus 12-hour 120mg tab TAKE 1 TABLET BY MOUTH EVERY 12 HOURS active Not Available Not Available No t Available cyclobenzapr ine 10 mg tablet TAKE 1 TABLET BY MOUTH THREE TIMES DAILY FOR PAIN active Not Available Not Available No t Available amoxicillin 500 mg capsule TAKE 1 CAPSULE BY MOUTH THREE TIMES DAILY active Not Available Not Available Not Available methocarbamo l 500 mg tablet TAKE 1 TABLET BY MOUTH THREE TIMES DAILY FOR MUSCLE SPASM active Not Available Not Available No t Available promethazine -DM 6.25 mg-15 mg/5 mL oral syrup TAKE 5 ML BY MOUTH EVERY 6 HOURS NEEDED FOR COUGH active Not Available Not Available No t Available atorvastatin 20 mg tablet TAKE 1 TABLET BY MOUTH ONCE DAILY AT BEDTIME FOR CHOLESTEROL active Not Available Not Available Not Available clindamycin HCl 300 mg capsule TAKE 1 CAPSULE BY MOUTH THREE TIMES DAILY active Not Available Not Available Not Available azithromycin 250 mg tablet TAKE 2 TABLETS BY MOUTH ON DAY 1, AND THEN TAKE 1 TABLET BY MOUTH ONCE A DAY ON DAY 2 THROUGH DAY 5 active Not Available Not Available No t Available ibuprofen 800 mg tablet TAKE 1 TABLET BY MOUTH EVERY 6 HOURS NEEDED FOR PAIN active Not Available Not Available No t Available sumatriptan 100 mg tablet TAKE 1 TABLET BY MOUTH ONCE NEEDED FOR MIGRAINE HEADACHE active Not Available Not Available No t Available meloxicam 15 mg tablet active Not Available Not Available No t Available promethazine 12.5 mg tablet TAKE 1 TABLET BY MOUTH EVERY 6 HOURS NEEDED FOR NAUSEA AND VOMITING active Not Available Not Available No t Available prednisone 20 mg tablet TAKE 1 TABLET BY MOUTH TWICE DAILY WITH FOOD OR MILK active Not Available Not Available No t Available venlafaxine ER 150 mg capsule,exte nded release 24 hr TAKE 1 CAPSULE BY MOUTH ONCE DAILY active Not Available Not Available No t Available levothyroxin e 25 mcg tablet TAKE 1 TABLET BY MOUTH ONCE DAILY active Not Available Not Available No t Available lamotrigine 25 mg tablet TAKE 1 TABLET BY MOUTH ONCE DAILY active Not Available Not Available No t Available oxycodone-ac etaminophen 5 mg-325 mg tablet TAKE 1 TABLET BY MOUTH EVERY 6 HOURS NEEDED FOR PAIN active Not Available Not Available No t Available baclofen 10 mg tablet active Not Available Not Available No t Available benzonatate 100 mg capsule TAKE 1 CAPSULE BY MOUTH THREE TIMES DAILY NEEDED FOR COUGH active Not Available Not Available No t Available buspirone 30 mg tablet TAKE 1 TABLET BY MOUTH THREE TIMES DAILY active Not Available Not Available Not Available lidocaine 5 % topical patch active Not Available Not Available Not Available diclofenac sodium 75 mg tablet,delay ed release TAKE 1 TABLET BY MOUTH TWICE DAILY FOR PAIN active Not Available Not Available No t Available methylpredni solone 4 mg tablets in a dose pack TAKE BY MOUTH DIRECTED ON INSIDE OF PACKAGE active Not Available Not Available No t Available brompheniram ine-pseudoep hedrine-DM 2 mg-30 mg-10 mg/5 mL oral syrup TAKE 5 ML BY MOUTH EVERY 6 HOURS NEEDED FOR COLD SYMPTOMS active Not Available Not Available No t Available ondansetron 4 mg disintegrati ng tablet DISSOLVE 1 TABLET IN MOUTH EVERY 8 HOURS NEEDED FOR NAUSEA AND VOMITING active Not Available Not Available No t Available cefdinir 300 mg capsule TAKE 1 CAPSULE BY MOUTH EVERY 12 HOURS FOR 10 DAYS active Not Available Not Available Not Available topiramate 100 mg tablet TAKE 1 TABLET BY MOUTH TWICE DAILY active Not Available Not Available No t Available fluticasone propionate 50 mcg/actuatio n nasal spray,suspen nima USE 1 SPRAY(S) IN EACH NOSTRIL ONCE DAILY active Not Available Not Available N ot Available doxycycline hyclate 100 mg tablet TAKE 1 TABLET BY MOUTH TWICE DAILY active Not Available Not Available No t Available loratadine 10 mg tablet TAKE 1 TABLET BY MOUTH ONCE DAILY active Not Available Not Available No t Available buspirone 15 mg tablet TAKE 1 TABLET BY MOUTH THREE TIMES DAILY active Not Available Not Available Not Available pregabalin 150 mg capsule TAKE 1 CAPSULE BY MOUTH TWICE DAILY active Not Available Not Available No t Available varenicline tartrate 0.5 mg (11)-1 mg (42) tablets in a dose pack TAKE BY MOUTH DIRECTED ON INSIDE OF PACKAGE active Not Available Not Available No t Available hydrochlorot hiazide 12.5 mg tablet TAKE 1 TABLET BY MOUTH ONCE DAILY active Not Available Not Available No t Available Vraylar 4.5 mg capsule TAKE 1 CAPSULE BY MOUTH ONCE DAILY active Not Available Not Available No t Available Ubrelvy 100 mg tablet TAKE 1 TABLET BY MOUTH ONCE NEEDED FOR MIGRAINE active Not Available Not Available No t Available Ajovy 225 mg/1.5 mL subcutaneous auto-injecto r INJECT 1 AUTO-INJECT OR SUBCUTANEOU SLY ONCE EVERY MONTH active Not Available Not Available Not Available Vitals None Recorded Social History Question Answer Notes LastModified by Organizat ion Details LastModified Time Tobacco Smoking Status Current Every Day Smoker Lis [place] null, [place] - [facility] - [place] & [place] 08/04/2024 11:11:27 Do You Have An Advance Directive? No Information not available 08/04/2024 What Is Your Level Of Alcohol Consumption? None Information not available 08/04/2024 Are You Blind Or Do You Have Difficulty Seeing? No Information not available 08/04/2024 What Was The Date Of Your Most Recent Tobacco Screening? 07/20/2024 Information not available 08/04/2024 Are You Passively Exposed To Smoke? Yes Information no t available 08/04/2024 Do You Or Have You Ever Used Smokeless Tobacco? [id number] Information not available 08/04/2024 How Much Tobacco Do You Smoke? 1 PPW Information not available 08/04/2024 Do You Use Any Illicit Or Recreational Drugs? No Information not available 08/04/2024 How Many Years Have You Smoked Tobacco? 39 Information not available 08/04/2024 Sex: Unknown Functional Status None recorded. Mental Status None recorded. Family History Nothing Reported. Medical History Condition Response Arthritis Y Back Problems Y Gynecological History Statement/Question Response Menses Monthly N Abnormal Pap N Current Control Method None Sexually Active? N Obstetrics History GPAL:G 0 P 0 0 0 0 Past Encounters Encounter ID Performer Location Encounter Start Date Encounter Closed Date Diagnosis/Indication Diagnosis SNOMED-CT Code Diagnosis ICD10 Code Diagnosis Note [id number] DO JESE NOVA [address] [address] 08/04/2024 10:40:35 08/04/2024 11:47:03 Injury of left ankle [id number] S99.912A Sprain of left ankle 300 [id number] S93.402A Health Concerns Section Related Observation LastModified by Organization Detai ls LastModified Time None Recorded Concern Status LastModified by Organization Details LastModified Time None Recorded Advance Directives Directive N: Payers Encounter Date Sequence Insurance Name Policy Number Policy [place] Covered Member ID [place] Member ID Guarantor Name 08/04/2024 1 [facility] (MEDICAID REPLACEMENT - HMO) Desire Blevins [id number] Desire Gen Notes Date Note Type Note Provider Name and Address Organization Details Recorded Time 08/04/2024 text/html Pt presents today with left ankle pain. Pt was seen at [facility] and had 3v left foot and ankle x-rays [facility] 07.14.24: Negative for fractures. Lateral ankle soft tissue edema. Pt is no longer wearing boot she was given in the ER for 2 weeks. Pt is taking ibuprofen for pain. Pt only has pain when walking or standing up for long periods of time.[id number] ISAEL ISSAC, [address] [facility],[address], [place], [address], [place] - [place] - [place] & [place] 08/04/2024 15:19:06 OBGyn Episode No OBEpisode recorded.
[2025-01-30 11:41] VITALS: BP 105/71; PULSE 92; RESP 14; O2SAT 96; BMI 28.5
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
== END 2025-01-30 23:59 | disposition home or self-care (01) ==
PROVIDERS: PCP Nurse Practitioner Family; Visit Provider Nurse Practitioner Family
DX: M54.50 Low back pain, unspecified (principal); J20.9 Acute bronchitis, unspecified; F17.210 Nicotine dependence, cigarettes, uncomplicated
CPT/HCPCS: 71046; 99212; G0463

== ENCOUNTER 2025-02-19 15:17 | Outpatient (POV) | payer MEDICAID, SELFPAY ==
[2025-02-19 16:00] VITALS: BP 105/72; PULSE 82; RESP 14; O2SAT 100; BMI 28.5
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
== END 2025-02-19 23:59 | disposition home or self-care (01) ==
PROVIDERS: Visit Provider Nurse Practitioner Family
DX: M54.31 Sciatica, right side (principal); F17.210 Nicotine dependence, cigarettes, uncomplicated
CPT/HCPCS: 99212; G0463

== ENCOUNTER 2025-03-19 15:06 | Outpatient (POV) | payer MEDICAID, SELFPAY ==
--- OUTSIDE RECORDS SUMMARY | 2025-03-19 15:09 | XMS_ITS | Data Portability ---
Author Organization [facility] Address [address] [place] [address] Assessment Encounter Date Assessment Date Assessment LastModified by Organization Details LastModified Time 10/25/2020 10/25/2020 BSE reviewed and recommended . Reviewed calcium needs, exercise, and prevention of osteoporosis . Reviewed normal perimenopausal transition . Mammogram recommended yearly . Colonoscopy recommended at age 50. [email or web address] Not available 10/25/2020 09:33:55 Plan of Treatment Reminders Order Date Submit Date Provider Last Modified By Organization Details Last Modified Time Details Appointments None recorded. Lab HbA1c (hemoglobin A1c), blood 2024 025 [facility], [address] [place] [address], [place], [address], 5 16:18:35 Referral neurologist referral 2024 025 manuel Wilkinson MD, [address] [facility] [address], [place], [address], 5 10:13:48 Procedures None recorded. Surgeries None recorded. Imaging US, echocardiog lauren - bubble study r/o pfo 2024 025 [facility] (X-Ray), [address] [place] [address] [address], [place], [address], 5 21:00:31 MAMMO, screening, digital, bilateral [email or web address] [place] [address] (Centralized Scheduling), [address] [place] [address] , [place], [address], 2 09:58:54 Medication Orders cefdinir 300 mg capsule 2024 025 [facility], [address], [address], 5 16:18:52 Nurtec ODT 75 mg disintegrat ing tablet 2024 025 [facility], [address], [address], 5 15:47:12 estradiol 0.5 mg tablet 2020 021 [email or web address] 9 [facility], [address], [address], 10:09:38 Patient TargetsNo targets recorded. Patient Instructions Encounter Date Encounter Id Patient Instructions Last Modified By Organization Details Last Modified Time 10/25/2020 [id number] Quitting Tobacco : Care Instructions Not available 10/25/2020 09:47:39 medical record request* - Please send a copy of surgical note from Hysterectomy KRYSTAL Not available 01/20/2021 16:16:51 Reason for Referral Neurologist Referral for Rich samson Referring Physician: 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, Family Medicine, Encounter Date: 12/29/2024 Results Created Date Observation Date Name Description Value Unit Range Abnormal Flag Note LastModifiedBy Organization Detail LastModifiedTime 01/20/2001/19/2025 HbA1c (hemo globi n A1c), blood HbA1C 5.3 % Not Available [address], [place], [address], 01/19/2025 16:08:22 01/10/20 25 01/09/2025 MRI, brain , w/wo contr ast No observ ation record ed. [facility] [address], [place], [address], 01/09/2025 17:07:46 01/10/20 25 01/09/2025 US, echoc ardio gram No observ ation record ed. [facility] [address], [place], [address], 01/11/2025 12:24:13 01/12/20 25 01/09/2025 US, echoc ardio gram No observ ation record ed. [facility] [address], [place], [address], 01/11/2025 09:33:53 01/31/20 25 01/30/2025 XR, chest , 2 view No observ ation record ed. [facility] [address], [place], [address], 02/02/2025 09:54:37 Result Notes None recorded. Problems Name Problem SNOMED Code Status Onset Date Resolution Date Notes Provider Name and Address Organization Details Recorded Time Bipolar disorder 80182352 Active 2020 Jasmina Frye null, [place] - [facility] 09:15:02 Asthma 204752818 Active 2020 Jasminacecil Frye null, [place] - [facility] 09:15:08 Hyperlipidemi a 93061294 Active 2020 Jasminacecil Frye null, [place] - [facility] 09:15:15 Depressive disorder 09034749 Active 2020 Jasmina Melva [place], [place] - [facility] 09:15:22 Anxiety 45482296 Active 2020 Jasmina Melva [place] - [facility] 09:15:30 Migraine 08518264 Active 2020 Jasmina Melva [place] - [facility] 09:15:42 Hypothyroidis m 19548173 Active 2024 Lana Stears null, [place] - [facility] 5 11:50:11 Patent foramen ovale 356505026 Active 2024 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, [employer]IFIC[employer] INSEMINATOR [address], [place], [address] , [facility] - [facility] 16:20:14 Problem Notes None recorded. Procedures Surgical History Date Name Laterality Status Provider Name and Address Organization Details Recorded Time 10/25/19 21 Systolic B/P less than 130 mm Hg completed Jasmina Frye [place] - [facility] 10/25/2020 09:27:20 10/25/19 21 Diastolic B/P less than 80 mm Hg completed Jasmina Frye [place] - [facility] 10/25/2020 09:27:23 11/09/19 12 Hysterectomy completed Cathyedison Logan APRN [address], [place], [address], [facility] - [facility] 01/20/2021 16:20:51 11/09/19 12 excision of bilateral fallopian tubes and ovaries completed Cathy Logan APRN [address], [place], [address], [facility] - [facility] 01/20/2021 16:28:55 06/12/20 08 laser surgery completed Jasmina Frye [place] [facility] 10/25/2020 09:11:01 12/11/19 02 Cholecystectomy, laparoscopic completed Jasmina Frye [place] [facility] 10/25/2020 09:12:05 01/13/20 00 section completed Jasmina Frye [place] [facility] 10/25/2020 09:12:17 05/13/19 93 section completed Jasmina Frye [place] [facility] 10/25/2020 09:12:26 Colposcopy completed Jasmina Frye [place] [facility] 10/25/2020 09:19:24 LEEP completed Jasmina Frye [place] [facility] 10/25/2020 09:19:31 Imaging Results None recorded. Procedure Notes None recorded. Medical Equipment None Reported. Allergies No known drug allergies Medications Name Sig Start Date Stop Date Status Note LastModified by Organization Details LastModified Time nm vitamin d3 jackie 1000iu cap TAKE 1 CAPSULE BY MOUTH ONCE DAILY ADMINIST ER WITH MEAL 10/25 completed Not Available Not Available Not Available eq allergy relf d 10-240mg tab TAKE 1 TABLET BY MOUTH ONCE DAILY 12/29 completed Not Available Not Available Not Available amantadin e HCl 100 mg tablet 12/29 completed Not Available Not Available Not Available quetiapin e 25 mg tablet TAKE 1 TABLET BY MOUTH TWICE DAILY active Not Available Not Available No t Available celecoxib 200 mg capsule TAKE 1 CAPSULE BY MOUTH ONCE DAILY 12/29 completed Not Available Not Available Not Available cyclobenz aprine 10 mg tablet TAKE 1 TABLET BY MOUTH THREE TIMES DAILY FOR PAIN 12/29 completed Not Available Not Available Not Available amoxicill in 500 mg capsule TAKE 1 CAPSULE BY MOUTH THREE TIMES DAILY 12/29 completed Not Available Not Available Not Available furosemid e 40 mg tablet TAKE 1 TABLET BY MOUTH ONCE DAILY 10/25 completed Not Available Not Available Not Available methocarb nguyen 500 mg tablet TAKE 1 TABLET BY MOUTH THREE TIMES DAILY FOR MUSCLE SPASM 12/29 completed Not Available Not Available Not Available buspirone 5 mg tablet TAKE 1 TABLET BY MOUTH THREE TIMES DAILY 02/27 completed Not Available Not Available Not Available promethaz ine-DM 6.25 mg-15 mg/5 mL oral syrup TAKE 5 ML BY MOUTH EVERY 6 HOURS NEEDED FOR COUGH 12/29 completed Not Available Not Available Not Available venlafaxi ne ER 75 mg capsule,e xtended release 24 hr TAKE 1 CAPSULE BY MOUTH ONCE DAILY 12/29 completed Not Available Not Available Not Available atorvasta tin 20 mg tablet TAKE 1 TABLET BY MOUTH AT BEDTIME NIGHTLY active Not Available Not Available No t Available clindamyc in HCl 300 mg capsule TAKE 1 CAPSULE BY MOUTH THREE TIMES DAILY 12/29 completed Not Available Not Available Not Available atorvasta tin 10 mg tablet TAKE 1 TABLET BY MOUTH ONCE DAILY AT BEDTIME 12/29 completed Not Available Not Available Not Available azithromy abdulaziz 250 mg tablet TAKE 2 TABLETS BY MOUTH ON DAY 1, AND THEN TAKE 1 TABLET BY MOUTH ONCE A DAY ON DAY 2 THROUGH DAY 5 12/29 completed Not Available Not Available Not Available ibuprofen 800 mg tablet TAKE 1 TABLET BY MOUTH EVERY 6 HOURS NEEDED FOR PAIN 12/29 completed Not Available Not Available Not Available sumatript an 100 mg tablet TAKE 1 TABLET BY MOUTH ONCE NEEDED FOR MIGRAINE HEADACHE active Not Available Not Available No t Available meloxicam 15 mg tablet TAKE 1 TABLET BY MOUTH ONCE DAILY 12/29 completed Not Available Not Available Not Available promethaz ine 12.5 mg tablet TAKE 1 TABLET BY MOUTH EVERY 6 HOURS NEEDED FOR NAUSEA AND VOMITING 12/29 completed Not Available Not Available Not Available ondansetr on HCl 4 mg tablet TAKE 1 TABLET BY MOUTH THREE TIMES DAILY NEEDED FOR NAUSEA AND VOMITING FOR 3 DAYS 12/29 completed Not Available Not Available Not Available prednison e 20 mg tablet TAKE 1 TABLET BY MOUTH TWICE DAILY active Not Available Not Available No t Available venlafaxi ne ER 150 mg capsule,e xtended release 24 hr TAKE 1 CAPSULE BY MOUTH ONCE DAILY active Not Available Not Available No t Available estradiol 0.05 mg/24 hr semiweekl y transderm al patch APPLY 1 PATCH TOPICALL Y TWICE A WEEK 12/29 completed Not Available Not Available Not Available sulfameth oxazole 800 mg-trimet hoprim 160 mg tablet TAKE 1 TABLET BY MOUTH TWICE DAILY FOR 10 DAYS 12/29 completed Not Available Not Available Not Available ondansetr on 8 mg disintegr ating tablet DISSOLVE 1 TABLET IN MOUTH EVERY 8 HOURS FOR 5 DAYS NEEDED FOR NAUSEA AND VOMITING 12/29 completed Not Available Not Available Not Available levothyro xine 25 mcg tablet TAKE 1 TABLET BY MOUTH ONCE DAILY active Not Available Not Available No t Available lamotrigi ne 25 mg tablet TAKE 1 TABLET BY MOUTH ONCE DAILY 12/29 completed Not Available Not Available Not Available oxycodone -acetamin ophen 5 mg-325 mg tablet TAKE 1 TABLET BY MOUTH EVERY 6 HOURS NEEDED FOR PAIN 12/29 completed Not Available Not Available Not Available amoxicill in 875 mg tablet TAKE 1 TABLET BY MOUTH TWICE DAILY 10/25 completed Not Available Not Available Not Available benzonata te 100 mg capsule TAKE 1 CAPSULE BY MOUTH THREE TIMES DAILY NEEDED FOR COUGH 12/29 completed Not Available Not Available Not Available gemfibroz il 600 mg tablet TAKE 1 TABLET BY MOUTH TWICE DAILY 12/29 completed Not Available Not Available Not Available cephalexi n 500 mg capsule TAKE 1 CAPSULE BY MOUTH THREE TIMES DAILY FOR 10 DAYS 12/29 completed Not Available Not Available Not Available oseltamiv ir 75 mg capsule TAKE 1 CAPSULE BY MOUTH TWICE DAILY FOR 5 DAYS 12/29 completed Not Available Not Available Not Available buspirone 30 mg tablet TAKE 1 TABLET BY MOUTH THREE TIMES DAILY active Not Available Not Available No t Available buspirone 10 mg tablet TAKE 1 TABLET BY MOUTH THREE TIMES DAILY 12/29 completed Not Available Not Available Not Available lidocaine 5 % topical patch APPLY 1 PATCH TOPICALL Y DAILY LEAVE ON MOST PAINFUL AREA FOR UP TO 12 HOURS 12/29 completed Not Available Not Available Not Available diclofena c sodium 75 mg tablet,de layed release TAKE 1 TABLET BY MOUTH TWICE DAILY FOR PAIN 12/29 completed Not Available Not Available Not Available estradiol 0.5 mg tablet Take 1 tablet every day by oral route for 90 days. 11/01 completed Not Available Not Available Not Available ergocalci ferol (vitamin D2) 1,250 mcg (50,000 unit) capsule TAKE 1 CAPSULE BY MOUTH ONCE A WEEK 12/29 completed Not Available Not Available Not Available Tylenol-C odeine #3 300 mg-30 mg tablet take 1 tablet by oral route every 6 hours as needed 10/25 completed Tylenol- Codeine #3 Oral Tablet 300-30 mg;Recor ded Status: Recorded on: 02/26/20 09 2:08PM;U ser: meeses;I ndicatio n: Pain - ([phone]) Not Available Not Available Not Available levofloxa abdulaziz 500 mg tablet TAKE 1 TABLET BY MOUTH EVERY 24 HOURS FOR 7 DAYS 12/29 completed Not Available Not Available Not Available methylpre dnisolone 4 mg tablets in a dose pack TAKE BY MOUTH DIRECTED ON INSIDE OF PACKAGE 12/29 completed Not Available Not Available Not Available brompheni ramine-ps eudoephed rine-DM 2 mg-30 mg-10 mg/5 mL oral syrup TAKE 10 ML BY MOUTH EVERY 6 HOURS NEEDED FOR COLD SYMPTOMS 12/29 completed Not Available Not Available Not Available ondansetr on 4 mg disintegr ating tablet DISSOLVE 1 TABLET IN MOUTH EVERY 8 HOURS NEEDED FOR NAUSEA AND VOMITING active Not Available Not Available No t Available cefdinir 300 mg capsule TAKE 1 CAPSULE BY MOUTH EVERY 12 HOURS FOR 7 DAYS active Not Available Not Available No t Available topiramat e 100 mg tablet TAKE 1/2 tablet every day active Not Available Not Available No t Available fluticaso ne propionat e 50 mcg/actua tion nasal spray,hema pension USE 1 TO 2 SPRAY(S) IN EACH NOSTRIL ONCE DAILY 12/29 completed Not Available Not Available Not Available doxycycli ne hyclate 100 mg tablet TAKE 1 TABLET BY MOUTH TWICE DAILY FOR 10 DAYS active Not Available Not Available No t Available dicyclomi ne 10 mg capsule TAKE 1 CAPSULE BY MOUTH 4 TIMES DAILY NEEDED FOR ABDOMINA L PAIN 12/29 completed Not Available Not Available Not Available loratadin e 10 mg tablet TAKE 1 TABLET BY MOUTH ONCE DAILY active Not Available Not Available No t Available amoxicill in 875 mg-potass ium clavulana te 125 mg tablet TAKE 1 TABLET BY MOUTH EVERY 12 HOURS FOR 10 DAYS 02/27 completed Not Available Not Available Not Available Ventolin HFA 90 mcg/actua tion aerosol inhaler INHALE 2 PUFFS BY MOUTH EVERY 4 HOURS NEEDED FOR WHEEZING 12/29 completed Not Available Not Available Not Available buspirone 15 mg tablet TAKE 1 TABLET BY MOUTH THREE TIMES DAILY 12/29 completed Not Available Not Available Not Available NuvaRing 0.12 mg-0.015 mg/24 hr vaginal insert 1 ring vaginall y q month 02/07 completed NuvaRing Vaginal 0.12-0.0 15 mg/24 hr;Recor ded Status: Recorded on: 01/09/20 11:33AM; User: Amish Lyons on: 02/08/20 09;Print ed: 01/09/20 09 Not Available Not Available Not Available Vitamin D3 25 mcg (1,000 unit) capsule TAKE 1 CAPSULE BY MOUTH ONCE DAILY WITH MEALS active Not Available Not Available No t Available topiramat e 50 mg tablet TAKE 1 TABLET BY MOUTH TWICE DAILY 12/29 completed Not Available Not Available Not Available pregabali n 75 mg capsule TAKE 1 CAPSULE BY MOUTH TWICE DAILY FOR PAIN 12/29 completed Not Available Not Available Not Available pregabali n 150 mg capsule TAKE 1 CAPSULE BY MOUTH TWICE DAILY active Not Available Not Available No t Available varenicli ne tartrate 0.5 mg (11)-1 mg (42) tablets in a dose pack TAKE BY MOUTH DIRECTED ON INSIDE OF PACKAGE 12/29 completed Not Available Not Available Not Available hydrochlo rothiazid e 12.5 mg tablet TAKE 1 TABLET BY MOUTH ONCE DAILY 12/29 completed Not Available Not Available Not Available peg 3350-elec trolytes 236 gram-22.7 4 gram-6.74 gram-5.86 gram solution TAKE DIRECTED 12/29 completed Not Available Not Available Not Available Stiolto Respimat 2.5 mcg-2.5 mcg/actua tion solution for inhalatio n INHALE 2 PUFFS BY MOUTH ONCE DAILY 12/29 completed Not Available Not Available Not Available Vraylar 6 mg capsule TAKE 1 CAPSULE BY MOUTH ONCE DAILY active Not Available Not Available No t Available Vraylar 1.5 mg capsule TAKE 1 CAPSULE BY MOUTH EVERY 24 HOURS 10/25 completed Not Available Not Available Not Available Vraylar 4.5 mg capsule TAKE 1 CAPSULE BY MOUTH ONCE DAILY 12/29 completed Not Available Not Available Not Available Vraylar 3 mg capsule TAKE 1 CAPSULE BY MOUTH ONCE DAILY 12/29 completed Not Available Not Available Not Available Linzess 72 mcg capsule TAKE 1 CAPSULE BY MOUTH ONCE DAILY 10/25 completed Not Available Not Available Not Available Ubrelvy 100 mg tablet TAKE 1 TABLET BY MOUTH ONCE NEEDED FOR MIGRAINE 12/29 completed Not Available Not Available Not Available Nurtec ODT 75 mg disintegr ating tablet TAKE ONE TABLET BY MOUTH AT ONSET OF MIGRAINE . DO NOT EXCEED 1 DOSE IN A 24 HOUR PERIOD 2024 active Not Available Not Available Not Avai lable Ajovy 225 mg/1.5 mL subcutane ous auto-inje ctor INJECT 1 AUTO-INJ KOKO SUBCUTAN EOUSLY ONCE EVERY MONTH 12/29 completed Not Available Not Available Not Available Qulipta 60 mg tablet TAKE 1 TABLET BY MOUTH ONCE DAILY active Not Available Not Available No t Available Vitals Date Recorded Body weight Body mass index (BMI) Body height Systolic blood pressure Diastolic blood pressure Provider Name and Address Organization Details Last Updated DateTime 10/25/2020 25698.34 g 28.1 kg/m2 149.86 cm 103 mm[Hg] 71 mm[Hg] Jasmina Frye [place] - [facility] 09:26:58 Date Recorded Body weight Body mass index (BMI) Body height Respiratory rate Body temperature Heart rate Oxygen saturation Oxygen saturation in Arterial blood by Pulse oximetry Systolic blood pressure Diastolic blood pressure Provider Name and Address Organization Details Last Updated DateTime 5 25234.0 8 g 29.7 kg/m2 149.86 cm 18 /min 98 [degF] 78 /min 98 % 98 % 122 mm[Hg] 78 mm[Hg] Lana Snow [place] - [facility] 5 11:39:57 Date Recorded Body height Heart rate Oxygen saturation Oxygen saturation in Arterial blood by Pulse oximetry Respiratory rate Systolic blood pressure Diastolic blood pressure Provider Name and Address Organization Details Last Updated DateTime 5 149.86 cm 85 /min 99 % 99 % 18 /min 118 mm[Hg] 82 mm[Hg] Desire Du [place] - [facility] 5 15:41:59 Social History Question Answer Notes LastModified by Organizat ion Details LastModified Time Tobacco Smoking Status Current Every Day Smoker Lana Snow [place], [place] - [facility] 12/29/2024 11:51:28 Do You Have An Advance Directive? No [email or web address] Information not available 10/25/2020 Are You Blind Or Do You Have Difficulty Seeing? No Information not available 12/29/2024 Is Blood Transfusion Acceptable In An Emergency? Yes [email or web address] Information not available 10/25/2020 What Is Your Level Of Caffeine Consumption? Heavy Information not available 12/29/2024 How Much Tobacco Do You Chew? None [email or web address] Information not available 10/25/2020 Are You Deaf Or Do You Have Serious Difficulty Hearing? No Information not available 12/29/2024 What Type Of Diet Are You Following? REGULAR Information not available 10/25/2020 Which Illicit Or Recreational Drugs Have You Used? None [email or web address] Information not available 10/25/2020 What Is The Highest Grade Or Level Of School You Have Completed Or The Highest Degree You Have Received? [id number] Information not available 12/29/2024 Have There Been Any Changes To Your Family Or Social Situation? No Information not available 12/29/2024 Live Alone Or With Others? With Others With Mom And Son [email or web address] Information not available 10/25/2020 Do You Have A Medical Power Of Machine Precision Etcher? No Information not available 12/29/2024 What Was The Date Of Your Most Recent Tobacco Screening? 12/29/2024 Information not available 12/29/2024 How Many Children Do You Have? 2 [email or web address] Information not available 10/25/2020 What Is Your Current Pack Years? [email or web address] Information not available 12/29/2024 Performs Monthly Self-breast Exam? No Information not available 10/25/2020 What Is Your Relationship Status? Information not available 10/25/2020 Seat Belts Used Routinely Yes Information not available 10/25/2020 Are You Sexually Active? No 2018 Due To Passing Of Stroke Information not available 12/29/2024 Do You Have Smoke And Carbon Monoxide Detectors In Your Home? Yes Information not available 12/29/2024 At What Age Did You Start Smoking Tobacco? 16 Information not available 12/29/2024 How Much Tobacco Do You Smoke? 2 PPD Information not available 10/25/2020 General Stress Level Low [email or web address] Information not available 10/25/2020 Do You Use Sunscreen Routinely? No [email or web address] Information not available 10/25/2020 Has Tobacco Cessation Counseling Been Provided? No Information not available 12/29/2024 How Many Years Have You Smoked Tobacco? 33 Information not available 12/29/2024 Do You Have Difficulty Walking Or Climbing Stairs? No Information not available 12/29/2024 Sex: Female Functional Status Question Answer Note LastModified by Organizat ion Details LastModified Time Do you or have you ever used smokeless tobacco? Never used smokeless tobacco [email or web address] Information not available 10/25/2020 Are you currently employed? Yes [email or web address] Information not available 10/25/2020 Do you have transportation difficulties? No Information not available 12/29/2024 Urinary incontinence assessment performed? Yes [email or web address] Information not available 10/25/2020 Are you able to care for yourself? Yes Information n ot available 12/29/2024 Do you have difficulty dressing or bathing? No Information not available 12/29/2024 Do you or have you ever used e-cigarettes or vape? Never used electronic cigarettes [email or web address] Information not available 10/25/2020 What is your exercise level? None [email or web address] Information not available 10/25/2020 Do you use any illicit or recreational drugs? No Information not available 12/29/2024 Do you or have you ever used any other forms of tobacco or nicotine? No Information not available 12/29/2024 What is your level of alcohol consumption? None [email or web address] Information not available 10/25/2020 Are you able to walk? YESWOREST [email or web address] Information not available 10/25/2020 Do you have difficulty doing errands alone? 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 [id number] Information not available 12/29/2024 Do you have difficulty concentrating, remembering or making decisions? No Information no t available 12/29/2024 Family History Relationship Description Onset Age of this Age Resolved Age Notes LastModified by Organization Details LastModified Time Daughter Polycystic ovary syndrome [email or web address] Not available 10/25 09:17:36 Paternal Uncle Diabetes mellitus [email or web address] Not available 10/25 09:17:46 Paternal Aunt Malignant neoplasm of lung [email or web address] Not available 10/25 09:18:07 Paternal Aunt Malignant tumor of breast [email or web address] Not available 10/25 09:18:15 Maternal Aunt Malignant neoplasm of bone [email or web address] Not available 10/25 09:18:46 Medical History Condition Response Pancreatitis N Other Y Atrial Fibrillation N congenital heart disease N Blood Diseases N Hyperthyroidism N Blood Transfusion Y Rheumatoid arthritis N Erectile Dysfunction N amputation N Skin Lesions N Depression Y Pneumonia N Incontinence N Murmur N Edema N Alzheimer's Disease N Migraine Headaches N Tobacco Abuse N Anxiety Disorder Y Hemorrhoids N Obesity N Vision or Eye Problems N Arthritis N Restless Leg Syndrome N Polyps N Infertility N Carpal Tunnel N Acid Reflux (GERD) N Cancer N Varicosities N Stroke N Tendonitis N Crohn's Disease N Hypercholesterolemia N Skin Cancer N Headaches N Fibromyalgia N Irritable Bowel Syndrome N Anal Fissure N Kidney Disease N Heart Problems N Hospitalizations Y Gallstones N Kidney or Bladder Problems N Goiter N Acne N Eating Disorder N Ferreira's Esophagus N Hypertriglyceridemia N Constipation N Embolism N Vitamin B12 Deficiency N Deviated Septum N AIDS/HIV N Myocardial Infarction N Asthma N Mitral Valve Disorders N Vertigo N Hepatitis N Thyroid Cancer N Neuropathy N History of DVT N Herniated Disc N Chicken Pox Y Von Willebrands Disease N Thrombophilias N Breast Cancer N Hernia N Plantar Fasciitis N Hypothyroidism N Lung Disease N Defects or Inherited Disease N Breast Problem N Ovarian Cyst N Anesthesia Complications N Testosterone Deficiency N Interstitial Cystitis N Congenital Anomalies N Hypoglycemia N Blood clot N Vitamin D Deficiency N Cellulitis N Endometriosis N Bladder or Kidney Problems N Fracture N Colorectal Cancer N Panic Disorder N Schizophrenia N Concussion N Spina Bifida N Osteoarthritis N Parkinson's Disease N Disc Protrusion N STI N Esophagitis N Angina N Thyroid Problems N GI Problems N ADD/ADHD N Anemia N Multiple Sclerosis N Abnormal PAP Y Lumbago N Mental Illness N Psychiatric Illness N Diabetes N Ovarian Cancer N Degenerative Disc Disease N Seizures/Epilepsy N Hyperlipidemia N Syncope N Insomnia N Eczema N Abuse/Domestic Violence N Attention Deficient Disorder N Dementia N Ulcerative colitis N Cerebrovascular Disease N Depression N Guillain-[place] N Sleep Apnea N Aneurysm N Bronchitis N Heart Disease N Hypertension Y Pre-Eclampsia N Suicidal Ideation N Osteoporosis N Gynecological History Statement/Question Response Abnormal Pap Y Date of Last Mammogram Date of LMP STIs/STDs N Colposcopy HPV Vaccine N Current Control Method Hysterectom y Age at Menarche Age at First Child 18 Date of Last Colonoscopy Most Recent Bone Density Sexually Active? N Menses Monthly N Date of Last Pap Smear Sexual Problems? N Hormone Replacement Therapy N Obstetrics History GPAL:G 6 P 2 0 4 2 Type Value Full Term 2 Spontaneous 4 Living 2 Total 6 Immunizations Vaccine Type Date Status Note Provider Nam e and Address Organization Details Recorded Time Influenza, split virus, trivalent, preservative 9 completed Not Available [facility] 01/19/2025 15:14:55 Tdap 6 completed Not Available [facility] 01/19/2025 15:14:55 Influenza, split virus, trivalent, preservative 6 completed Not Available [facility] 01/19/2025 15:14:55 Influenza, split virus, quadrivalent, preservative 7 completed Not Available [facility] 01/19/2025 15:14:55 COVID-19, mRNA, LNP-S, PF, 100 mcg/0.5mL dose or 50 mcg/0.25mL dose 1 completed Not Available [facility] 01/19/2025 15:14:55 COVID-19, mRNA, LNP-S, PF, 100 mcg/0.5mL dose or 50 mcg/0.25mL dose 1 completed Not Available [facility] 01/19/2025 15:14:55 Hep B, adult 3 completed Not Available [facility] 01/19/2025 15:14:55 Influenza, split virus, quadrivalent, PF 3 completed Not Available [facility] 01/19/2025 15:14:55 COVID-19, mRNA, LNP-S, PF, 50 mcg/0.5 mL 3 completed Not Available [facility] 01/19/2025 15:14:55 Influenza, split virus, quadrivalent, preservative 0 completed NITHIN Jensen - [facility] 10/25/2020 09:14:55 Past Encounters Encounter ID Performer Location Encounter Start Date Encounter Closed Date Diagnosis/Indication Diagnosis SNOMED-CT Code Diagnosis ICD10 Code Diagnosis Note [id number] 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 Diet education 80071819 Z71.3 Counseling 387483832 Z71 .82 Exercise counseljeny contreras. Patient encouraged to exercise 30 minutes 5 days a week. Examinatio n of blood pressure 721562221 Z01.30 Vaccine de clined by patient 5235993935 02 Z28.21 Pt declined flu vaccine today. History of total hysterectomy 957184065 Z90.710 Hormone re placement therapy 504245139 Z79.890 Patient advised of the risks and benefits associated with HRT. Patient will report any new or worsening symptoms. Screening mammography 24 290410 Z12.31 Vaginal dryness 31134507 N89.8 Will proceed with oral E2. If this does not help, will add PVC at her F/U appt. Tobacco user 383024767 Z 72.0 [id number] [address] [address] 12/29/2024 11:20:07 12/29/2024 12:09:05 Migraine 06180904 G43.909 stop qulipta Heart murmur 44167491 R0 1.1 [id number] 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 [address] [address] 01/19/2025 15:14:28 01/19/2025 16:13:45 Body mass index 30+ - obesity 240222786 E66.9 Acute maxi llary sinusitis 78035769 J01.00 Diarrhea 26803134 R19.7 valerie dietif no improvemen t will need stool sample Health Concerns Section Related Observation LastModified by Organization Detai ls LastModified Time None Recorded Concern Status LastModified by Organization Details LastModified Time None Recorded Advance Directives Directive N: Payers Insurance Date Sequence Insurance Name Policy Number Policy Barrow Covered Member ID Barrow Member ID Guarantor Name 02/01/2025 2 [place] [facility] - FFS/TRADITION [place] Desire Blevins [id number] Desire Blevins 12/29/2024 1 [facility] (MEDICARE HMO) Desire Blevins [id number] Desire Blevins 02/01/[address] [facility] (MEDICAID REPLACEMENT - HMO) Desire Blevins [id number] Desire Blevins 02/01/2025 [place] [facility] [place]ID[place] Desire Blevins [id number] Desire Blevins 02/01/2025 1 [facility] (MEDICAID REPLACEMENT - HMO) Desire Blevins [id number] Desire Blevins Notes Date Note Type Note Provider Name and Address Organization Details Recorded Time 10/25/2020 text/html Annual - MOBReported bypatient.Current Contraception:Not sexually active; History of hysterectomy (due to endometriosis); passed 2018 Preventive measures:Encourage self breast examination; Encourage regular exercise; Encourage no tobacco use;Needs to schedule mammogram Desire is a 45 year old who presents today as an established prior patient, but new for billing purposes (as it is greater than three years since her last MOBG visit), for an annual exam. Her previous annual exam was several years ago with an outside provider.She is surgically menopausal. She has had a TLH with unknown ovarian status in [place], [place] for endometriosis. She has never used HRT (to her knowledge). She admits having the following menopausal related symptoms that concern her hot flashes/night sweats .She is no longer sexually active since the of her in 2018.Other than needing a preventive exam, she is complaining of vasomotor symptoms related to menopause. She is not currently taking any medications prescribed by our practice or needing refills. Cathy Logan APRN [address], [place], [address], [place] [facility] 10/25/2020 09:48:51 12/29/2024 text/html 49 year old ziggy morgan who presents to the office today with concerns ofmigraines- has had 2 this week, nausea, blurry visionhas not had any sumitriptan for 2-3 months, was given a sample of qulipta and states it is not working, she states she has some topiramate at home but does not help since she has been cutting them in half 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 APRN [address], [place], [address], [place] [facility] 12/29/2024 15:47:53 01/19/2025 text/html 49 yr old female presents for a follow up on migraines. She has been on doxycycline with no improvement of congestion- states she has still been having diarrhea and vomiting. She seen Dalia Shannon at Urgent care on 01/15 and dx with a virus and given nausea medication. Larissa Patterson sent in doxycycline for sinuses. 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 APRN [address], [place], [address], [place] - [facility] 01/19/2025 16:20:26 OBGyn Episode No OBEpisode recorded.
--- OUTSIDE RECORDS SUMMARY | 2025-03-19 15:10 | XMS_ITS | Encounter Summary ---
Author Organization Healthcare Address [address] [place] [address] Care Team Providers Care Raveler Name Role Phone 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 RED Primary Care Provider [phone]- [phone] Reason for Visit * Reason Onset Date Comments HCN Clinical Concern/Question 01/19/2025 Encounter Details Date Type Department Care Team (Late st Contact Info) Description 01/19/2025 Telephone [facility] [place] [address] [place] [address] None, None [address] [place] [address] HCN Clinical Concern/Question Social History Tobacco Use Types Packs/Day Years Used Date Smoking Tobacco: Never Assessed Comments Unknown Sex and Gender Information Value Date Recorded Sex Assigned at Not on file Legal Sex Female 8:33 PM EDT Gender Identity Not on file Sexual Orientation Not on file documented as of this encounter Miscellaneous Notes * Telephone Encounter - Jessica Manriquez - 02/14/2025 9:41 AM EDT *sched appt with pt on 01/26/25 @ 11:24; SENT REMINDER * Telephone Encounter - Kathleen Bailey - 01/19/2025 4:02 PM EDT Clinical Concern/Question Reason for Call: Please call new patient to schedule appointment. There is an active request. Patients phone number was incorrect in [facility] and has since been updated. Best contact number: [phone] (mobile) Optimal time of day to reach caller: ANYTIME Additional comments/information from caller: None Note: Please do not reply to this message. Follow-up communication and further actions as a result of this message need to be communicated with the patient directly, if the patient is not active onMyChart. If the patient is active on MyChart, they will receive notification of the communication/outcome via MyChart. documented in this encounter Plan of Treatment Upcoming Encounters Date Type Department Care Team (Late st Contact Info) Description 03/21/2025 9:30 AM EDT Consult [facility] [place] [address] [facility] [facility] [place] [address] Valdemar Orr MD [address] [place] [address] documented as of this encounter Visit Diagnoses Not on filedocumented in this encounter Care Teams Raveler Relationship Specialty Start Date End Date 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 APRN [address] [place] [address] PCP - General 01/26/25 documented as of this encounter
--- OUTSIDE RECORDS SUMMARY | 2025-03-19 15:10 | XMS_ITS | Clinical Summary ---
Author Organization Healthcare Address [address] [place] [address] Care Team Providers Care Target Worker Name Role Phone 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 GLUER MACHINE OPERATOR Primary Care Provider +1- [phone] Active Problems Problem Noted Date Diagnosed Date Patent foramen ovale 01/19/2025 Hypothyroidism 12/29/2024 Anxiety 10/25/2020 Asthma 10/25/2020 Bipolar disorder 10/25/2020 Hyperlipidemia 10/25/2020 Depressive disorder 10/25/2020 Migraine 10/25/2020 Encounters Date Type Department Care Team Description 01/19/2025 Telephone [facility] [place] [address] [facility] [address] [place] [address] None, None HCN Clinical Concern/Question from Last 3 Months Immunizations Immunization Administration Dates Next Due Hep B, adult 02/01/2023 Influenza, injectable, quadrivalent 07/28/2017 Influenza, injectable, quadrivalent, preservativ e free 07/30/2023 Influenza, seasonal, injectable 08/31/2016,10/31 Moderna COVID-19 Vaccine (Renovator Machine Operator) 12+ years Tdap 08/31/2016 Social History Tobacco Use Types Packs/Day Years Used Date Smoking Tobacco: Never Assessed Comments Unknown Sex and Gender Information Value Date Recorded Sex Assigned at Not on file Legal Sex Female 8:33 PM EDT Gender Identity Not on file Sexual Orientation Not on file Plan of Treatment Upcoming Encounters Date Type Department Care Team ([facility] st Contact Info) Description 03/21/2025 9:30 AM EDT Consult [facility] [address] [facility] [place] [address] Valdemar Orr MD [address] [place] [address] Health Maintenance Due Date Last Done Comments [facility]-Depression Screening 1975 [facility]-HIV Screening 1975 [facility]-Hepatitis C Screening 1975 [facility]-Infant/Child/Adol SDOH Screenings 1975 [facility]- SDOH Screenings 1993 [facility]-Adult SDOH Screenings 1993 [facility]-Pneumococcal Vaccine: 50+ Years (1 of 2 - PCV) 1994 [facility]-Pap Smear 01/31/2000 01/30/1997, 06/11, 10/16/1992 [facility]-Cervical Cancer Screening 2005 [facility]-HPV/Cotest 2005 01/30/1997, 06/11, 10/16/1992 CT Colonography 01/22/2020 Colonoscopy 01/22/2020 FIT-DNA 01/22/2020 FIT 01/22/2020 FOBT 01/22/2020 Sigmoidoscopy 01/22/2020 [facility]-Colorectal Cancer Screening 01/22/2020 [facility]-Hepatitis B Vaccines (2 of 3 - 19+ 3-dose series) 03/01/2023 02/01/2023 [id number] Vaccine ( - season) 2024 07/30/2023, 03/28/2021, 02/28/2021 [facility]-Breast Cancer Screening 2025 [facility]-Zoster Vaccines (1 of 2) 2025 [facility]-Influenza Vaccine (Season Ended) 2025 07/30/2023, 07/28/2017, 08/31/2016, Additional history exists [facility]-DTaP,Tdap,and Td Vaccines (2 - Td or Tdap) 08/31/2026 08/31/2016 HPV Vaccines Aged Out No longer eligi ble based on patient's age to complete this topic [facility]-HIB Vaccines Aged Out No longer e ligible based on patient's age to complete this topic [facility]-Hepatitis A Vaccines Aged Out No longer eligible based on patient's age to complete this topic [facility]-IPV Vaccines Aged Out No longer e ligible based on patient's age to complete this topic [facility]-Rotavirus Vaccines Aged Out No lo nger eligible based on patient's age to complete this topic Procedures Procedure Name Priority Date/Time Associated Diagnosis Comments CYTO DATA CONVERSION Routine 01/30/1997 12:00 AM EDT from Last 3 Months or Most Recently Relevant to Health Maintenance Results * Cytology (01/30/1997 12:00 AM EDT) 01/30/1997 01/31/1997 Narrative [facility]QUEST - 02/08/1997 12:00 AM EDT [facility] MR #: [id number] [facility] [place], [place] [address] 1975 (Age: 22) FW Collect Date: 01/30/1997 00:00 Receipt Date: 01/31/1997 00:00 Page 1 DEPARTMENT OF PATHOLOGY AND LABORATORY MEDICINE CYTOPATHOLOGY REPORT Email: [email or web address] * Converted Case * This report may not match the original report format ATTENDING MD/Practitioner: Uvaldo Padilla MD Service: [facility] [place]: Reported: 02/08/1997 00:00 Collected: 01/30/1997 00:00 INTERPRETATION CERVICAL SCRAPE/ENDOCERVICAL BRUSH WITHIN NORMAL LIMITS. SATISFACTORY FOR INTERPRETATION. Electronically Signed Out By Luis Manuel Young CECE Michel (ASCP) No Signature Required Cervical cytology is a screening test primarily for squamous cancers and precursors and has associated false negative and positive results. New technologies such as liquid based sampling may decrease but will not eliminate all false negative results. Regular screening and follow-up of unexplained clinical signs and symptoms are recommended to minimize false negative results. Please see the ASCCP website (www.asccp.org) for followup recommendations. If HPV testing was requested, correlation with the results is suggested (please call Microbiology at [phone] for results). CLINICAL INFORMATION: Menstrual History: {Not Provided} Date of Last Menstrual Period: {Not Provided} SPECIMEN DESCRIPTION: A: CERVICAL/VAGINAL SMEAR, PAP ICD: F: {Not Entered} SNOMED CODES: 1; Q8C373 Q81928 T16510 In cases where a pathologist has signed out the report, the service has been rendered in part by a resident. The signing pathologist has performed and is responsible for the reported pathologic evaluation. us Historical Provider MD LAB PATHOLOGY ORDERABLES Final Result SUNQUEST from Last 3 Months or Most Recently Relevant to Health Maintenance Insurance [employer] MEDICAID [place] MED[employer] DENT[place] Care Teams Target Worker Relationship Specialty Start Date End Date 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 APRN [address] [place] [address] PCP - General 01/26/25
--- OUTSIDE RECORDS SUMMARY | 2025-03-19 15:10 | XMS_ITS | Data Portability ---
Author Organization [facility] ADMIN Address [address] [place] [address] Assessment No assessment recorded. Plan of Treatment Reminders Order Date Submit Date Provider Last Modified By Organization Details Last Modified Time Details Appointments None recorde d. Lab None recorde d. Referral None recorde d. Procedures None recorde d. Surgeries None recorde d. Imaging XR, ankle 024 08/04/20 cristobal [facility], [address] [place] [address] [place], [address], 11:52:30 Medication Orders None recorde d. Patient TargetsNo targets recorded. Patient InstructionsNo instructions recorded. Reason for Referral None Reported. Results Created Date Observation Date Name Description Value Unit Range Abnormal Flag Note LastModifiedBy Organization Detail LastModifiedTime 08/04/20 XR, ankle No observ ation record ed. [place]RYSTAL [address] [place], [address], 08/04/2024 11:16:43 Result Notes None recorded. 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 Procedure Notes None [...] Smoking Status Current Every Day Smoker Lis Solis [facility], [place] - [facility] - [place] & [place] 08/04/2024 11:11:27 Do You Have An Advance Directive? No Information not available 08/04/2024 Are You Blind Or Do You Have Difficulty Seeing? No Information not available 08/04/2024 What Was The Date Of Your Most Recent Tobacco Screening? 07/20/2024 Information not available 08/04/2024 Are You Passively Exposed To Smoke? Yes Information not available 08/04/2024 How Much Tobacco Do You Smoke? 1 PPW Information not available 08/04/2024 How Many Years Have You Smoked Tobacco? 39 Information not available 08/04/2024 Sex: Unknown Functional Status Question Answer Note LastModified by Organizat ion Details LastModified Time Do you use any illicit or recreational drugs? No Information not available 08/04/2024 What is your level of alcohol consumption? None Information not available 08/04/2024 Do you or have you ever used smokeless tobacco? [id number] Information n ot available 08/04/2024 Mental Status None recorded. Family History Nothing [...] SNOMED-CT Code Diagnosis ICD10 Code Diagnosis Note [id number] DO JESE NOVA [place] [id number] 9 08/04/2024 10:40:35 08/04/2024 11:47:03 Injury of left ankle 1449177776 6442548 S99.912A Sprain of left ankle 163 4481644 5878235 S93.402A Health Concerns Section Related Observation LastModified by Organization Detai ls LastModified Time None Recorded Concern Status LastModified by Organization Details LastModified Time None Recorded Advance Directives Directive N: Payers Insurance Date Sequence Insurance Name Policy Number Policy Barrow Covered Member ID Barrow Member ID Guarantor Name 07/21/2024 [id number] Npw Desire Blevins 08/28/2024 1 [facility] (MEDICAID REPLACEMENT - HMO) Desire Blevins [id number] Desire Blevins Notes Date Note Type Note Provider Name and Address Organization Details Recorded Time 08/04/2024 text/html Pt presents today with left ankle pain. Pt was seen at [facility] and had 3v left foot and ankle x-rays [facility] 07.14.24: Negative for fractures. Lateral ankle soft tissue edema. Pt is no longer wearing boot she was given in the ER for 2 weeks. Pt is taking ibuprofen for pain. Pt only has pain when walking or standing up for long periods of time.E6AT ISAEL DAVEN[place], [facility],[address], [place], [address], [facility] - [place] & [place] 08/04/2024 15:19:06 OBGyn Episode No OBEpisode recorded.
--- OUTSIDE RECORDS SUMMARY | 2025-03-19 15:10 | XMS_ITS | Clinical Summary ---
Author Organization [facility] Address [address] [place] [address] Phone Care Team Providers Care Hot Stone Setter Name Role Phone Unavailable Primary Care Provider Unavailabl e Allergies No known active allergies Medications busPIRone (BUSPAR) 10 mg Oral Tablet Take 10 mg by mouth 3 times daily. Active albuterol sulfate (PROAIR HFA INHL) Inhale 2 Puffs into the lungs. Active lamoTRIgine (LAMICTAL) 25 mg Oral Tablet Take 25 mg by mouth daily. Active topiramate (TOPAMAX) 50 mg Oral Tablet Take 50 mg by mouth 2 times daily. Active methocarbamoL (ROBAXIN) 500 mg Oral Tablet Take 500 mg by mouth 3 times daily. Active venlafaxine (EFFEXOR-XR) 150 mg Oral Capsule, Sust. Release 24 hr Take by mouth daily. Active cariprazine (VRAYLAR) 4.5 mg Oral Capsule Take 4.5 mg by mouth daily. Active atorvastatin (LIPITOR) 20 mg Oral Tablet Take 20 mg by mouth daily. Active celecoxib (CELEBREX) 200 mg Oral Capsule Take 200 mg by mouth daily. Active Surgical History Surgery Date Site/Laterality Comments GALLBLADDER SURGERY HYSTERECTOMY SECTION Medical History Medical History Date Comments Anxiety Bipolar disorder (HCC) Social History Tobacco Use Types Packs/Day Years Used Date Smoking Tobacco: Every Day Cigarettes Alcohol Use Standard Drinks/Week Comments Not Currently 0 (1 standard drink = 0.6 oz pur e alcohol) Comments No Sex and Gender Information Value Date Recorded Sex Assigned at Not on file Legal Sex Female 3:28 PM EDT Gender Identity Not on file Sexual Orientation Not on file Obstetrics History Last Filed Vital Signs Vital Sign Reading Time Taken Comments Blood Pressure 105/70 06/26/2022 5:04 PM EDT Pulse 82 06/26/2022 4:00 PM EDT Temperature 36.3 C (97.4 F) 06/26/2022 3:34 PM EDT Respiratory Rate 16 06/26/2022 5:04 PM EDT Oxygen Saturation 100% 06/26/2022 5:04 PM EDT Inhaled Oxygen Concentration - - Weight 61.2 kg (135 lb) 06/26/2022 3:34 PM EDT Height 149.9 cm (4' 11 ) 06/26/2022 3:34 PM EDT Body Mass Index 27.27 06/26/2022 3:34 PM EDT Plan of Treatment Health Maintenance Due Date Last Done Comments Annual Wellness Exam 1978 Hepatitis B Vaccine (1 of 3 - 19+ 3-dose series) 1994 Pneumococcal Vaccine 50+ (1 of 2 - PCV) 1994 Cervical Cancer Screening 01/22/1996 Pap Smear 01/22/1996 HPV/Pap Cotest 2005 Breast Cancer Screening 2015 Cologuard 01/22/2020 Colon Cancer Screening 01/22/2020 Colonoscopy 01/22/2020 FIT 01/22/2020 Sigmoidoscopy 01/22/2020 Virtual Colonography 01/22/2020 COVID-19 Vaccine (3 - 2023-2 5 season) 2024 03/28/2021, 02/28/2021 Zoster (1 of 2) 2025 Influenza Vaccine (Season Ended) 2025 07/28/2017, 08/31/2016, 10/31/2008 DTaP/TDaP/Td (2 - Td or Tdap) 08/31/2026 08/31/2016 Meningococcal B Vaccine Aged Out No l onger eligible based on patient's age to complete this topic Insurance [facility]
--- OUTSIDE RECORDS SUMMARY | 2025-03-19 15:10 | XMS_ITS | Continuity of Care Document ---
Author Organization [facility] Address [address] [place] [address] Assessment No assessment recorded. Plan of Treatment Reminders Order Date Submit Date Provider Last Modified By Organization Details Last Modified Time Details Appointments None recorded. Lab HbA1c (hemoglobi n A1c), blood 2024 025 [facility], [address] [place] [address], [address], 16:18:35 Referral None recorded. Procedures None recorded. Surgeries None recorded. Imaging None recorded. Medication Orders cefdinir 300 mg capsule 2024 025 [facility], [address], [place], [address], 16:18:52 Patient TargetsNo targets recorded. Patient InstructionsNo instructions recorded. Reason for Referral None Reported. Results Created Date Observation Date Name Description Value Unit Range Abnormal Flag Note LastModifiedBy Organization Detail LastModifiedTime 01/20/2001/19/2025 HbA1c (hemo globi n A1c), blood HbA1C 5.3 % Not Available [address], [address], 01/19/2025 16:08:22 01/10/20 25 01/09/2025 MRI, brain , w/wo contr ast No observ ation record ed. [facility] [address], [place], [address], 01/09/2025 17:07:46 01/10/20 25 01/09/2025 US, echoc ardio gram No observ ation record ed. [facility] [address], [place], [address], 01/11/2025 12:24:13 01/12/20 25 01/09/2025 US, echoc ardio gram No observ ation record ed. [facility] [address], [place], [address], 01/11/2025 09:33:53 01/31/20 25 01/30/2025 XR, chest , 2 view No observ ation record ed. [facility] [address], [place], [address], 02/02/2025 09:54:37 Result Notes None recorded. Problems Name Problem SNOMED Code Status Onset Date Resolution Date Notes Provider Name and Address Organization Details Recorded Time Bipolar disorder 80388962 Active 2020 Jasminacecil Frye null, [place] - [facility] 09:15:02 Asthma 275259176 Active 2020 Jasminacecil Frye null, [place] - [facility] 09:15:08 Hyperlipidemi a 01999632 Active 2020 Jasmina Melva null, [place] - [facility] 09:15:15 Depressive disorder 02910685 Active 2020 Jasmina Frye null, [place] - [facility] 09:15:22 Anxiety 41256983 Active 2020 Jasmina Frye null, [place] - [facility] 09:15:30 Migraine 69702230 Active 2020 Jasmina Frye null, [place] - [facility] 09:15:42 Hypothyroidis m 44085660 Active 2024 Lana Stears null, [place] - [facility] 5 11:50:11 Patent foramen ovale 557508738 Active 2024 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, [employer] [address], [place], [address] , [place] - [facility] 16:20:14 Problem Notes None recorded. Procedures Surgical History Date Name Laterality Status Provider Name and Address Organization Details Recorded Time 10/25/19 21 Systolic B/P less than 130 mm Hg completed Jasmina Frye [place] - [facility] 10/25/2020 09:27:20 10/25/19 21 Diastolic B/P less than 80 mm Hg completed Jasmina Frye [place] - [facility] 10/25/2020 09:27:23 11/09/19 12 Hysterectomy completed Cathyedison Logan APRN [address], [place], [address], [facility] - [facility] 01/20/2021 16:20:51 11/09/19 12 excision of bilateral fallopian tubes and ovaries completed Cathy Logan APRN [address], [place], [address], [facility] - [facility] 01/20/2021 16:28:55 06/12/20 08 laser surgery completed Jasmina Frye [place] - [facility] 10/25/2020 09:11:01 12/11/19 02 Cholecystectomy, laparoscopic completed Jasmina Frye [place] - [facility] 10/25/2020 09:12:05 01/13/20 00 section completed Jasmina Frye [place] - [facility] 10/25/2020 09:12:17 05/13/19 93 section completed Jasmina Frye [place] - [facility] 10/25/2020 09:12:26 Colposcopy completed Jasmina Frye [place] - [facility] 10/25/2020 09:19:24 LEEP completed Jasmina Frye [place] - [facility] 10/25/2020 09:19:31 Imaging Results None recorded. [...] 2:08PM;U ser: meeses;I ndicatio n: Pain - (16.5206 71) Not Available Not Available Not Available levofloxa [...] No t Available Vitals Date Recorded Body height Heart rate Oxygen saturation Oxygen saturation in Arterial blood by Pulse oximetry Respiratory rate Systolic blood pressure Diastolic blood pressure Provider Name and Address Organization Details Last Updated DateTime 5 149.86 cm 85 /min 99 % 99 % 18 /min 118 mm[Hg] 82 mm[Hg] Desire Sandy [place] - [facility] 5 15:41:59 Social History Question Answer Notes LastModified by Organizat ion Details LastModified Time Tobacco Smoking Status Current Every Day Smoker Lana Cains null, [place] - [facility] 12/29/2024 11:51:28 Do You Have An Advance Directive? No [email or web address] Information not available 10/25/2020 Are You Blind Or Do You Have Difficulty Seeing? No Information not available 12/29/2024 Is Blood Transfusion Acceptable In An Emergency? Yes [email or web address] Information not available 10/25/2020 What Is Your Level Of Caffeine Consumption? Heavy Information not available 12/29/2024 How Much Tobacco Do You Chew? None [email or web address] Information not available 10/25/2020 Are You Deaf Or Do You Have Serious Difficulty Hearing? No Information not available 12/29/2024 What Type Of Diet Are You Following? REGULAR [email or web address] Information not available 10/25/2020 Which Illicit Or Recreational Drugs Have You Used? None [email or web address] Information not available 10/25/2020 What Is The Highest Grade Or Level Of School You Have Completed Or The Highest Degree You Have Received? [id number] Information not available 12/29/2024 Have There Been Any Changes To Your Family Or Social Situation? No Information not available 12/29/2024 Live Alone Or With Others? With Others With Mom And Son Information not available 10/25/2020 Do You Have A Medical Power Of Product Director? No Information not available 12/29/2024 What Was The Date Of Your Most Recent Tobacco Screening? 12/29/2024 Information not available 12/29/2024 How Many Children Do You Have? 2 [email or web address] Information not available 10/25/2020 What Is Your Current Pack Years? 30ormorepac [email or web address] Information not available 12/29/2024 Performs Monthly Self-breast Exam? No [email or web address] Information not available 10/25/2020 What Is Your Relationship Status? [email or web address] Information not available 10/25/2020 Seat Belts Used Routinely Yes [email or web address] Information not available 10/25/2020 Are You Sexually Active? No 2018 Due To Passing Of Stroke Information not available 12/29/2024 Do You Have Smoke And Carbon Monoxide Detectors In Your Home? Yes Information not available 12/29/2024 At What Age Did You Start Smoking Tobacco? 16 Information not available 12/29/2024 How Much Tobacco Do You Smoke? 2 PPD [email or web address] Information not available 10/25/2020 General Stress Level Low Information not available 10/25/2020 Do You Use Sunscreen Routinely? No [email or web address] Information not available 10/25/2020 Has Tobacco Cessation [...] used smokeless tobacco? Never used smokeless tobacco [email or web address] Information not available 10/25/2020 Are you currently employed? Yes [email or web address] Information not available 10/25/2020 Do you have transportation difficulties? No Information not available 12/29/2024 Urinary incontinence assessment performed? Yes [email or web address] Information not available 10/25/2020 Are you able to care for yourself? Yes Information n ot available 12/29/2024 Do you have difficulty dressing or bathing? No Information not available 12/29/2024 Do you or have you ever used e-cigarettes or vape? Never used electronic cigarettes [email or web address] Information not available 10/25/2020 What is your exercise level? None Information not available 10/25/2020 Do you use any illicit or recreational drugs? No Information not available 12/29/2024 Do you or have you ever used any other forms of tobacco or nicotine? No Information not available 12/29/2024 What is your level of alcohol consumption? None [email or web address] Information not available 10/25/2020 Are you able to walk? YESWOREST [email or web address] Information not available 10/25/2020 Do you have difficulty doing errands alone? 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 RR0789-0 Information not available 12/29/2024 Do you have difficulty concentrating, remembering or making decisions? No Information no t available 12/29/2024 Family History Relationship Description Onset Age of this Age Resolved Age Notes LastModified by Organization Details LastModified Time Daughter Polycystic ovary syndrome [email or web address] Not available 10/25 09:17:36 Paternal Uncle Diabetes mellitus [email or web address] Not available 10/25 09:17:46 Paternal Aunt Malignant neoplasm of lung [email or web address] Not available 10/25 09:18:07 Paternal Aunt Malignant tumor of breast [email or web address] Not available 10/25 09:18:15 Maternal Aunt Malignant neoplasm of bone [email or web address] Not available 10/25 09:18:46 Medical History Condition Response Pancreatitis N Other Y Atrial Fibrillation N congenital heart disease N Blood Diseases N Hyperthyroidism N Rheumatoid arthritis N Blood Transfusion Y Erectile Dysfunction N amputation N Skin Lesions [...] colitis N Cerebrovascular Disease N Depression N Guillain-[place] N Sleep Apnea N Aneurysm N Bronchitis [...] virus, trivalent, preservative 9 completed Not Available [facility] 01/19/2025 15:14:55 Tdap 6 completed Not Available [facility] 01/19/2025 15:14:55 Influenza, split virus, trivalent, preservative 6 completed Not Available [facility] 01/19/2025 15:14:55 Influenza, split virus, quadrivalent, preservative 7 completed Not Available [facility] 01/19/2025 15:14:55 COVID-19, mRNA, LNP-S, PF, 100 mcg/0.5mL dose or 50 mcg/0.25mL dose 1 completed Not Available [facility] 01/19/2025 15:14:55 COVID-19, mRNA, LNP-S, PF, 100 mcg/0.5mL dose or 50 mcg/0.25mL dose 1 completed Not [facility] 01/19/2025 15:14:55 Hep B, adult 3 completed Not Available [facility] 01/19/2025 15:14:55 Influenza, split virus, quadrivalent, PF 3 completed Not Available [facility] 01/19/2025 15:14:55 COVID-19, mRNA, LNP-S, PF, 50 mcg/0.5 mL 3 completed Not Available [facility] 01/19/2025 15:14:55 Influenza, split virus, quadrivalent, preservative 0 completed Jasmina bhatti, [place] - [facility] 10/25/2020 09:14:55 Past Encounters Encounter ID Performer Location Encounter Start Date Encounter Closed Date Diagnosis/Indication Diagnosis SNOMED-CT Code Diagnosis ICD10 Code Diagnosis Note [id number] 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 APRN [address] [address] 12/29/2024 11:20:07 12/29/2024 12:09:05 Migraine 06586838 G43.909 stop qulipta Heart murmur 62449861 R0 1.1 [id number] 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 APRN [address] [address] 01/19/2025 15:14:28 01/19/2025 16:13:45 Body mass index 30+ - obesity 336713951 E66.9 Acute maxi llary sinusitis 82948753 J01.00 Diarrhea 24753836 R19.7 valerie dietif no improvemen t will need stool sample Health Concerns Section Related Observation LastModified by Organization Detai ls LastModified Time None Recorded Concern Status LastModified by Organization Details LastModified Time None Recorded Payers Encounter Date Sequence Insurance Name Policy Number Policy Barrow Covered Member ID Barrow Member ID Guarantor Name 01/19/2025 1 [facility] (MEDICAID REPLACEMENT - HMO) Desire Blevins [id number] Desire Blevins Notes Date Note Type Note Provider Name and Address Organization Details Recorded Time 01/19/2025 text/html 49 yr old female presents for a follow up on migraines. She has been on doxycycline with no improvement of congestion- states she has still been having diarrhea and vomiting. She seen Dalia Shannon at Urgent care on 01/15 and dx with a virus and given nausea medication. Larissa Patterson sent in doxycycline for sinuses. 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 APRN [address], [place], [address], [place] - [facility] 01/19/2025 16:20:26 OBGyn Episode No OBEpisode recorded.
[2025-03-19 15:26] VITALS: BP 102/66; PULSE 85; RESP 14; O2SAT 99; BMI 28.0
--- NOTE | 2025-03-19 15:30 | A.OFFVIS_ITS ---
[facility] Disclaimer: The information contained in this section may have been updated after the patient was seen, as this information can be updated by other users. Medical History Nausea vomiting and diarrhea Influenza A Facet hypertrophy of lumbar region Lumbar back pain Patient sees pain management later this morning but requests injections Sciatica of right side Bipolar disorder Constipation Vertigo GERD (gastroesophageal reflux disease) Anxiety Sinusitis Encounter for smoking cessation counseling Depression Surgical History History of hysterectomy History of section History of cholecystectomy Family History Other Family history of diabetes mellitus type II Social History Smoking Status: Current every day smoker tobacco type: cigarettes packs per day: 2 second hand exposure: Yes alcohol intake: never substance use type: denies use current occupational status: other Travel in the last 8 weeks?: None household members: none housing: house current occupational exposures/hazards: No caffeine: Yes Have you lived/traveled outside US in past 30 days?: No Contact w/someone who lives/traveled outside US past 30 days?: No Exposure to someone with infectious disease in past 14 days?: No Do you have a fever (greater than 100.4 F or 38 C)?: No Have you tested positive for COVID-19?: No Exposed to someone with COVID-19 in past 14 days?: No Do you have a sore throat?: No Do you have a cough?: No Do you have any weakness?: No Do you have any diarrhea?: No Are you experiencing any unusual bleeding?: No Do you have any muscle aches/pain?: No Do you have any abdominal pain?: No Are you experiencing loss of taste or smell?: No PM Subjective & Objective Subjective Subjective:: Patient is a pleasant 50-year-old female who presents today for follow-up. Today she states that the methocarbamol we gave did not seem to do much but did feel like this aggravated and caused a yeast infection. Patient denies any other changes. She does state that she does officially have her supervisor enrobing appointment on Wednesday and so she is not sure what the next plan of care will be for that possible intervention. Her Carmelo has been reviewed and is appropriate. Review of Systems: General: No recent weight changes, no fever, no sleep disturbances Respiratory: No cough, no shortness of air, no recurring pulmonary infections Cardiovascular/peripheral vascular: No chest pain, no palpitations, no edema, no shortness of breath Gastrointestinal: No new onset incontinence, normal bowel movements reported Genitourinary: No new onset incontinence Musculoskeletal: Low back pain, right hip pain Psychiatric: [Normal mood/affect] Neurological: [Denies weakness in extremities], [denies balance issues] Pain at rest (0-10 scale): 8 Objective Objective:: Physical Exam: General: Alert and oriented x3, no acute distress, pleasant and cooperative Lungs: Respirations even and unlabored, symmetrical chest expansion Eyes: PERRL Musculoskeletal: Flexion and extension of lumbar [spine] somewhat guarded secondary to pain, [antalgic gait noted] Neurological: Speech clear, no gross sensory deficit Has patient had previous pain injection?: No Conservative treatment options previously tried: Home exercise plan Length of treatment: Longer than 12 weeks Meds Home Medications and Allergies Home Medications ?Medication ?Instructions ?Recorded ?Confirmed ?Type sumatriptan succinate 100 mg tablet See Rx Instruction s .Route 05/29/24 03/19/25 Rx .COMPLEX #9 tabs venlafaxine 150 mg See Rx Instructions .Route 1 11/27/23 03/19/25 Rx capsule,extended release 24 hr .COMPLEX #90 caps loratadine 10 mg tablet 10 mg PO DAILY #30 tabs 10/1203/19/25 Rx cariprazine 6 mg capsule (Vraylar) 6 mg PO DAILY #30 c aps 12/19/24 03/19/25 Rx baclofen 5 mg tablet See Rx Instructions .Route 0 01/11/25 03/19/25 Rx .COMPLEX #90 tabs atorvastatin 20 mg tablet 20 mg PO HS #90 tabs 5 03/19/25 Rx buspirone 30 mg tablet 30 mg PO TID #90 tabs 03/19/25 Rx levothyroxine 25 mcg tablet See Rx Instructions .Route 03/02/25 03/19/25 Rx .COMPLEX #30 tabs topiramate 100 mg tablet 100 mg PO BID #180 tabs 01/0203/19/25 Rx cyclobenzaprine 5 mg tablet 5 mg PO TID PRN muscle spa sm #42 03/19/25 Rx tabs New Prescriptions to Start Prescriptions: cyclobenzaprine Sally Nieto Allergies Allergy/AdvReac Type Severity Reaction Status Date / Time amoxicillin AdvReac Severe Diarrhea Verified 03/07/25 09:45 Assessment and Plan *Assessment and plan (1) Chronic right hip pain: Status: Acute Category: Medical Code(s): M25.551 - Pain in right hip; G89.29 - Other chronic pain (2) Degenerative joint disease (DJD) of lumbar spine: Status: Chronic Qualifiers: Spinal osteoarthritis complication: with radiculopathy Qualified Code(s): M47.26 - Other spondylosis with radiculopathy, lumbar region Category: Medical Code(s): M47.816 - Spondylosis without myelopathy or radiculopathy, lumbar region Plan I did discuss with patient due to the fact that she has been having heart related issues and is unsure whether or not she needs surgery or a that we would wait before trying additional injections. I will send in a new prescription of Flexeril 5 mg 3 times daily as needed. We will follow-up with the patient in 2 weeks following her supervisor enrobing appointments and proceed from then on. Patient agrees with this plan of care. Patient has been instructed to contact the clinic with any concerns before the next appointment. Dr. Briones has reviewed this note and agrees with this plan of care. This note was dictated using voice recognition software and make contain errors or omissions. All injections are used with Lidocaine, Bupivacaine and dexamethasone. Occasionally urine drug screen is needed to verify patient's compliance with our office pain contract. This is ordered based off specific treatments related to chronic pain with the potential to abuse certain medications.
== END 2025-03-19 23:59 | disposition home or self-care (01) ==
PROVIDERS: PCP Family Medicine; Visit Provider Nurse Practitioner Family
DX: M25.551 Pain in right hip (principal); G89.29 Other chronic pain; M47.816 Spondylosis without myelopathy or radiculopathy, lumbar region; Z79.899 Other long term (current) drug therapy
CPT/HCPCS: 99212; G0463

== ENCOUNTER 2025-03-19 15:30 | Outpatient (CLI) | payer MEDICAID, SELFPAY ==
--- OUTSIDE RECORDS SUMMARY | 2025-03-19 15:34 | XMS_ITS | Encounter Summary ---
Author Organization Healthcare Address [address] [place] [address] Care Team Providers Care Corrosion Control Specialist Name Role Phone 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 RED Primary Care Provider [phone]- [phone] Reason for Visit * Reason Onset Date Comments HCN Clinical Concern/Question 01/19/2025 Encounter Details Date Type Department Care Team (Late st Contact Info) Description 01/19/2025 Telephone [facility] [place] [address] [place] [address] None, None [address] [place] [address] HCN Clinical Concern/Question Social History Tobacco Use [...] request. Patients phone number was incorrect in [employer] and has since been updated. Best contact number: [phone] (mobile) Optimal time of day to reach [...] Info) Description 03/21/2025 9:30 AM EDT Consult [facility] [place] [address] [facility] [place] [address] Valdemar Orr MD [address] [place] [address] documented as of this encounter Visit Diagnoses Not on filedocumented in this encounter Care Teams Corrosion Control Specialist Relationship Specialty Start Date End Date 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 APRN [address] [place] [address] PCP - General 01/26/25 documented as of this encounter
--- OUTSIDE RECORDS SUMMARY | 2025-03-19 15:34 | XMS_ITS | Clinical Summary ---
Author Organization Healthcare Address [address] [place] [address] Care Team Providers Care Ring Packer Name Role Phone 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 TRAFFIC II MANAGER Primary Care Provider [phone]- [phone] Active Problems Problem Noted Date Diagnosed Date Patent foramen ovale 01/19/2025 Hypothyroidism 12/29/2024 Anxiety 10/25/2020 Asthma 10/25/2020 Bipolar disorder 10/25/2020 Hyperlipidemia 10/25/2020 Depressive disorder 10/25/2020 Migraine 10/25/2020 Encounters Date Type Department Care Team Description 01/19/2025 Telephone [facility] [place] [address] [facility] [address] [place] [address] None, None HCN Clinical Concern/Question from Last 3 Months Immunizations Immunization Administration Dates Next Due Hep B, adult 02/01/2023 Influenza, injectable, quadrivalent 07/28/2017 Influenza, injectable, quadrivalent, preservativ e free 07/30/2023 Influenza, seasonal, injectable 08/31/2016,10/31 Moderna COVID-19 Vaccine (Straight Pin Making Machine Operator) 12+ years Tdap 08/31/2016 Social History Tobacco Use Types Packs/Day Years Used Date Smoking Tobacco: Never Assessed Comments Unknown Sex and Gender Information Value Date Recorded Sex Assigned at Not on file Legal Sex Female 8:33 PM EDT Gender Identity Not on file Sexual Orientation Not on file Plan of Treatment Upcoming Encounters Date Type Department Care Team ([facility] st Contact Info) Description 03/21/2025 9:30 AM EDT Consult [facility] [address] [facility] [place] [address] Valdemar Orr MD [address] [place] [address] Health Maintenance Due Date Last Done Comments [...] 3 - 19+ 3-dose series) 03/01/2023 02/01/2023 EIN-ASXIA-03 Vaccine ( - season) 2024 07/30/2023, 03/28/2021, [...] Narrative SUNQUEST - 02/08/1997 12:00 AM EDT [facility] MR #: [id number] [facility] [place], [place] [address] 1975 (Age: 22) FW Collect Date: 01/30/1997 00:00 Receipt Date: 01/31/1997 00:00 Page 1 DEPARTMENT OF PATHOLOGY AND LABORATORY MEDICINE CYTOPATHOLOGY REPORT Email: [email or web address] * Converted Case * This report may not match the original report format ATTENDING MD/Practitioner: Uvaldo Padilla MD Service: [facility] Location: Reported: 02/08/1997 00:00 Collected: 01/30/1997 00:00 [...] results is suggested (please call Microbiology at [phone] for results). CLINICAL INFORMATION: Menstrual History: {Not Provided} Date of Last Menstrual Period: {Not Provided} SPECIMEN DESCRIPTION: A: CERVICAL/VAGINAL SMEAR, PAP ICD: F: {Not Entered} SNOMED CODES: 1; U4Z371 J63232 H35858 In cases where a pathologist has signed [...] [employer] [place] [employer] [place] Care Teams Ring Packer Relationship Specialty Start Date End Date 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 APRN [address] [place] [address] PCP - General 01/26/25
--- OUTSIDE RECORDS SUMMARY | 2025-03-19 15:34 | XMS_ITS | Clinical Summary ---
Author Organization [facility] Address [address] [place] [address] Phone Care Team Providers Care Television News Reporter Name Role Phone Unavailable Primary Care Provider [...] patient's age to complete this topic Insurance [facility]
--- NOTE | 2025-03-19 16:00 | MM_ITS ---
PROCEDURE INFORMATION: Exam: MG Bilateral Screening 3D Mammography Exam date and time: 03/19/2025 3:45 PM Age: 50 years old Clinical indication: Screening examination TECHNIQUE: Imaging protocol: Bilateral Screening tomosynthesis and 2D mammography including computer-aided detection (CAD) when performed. COMPARISON: No relevant prior studies available. FINDINGS: MAMMOGRAPHY: Breast composition: There are scattered areas of fibroglandular density. Mass: None. Architectural distortion: None. Calcifications: No suspicious calcifications. Asymmetric density: None. Skin thickening: None. Axillary adenopathy: None. IMPRESSION: No mammographic evidence of malignancy. Annual screening is recommended unless otherwise clinically indicated. ASSESSMENT: BI-RADS Category 1: Negative.
== END 2025-03-19 23:59 | disposition home or self-care (01) ==
LOC: RAD 15:30
PROVIDERS: PCP Family Medicine; Visit Provider Family Medicine
DX: Z12.31 Encounter for screening mammogram for malignant neoplasm of breast (principal); R92.323 Mammographic fibroglandular density, bilateral breasts
CPT/HCPCS: 77063; 77067

== ENCOUNTER 2025-04-02 15:00 | Outpatient (POV) | payer MEDICAID, SELFPAY ==
--- OUTSIDE RECORDS SUMMARY | 2025-03-21 09:30 | XMS_ITS | Encounter Summary ---
Author Organization Healthcare Address [address] [place] [address] Care Team Providers Care Cellophane Bag Machine Operator Name Role Phone 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 APRN Primary Care Provider [phone]- [phone] Reason for Referral * Consultation (Routine) - Authorized Specialty Diagnoses / Procedures Referred By Bart victor Referred To Contact Diagnoses Patent foramen ovale Lavinia Washburn APRN [address] [place] [address] Phone: tel: fax: Referral ID Status Reason Start Date Expiration Date V isits Requested Visits Authorized [id number] Authorized 03/21/2025 09/20/2026 1 1 Reason for Visit * Reason Comments Consult * Consultation (Routine) - Closed Specialty Diagnoses / Procedures Referred By Bart victor Referred To Contact Cardiology Diagnoses Other specified congenital malformations of heart 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 APRN [address] [place] [address] Phone: tel: fax: Valdemar Orr MD [address] [place] [address] Phone: tel: fax: Referral ID Status Reason Start Date Expiration Date V isits Requested Visits Authorized [id number] Closed Specialty Services Required 01/12/2025 07/14/2026 1 1 Encounter Details Date Type Department Care Team ([facility] st Contact Info) Description 03/21/2025 9:30 AM EDT Office Visit [facility] [place] [facility] [address] [place] [address] Valdemar Orr MD [address] [place] [address] Patent foramen ovale (Primary Dx) Social History Tobacco Use Types Packs/Day Years Used Date Smoking Tobacco: Every Day Cigarettes 1 35 Started: 03/21/1990 Smokeless Tobacco: Never Alcohol Use Standard Drinks/Week Comments Not Currently 0 (1 standard drink = 0.6 oz pur e alcohol) PHQ-2 Answer Date Recorded Patient Health Questionnaire-2 Score 0 03/21/2025 PHQ-9 Answer Date Recorded Patient Health Questionnaire-9 Score 0 03/21/2025 Comments Unknown Sex and Gender Information Value Date Recorded Sex Assigned at Not on file Legal Sex Female 8:33 PM EDT Gender Identity Not on file Sexual Orientation Not on file documented as of this encounter Last Filed Vital Signs Vital Sign Reading Time Taken Comments Blood Pressure 118/84 03/21/2025 9:37 AM EDT Pulse 89 03/21/2025 9:37 AM EDT Temperature - - Respiratory Rate - - Oxygen Saturation 98% 03/21/2025 9:37 AM EDT Inhaled Oxygen Concentration - - Weight 62.4 kg (137 lb 9.1 oz) 03/21/2025 9:37 A M EDT Height 149.9 cm (4' 11 ) 03/21/2025 9:37 AM EDT Body Mass Index 27.79 03/21/2025 9:37 AM EDT documented in this encounter Functional Status * Over the past 2 weeks, how often have you been bothered by any of the following problems? Question Answer Date of Assessment Author Little interest or pleasure in doing things Not at all 03/21/2025 9:37 AM ELIZABETHT Consuelo Mao Feeling down, depressed, or hopeless Not at all 03/21/2025 9:37 AM EDT Consuelo Mao Patient Health Questionnaire -2 Score 0 03/21/2025 9:37 AM EDT Consuelo Mao * Question Answer Date of Assessment Author Trouble falling or staying asleep, or sleeping too much Not at all 03/21/2025 9:37 AM Consuelo Wang Feeling tired or having lida le energy Not at all 03/21/2025 9:37 AM Consuelo Wang Poor appetite or overeating Not at all 03/21/2025 9: 37 AM Consuelo Wang Feeling bad about yourself - or that you are a failure or have let yourself or your family down Not at all 03/21/2025 9:37 AM Consuelo Coyle Trouble concentrating on thi ngs, such as reading the newspaper or watching television Not at all 03/21/2025 9:37 AM Consuelo Wang Moving or speaking so slowly that other people could have noticed? Or the opposite - being so fidgety or restless that you have been moving around a lot more than usual. Not at all 03/21/2025 9:37 AM Consuelo Wang Thoughts that you would be better off or hurting yourself in some way Not at all 03/21/2025 9:37 AM Consuelo Wang Patient Health Questionnaire -9 Score 0 03/21/2025 9:37 AM Consuelo Wang * If you checked off any problems on this questionnaire so far, Question Answer Date of Assessment Author How difficult have these problems made it for you to do your work, take care of things at home, or get along with other people? Not difficult at all 03/21/2025 9:37 AM Consuelo Wang documented as of this encounter Miscellaneous Notes * Progress Notes - Lavinia Washburn APRN - 03/21/2025 9:30 AM EDT Images from the original note were not included. Cardiology Consult Date of Visit 03/21/25 Referring Provider 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 APRN PCP 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 APRN History of Present Illness Today, Dr. Valdemar Orr and I saw Desire Blevins, a 50 y.o. female at [facility] [place] for consultation regarding PFO at the request of 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 APRN. PMH includes: HLD, migraines, hypothyroidism bipolar disorder, anxiety, current 1 ppd smoker Patient reports worsening migraines with aura, which have become more frequent, occurring about 2 xweek. Reports blurred vision, nausea and vomiting. Due to severity, she has had to call in and misswork. Never had a stroke or stroke-like symptoms. Does report bilateral hand numbness at times. Denies having any chest pain, heart palpitations, syncope, lower extremity edema, fatigue or orthopnea. Reports dyspnea with exertion, such as stairs. Patient continues to smoke 1 ppd. She has upcoming consult with Neurology at outside facility next month. Past Surgical History Surgical History[1] Family History Family History[2] Social History Social History[3] Current Medications Current Medications[4] Allergies Allergies[5] Review of Systems 14 point ROS negative except as listed in HPI. Vitals Visit Vitals BP 118/84 Pulse 89 Ht 1.499 m (4' 11 ) Wt 62.4 kg (137 lb 9.1 oz) SpO2 98% BMI 27.79 kg/m?? Physical Exam Vitals and nursing note reviewed. Constitutional: Appearance: Normal appearance. HENT: Head: Normocephalic and atraumatic. Cardiovascular: Rate and Rhythm: Normal rate and regular rhythm. Pulses: Normal pulses. Heart sounds: Normal heart sounds. Pulmonary: Effort: Pulmonary effort is normal. Breath sounds: Normal breath sounds. Musculoskeletal: General: Normal range of motion. Cervical back: Normal range of motion. Skin: General: Skin is warm and dry. Capillary Refill: Capillary refill takes less than 2 seconds. Neurological: Mental Status: She is alert and oriented to person, place, and time. Psychiatric: Mood and Affect: Mood normal. Behavior: Behavior normal. Lab Review No results found for: WBC , RBC , HGB , HCT , LABPLAT Lab Results Component Value Date/Time GLUCOSE 88 06/26/2022 1541 BUN 7 06/26/2022 1541 CREATININE 0.58 06/26/2022 1541 NA 141 06/26/2022 1541 K 3.5 06/26/2022 1541 CL 107 06/26/2022 1541 ASSESSMENT AND PLAN Visit Diagnoses and Orders 1. Patent foramen ovale Follow Up Cardiology IMPRESSION and PLAN: #PFO - PFO noted Echo - no history of stroke or DVT - worsening migraines - no indication to close PFO at this time - follow up after Neurology consult FOLLOW UP: 3 months, after Neurology consult A total time of 35 minutes was spent by MD and ELMER addressing the current illness, reviewing records (prior imaging, lab work, etc), and formulating a plan. The patient is agreeable to the plan and all pertinent questions were answered. The patient's cardiac evaluation was discussed with Dr. Valdemar Orr who agrees with the plan. 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 APRN, thank you for the consultation. Please do not hesitate to contact us with any questions. Lavinia Washburn APRN [1] History reviewed. No pertinent surgical history. [2] Family History Problem Relation Name Age of Onset Hypertension Mother [3] Social History Tobacco Use Smoking status: Every Day Current packs/day: 1.00 Average packs/day: 1 pack/day for 35.0 years (35.0 ttl pk-yrs) Types: Cigarettes Start date: 03/21/1990 Smokeless tobacco: Never Substance Use Topics Alcohol use: Not Currently Drug use: Never [4] Current Outpatient Medications: atorvastatin (Lipitor) 20 MG tablet, Take 1 tablet by mouth daily., Disp: , Rfl: busPIRone (Buspar) 30 MG tablet, Take 1 tablet by mouth 3 times a day., Disp: , Rfl: celecoxib (CeleBREX) 200 MG capsule, Take 1 capsule by mouth 1 time each day., Disp: , Rfl: levothyroxine (Synthroid, Levoxyl) 25 MCG tablet, Take 1 tablet by mouth daily., Disp: , Rfl: loratadine (Claritin) 10 MG tablet, Take 1 tablet by mouth daily., Disp: , Rfl: Qulipta 60 MG tablet, Take 60 mg by mouth daily., Disp: , Rfl: SUMAtriptan (Imitrex) 100 MG tablet, Take 1 tablet by mouth 1 time as needed for migraine., Disp: ,Rfl: topiramate (Topamax) 100 MG tablet, Take 1 tablet by mouth 2 times a day., Disp: , Rfl: Ubrelvy 100 MG tablet, Take 1 tablet by mouth 1 time as needed for migraine., Disp: , Rfl: Vraylar 6 MG capsule, Take 1 capsule by mouth daily., Disp: , Rfl: [5] No Known Allergies documented in this encounter Plan of Treatment Upcoming Encounters Date Type Department Care Team (Late st Contact Info) Description 05/16/2025 9:15 AM EDT Office Visit [facility] [place] [facility] [address] [place] [address] Valdemar Orr MD [address] [place] [address] Scheduled Referrals Name Type Priority Associated Diagnoses Order Schedule Follow Up Cardiology Outpatient Referral Routine Patent foramen ovale Expected: 05/20/2025 (Approximate), Expires: 09/20/2026 documented as of this encounter Visit Diagnoses Diagnosis Patent foramen ovale- Primary Ostium secundum type atrial septal defect documented in this encounter Additional Health Concerns Assessment Noted Time PHQ-9 Depression Total Score: 0 03/21/20 9:37 AM EDT A fall risk assessment has been complete d for the patient 03/21/2025 9:37 AM EDT A Body Mass Index follow-up plan has been documented for the patient 03/21/2025 10:16 AM EDT documented as of this encounter Care Teams Cellophane Bag Machine Operator Relationship Specialty Start Date End Date 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 APRN [address] [place] [id number] PCP - General 01/26/25 documented as of this encounter
--- OUTSIDE RECORDS SUMMARY | 2025-04-02 15:03 | XMS_ITS | Clinical Summary ---
Author Organization Healthcare Address [address] [place] [address] Care Team Providers Care Sales Systems Engineer Name Role Phone 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 RED Primary Care Provider +1- [phone] Allergies No known active allergies Medications Qulipta 60 MG tablet Take 60 mg by mouth daily. Active atorvastatin (Lipitor) 20 MG tablet Take 1 tablet by mouth daily. Active busPIRone (Buspar) 30 MG tablet Take 1 tablet by mouth 3 times a day. Active Vraylar 6 MG capsule Take 1 capsule by mouth daily. Active celecoxib (CeleBREX) 200 MG capsule Take 1 capsule by mouth 1 time each day. Active levothyroxine (Synthroid, Levoxyl) 25 MCG tablet Take 1 tablet by mouth daily. Active loratadine (Claritin) 10 MG tablet Take 1 tablet by mouth daily. Active SUMAtriptan (Imitrex) 100 MG tablet Take 1 tablet by mouth 1 time as needed for migraine. Active topiramate (Topamax) 100 MG tablet Take 1 tablet by mouth 2 times a day. Active Ubrelvy 100 MG tablet Take 1 tablet by mouth 1 time as needed for migraine. 07/30/2024 Active Active Problems Problem Noted Date Diagnosed Date Patent foramen ovale 01/19/2025 Hypothyroidism 12/29/2024 Anxiety 10/25/2020 Asthma 10/25/2020 Bipolar disorder 10/25/2020 Hyperlipidemia 10/25/2020 Depressive disorder 10/25/2020 Migraine 10/25/2020 Encounters Date Type Department Care Team Description 03/21/2025 9:30 AM EDT Office Visit [facility] [place] [address] [phone] Valdemar Orr MD Patent foramen ovale (Primary Dx) 03/21/2025 Travel 01/19/2025 Telephone [facility] [address] [phone] None, None [facility]CN Clinical Concern/Question from Last 3 Months Immunizations Immunization Administration Dates Next Due Hep B, adult 02/01/2023 Influenza, injectable, quadrivalent 07/28/2017 Influenza, injectable, quadrivalent, preservativ e free 07/30/2023 Influenza, seasonal, injectable 08/31/2016,10/31 Moderna COVID-19 Vaccine (Gravity Prospecting Operator Helper) 12+ years Tdap 08/31/2016 Family History Medical History Relation Name Comments Hypertension Mother Relation Name Status Comments Mother Social History Tobacco Use Types Packs/Day Years [...] on file Sexual Orientation Not on file Last Filed Vital Signs Vital Sign Reading [...] Mass Index 27.79 03/21/2025 9:37 AM EDT Plan of Treatment Upcoming Encounters Date Type Department Care Team (Late st Contact Info) Description 05/16/2025 9:15 AM EDT Office Visit [facility] [place] [address] [place] [address] Valedmar Orr MD [address] [place] [phone] Health Maintenance Due Date Last Done Comments [facility]-HIV Screening 1975 [facility]-Hepatitis C Screening 1975 [...] 3 - 19+ 3-dose series) 03/01/2023 02/01/2023 [id number] Vaccine ( - season) 2024 07/30/2023, 03/28/2021, 02/28/2021 [facility]-Breast Cancer Screening 2025 [facility]-Lung Cancer Screening 2025 [facility]-Zoster Vaccines (1 of 2) 2025 [facility]-Influenza Vaccine (Season Ended) 2025 07/30/2023, 07/28/2017, 08/31/2016, Additional history exists [facility]-Depression Screening 03/21/2026 03/21/2025, 03/11 [facility]-DTaP,Tdap,and Td Vaccines (2 - Td or Tdap) 08/31/2026 08/31/2016 [facility]-Obesity Intervention Completed 03/21/2025 HPV Vaccines Aged Out No longer eligi [...] Narrative SUNQUEST - 02/08/1997 12:00 AM EDT [facility] MR #: [id number] [facility] [place] [address] 1975 (Age: 22) FW Collect Date: 01/30/1997 00:00 Receipt Date: 01/31/1997 00:00 Page 1 DEPARTMENT OF PATHOLOGY AND LABORATORY MEDICINE CYTOPATHOLOGY REPORT Email: [email or web address] * Converted Case * This report may not match the original report format ATTENDING MD/Practitioner: Uvaldo Padilla MD Service: [facility] Location: Reported: 02/08/1997 00:00 Collected: 01/30/1997 00:00 [...] results is suggested (please call Microbiology at [phone] for results). CLINICAL INFORMATION: Menstrual History: {Not Provided} Date of Last Menstrual Period: {Not Provided} SPECIMEN DESCRIPTION: A: CERVICAL/VAGINAL SMEAR, PAP ICD: F: {Not Entered} SNOMED CODES: 1; [id number] In cases where a pathologist has signed out the report, the service has been rendered in part by a resident. The signing pathologist has performed and is responsible for the reported pathologic evaluation. us Historical Provider MD LAB PATHOLOGY ORDERABLES Final Result SUNQUEST from Last 3 Months or Most Recently Relevant to Health Maintenance Insurance [facility] Care Teams Sales Systems Engineer Relationship Specialty Start Date End Date 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 APRN [address] [place] [id number] PCP - General 01/26/25
--- OUTSIDE RECORDS SUMMARY | 2025-04-02 15:03 | XMS_ITS | Data Portability ---
Author Organization [facility] Address [address] [place] [address] Assessment Encounter Date Assessment Date Assessment LastModified by Organization Details LastModified Time 10/25/2020 10/25/2020 BSE reviewed and recommended . Reviewed calcium needs, exercise, and prevention of osteoporosis . Reviewed normal perimenopausal transition . Mammogram recommended yearly . Colonoscopy recommended at age 50. [email or web address] Not available 10/25/2020 09:33:55 Plan of Treatment Reminders Order Date Submit Date Provider Last Modified By Organization Details Last Modified Time Details Appointments None recorded. Lab rapid strep group A, throat 2024 025 [facility], [address] [place] [address], [id number], 5 14:29:02 rapid SARS CoV + SARS CoV 2 Ag, QL IA, respiratory specimen 2024 025 [facility], [address] [place] [address], [phone], 5 14:29:02 rapid flu (A+B) [address] [place] [address], [address] [place] [address], [phone], 5 14:29:02 HbA1c (hemoglobin A1c), blood [address] [place] [address], 45 [facility], [place], [address], 5 16:18:35 Referral neurologist referral 2024 025 KRYSTAL Wilkinson MD, [address] [facility], [place], [address], 5 04:01:51 Procedures None recorded. Surgeries None recorded. Imaging US, echocardiog lauren - bubble study r/o pfo 2024 025 [facility] ([facility]), [address] [facility] [address], [place], [address], 5 21:00:31 MAMMO, screening, digital, bilateral 2020 021 [email or web address] [facility] (Centralized Scheduling), [address] [place] [address] , [place], [address], 2 09:58:54 Medication Orders nystatin 100,000 unit/mL oral suspension 2024 025 [facility], [address], [address], 5 15:00:14 prednisone 20 mg tablet 2024 025 [facility], [address], [address], 5 15:00:14 Zithromax Z-Jayy 250 mg tablet 2024 025 [facility], [address] [place] [address], [address], 5 14:29:08 fluticasone propionate 50 mcg/actuati on nasal spray,suspe nsion 2024 025 [facility], [address], [address], 5 14:29:07 cefdinir 300 mg capsule 2024 025 [facility], [address], [address], 5 13:43:45 Nurtec ODT 75 mg disintegrat ing tablet 2024 025 [facility], [address], [address], 5 15:47:12 estradiol 0.5 mg tablet 2020 021 [email or web address] [id number] [facility], [address], [address], 10:09:38 Patient TargetsNo targets recorded. Patient Instructions Encounter Date Encounter Id Patient Instructions Last Modified By Organization Details Last Modified Time 10/25/2020 [id number] Quitting Tobacco : Care Instructions [email or web address] Not available 10/25/2020 09:47:39 medical record request* [...] A1c), blood HbA1C 5.3 % Not Available [address], [address], 01/19/2025 16:08:22 03/27/20 25 03/27/2025 rapid flu (A+B) Flu negati ve Not Available [address], [address], 03/27/2025 14:19:54 03/27/20 25 03/27/2025 rapid flu (A+B) Type Both A & B Not Available [address], [address], 03/27/2025 14:19:54 03/27/20 25 03/27/2025 rapid SARS CoV + SARS CoV 2 Ag, QL IA, respi rator y speci men SARS CoV antigen Negati ve Not Available [address], [address], 03/27/2025 14:19:45 03/27/20 25 03/27/2025 rapid strep group A, throa t Strep negati ve Not Available [address], [address], 03/27/2025 14:19:35 03/27/20 25 03/27/2025 rapid strep group A, throa t Culture No Not Available [address], [address], 03/27/2025 14:19:35 01/10/20 25 01/09/2025 MRI, brain , w/wo contr ast No observ ation record ed. [place] [id number], [place], [address], 01/09/2025 17:07:46 01/10/20 25 01/09/2025 US, echoc ardio gram No observ [facility] [address], [place], [address], 01/11/2025 12:24:13 01/12/20 25 01/09/2025 US, echoc ardio gram No observ ation record ed. [facility] [address], [place], [address], 01/11/2025 09:33:53 01/31/20 25 01/30/2025 XR, chest , 2 view No observ ation record ed. [facility] [address], [place], [address], 02/02/2025 09:54:37 Result Notes None recorded. Problems Name Problem SNOMED Code Status Onset Date Resolution Date Notes Provider Name and Address Organization Details Recorded Time Bipolar disorder 71144826 Active 2020 Jasmina Frye null, [place] - [facility] 09:15:02 Asthma 755411684 Active 2020 Jasmina Frye [place], [place] - [facility] 09:15:08 Hyperlipidemi a 07801265 Active 2020 Jasmina Frye [place], [place] - [facility] 09:15:15 Depressive disorder 03033528 Active 2020 Jasmina Frye [place], [place] - [facility] 09:15:22 Anxiety 03911196 Active 2020 Jasmina Frye [place], [place] - [facility] 09:15:30 Migraine 05326691 Active 2020 Jasmina Frye [place], [place] - [facility] 09:15:42 Hypothyroidis m 89575564 Active 2024 Lana Edy null, [place] - [facility] 5 11:50:11 Patent foramen ovale 962271344 Active 2024 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, DIRECTOR SERVICE [address], [place], [address] , [place] - [facility] 5 16:20:14 Problem Notes None recorded. Procedures Surgical History Date Name Laterality Status Provider Name and Address Organization Details Recorded Time 10/25/19 21 Systolic B/P less than 130 mm Hg completed Jasmina Frye [place] - [facility] 10/25/2020 09:27:20 10/25/19 21 Diastolic B/P less than 80 mm Hg completed Jasmina Frye [place] - [facility] 10/25/2020 09:27:23 11/09/19 12 Hysterectomy completed Cathy Logan, DIRECTOR SERVICE [address], [place], [address], [place] - [facility] 01/20/2021 16:20:51 11/09/19 12 excision of bilateral fallopian tubes and ovaries completed Cathy LoganRED [address], [place], [address], [place] - [facility] 01/20/2021 16:28:55 06/12/20 08 laser surgery completed Jasmina CAPUTO - [facility] 10/25/2020 09:11:01 12/11/19 02 Cholecystectomy, laparoscopic completed Jasmina CAPUTO - [facility] 10/25/2020 09:12:05 01/13/20 00 section completed Jasmina CAPUTO - [facility] 10/25/2020 09:12:17 05/13/19 93 section completed Jasmina CAPUTO - [facility] 10/25/2020 09:12:26 Colposcopy completed Jasmina CAPUTO - [facility] 10/25/2020 09:19:24 LEEP completed Jasmina CAPUTO - [facility] 10/25/2020 09:19:31 Imaging Results None recorded. Procedure Notes None recorded. Medical Equipment None Reported. Allergies No known drug allergies Medications Name Sig Start Date Stop Date Status Note LastModified by Organization Details LastModified Time eq allergy relf d 10-240mg tab TAKE 1 TABLET BY MOUTH ONCE DAILY 12/29 completed Not Available Not Available Not Available nm vitamin d3 jackie 1000iu cap TAKE 1 CAPSULE BY MOUTH ONCE DAILY ADMINIST ER WITH MEAL 10/25 completed Not Available Not Available Not Available amantadin e HCl 100 mg tablet 12/29 completed Not Available Not Available Not Available quetiapin e 25 mg tablet TAKE 1 TABLET BY MOUTH TWICE DAILY 03/27 completed Not Available Not Available Not Available celecoxib 200 mg capsule TAKE 1 [...] 1 TABLET BY MOUTH THREE TIMES DAILY 03/27 completed Not Available Not Available Not Available buspirone 5 mg tablet TAKE 1 TABLET BY MOUTH THREE TIMES DAILY 02/27 completed Not Available Not Available Not Available promethaz ine-DM 6.25 mg-15 mg/5 mL oral syrup TAKE 5 ML BY MOUTH EVERY 6 HOURS NEEDED FOR COUGH 12/29 completed Not Available Not Available Not Available nystatin 100,000 unit/mL oral suspensio n Take 5 mL 4 times a day by oral route for 10 days. 2024 active Not Available Not Available Not Avai lable venlafaxi ne ER 75 mg capsule,e xtended [...] BY MOUTH ONCE NEEDED FOR MIGRAINE HEADACHE 03/27 completed Not Available Not Available Not Available meloxicam 15 mg tablet TAKE 1 [...] Not Available prednison e 20 mg tablet Take 1 tablet twice a day by oral route for 5 days. 2024 active Not Available Not Available Not Avai lable Zithromax Z-Jayy 250 mg tablet TAKE 2 TABLETS (500 MG) BY ORAL ROUTE ONCE DAILY FOR 1 DAY THEN 1 TABLET (250 MG) BY ORAL ROUTE ONCE DAILY FOR 4 DAYS 2024 active Not Available Not Available Not Avai lable venlafaxi ne ER 150 mg capsule,e xtended [...] TAKE 1 TABLET BY MOUTH TWICE DAILY 03/27 completed Not Available Not Available Not Available [...] 2:08PM;U ser: meeses;I ndicatio n: Pain - (72.1399 00) Not Available Not Available Not Available levofloxa [...] 8 HOURS NEEDED FOR NAUSEA AND VOMITING 03/27 completed Not Available Not Available Not Available cefdinir 300 mg capsule TAKE 1 CAPSULE BY MOUTH EVERY 12 HOURS FOR 7 DAYS 03/27 completed Not Available Not Available Not Available topiramat e 100 mg tablet TAKE 1 TABLET BY MOUTH TWICE DAILY active Not Available Not Available No t Available fluticaso ne propionat e 50 mcg/actua tion nasal spray,hema pension [place] 1 spray every day by intranas al route. 2024 active Not Available Not Available Not Avai lable doxycycli ne hyclate 100 mg tablet TAKE 1 TABLET BY MOUTH TWICE DAILY FOR 10 DAYS 03/27 completed Not Available Not Available Not Available dicyclomi ne 10 mg capsule TAKE [...] Status: Recorded on: 01/09/20 11:33AM; User: Amish yLons on: 02/08/20 09;Print ed: 01/09/20 09 Not Available Not Available Not Available Vitamin D3 25 mcg (1,000 unit) capsule TAKE 1 CAPSULE BY MOUTH ONCE DAILY WITH MEALS active Not Available Not Available No t Available cyclobenz aprine 5 mg tablet TAKE 1 TABLET BY MOUTH THREE TIMES DAILY NEEDED FOR MUSCLE SPASM 03/27 completed Not Available Not Available Not Available topiramat e 50 mg tablet TAKE 1 TABLET BY MOUTH TWICE DAILY 12/29 completed Not Available Not Available Not Available pregabali n 75 mg capsule TAKE 1 CAPSULE BY MOUTH TWICE DAILY FOR PAIN 12/29 completed Not Available Not Available Not Available pregabali n 150 mg capsule TAKE 1 CAPSULE BY MOUTH TWICE DAILY 03/27 completed Not Available Not Available Not Available varenicli ne tartrate 0.5 mg (11)-1 [...] completed Not Available Not Available Not Available [facility] ODT 75 mg disintegr ating tablet active Not Available Not Available Not Available Ajovy 225 mg/1.5 mL subcutane ous auto-inje ctor INJECT 1 AUTO-INJ KOKO SUBCUTAN EOUSLY ONCE EVERY MONTH 12/29 completed Not Available Not Available Not Available Qulipta 60 mg tablet TAKE 1 TABLET BY MOUTH ONCE DAILY 03/27 completed Not Available Not Available Not Available Vitals Date Recorded Body weight Body mass index (BMI) Body height Systolic blood pressure Diastolic blood pressure Provider Name and Address Organization Details Last Updated DateTime 10/25/2020 00386.34 g 28.1 kg/m2 149.86 cm 103 mm[Hg] 71 mm[Hg] Jasmina Frye [place] - [facility] 09:26:58 Date Recorded Body weight Body mass index (BMI) Body height Respiratory rate Body temperature Heart rate Oxygen saturation Oxygen saturation in Arterial blood by Pulse oximetry Systolic blood pressure Diastolic blood pressure Provider Name and Address Organization Details Last Updated DateTime 5 58219.0 8 g 29.7 kg/m2 149.86 cm 18 [...] /min 118 mm[Hg] 82 mm[Hg] Desire [place] - [facility] 5 15:41:59 Date Recorded Body height Body mass index (BMI) Body weight Heart rate Oxygen saturation Oxygen saturation in Arterial blood by Pulse oximetry Respiratory rate Systolic blood pressure Diastolic blood pressure Provider Name and Address Organization Details Last Updated DateTime 5 149.86 cm 27.7 kg/m2 47569.2 5 g 68 /min 98 % 98 % 18 /min 128 mm[Hg] 82 mm[Hg] Desire [place] - [facility] 5 13:49:46 Date Recorded Body height Body mass index (BMI) Body weight Heart rate Oxygen saturation Oxygen saturation in Arterial blood by Pulse oximetry Respiratory rate Systolic blood pressure Diastolic blood pressure Provider Name and Address Organization Details Last Updated DateTime 5 149.86 cm 27.7 kg/m2 30133.1 5 g 89 /min 98 % 98 % 18 /min 110 mm[Hg] 70 mm[Hg] Desire [place] - [facility] 5 14:22:26 Social History Question Answer Notes LastModified by Organizat ion Details LastModified Time Tobacco Smoking Status Current Every Day Smoker Lana Cainyazan [facility], [place] - [facility] 12/29/2024 11:51:28 Do You Have An Advance Directive? No [email or web address] Information not available 10/25/2020 Are You Blind Or Do You Have Difficulty Seeing? No Information not available 12/29/2024 Is Blood Transfusion Acceptable In An Emergency? Yes Information not available 10/25/2020 What Is Your Level Of Caffeine Consumption? Heavy Information not available 12/29/2024 How Much Tobacco Do You Chew? None [email or web address] Information not available 10/25/2020 Are You Deaf Or Do You Have Serious Difficulty Hearing? No Information not available 12/29/2024 What Type Of Diet Are You Following? REGULAR [email or web address] Information not available 10/25/2020 Which Illicit Or Recreational Drugs Have You Used? None [email or web address] Information not available 10/25/2020 What Is The Highest Grade Or Level Of School You Have Completed Or The Highest Degree You Have Received? [id number] Information not available 12/29/2024 Have There Been Any Changes To Your Family Or Social Situation? No Information not available 12/29/2024 Live Alone Or With Others? With Others With Mom And Son [email or web address] Information not available 10/25/2020 Do You Have A Medical Power Of Certified Legal Investigator? No Information not available 12/29/2024 What Was The Date Of Your Most Recent Tobacco Screening? 12/29/2024 Information not available 12/29/2024 How Many Children Do You Have? 2 [email or web address] Information not available 10/25/2020 What Is Your Current Pack Years? 30ormorepac kyears Information not available 12/29/2024 Performs Monthly Self-breast Exam? No [email or web address] Information not available 10/25/2020 What Is Your Relationship Status? [email or web address] Information not available 10/25/2020 Seat Belts Used Routinely Yes [email or web address] Information not available 10/25/2020 Are You Sexually Active? No 2018 Due To Passing Of Stroke Information not available 12/29/2024 Do You Have Smoke And Carbon Monoxide Detectors In Your Home? Yes Information not available 12/29/2024 At What Age Did You Start Smoking Tobacco? 16 Information not available 12/29/2024 How Much Tobacco Do You Smoke? 2 PPD [email or web address] Information not available 10/25/2020 General Stress Level Low Information not available 10/25/2020 Do You Use Sunscreen Routinely? No [email or web address] Information not available 10/25/2020 Has Tobacco Cessation [...] used smokeless tobacco? Never used smokeless tobacco Information not available 10/25/2020 Are you currently employed? Yes [email or web address] Information not available 10/25/2020 Do you have transportation difficulties? No Information not available 12/29/2024 Urinary incontinence assessment performed? Yes [email or web address] Information not available 10/25/2020 Are you able to care for yourself? Yes Information n ot available 12/29/2024 Do you have difficulty dressing or bathing? No Information not available 12/29/2024 Do you or have you ever used e-cigarettes or vape? Never used electronic cigarettes [email or web address] Information not available 10/25/2020 What is your exercise level? None [email or web address] Information not available 10/25/2020 Do you use any illicit or recreational drugs? No Information not available 12/29/2024 Do you or have you ever used any other forms of tobacco or nicotine? No Information not available 12/29/2024 What is your level of alcohol consumption? None Information not available 10/25/2020 Are you able to walk? YESWOREST [email or web address] Information not available 10/25/2020 Do you have difficulty doing errands alone? 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 [id number] Information not available 12/29/2024 Do you have difficulty concentrating, remembering or making decisions? No Information no t available 12/29/2024 Family History Relationship Description Onset Age of this Age Resolved Age Notes LastModified by Organization Details LastModified Time Daughter Polycystic ovary syndrome [email or web address] Not available 10/25 09:17:36 Paternal Uncle Diabetes mellitus [email or web address] Not available 10/25 09:17:46 Paternal Aunt Malignant neoplasm of lung [email or web address] Not available 10/25 09:18:07 Paternal Aunt Malignant tumor of breast [email or web address] Not available 10/25 09:18:15 Maternal Aunt Malignant neoplasm of bone [email or web address] Not available 10/25 09:18:46 Medical History Condition [...] colitis N Cerebrovascular Disease N Depression N Guillain-[place] N Sleep Apnea N Aneurysm N Bronchitis [...] virus, trivalent, preservative 9 completed Not Available [facility] 03/30/2025 13:52:29 Tdap 6 completed Not Available [facility] 03/30/2025 13:52:29 Influenza, split virus, trivalent, preservative 6 completed Not Available [facility] 03/30/2025 13:52:29 Influenza, split virus, quadrivalent, preservative 7 completed Not Available [facility] 03/30/2025 13:52:29 COVID-19, mRNA, LNP-S, PF, 100 mcg/0.5mL dose or 50 mcg/0.25mL dose 1 completed Not Available [facility] 03/30/2025 13:52:29 COVID-19, mRNA, LNP-S, PF, 100 mcg/0.5mL dose or 50 mcg/0.25mL dose 1 completed Not Available [facility] 03/30/2025 13:52:29 Hep B, adult 3 completed Not Available [facility] 03/30/2025 13:52:29 Influenza, split virus, quadrivalent, PF 3 completed Not Available [facility] 03/30/2025 13:52:29 COVID-19, mRNA, LNP-S, PF, 50 mcg/0.5 mL 3 completed Not Available [facility] 03/30/2025 13:52:29 Influenza, split virus, quadrivalent, preservative 0 completed [place] - [facility] 10/25/2020 09:14:55 Past Encounters Encounter ID Performer Location Encounter Start Date Encounter Closed Date Diagnosis/Indication Diagnosis SNOMED-CT Code Diagnosis ICD10 Code Diagnosis Note [id number] RED Schofield REFERRAL RN 927 [facility] [place] [address] 10/25/2020 09:01:42 10/25/2020 09:59:18 Routine gynecologic examination done 9460544694 9101 Z01.419 Depression screening 171 809292 Z13.89 PHQ-9 completed today. Diet education 01058740 Z71.3 Counseling 611468889 Z71 .82 Exercise counseljeny conte Patient encouraged to exercise 30 minutes 5 days a week. Examinatio n of blood pressure 358687656 Z01.30 Vaccine de clined by patient 2055556173 02 Z28.21 Pt declined flu vaccine today. History of total hysterectomy 128209897 Z90.710 Hormone re placement therapy 994322715 Z79.890 Patient advised of the risks and benefits associated with HRT. Patient will report any new or worsening symptoms. Screening mammography 24 916280 Z12.31 Vaginal dryness 42304867 N89.8 Will proceed with oral E2. If this does not help, will add PVC at her F/U appt. Tobacco user 077137964 Z 72.0 [id number] 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 [address] [address] 12/29/2024 11:20:07 12/29/2024 12:09:05 Migraine 56149719 G43.909 stop qulipta Heart murmur 43309843 R0 1.1 [id number] 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 [address] [address] 01/19/2025 15:14:28 01/19/2025 16:13:45 Body mass index 30+ - obesity 564521719 E66.9 Acute maxi llary sinusitis 12404556 J01.00 Diarrhea 31359055 R19.7 valerie dietif no improvemen t will need stool sample [id number] 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 [address] [address] 03/27/2025 13:35:16 03/27/2025 14:20:26 Acute maxillary sinusitis 52357941 J01.00 Supportive care reviewed: raising HOB, humidifier use, saline nasal spray, rest, encourage PO fluids and monitor hydration status, infection control measures. Recommende d acetaminop hen/ibupro fen PRN pain, fever Follow-up as needed if no improvemen t or worsening [id number] 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 APRN [facility] [address] [place] [address] 03/30/2025 13:51:27 03/30/2025 14:30:11 Acute bronchitis 24693127 J20.9 steroidsco ntinue medsif worsen or no improvemen t return Candidiasis of mouth 797 04100 B37.0 Health Concerns Section Related Observation LastModified by Organization Detai ls LastModified Time None Recorded Concern Status LastModified by Organization Details LastModified Time None Recorded Advance Directives Directive N: Payers Insurance Date Sequence Insurance Name Policy Number Policy Barrow Covered Member ID Barrow Member ID Guarantor Name 02/01/2025 2 [place] [employer] [place]TRADITION [place] Desire Blevins [id number] Desire Blevins 12/29/2024 1 [facility] (MEDICARE HMO) Desire Blevins [id number] Desire Blevins 02/01/2025 1 [facility] (MEDICAID REPLACEMENT - HMO) Desire Blevins [id number] Desire Blevins 03/27/2025 [place] [facility] (MEDICAID) Desire Blevins [id number] Desire Blevins 03/27/2025 1 [facility] (MEDICAID REPLACEMENT - HMO) Desire Blevins [id number] Desire Blevins Notes Date Note Type Note [...] greater than three years since her last [facility] visit), for an annual exam. Her previous annual exam was several years ago with an outside provider.She is surgically menopausal. She has had a TLH with unknown ovarian status in [place], [place] for endometriosis. She has never used [...] by our practice or needing refills. Cathy Logan, RED [address], [place], [address], [place] - [facility] 10/25/2020 09:48:51 12/29/2024 text/html [...] half 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 APRN [address], [place], [address], [place] - [facility] 12/29/2024 15:47:53 01/19/2025 text/html [...] sinuses. 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 APRN [address], [place], [address], [place] [facility] 01/19/2025 16:20:26 03/27/2025 text/html 50 yr old female presents with sore throat, cough, green sinus drainage,tendernes s and sinus pressure. Patient had fever of 102 last night. Reports mild muscle aches, and neck pain. no ill contacts 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 APRN [address], [place], [address], [place] [facility] 03/27/2025 14:29:30 03/30/2025 text/html 50 yr old female presents with right ear pain, states she isn't getting much better. She is on a z pack. 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, DIRECTOR SERVICE [address], [place], [address], [facility] - [facility] 03/30/2025 15:01:30 OBGyn Episode No OBEpisode recorded.
--- OUTSIDE RECORDS SUMMARY | 2025-04-02 15:03 | XMS_ITS | Continuity of Care Document ---
Author Organization [facility] Address [address] [place] [address] Assessment No assessment recorded. Plan of Treatment Reminders Order Date Submit Date Provider Last Modified By Organization Details Last Modified Time Details Appointments None recorded. Lab None recorded. Referral None recorded. Procedures None recorded. Surgeries None recorded. Imaging None recorded. Medication Orders nystatin 100,000 unit/mL oral suspension [address] [facility] 591, [address], [address], 5 15:00:14 prednisone 20 mg tablet [address] [facility] 5[facility], [address], [address], 5 15:00:14 Patient TargetsNo targets recorded. Patient InstructionsNo instructions recorded. Reason for Referral None Reported. Problems Name Problem SNOMED Code Status Onset Date Resolution Date Notes Provider Name and Address Organization Details Recorded Time Bipolar disorder 36444564 Active 2020 Jasmina bhatti, [place] - [facility] 09:15:02 Asthma 123651272 Active 2020 Jasmina bhatti, [place] - [facility] 09:15:08 Hyperlipidemi a 40928433 Active 2020 Jasmina bhatti, [place] - [facility] 09:15:15 Depressive disorder 82529048 Active 2020 Jasmina bhatti, [place] - [facility] 09:15:22 Anxiety 62687498 Active 2020 Jasminacecil Frye null, [place] - [facility] 09:15:30 Migraine 58158838 Active 2020 Jasminacecil Frye null, [place] - [facility] 09:15:42 Hypothyroidis m 14116514 Active 2024 Lana Snow null, [place] - [facility] 5 11:50:11 Patent foramen ovale 675360203 Active 2024 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, [employer] [address], [place], [address] , [place] - [facility] 5 16:20:14 Problem [...] 10/25/2020 09:27:23 11/09/19 12 Hysterectomy completed Cathy Logan APRN [address], [place], [address], [place] [facility] 01/20/2021 16:20:51 11/09/19 12 excision of bilateral fallopian tubes and ovaries completed Cathy Logan APRN [address], [place], [address], [place] [facility] 01/20/2021 16:28:55 06/12/20 08 laser surgery completed Jasmina Frye [place] - [facility] 10/25/2020 09:11:01 12/11/19 02 Cholecystectomy, laparoscopic completed Jasmina CAPUTO - [facility] 10/25/2020 09:12:05 01/13/20 00 section completed Jasmina Frye [place] - [facility] 10/25/2020 09:12:17 05/13/19 93 section completed Jasmina Frye [place] - [facility] 10/25/2020 09:12:26 Colposcopy completed Jasmina Frye [place] - [facility] 10/25/2020 09:19:24 LEEP completed Jasmina Frye [place] [facility] 10/25/2020 09:19:31 Imaging Results None [...] 2:08PM;U ser: meeses;I ndicatio n: Pain - (50.1656 00) Not Available Not Available Not Available [...] e 50 mcg/actua tion nasal spray,hema pension [place] 1 spray every day by intranas al [...] mg/24 hr;Recor ded Status: Recorded on: 01/09/20 09 11:33AM; User: Amish smithArnoldo Sae on: 02/08/20 09;Print ed: 01/09/20 09 Not [...] completed Not Available Not Available Not Available [facility] ODT 75 mg disintegr ating tablet active Not Available Not Available Not Available Ajovy 225 mg/1.5 mL subcutane ous auto-inje ctor INJECT 1 AUTO-INJ KOKO SUBCUTAN EOUSLY ONCE EVERY MONTH 12/29 completed Not Available Not Available Not Available Qulipta 60 mg tablet TAKE 1 TABLET BY MOUTH ONCE DAILY 03/27 completed Not Available Not Available Not Available Vitals Date Recorded Body height Body mass index (BMI) Body weight Heart rate Oxygen saturation Oxygen saturation in Arterial blood by Pulse oximetry Respiratory rate Systolic blood pressure Diastolic blood pressure Provider Name and Address Organization Details Last Updated DateTime 149.86 cm 27.7 kg/m2 74599.1 5 g 89 /min 98 % 98 % 18 /min 110 mm[Hg] 70 mm[Hg] Desire Sandy [place] - [facility] 14:22:26 Social History Question Answer Notes LastModified by Organizat ion Details LastModified Time Tobacco Smoking Status Current Every Day Smoker Lana bhatti, [place] - [facility] 12/29/2024 11:51:28 Do You Have An Advance Directive? No [email or web address] Information not available 10/25/2020 Are You Blind Or Do You Have Difficulty Seeing? No Information not available 12/29/2024 Is Blood Transfusion Acceptable In An Emergency? Yes [email or web address] Information not available 10/25/2020 What Is Your Level Of Caffeine Consumption? Heavy Information not available 12/29/2024 How Much Tobacco Do You Chew? None [email or web address] Information not available 10/25/2020 Are You Deaf Or Do You Have Serious Difficulty Hearing? No Information not available 12/29/2024 What Type Of Diet Are You Following? REGULAR [email or web address] Information not available 10/25/2020 Which Illicit Or Recreational Drugs Have You Used? None [email or web address] Information not available 10/25/2020 What Is The Highest Grade Or Level Of School You Have Completed Or The Highest Degree You Have Received? [id number] Information not available 12/29/2024 Have There Been Any Changes To Your Family Or Social Situation? No Information not available 12/29/2024 Live Alone Or With Others? With Others With Mom And Son [email or web address] Information not available 10/25/2020 Do You Have A Medical Power Of Lidder? No Information not available 12/29/2024 What Was The Date Of Your Most Recent Tobacco Screening? 12/29/2024 Information not available 12/29/2024 How Many Children Do You Have? 2 [email or web address] Information not available 10/25/2020 What Is Your Current Pack Years? 30ormorepac kyears Information not available 12/29/2024 Performs Monthly Self-breast Exam? No [email or web address] Information not available 10/25/2020 What Is Your Relationship Status? [email or web address] Information not available 10/25/2020 Seat Belts Used Routinely Yes [email or web address] Information not available 10/25/2020 Are You Sexually [...] not available 10/25/2020 General Stress Level Low [email or web address] Information not available 10/25/2020 Do You Use Sunscreen Routinely? No [email or web address] Information not available 10/25/2020 Has Tobacco Cessation [...] used smokeless tobacco? Never used smokeless tobacco [email or web address] Information not available 10/25/2020 Are you currently employed? Yes [email or web address] Information not available 10/25/2020 Do you have transportation difficulties? No Information not available 12/29/2024 Urinary incontinence assessment performed? Yes [email or web address] Information not available 10/25/2020 Are you able to care for yourself? Yes Information n ot available 12/29/2024 Do you have difficulty dressing or bathing? No Information not available 12/29/2024 Do you or have you ever used e-cigarettes or vape? Never used electronic cigarettes [email or web address] Information not available 10/25/2020 What is your exercise level? None [email or web address] Information not available 10/25/2020 Do you use any illicit or recreational drugs? No Information not available 12/29/2024 Do you or have you ever used any other forms of tobacco or nicotine? No Information not available 12/29/2024 What is your level of alcohol consumption? None [email or web address] Information not available 10/25/2020 Are you able to walk? YESWOREST [email or web address] Information not available 10/25/2020 Do you have difficulty doing errands alone? 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 [id number] Information not available 12/29/2024 Do you have difficulty concentrating, remembering or making decisions? No Information no t available 12/29/2024 Family History Relationship Description Onset Age of this Age Resolved Age Notes LastModified by Organization Details LastModified Time Daughter Polycystic ovary syndrome [email or web address] Not available 10/25 09:17:36 Paternal Uncle Diabetes mellitus [email or web address] Not available 10/25 09:17:46 Paternal Aunt Malignant neoplasm of lung [email or web address] Not available 10/25 09:18:07 Paternal Aunt Malignant tumor of breast [email or web address] Not available 10/25 09:18:15 Maternal Aunt Malignant neoplasm of bone [email or web address] Not available 10/25 09:18:46 Medical History Condition Response Blood Diseases N Hyperthyroidism N Rheumatoid arthritis N Blood Transfusion Y amputation N Depression Y Pneumonia N Incontinence N Edema N Anxiety Disorder Y Obesity N Restless Leg Syndrome N Infertility N Polyps N Carpal Tunnel N Acid Reflux (GERD) N Stroke N Varicosities N Tendonitis N Skin Cancer N Fibromyalgia N Anal Fissure N Irritable Bowel Syndrome N Kidney Disease N Hospitalizations Y Gallstones N Goiter N Acne N Eating Disorder N Ferreira's Esophagus N Hypertriglyceridemia N Constipation N Embolism N Deviated Septum N Myocardial Infarction N Asthma N Vertigo N Chicken Pox Y Von Willebrands Disease N Lung Disease N Defects or Inherited Disease N Ovarian Cyst N Anesthesia Complications N Testosterone Deficiency N Interstitial Cystitis N Congenital Anomalies N Hypoglycemia N Blood clot N Cellulitis N Endometriosis N Fracture N Panic Disorder N Schizophrenia N Spina Bifida N Parkinson's Disease N STI N Angina N Thyroid Problems N GI Problems N ADD/ADHD N Anemia N Multiple Sclerosis N Lumbago N Psychiatric Illness N Diabetes N Hyperlipidemia N Syncope N Abuse/Domestic Violence N Attention Deficient Disorder N Ulcerative colitis N Aneurysm N Bronchitis N Heart Disease N Hypertension Y Pre-Eclampsia N Suicidal Ideation N Pancreatitis N Other Y Atrial Fibrillation N congenital heart disease N Erectile Dysfunction N Skin Lesions N Murmur N Alzheimer's Disease N Migraine Headaches N Tobacco Abuse N Hemorrhoids N Vision or Eye Problems N Arthritis N Cancer N Crohn's Disease N Hypercholesterolemia N Headaches N Heart Problems N Kidney or Bladder Problems N Vitamin B12 Deficiency N AIDS/HIV N Mitral Valve Disorders N Hepatitis N Thyroid Cancer N Neuropathy N History of DVT N Herniated Disc N Thrombophilias N Breast Cancer N Hernia N Plantar Fasciitis N Hypothyroidism N Breast Problem N Vitamin D Deficiency N Bladder or Kidney Problems N Colorectal Cancer N Concussion N Osteoarthritis N Disc Protrusion N Esophagitis N Abnormal PAP Y Mental Illness N Ovarian Cancer N Degenerative Disc Disease N Seizures/Epilepsy N Insomnia N Eczema N Dementia N Cerebrovascular Disease N Depression N Guillain-Paramount N Sleep Apnea N Osteoporosis N Gynecological History Statement/Question Response [...] virus, trivalent, preservative 9 completed Not Available [facility] 03/30/2025 13:52:29 Tdap 6 completed Not Available [facility], [facility]1983 03/30/2025 13:52:29 Influenza, split virus, trivalent, preservative 6 completed Not Available [facility]1983 03/30/2025 13:52:29 Influenza, split virus, quadrivalent, preservative 7 completed Not Available [facility]1983 03/30/2025 13:52:29 COVID-19, mRNA, LNP-S, PF, 100 mcg/0.5mL dose or 50 mcg/0.25mL dose 1 completed Not Available [facility], [facility]1983 03/30/2025 13:52:29 COVID-19, mRNA, LNP-S, PF, 100 mcg/0.5mL dose or 50 mcg/0.25mL dose 1 completed Not Available [facility]–1983 03/30/2025 13:52:29 Hep B, adult 3 completed Not Available [facility]–1983 03/30/2025 13:52:29 Influenza, split virus, quadrivalent, PF 3 completed Not Available [facility] 03/30/2025 13:52:29 COVID-19, mRNA, LNP-S, PF, 50 mcg/0.5 mL 3 completed Not Available [facility] 03/30/2025 13:52:29 Influenza, split virus, quadrivalent, preservative 0 completed PATITO [place] - [facility] 10/25/2020 09:14:55 Past Encounters Encounter ID Performer Location Encounter Start Date Encounter Closed Date Diagnosis/Indication Diagnosis SNOMED-CT Code Diagnosis ICD10 Code Diagnosis Note [id number] 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 APRN [facility] [address] [place] [address] 03/27/2025 13:35:16 03/27/2025 14:20:26 Acute maxillary sinusitis 91256641 J01.00 Supportive care reviewed: raising HOB, humidifier use, saline nasal spray, rest, encourage PO fluids and monitor hydration status, infection control measures. Recommende d acetaminop hen/ibupro fen PRN pain, fever Follow-up as needed if no improvemen t or worsening [id number] 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 APRN [facility] [address] [place] [address] 03/30/2025 13:51:27 03/30/2025 14:30:11 Acute bronchitis 18475870 J20.9 steroidsco ntinue medsif worsen or no improvemen t return Candidiasis of mouth 797 27001 B37.0 Health Concerns Section Related Observation LastModified by Organization Detai ls LastModified Time None Recorded Concern Status LastModified by Organization Details LastModified Time None Recorded Payers Encounter Date Sequence Insurance Name Policy Number Policy Barrow Covered Member ID Barrow Member ID Guarantor Name 03/30/2025 1 [facility] (MEDICAID REPLACEMENT - HMO) Desire Blevins [id number] Desire Blevins Notes Date Note Type Note Provider Name and Address Organization Details Recorded Time 03/30/2025 text/html 50 yr old female presents with right ear pain, states she isn't getting much better. She is on a z pack. 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 APRN [address], [place], [address], [place] - [facility] 03/30/2025 15:01:30 OBGyn Episode No OBEpisode recorded.
--- OUTSIDE RECORDS SUMMARY | 2025-04-02 15:03 | XMS_ITS | Data Portability ---
Author Organization [facility] Address [address] [place] [address] Assessment No assessment recorded. Plan of Treatment Reminders Order Date Submit Date Provider Last Modified By Organization Details Last Modified Time Details Appointments None recorde d. Lab None recorde d. Referral None recorde d. Procedures None recorde d. Surgeries None recorde d. Imaging XR, ankle 024 08/04/20 cristobal [facility], [address] [place] [address] [place], [address], 11:52:30 Medication Orders None recorde d. Patient TargetsNo targets recorded. Patient InstructionsNo instructions recorded. Reason for Referral None Reported. Results Created Date Observation Date Name Description Value Unit Range Abnormal Flag Note LastModifiedBy Organization Detail LastModifiedTime 08/04/20 XR, ankle No observ ation record ed. KRYSTAL [address] [place], [address], 08/04/2024 11:16:43 Result Notes None recorded. Procedures Surgical History Date Name Laterality Status Provider Name and Address Organization Details Recorded Time 0 Special Agent Fbi Surgery completed Lis Solis [facility] [place] 08/04/2024 11:11:32 Imaging Results None recorded. Procedure [...] Status Current Every Day Smoker Lis Solis null, [place] - [facility] [place] [facility] [place] 08/04/2024 11:11:27 Do You Have An Advance [...] or have you ever used smokeless tobacco? [id number] Information n ot available 08/04/2024 Mental Status None recorded. Family History Nothing Reported. Medical History Condition Response Back Problems Y Arthritis Y Gynecological History Statement/Question Response Menses Monthly N Abnormal Pap N Current Control Method None Sexually Active? N Obstetrics History GPAL:G 0 P 0 0 0 0 Past Encounters Encounter ID Performer Location Encounter Start Date Encounter Closed Date Diagnosis/Indication Diagnosis SNOMED-CT Code Diagnosis ICD10 Code Diagnosis Note [id number] DO JESE NOVA [address] [address] 08/04/2024 10:40:35 08/04/2024 11:47:03 Injury of left ankle 6405001659 1186970 S99.912A Sprain of left ankle 172 8534017 3507651 S93.402A Health Concerns Section Related Observation LastModified by Organization Detai ls LastModified Time None Recorded Concern Status LastModified by Organization Details LastModified Time None Recorded Advance Directives Directive N: Payers Insurance Date Sequence Insurance Name Policy Number Policy Barrow Covered Member ID Barrow Member ID Guarantor Name 07/21/2024 [employer] [id number] Npw Desire Blevins 08/28/2024 1 [facility] (MEDICAID REPLACEMENT - HMO) Desire Gen [id number] Desire Gen Notes Date Note Type Note Provider Name and Address Organization Details Recorded Time 08/04/2024 text/html Pt presents today with left ankle pain. Pt was seen at [facility] and had 3v left foot and ankle x-rays [facility] 07.14.24: Negative for fractures. Lateral ankle soft tissue edema. Pt is no longer wearing boot she was given in the ER for 2 weeks. Pt is taking ibuprofen for pain. Pt only has pain when walking or standing up for long periods of time.E6AT ISAEL ISSAC, [address] [facility],[address], [place], [address], [place] [facility] [place] [facility] [place] 08/04/2024 15:19:06 OBGyn Episode No OBEpisode recorded.
--- OUTSIDE RECORDS SUMMARY | 2025-04-02 15:03 | XMS_ITS | Encounter Summary ---
Author Organization Healthcare Address [address] [place] [address] Care Team Providers Care Registered Nurse Cardiovascular Icu Name Role Phone 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 RED Primary Care Provider [phone]- [phone] Reason for Visit * Reason Onset Date Comments HCN Clinical Concern/Question 01/19/2025 Encounter Details Date Type Department Care Team (Late st Contact Info) Description 01/19/2025 Telephone [facility] Niranjan [address] [place] [address] None, None [address] [place] [address] HCN Clinical Concern/Question Social History Tobacco Use [...] request. Patients phone number was incorrect in Astrid and has since been updated. Best contact number: [phone] (mobile) Optimal time of day to reach [...] Description 05/16/2025 9:15 AM EDT Office Visit [facility] Niranjan [address] [facility] [place] [address] Valdemar Orr MD [address] [place] [address] documented as of this encounter Visit Diagnoses Not on filedocumented in this encounter Care Teams Registered Nurse Cardiovascular Icu Relationship Specialty Start Date End Date 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 APRN [address] [place] [address] PCP - General 01/26/25 documented as of this encounter
--- OUTSIDE RECORDS SUMMARY | 2025-04-02 15:03 | XMS_ITS | Encounter Summary ---
Author Organization Healthcare Address [address] [place] [address] Care Team Providers Care Zoology Professor Name Role Phone 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 RED Primary Care Provider [phone]- [phone] Encounter Details Date Type Department Care Team (Latest Contact Info) Description 03/21/2025 Travel Social History Tobacco Use Types Packs/Day Years [...] on file documented as of this encounter Functional Status * Over the past 2 weeks, how often have you been bothered by any of the following problems? Question Answer Date of Assessment Author Little interest or pleasure in doing things Not at all 03/21/2025 9:37 AM Consuelo Wang Feeling down, depressed, or hopeless Not at all 03/21/2025 9:37 AM Consuelo Wang Patient Health Questionnaire -2 Score 0 03/21/2025 9:37 AM Consuelo Wang * Question Answer Date of Assessment Author [...] Consuelo Wang documented as of this encounter Plan of Treatment Upcoming Encounters Date Type Department Care Team (Late st Contact Info) Description 05/16/2025 9:15 AM EDT Office Visit [facility] Niranjan [address] [facility] [place] [address] Valdemar Orr MD [address] [place] [address] documented as of this encounter Visit Diagnoses Not on filedocumented in this encounter Additional Health Concerns Assessment Noted Time PHQ-9 Depression Total Score: 0 03/21/20 25 9:37 AM EDT A fall risk assessment has been complete d for the patient 03/21/2025 9:37 AM EDT A Body Mass Index follow-up plan has been documented for the patient 03/21/2025 10:16 AM EDT documented as of this encounter Care Teams Zoology Professor Relationship Specialty Start Date End Date 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 APRN [address] [place], [place] [id number] PCP - General 01/26/25 documented as of this encounter
--- OUTSIDE RECORDS SUMMARY | 2025-04-02 15:04 | XMS_ITS | Continuity of Care Document ---
Author Organization [facility] Address [address] [place] [address] Assessment No assessment recorded. Plan of Treatment Reminders Order Date Submit Date Provider Last Modified By Organization Details Last Modified Time Details Appointments None recorded. Lab rapid strep group A, throat 2024 025 [facility], [address] [place] [address], [id number], 5 14:29:02 rapid SARS CoV + SARS CoV 2 Ag, QL IA, respiratory specimen 2024 025 [facility], [address] [place] [address], [id number], 5 14:29:02 rapid flu (A+B) 2024 025 [facility], [address] [place] [address], [address], 5 14:29:02 Referral None recorded. Procedures None recorded. Surgeries None recorded. Imaging None recorded. Medication Orders Zithromax Z-Jayy 250 mg tablet 2024 025 [facility], [address], [address], 5 14:29:08 fluticasone propionate 50 mcg/actuati on nasal spray,suspe nsion 2024 025 [facility], [address], [address], 14:29:07 Patient TargetsNo targets recorded. Patient InstructionsNo instructions recorded. Reason for Referral None Reported. Results Created Date Observation Date Name Description Value Unit Range Abnormal Flag Note LastModifiedBy Organization Detail LastModifiedTime 03/27/20 25 03/27/2025 rapid flu (A+B) Flu negati ve Not Available [address], [address], 03/27/2025 14:19:54 03/27/20 25 03/27/2025 rapid flu (A+B) Type Both A & B Not Available [address], [address], 03/27/2025 14:19:54 03/27/20 25 03/27/2025 rapid SARS CoV + SARS CoV 2 Ag, QL IA, respi rator y speci men SARS CoV antigen Negati ve Not Available [address], [address], 03/27/2025 14:19:45 03/27/20 25 03/27/2025 rapid strep group A, throa t Strep negati ve Not Available [address], [address], 03/27/2025 14:19:35 03/27/20 25 03/27/2025 rapid strep group A, throa t Culture No Not Available [address], [address], 03/27/2025 14:19:35 Result Notes None recorded. Problems Name Problem SNOMED Code Status Onset Date Resolution Date Notes Provider Name and Address Organization Details Recorded Time Bipolar disorder 90727588 Active 2020 Jasmina Frye null, [place] - [facility] 09:15:02 Asthma 042741100 Active 2020 Jasmina Frye null, [place] - [facility] 09:15:08 Hyperlipidemi a 06828718 Active 2020 Jasmina Frye [place], [place] - [facility] 09:15:15 Depressive disorder 51125118 Active 2020 Jasmina Frye null, [place] - [facility] 09:15:22 Anxiety 24553765 Active 2020 Jasmina Melva null, [place] - [facility] 09:15:30 Migraine 73733500 Active 2020 Jasminacecil Frye null, [place] - [facility] 09:15:42 Hypothyroidis m 69508456 Active 2024 Lana Edy null, [place] - [facility] 5 11:50:11 Patent foramen ovale 543579751 Active 2024 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, LITIGATION SPECIALIST [address], [place], [address] , [place] - [facility] 5 16:20:14 Problem [...] completed Cathy Logan APRN [address], [place], [address], [place] [facility] 01/20/2021 16:20:51 11/09/19 12 excision of bilateral fallopian tubes and ovaries completed Cathy Logan APRN [address], [place], [address], [place] [facility] 01/20/2021 16:28:55 06/12/20 08 laser surgery completed Jasmina Frye [place] - [facility] 10/25/2020 09:11:01 12/11/19 02 Cholecystectomy, laparoscopic completed Jasmina CAPUTO [facility] 10/25/2020 09:12:05 01/13/20 00 section completed Jasmina CAPUTO [facility] 10/25/2020 09:12:17 05/13/19 93 section completed Jasmina CAPUTO [facility] 10/25/2020 09:12:26 Colposcopy completed Jasmina CAPUTO [facility] 10/25/2020 09:19:24 LEEP completed Jasmina CAPUTO [facility] 10/25/2020 09:19:31 Imaging Results None recorded. Procedure [...] 2:08PM;U ser: meeses;I ndicatio n: Pain - (09.7147 21) Not Available Not Available Not Available levofloxa [...] e 50 mcg/actua tion nasal spray,hema pension Pearl 1 spray every day by intranas al [...] on: 01/09/20 11:33AM; User: Amish Lyons on: 02/08/20;Print ed: 01/09/20 Not Available Not Available Not Available Vitamin [...] Not Available Not Available [facility] ODT 75 mg disintegr ating tablet active [...] Last Updated DateTime 149.86 cm 27.7 kg/m2 17424.2 5 g 68 /min 98 % 98 % 18 /min 128 mm[Hg] 82 mm[Hg] Desire Sandy [place] - [facility] 13:49:46 Social History Question Answer Notes LastModified by Organizat ion Details LastModified Time Tobacco Smoking Status Current Every Day Smoker Lana bhatti, [place] - [facility] 12/29/2024 11:51:28 Do You Have An Advance Directive? No [email or web address] Information not available 10/25/2020 Are You Blind Or Do You Have Difficulty Seeing? No Information not available 12/29/2024 Is Blood Transfusion Acceptable In An Emergency? Yes [email or web address] Information not available 10/25/2020 What Is Your Level Of Caffeine Consumption? Heavy Information not available 12/29/2024 How Much Tobacco Do You Chew? None [email or web address] Information not available 10/25/2020 Are You Deaf Or Do You Have Serious Difficulty Hearing? No Information not available 12/29/2024 What Type Of Diet Are You Following? REGULAR [email or web address] Information not available 10/25/2020 Which Illicit Or Recreational Drugs Have You Used? None [email or web address] Information not available 10/25/2020 What Is The Highest Grade Or Level Of School You Have Completed Or The Highest Degree You Have Received? [id number] Information not available 12/29/2024 Have There Been Any Changes To Your Family Or Social Situation? No Information not available 12/29/2024 Live Alone Or With Others? With Others With Mom And Son [email or web address] Information not available 10/25/2020 Do You Have A Medical Power Of Screen Tender Helper? No Information not available 12/29/2024 What Was The Date Of Your Most Recent Tobacco Screening? 12/29/2024 Information not available 12/29/2024 How Many Children Do You Have? 2 [email or web address] Information not available 10/25/2020 What Is Your Current Pack Years? 30ormorepac kyears Information not available 12/29/2024 Performs Monthly Self-breast Exam? No [email or web address] Information not available 10/25/2020 What Is Your Relationship Status? Information not available 10/25/2020 Seat Belts Used Routinely Yes [email or web address] Information not available 10/25/2020 Are You Sexually Active? No 2018 Due To Passing Of Stroke Information not available 12/29/2024 Do You Have Smoke And Carbon Monoxide Detectors In Your Home? Yes Information not available 12/29/2024 At What Age Did You Start Smoking Tobacco? 16 Information not available 12/29/2024 How Much Tobacco Do You Smoke? 2 PPD [email or web address] Information not available 10/25/2020 General Stress Level Low [email or web address] Information not available 10/25/2020 Do You Use Sunscreen Routinely? No [email or web address] Information not available 10/25/2020 Has Tobacco Cessation [...] used smokeless tobacco? Never used smokeless tobacco [email or web address] Information not available 10/25/2020 Are you currently employed? Yes [email or web address] Information not available 10/25/2020 Do you have transportation difficulties? No Information not available 12/29/2024 Urinary incontinence assessment performed? Yes [email or web address] Information not available 10/25/2020 Are you able to care for yourself? Yes Information n ot available 12/29/2024 Do you have difficulty dressing or bathing? No Information not available 12/29/2024 Do you or have you ever used e-cigarettes or vape? Never used electronic cigarettes [email or web address] Information not available 10/25/2020 What is your exercise level? None Information not available 10/25/2020 Do you use any illicit or recreational drugs? No Information not available 12/29/2024 Do you or have you ever used any other forms of tobacco or nicotine? No Information not available 12/29/2024 What is your level of alcohol consumption? None [email or web address] Information not available 10/25/2020 Are you able to walk? YESWOREST [email or web address] Information not available 10/25/2020 Do you have difficulty doing errands alone? 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 [id number] Information not available 12/29/2024 Do you have difficulty concentrating, remembering or making decisions? No Information no t available 12/29/2024 Family History Relationship Description Onset Age of this Age Resolved Age Notes LastModified by Organization Details LastModified Time Daughter Polycystic ovary syndrome Not available 10/25 09:17:36 Paternal Uncle Diabetes mellitus [email or web address] Not available 10/25 09:17:46 Paternal Aunt Malignant neoplasm of lung Not available 10/25 09:18:07 Paternal Aunt Malignant tumor of breast [email or web address] Not available 10/25 09:18:15 Maternal Aunt Malignant neoplasm of bone [email or web address] Not available 10/25 09:18:46 Medical History Condition [...] Obesity N Vision or Eye Problems N Restless Leg Syndrome N Arthritis N Polyps N Infertility N Carpal Tunnel [...] Cancer N Hernia N Plantar Fasciitis N Lung Disease N Hypothyroidism N Defects or Inherited Disease N Breast Problem N Ovarian Cyst N Anesthesia Complications N Testosterone Deficiency N Interstitial Cystitis N Congenital Anomalies N Hypoglycemia N Blood clot N Vitamin D Deficiency N Cellulitis N Endometriosis N Fracture N Bladder or Kidney Problems N Colorectal Cancer N Schizophrenia N Panic Disorder N Concussion N Spina Bifida N Osteoarthritis N Parkinson's Disease N Disc Protrusion N STI N Esophagitis N Angina N Thyroid Problems N GI Problems N ADD/ADHD N Anemia N Multiple Sclerosis N Abnormal PAP Y Lumbago N Mental Illness N Psychiatric Illness N Ovarian Cancer N Diabetes N Degenerative Disc Disease N Seizures/Epilepsy N Syncope N Insomnia N Hyperlipidemia N Eczema N Dementia N Attention Deficient Disorder N Abuse/Domestic Violence N Ulcerative colitis N Cerebrovascular Disease N Depression N Guillain-[place]bridge N Sleep Apnea N Aneurysm N Heart Disease N Bronchitis N Suicidal Ideation N Pre-Eclampsia N Hypertension Y Osteoporosis N Gynecological History Statement/Question Response Abnormal [...] virus, trivalent, preservative 9 completed Not Available [facility] 03/30/2025 13:52:29 Tdap 6 completed Not Available [facility] 03/30/2025 13:52:29 Influenza, split virus, trivalent, preservative 6 completed Not Available [facility] 03/30/2025 13:52:29 Influenza, split virus, quadrivalent, preservative 7 completed Not Available [facility] 03/30/2025 13:52:29 COVID-19, mRNA, LNP-S, PF, 100 mcg/0.5mL dose or 50 mcg/0.25mL dose 1 completed Not Available [facility] 03/30/2025 13:52:29 COVID-19, mRNA, LNP-S, PF, 100 mcg/0.5mL dose or 50 mcg/0.25mL dose 1 completed Not Available [facility] 03/30/2025 13:52:29 Hep B, adult 3 completed Not Available [facility] 03/30/2025 13:52:29 Influenza, split virus, quadrivalent, PF 3 completed Not Available [facility] 03/30/2025 13:52:29 COVID-19, mRNA, LNP-S, PF, 50 mcg/0.5 mL 3 completed Not Available [facility] 03/30/2025 13:52:29 Influenza, split virus, quadrivalent, preservative 0 completed PATITO [place] - [facility] 10/25/2020 09:14:55 Past Encounters Encounter ID Performer Location Encounter Start Date Encounter Closed Date Diagnosis/Indication Diagnosis SNOMED-CT Code Diagnosis ICD10 Code Diagnosis Note [id number] 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 APRN [address] [place] [address] 03/27/2025 13:35:16 03/27/2025 14:20:26 Acute maxillary sinusitis 34194333 J01.00 Supportive care reviewed: raising HOB, humidifier use, saline nasal spray, rest, encourage PO fluids and monitor hydration status, infection control measures. Recommende d acetaminop hen/ibupro fen PRN pain, fever Follow-up as needed if no improvemen t or worsening Health Concerns Section Related Observation LastModified by Organization Detai ls LastModified Time None Recorded Concern Status LastModified by Organization Details LastModified Time None Recorded Payers Encounter Date Sequence Insurance Name Policy Number Policy Barrow Covered Member ID Barrow Member ID Guarantor Name 03/27/2025 1 [employer] (MEDICAID REPLACEMENT - HMO) Desire Blevins [id number] Desire Blevins Notes Date Note Type Note Provider Name and Address Organization Details Recorded Time 03/27/2025 text/html 50 yr old female presents with sore throat, cough, green sinus drainage,tender ness and sinus pressure. Patient had fever of 102 last night. Reports mild muscle aches, and neck pain. no ill contacts 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, LITIGATION SPECIALIST [address], [place], [address], [facility] - [facility] 03/27/2025 14:29:30 OBGyn Episode No OBEpisode recorded.
--- OUTSIDE RECORDS SUMMARY | 2025-04-02 15:04 | XMS_ITS | Clinical Summary ---
Author Organization [facility] Address [address] [place] [address] Phone Care Team Providers Care Real Estate Agent/Broker Name Role Phone Unavailable Primary Care Provider [...] patient's age to complete this topic Insurance [facility] [employer] [facility]
--- NOTE | 2025-04-02 15:19 | EXP.PAIN.SOA ---
[facility] Disclaimer: The information contained in this section may have been updated after the patient was seen, as this information can be updated by other users. Medical History Nausea vomiting and diarrhea Influenza A Facet hypertrophy of lumbar region Lumbar back pain Patient sees pain management later this morning but requests injections Sciatica of right side Bipolar disorder Constipation Vertigo GERD (gastroesophageal reflux disease) Anxiety Sinusitis Encounter for smoking cessation counseling Depression Surgical History History of hysterectomy History of section History of cholecystectomy Family History Other Family history of diabetes mellitus type II Social History Smoking Status: Current every day smoker tobacco type: cigarettes packs per day: 2 second hand exposure: Yes alcohol intake: never substance use type: denies use current occupational status: other Travel in the last 8 weeks?: None household members: none housing: house current occupational exposures/hazards: No caffeine: Yes PM Subjective & Objective Subjective Subjective:: Patient is a pleasant 50-year-old female who presents today for follow-up. Patient does state that the Flexeril 5 mg 3 times a day did help and she did not any side effects. Patient is requesting a refill. Patient does state that she does know that she will have to have heart surgery however she is currently waiting to get approval from her neurologist that she will see in April. Patient denies any other changes. Her Carmelo has been reviewed and is appropriate. Review of Systems: General: No recent weight changes, no fever, no sleep disturbances Respiratory: No cough, no shortness of air, no recurring pulmonary infections Cardiovascular/peripheral vascular: No chest pain, no palpitations, no edema, no shortness of breath Gastrointestinal: No new onset incontinence, normal bowel movements reported Genitourinary: No new onset incontinence Musculoskeletal: Chronic back pain Psychiatric: [Normal mood/affect] Neurological: [Denies weakness in extremities], [denies balance issues] Pain at rest (0-10 scale): 5 Objective Objective:: Physical Exam: General: Alert and oriented x3, no acute distress, pleasant and cooperative Lungs: Respirations even and unlabored, symmetrical chest expansion Eyes: PERRL Musculoskeletal: Flexion and extension of lumbar [spine] somewhat guarded secondary to pain, [antalgic gait noted] Neurological: Speech clear, no gross sensory deficit Has patient had previous pain injection?: No Conservative treatment options previously tried: Home exercise plan Length of treatment: Longer than 12 weeks Meds Home Medications and Allergies Home Medications ?Medication ?Instructions ?Recorded ?Confirmed ?Type sumatriptan succinate 100 mg tablet See Rx Instructions .Route 05/29/24 03/19/25 Rx .COMPLEX #9 tabs venlafaxine 150 mg See Rx Instructions .Route 09/26/24 03/19/25 Rx capsule,extended release 24 hr .COMPLEX #90 caps loratadine 10 mg tablet 10 mg PO DAILY #30 tabs 11/03/24 03/19/25 Rx baclofen 5 mg tablet See Rx Instructions .Route 01/11/25 03/19/25 Rx .COMPLEX #90 tabs atorvastatin 20 mg tablet 20 mg PO HS #90 tabs 01/22/25 03/19/25 Rx buspirone 30 mg tablet 30 mg PO TID #90 tabs 01/22/25 03/19/25 Rx levothyroxine 25 mcg tablet See Rx Instructions .Route 03/02/25 03/19/25 Rx .COMPLEX #30 tabs topiramate 100 mg tablet 100 mg PO BID #180 tabs 03/13/25 03/19/25 Rx cyclobenzaprine 5 mg tablet 5 mg PO TID PRN muscle spasm #42 03/19/25 Rx tabs cariprazine 6 mg capsule (Vraylar) 6 mg PO DAILY #30 caps 03/21/25 Rx New Prescriptions to Start Prescriptions: Allergies Allergy/AdvReac Type Severity Reaction Status Date / Time amoxicillin AdvReac Severe Diarrhea Verified 03/07/25 09:45 Assessment and Plan *Assessment and plan (1) Chronic right hip pain: Status: Acute Category: Medical Code(s): M25.551 - Pain in right hip; G89.29 - Other chronic pain (2) Lumbar radiculopathy: Status: Chronic Category: Medical Code(s): M54.16 - Radiculopathy, lumbar region (3) Degenerative joint disease (DJD) of lumbar spine: Status: Chronic Qualifiers: Spinal osteoarthritis complication: with radiculopathy Qualified Code(s): M47.26 - Other spondylosis with radiculopathy, lumbar region Category: Medical Code(s): M47.816 - Spondylosis without myelopathy or radiculopathy, lumbar region Plan We did discuss the possibility of future injections however due to the fact the possibility of heart surgery we will put this on hold until we know additional information from her stage settings painter. I will send in a few month supply of the Flexeril and we will follow-up with her in 2 months. Patient agrees with this plan of care. Patient has been instructed to contact the clinic with any concerns before the next appointment. Dr. Briones has reviewed this note and agrees with this plan of care. This note was dictated using voice recognition software and make contain errors or omissions. All injections are used with Lidocaine, Bupivacaine and dexamethasone. Occasionally urine drug screen is needed to verify patient's compliance with our office pain contract. This is ordered based off specific treatments related to chronic pain with the potential to abuse certain medications.
[2025-04-02 15:22] VITALS: BP 94/64; PULSE 91; RESP 18; O2SAT 95; BMI 27.4
== END 2025-04-02 23:59 | disposition home or self-care (01) ==
LOC: SC.PAIN 15:01
PROVIDERS: PCP Family Medicine; Visit Provider Nurse Practitioner Family
DX: M25.551 Pain in right hip (principal); M47.26 Other spondylosis with radiculopathy, lumbar region; G89.29 Other chronic pain; Z79.899 Other long term (current) drug therapy
CPT/HCPCS: 99212; G0463

== ENCOUNTER 2025-04-19 11:27 | Outpatient (CLI) | payer MEDICAID, SELFPAY ==
--- OUTSIDE RECORDS SUMMARY | 2025-03-21 09:30 | XMS_ITS | Encounter Summary ---
Author Organization Healthcare Address [address] [place] [address] Care Team Providers Care Renewable Energy Project Manager Name Role Phone 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 APRN Primary Care Provider +1- [phone] Reason for Referral * Consultation (Routine) - Authorized Specialty Diagnoses / Procedures Referred By Bart victor Referred To Contact Diagnoses Patent foramen ovale Lavinia Washburn APRN [address] [place] [address] Phone: tel: fax: Referral ID Status Reason Start Date Expiration Date V isits Requested Visits Authorized [id number] Authorized 03/21/2025 09/20/2026 1 1 Reason for Visit * Reason Comments Consult * Consultation (Routine) - Closed Specialty Diagnoses / Procedures Referred By Bart victor Referred To Contact Cardiology Diagnoses Other specified congenital malformations of heart 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 APRN [address] [place] [address] Phone: tel: fax: Valdemar Orr MD [address] [place] [address] Phone: tel: fax: Referral ID Status Reason Start Date Expiration Date V isits Requested Visits Authorized [id number] Closed Specialty Services Required 01/12/2025 07/14/2026 1 1 Encounter Details Date Type Department Care Team ([facility] st Contact Info) Description 03/21/2025 9:30 AM EDT Office Visit [facility] [place] [facility] [address] [place] [address] Valdemar Orr MD [address] [place] [address] Patent foramen ovale (Primary Dx) [...] Desire Blevins, a 50 y.o. female at [facility] [place] for consultation regarding PFO at the request [...] Description 05/16/2025 9:15 AM EDT Office Visit [facility] [place] [facility] [address] [place] [address] Valdemar Orr MD [address] [place] [address] Scheduled Referrals Name Type Priority Associated Diagnoses [...] documented as of this encounter Care Teams Renewable Energy Project Manager Relationship Specialty Start Date End Date 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 APRN [address] [place] [address] PCP - General 01/26/25 documented as of this encounter
--- OUTSIDE RECORDS SUMMARY | 2025-04-20 13:27 | XMS_ITS | Data Portability ---
Author Organization [facility] ADMIN Address [address] [place] [address] Assessment No assessment recorded. Plan of Treatment Reminders Order Date Submit Date Provider Last Modified By Organization Details Last Modified Time Details Appointments None recorde d. Lab None recorde d. Referral None recorde d. Procedures None recorde d. Surgeries None recorde d. Imaging XR, ankle 024 08/04/20 [facility], [address] [place] [address] [place], [address], 11:52:30 Medication Orders None recorde d. Patient TargetsNo targets recorded. Patient InstructionsNo instructions recorded. Reason for Referral None Reported. Results Created Date Observation Date Name Description Value Unit Range Abnormal Flag Note LastModifiedBy Organization Detail LastModifiedTime 08/04/20 XR, ankle No observ ation record ed. KRYSTAL [address] [place], [address], 08/04/2024 11:16:43 Result Notes None recorded. Procedures Surgical History Date Name Laterality Status Provider Name and Address Organization Details Recorded Time 0 Mid Level Net Developer Surgery completed Lsi Solis [facility] & [place] 08/04/2024 11:11:32 Imaging Results None recorded. Procedure [...] Lis Solis null, [place] - [facility] [place] [facility] [place] 08/04/2024 11:11:27 Do You Have An Advance [...] or have you ever used smokeless tobacco? [id number] Information n ot available 08/04/2024 Mental Status [...] SNOMED-CT Code Diagnosis ICD10 Code Diagnosis Note [id number] DO JESE NOVA [address] [address] 08/04/2024 10:40:35 08/04/2024 11:47:03 Injury of left ankle [id number] 0729895 S99.912A Sprain of left ankle 623 [id number] 2334219 S93.402A Health Concerns Section Related Observation LastModified by Organization Detai ls LastModified Time None Recorded Concern Status LastModified by Organization Details LastModified Time None Recorded Advance Directives Directive N: Payers Insurance Date Sequence Insurance Name Policy Number Policy Barrow Covered Member ID Barrow Member ID Guarantor Name 07/21/2024 [employer] [id number] Npw Desire Blevins 08/28/[address] [facility] (MEDICAID REPLACEMENT - HMO) Desire Gen [id number] Desire Gen Notes Date Note Type Note Provider Name and Address Organization Details Recorded Time 08/04/2024 text/html Pt presents today with left ankle pain. Pt was seen at [facility] and had 3v left foot and ankle x-rays [facility] 07.14.24: Negative for fractures. Lateral ankle soft tissue edema. Pt is no longer wearing boot she was given in the ER for 2 weeks. Pt is taking ibuprofen for pain. Pt only has pain when walking or standing up for long periods of time.E6AT ISAEL ISSAC, [address] [facility],[address], [place], [address], [place] [facility] [place] [facility] [place] 08/04/2024 15:19:06 OBGyn Episode No OBEpisode recorded.
--- OUTSIDE RECORDS SUMMARY | 2025-04-20 13:27 | XMS_ITS | Encounter Summary ---
Author Organization Healthcare Address [address] [place] [address] Care Team Providers Care Foreclosure Specialist Name Role Phone 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 RED Primary Care Provider [phone] Encounter Details Date Type Department Care Team [...] Description 05/16/2025 9:15 AM EDT Office Visit [facility] [place] Niranjan [address] [facility] [place] [address] Valdemar Orr MD [address] [place] [address] documented as of this encounter [...] documented as of this encounter Care Teams Foreclosure Specialist Relationship Specialty Start Date End Date 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 APRN [address] [place] [id number] PCP - General 01/26/25 documented as of this encounter
--- OUTSIDE RECORDS SUMMARY | 2025-04-20 13:27 | XMS_ITS | Continuity of Care Document ---
Author Organization [facility] Address [address] [place] [id number] Assessment No assessment recorded. Plan of Treatment Reminders Order Date Submit Date Provider Last Modified By Organization Details Last Modified Time Details Appointments None recorded. Lab rapid strep group A, throat 2024 025 [facility], [address] [place] [address], [id number], 5 14:29:02 rapid SARS CoV + SARS CoV 2 Ag, QL IA, respiratory specimen 2024 025 [facility], [address] [place] [address], [phone], 5 14:29:02 rapid flu (A+B) 2024 025 [facility], [address] [place] [address], [phone], 5 14:29:02 Referral None recorded. Procedures None recorded. Surgeries None recorded. Imaging None recorded. Medication Orders Zithromax Z-Jayy 250 mg tablet 2024 025 [facility], [address], [address], 5 14:29:08 fluticasone propionate 50 mcg/actuati on nasal spray,suspe nsion 2024 025 [facility], [address], [address], 14:29:07 Patient TargetsNo targets recorded. Patient InstructionsNo instructions recorded. Reason for Referral None Reported. Results Created Date Observation Date Name Description Value Unit Range Abnormal Flag Note LastModifiedBy Organization Detail LastModifiedTime 03/27/20 25 03/27/2025 rapid flu (A+B) Flu negati ve Not Available [address], [address], 03/27/2025 14:19:54 03/27/20 25 03/27/2025 rapid flu (A+B) Type Both A & B Not Available [address], [address], 03/27/2025 14:19:54 03/27/20 25 03/27/2025 rapid SARS CoV + SARS CoV 2 Ag, QL IA, respi rator y speci men SARS CoV antigen Negati ve Not Available [address], [address], 03/27/2025 14:19:45 03/27/20 25 03/27/2025 rapid strep group A, throa t Strep negati ve Not Available [address], [address], 03/27/2025 14:19:35 03/27/20 25 03/27/2025 rapid strep group A, throa t Culture No Not Available [address], [address], 03/27/2025 14:19:35 Result Notes None recorded. Problems Name Problem SNOMED Code Status Onset Date Resolution Date Notes Provider Name and Address Organization Details Recorded Time Bipolar disorder 29627761 Active 2020 Jasmina Frye null, [place] - [facility] 09:15:02 Asthma 303002625 Active 2020 Jasmina Frye null, [place] - [facility] 09:15:08 Hyperlipidemi a 66049503 Active 2020 Jasmina Frye null, [place] - [facility] 09:15:15 Depressive disorder 37446954 Active 2020 Jasmina Frye null, [place] - [facility] 09:15:22 Anxiety 57907986 Active 2020 Jasmina Melva null, [place] - [facility] 09:15:30 Migraine 63305533 Active 2020 Jasminacecil Frye null, [place] - [facility] 09:15:42 Hypothyroidis m 19674334 Active 2024 Lana Edy null, [place] - [facility] 5 11:50:11 Patent foramen ovale 230083966 Active 2024 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, [employer] [facility] [address], [place], [address] , [place] - [facility] 5 16:20:14 Problem Notes None recorded. Procedures Surgical History Date Name Laterality Status Provider Name and Address Organization Details Recorded Time 10/25/19 21 Systolic B/P less than 130 mm Hg completed Jasmnia Frye [place] - [facility] 10/25/2020 09:27:20 10/25/19 21 Diastolic B/P less than 80 mm Hg completed Jasmina Frye [place] - [facility] 10/25/2020 09:27:23 11/09/19 12 Hysterectomy completed Cathy Logan APRN [address], [place], [address], [place] [facility] 01/20/2021 16:20:51 11/09/19 12 excision of bilateral fallopian tubes and ovaries completed Cathy Logan APRN [address], [place], [address], [place] [facility] 01/20/2021 16:28:55 06/12/20 08 laser surgery completed Jasmina Frye [place] - [facility] 10/25/2020 09:11:01 12/11/19 02 Cholecystectomy, laparoscopic completed Jasmina CAPUTO [facility] 10/25/2020 09:12:05 01/13/20 00 section completed Jasmina CAPUTO [facility] 10/25/2020 09:12:17 05/13/19 93 section completed Jasmina CAPUTO [facility] 10/25/2020 09:12:26 Colposcopy completed Jasmina CAPUTO [facility] 10/25/2020 09:19:24 LEEP completed Jasmina CAPUTO [facility] 10/25/2020 09:19:31 Imaging Results None recorded. Procedure [...] day by oral route for 10 days. 04/16 completed Not Available Not Available Not Available [...] day by oral route for 5 days. 04/11 completed Not Available Not Available Not Available venlafaxi ne ER 150 mg capsule,e [...] 2:08PM;U ser: meeses;I ndicatio n: Pain - (16.3050 82) Not Available Not Available Not Available levofloxa [...] ne propionat e 50 mcg/actua tion nasal spray,heam pension USE 1 SPRAY(S) IN EACH NOSTRIL ONCE DAILY active Not Available Not Available No t Available doxycycli ne hyclate 100 mg tablet [...] THREE TIMES DAILY NEEDED FOR MUSCLE SPASM active Not Available Not [...] completed Not Available Not Available Not Available [facility] mg disintegr ating tablet active [...] blood by Pulse oximetry Respiratory rate Systolic And Diastolic Provider Name and Address Organization Details Last Updated DateTime 149.86 cm 27.7 kg/m2 17417.2 5 g 68 /min 98 % 98 % 18 /min 128/82 mm[Hg] Desire Sandy [place] - [facility] 13:49:46 Social History Question Answer Notes LastModified by Organizat ion Details LastModified Time Tobacco Smoking Status Current Every Day Smoker Lana bhatti, [place] - [facility] 12/29/2024 11:51:28 Do You Have An Advance Directive? No [email or web address] Information not available 10/25/2020 Are You Blind Or Do You Have Difficulty Seeing? No Information not available 12/29/2024 Is Blood Transfusion Acceptable In An Emergency? Yes [email or web address] Information not available 10/25/2020 What Is Your Level Of Caffeine Consumption? Heavy Information not available 12/29/2024 How Much Tobacco Do You Chew? None Information not available 10/25/2020 Are You Deaf Or Do You Have Serious Difficulty Hearing? No Information not available 12/29/2024 What Type Of Diet Are You Following? REGULAR [email or web address] Information not available 10/25/2020 Which Illicit Or Recreational Drugs Have You Used? None [email or web address] Information not available 10/25/2020 What Is The Highest Grade Or Level Of School You Have Completed Or The Highest Degree You Have Received? [id number] Information not available 12/29/2024 Have There Been Any Changes To Your Family Or Social Situation? No Information not available 12/29/2024 Live Alone Or With Others? With Others With Mom And Son [email or web address] Information not available 10/25/2020 Do You Have A Medical Power Of Laceworker? No Information not available 12/29/2024 What Was The Date Of Your Most Recent Tobacco Screening? 12/29/2024 Information not available 12/29/2024 How Many Children Do You Have? 2 [email or web address] Information not available 10/25/2020 What Is Your Current Pack Years? [email or web address] Information not available 12/29/2024 Performs Monthly Self-breast Exam? No [email or web address] Information not available 10/25/2020 What Is Your Relationship Status? [email or web address] Information not available 10/25/2020 Seat Belts Used Routinely Yes [email or web address] Information not available 10/25/2020 Are You Sexually [...] not available 10/25/2020 General Stress Level Low [email or web address] Information not available 10/25/2020 Do You Use Sunscreen Routinely? No [email or web address] Information not available 10/25/2020 Has Tobacco Cessation [...] used smokeless tobacco? Never used smokeless tobacco [email or web address] Information not available 10/25/2020 Are you currently employed? Yes [email or web address] Information not available 10/25/2020 Do you have transportation difficulties? No Information not available 12/29/2024 Urinary incontinence assessment performed? Yes [email or web address] Information not available 10/25/2020 Are you able to care for yourself? Yes Information n ot available 12/29/2024 Do you have difficulty dressing or bathing? No Information not available 12/29/2024 Do you or have you ever used e-cigarettes or vape? Never used electronic cigarettes [email or web address] Information not available 10/25/2020 What is your [...] 10/25/2020 Are you able to walk? [email or web address] Information not available 10/25/2020 Do you have difficulty doing errands alone? 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 [id number] Information not available 12/29/2024 Do you have difficulty concentrating, remembering or making decisions? No Information no t available 12/29/2024 Family History Relationship Description Onset Age of this Age Resolved Age Notes LastModified by Organization Details LastModified Time Daughter Polycystic ovary syndrome [email or web address] Not available 10/25 09:17:36 Paternal Uncle Diabetes mellitus [email or web address] Not available 10/25 09:17:46 Paternal Aunt Malignant neoplasm of lung [email or web address] Not available 10/25 09:18:07 Paternal Aunt Malignant tumor of breast [email or web address] Not available 10/25 09:18:15 Maternal Aunt Malignant neoplasm of bone [email or web address] Not available 10/25 09:18:46 Medical History Condition [...] colitis N Cerebrovascular Disease N Depression N Guillain-Hobart N Sleep Apnea N Aneurysm N Bronchitis [...] Not Available [facility] 03/30/2025 13:52:29 Tdap 6 completed Not Available [facility] 03/30/2025 13:52:29 Influenza, split virus, trivalent, preservative 6 completed Not Available [facility] 03/30/2025 13:52:29 Influenza, split virus, quadrivalent, preservative 7 completed Not Available [facility] 03/30/2025 13:52:29 COVID-19, mRNA, LNP-S, PF, 100 mcg/0.5mL dose or 50 mcg/0.25mL dose 1 completed Not Available [facility] 03/30/2025 13:52:29 COVID-19, mRNA, LNP-S, PF, 100 mcg/0.5mL dose or 50 mcg/0.25mL dose 1 completed Not Available [facility] 03/30/2025 13:52:29 Hep B, adult 3 completed Not Available [facility] 03/30/2025 13:52:29 Influenza, split virus, quadrivalent, PF 3 completed Not Available [facility] 03/30/2025 13:52:29 COVID-19, mRNA, LNP-S, PF, 50 mcg/0.5 mL 3 completed Not Available [facility] 03/30/2025 13:52:29 Influenza, split virus, quadrivalent, preservative 0 completed PATITO Jensen - [facility] 10/25/2020 09:14:55 Past Encounters Encounter ID Performer Location Encounter Start Date Encounter Closed Date Diagnosis/Indication Diagnosis SNOMED-CT Code Diagnosis ICD10 Code Diagnosis Note [id number] 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 APRN [address] [address] 03/27/2025 13:35:16 03/27/2025 14:20:26 Acute maxillary sinusitis 23773044 J01.00 Supportive care reviewed: raising HOB, humidifier [...] [place] Member ID Guarantor Name 03/27/[address] [facility] (MEDICAID REPLACEMENT - HMO) Desire Blevins [id number] Desire Blevins Notes Date Note Type Note Provider Name and Address Organization Details Recorded Time 03/27/2025 text/html 50 yr old female presents with sore throat, cough, green sinus drainage,tender ness and sinus pressure. Patient had fever of 102 last night. Reports mild muscle aches, and neck pain. no ill contacts 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, [employer] [facility] [address], [place], [address], [place] - [facility] 03/27/2025 14:29:30 OBGyn Episode No OBEpisode recorded.
--- OUTSIDE RECORDS SUMMARY | 2025-04-20 13:27 | XMS_ITS | Data Portability ---
Author Organization [facility] Address [address] [place] [address] Assessment Encounter Date Assessment Date Assessment LastModified by Organization Details LastModified Time 10/25/2020 10/25/2020 BSE reviewed and recommended . Reviewed calcium needs, exercise, and prevention of osteoporosis . Reviewed normal perimenopausal transition . Mammogram recommended yearly . Colonoscopy recommended at age 50. Not available 10/25/2020 09:33:55 Plan of Treatment Reminders Order Date Submit Date Provider Last Modified By Organization Details Last Modified Time Details Appointments None recorded. Lab rapid strep group A, throat 2024 025 [facility], [address] [place] [address], [phone], 5 14:29:02 rapid SARS CoV + SARS CoV 2 Ag, QL [place], respiratory specimen 2024 025 [facility], [address] [place] [address], [phone], 5 14:29:02 rapid flu (A+B) [address] [place] [address], [address] [place] [address], [address], 5 14:29:02 HbA1c (hemoglobin A1c), blood [address] [place] [address], [address] [facility], [place], [address], 5 16:18:35 Referral neurologist referral 2024 025 manuel Wilkinson MD, [address], [place], [address], 5 15:09:41 Procedures None recorded. Surgeries None recorded. Imaging US, echocardiog lauren - bubble study r/o pfo 2024 025 [facility] (X-Ray), [address] [facility] [address], [place], [address], 5 21:00:31 MAMMO, screening, digital, bilateral 2020 021 [email or web address] [place] (Centralized Scheduling), [address] [place] [address] [place], [address], 2 09:58:54 Medication Orders nystatin 100,000 unit/mL oral suspension 2024 025 [facility], [address], [address], 5 05:02:02 prednisone 20 mg tablet 2024 025 [facility], [address], [address], 5 05:02:00 Zithromax Z-Jayy 250 mg tablet 2024 025 [facility], [address] [place] [address], [address], 5 14:29:08 fluticasone propionate 50 mcg/actuati on nasal spray,suspe nsion 2024 025 [facility], [address], [address], 5 14:29:07 cefdinir 300 mg capsule 2024 025 [facility], [address], [address], 5 13:43:45 Nurtec ODT 75 mg disintegrat ing tablet 2024 025 [facility], [address], [address], 5 15:47:12 estradiol 0.5 mg tablet 2020 021 [email or web address] 9 [facility], [address], [address], 10:09:38 Patient TargetsNo targets recorded. Patient Instructions Encounter Date Encounter Id Patient Instructions Last Modified By Organization Details Last Modified Time 10/25/2020 [id number] Quitting Tobacco : Care Instructions [email or web address] Not available 10/25/2020 09:47:39 medical record request* [...] A1c), blood HbA1C 5.3 % Not Available [address], [address], 01/19/2025 16:08:22 03/27/20 25 03/27/2025 rapid flu (A+B) Flu negati ve Not Available [address], [address], 03/27/2025 14:19:54 03/27/20 25 03/27/2025 rapid flu (A+B) Type Both A & B Not Available [address], [address], 03/27/2025 14:19:54 03/27/20 25 03/27/2025 rapid SARS CoV + SARS CoV 2 Ag, QL [place], respi rator y speci men SARS CoV antigen Negati ve Not Available [address], [address], 03/27/2025 14:19:45 03/27/20 25 03/27/2025 rapid strep group A, throa t Strep negati ve Not Available [address], [address], 03/27/2025 14:19:35 03/27/20 25 03/27/2025 rapid strep group A, throa t Culture No Not Available [address], [address], 03/27/2025 14:19:35 01/10/20 25 01/09/2025 MRI, brain , w/wo contr ast No observ ation record ed. [place] [address], [place], [address], 01/09/2025 17:07:46 01/10/20 25 01/09/2025 US, echoc ardio gram [email or web address] [address], [place], [address], 01/11/2025 12:24:13 01/12/20 25 01/09/2025 US, echoc ardio gram No observ ation record ed. [facility] [address], [place], [address], 01/11/2025 09:33:53 01/31/20 25 01/30/2025 XR, chest , 2 view No observ ation record ed. [facility] [address], [place], [address], 02/02/2025 09:54:37 Result Notes None recorded. Problems Name Problem SNOMED Code Status Onset Date Resolution Date Notes Provider Name and Address Organization Details Recorded Time Bipolar disorder 85071147 Active 2020 Jasmina Frye null, [place] - [facility] 09:15:02 Asthma 271432831 Active 2020 Jasmina Frye [place], [place] - [facility] 09:15:08 Hyperlipidemi a 44992224 Active 2020 Jasmina Frye [place], [place] [facility] 09:15:15 Depressive disorder 29420393 Active 2020 Jasmina Frye [place], [place] [facility] 09:15:22 Anxiety 44173614 Active 2020 Jasmina Frye [place], [place] [facility] 09:15:30 Migraine 72904213 Active 2020 Jasmina Frye [place], [place] [facility] 09:15:42 Hypothyroidis m 87632536 Active 2024 Lanakristian Snow null, [place] - [facility] 5 11:50:11 Patent foramen ovale 563816661 Active 2024 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, [employer] [address], [place], [address] , [place] - [facility] 5 16:20:14 Problem [...] 09:27:23 11/09/19 12 Hysterectomy completed Cathy Logan, [employer] [address], [place], [address], [place] [facility] 01/20/2021 16:20:51 11/09/19 12 excision of bilateral fallopian tubes and ovaries completed Cathyedison Logan APRN [address], [place], [address], [place] [facility] 01/20/2021 16:28:55 06/12/20 08 [...] 2:08PM;U ser: meeses;I ndicatio n: Pain - (16.2353 00) Not Available Not Available Not Available [...] mcg/actua tion nasal spray,hema pension USE 1 SPRAY(S) IN EACH NOSTRIL [...] completed Not Available Not Available Not Available [facility] ODT 75 mg disintegr ating tablet [...] Body mass index (BMI) Body height Systolic And Diastolic Provider Name and Address Organization Details Last Updated DateTime 10/25/2020 30401.34 g 28.1 kg/m2 149.86 cm 103/71 mm[Hg] Jasmina Frye [place] - [facility] 10/25/2020 09:26:58 Date Recorded Body weight Body mass index (BMI) Body height Respiratory rate Body temperature Heart rate Oxygen saturation Oxygen saturation in Arterial blood by Pulse oximetry Systolic And Diastolic Provider Name and Address Organization Details Last Updated DateTime 80817.0 8 g 29.7 kg/m2 149.86 cm 18 /min 98 [degF] 78 /min 98 % 98 % 122/78 mm[Hg] Lana Snow [place] - [facility] 03/21/202 5 11:39:57 Date Recorded Body height Heart rate Oxygen saturation Oxygen saturation in Arterial blood by Pulse oximetry Respiratory rate Systolic And Diastolic Provider Name and Address Organization Details Last Updated DateTime 5 149.86 cm 85 /min 99 % 99 % 18 /min 118/82 mm[Hg] Desire Sandy [facility] 5 15:41:59 Date Recorded Body height Body mass index (BMI) Body weight Heart rate Oxygen saturation Oxygen saturation in Arterial blood by Pulse oximetry Respiratory rate Systolic And Diastolic Provider Name and Address Organization Details Last Updated DateTime 5 149.86 cm 27.7 kg/m2 24501.2 5 g 68 /min 98 % 98 % 18 /min 128/82 mm[Hg] Desire Sandy [facility] 5 13:49:46 Date Recorded Body height Body mass index (BMI) Body weight Heart rate Oxygen saturation Oxygen saturation in Arterial blood by Pulse oximetry Respiratory rate Systolic And Diastolic Provider Name and Address Organization Details Last Updated DateTime 5 149.86 cm 27.7 kg/m2 90438.1 5 g 89 /min 98 % 98 % 18 /min 110/70 mm[Hg] Desire Sandy [facility] 5 14:22:26 Social History Question Answer Notes LastModified by Organizat ion Details LastModified Time Tobacco Smoking Status Current Every Day [facility] 12/29/2024 11:51:28 Do You Have An Advance Directive? No [email or web address] Information not available 10/25/2020 Are You Blind Or Do You Have Difficulty Seeing? No Information not available 12/29/2024 Is Blood Transfusion Acceptable In An Emergency? Yes [email or web address] Information not available 10/25/2020 What Is Your Level Of Caffeine Consumption? Heavy Information not available 12/29/2024 How Much Tobacco Do You Chew? None [email or web address] Information not available 10/25/2020 Are You Deaf Or Do You Have Serious Difficulty Hearing? No Information not available 12/29/2024 What Type Of Diet Are You Following? REGULAR [email or web address] Information not available 10/25/2020 Which Illicit Or Recreational Drugs Have You Used? None [email or web address] Information not available 10/25/2020 What Is The Highest Grade Or Level Of School You Have Completed Or The Highest Degree You Have Received? [id number] Information not available 12/29/2024 Have There Been Any Changes To Your Family Or Social Situation? No Information not available 12/29/2024 Live Alone Or With Others? With Others With Mom And Son [email or web address] Information not available 10/25/2020 Do You Have A Medical Power Of Dry Color Tester? No Information not available 12/29/2024 What Was The Date Of Your Most Recent Tobacco Screening? 12/29/2024 Information not available 12/29/2024 How Many Children Do You Have? 2 [email or web address] Information not available 10/25/2020 What Is Your Current Pack Years? 30ormorepac kyears Information not available 12/29/2024 Performs Monthly Self-breast Exam? No [email or web address] Information not available 10/25/2020 What Is Your [...] Much Tobacco Do You Smoke? 2 PPD [email or web address] Information not available 10/25/2020 General Stress Level Low [email or web address] Information not available 10/25/2020 Do You Use Sunscreen Routinely? No Information not available 10/25/2020 Has Tobacco Cessation [...] used smokeless tobacco? Never used smokeless tobacco [email or web address] Information not available 10/25/2020 Are you currently employed? Yes [email or web address] Information not available 10/25/2020 Do you have transportation difficulties? No Information not available 12/29/2024 Urinary incontinence assessment performed? Yes [email or web address] Information not available 10/25/2020 Are you able to care for yourself? Yes Information n ot available 12/29/2024 Do you have difficulty dressing or bathing? No Information not available 12/29/2024 Do you or have you ever used e-cigarettes or vape? Never used electronic cigarettes [email or web address] Information not available 10/25/2020 What is your exercise level? None Information not available 10/25/2020 Do you use any illicit or recreational drugs? No Information not available 12/29/2024 Do you or have you ever used any other forms of tobacco or nicotine? No Information not available 12/29/2024 What is your level of alcohol consumption? None [email or web address] Information not available 10/25/2020 Are you able to walk? YESWOREST [email or web address] Information not available 10/25/2020 Do you have difficulty doing errands alone? 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 [id number] Information not available 12/29/2024 Do you have difficulty concentrating, remembering or making decisions? No Information no t available 12/29/2024 Family History Relationship Description Onset Age of this Age Resolved Age Notes LastModified by Organization Details LastModified Time Daughter Polycystic ovary syndrome [email or web address] Not available 10/25 09:17:36 Paternal Uncle Diabetes mellitus Not available 10/25 09:17:46 Paternal Aunt Malignant neoplasm of lung [email or web address] Not available 10/25 09:18:07 Paternal Aunt Malignant tumor of breast Not available 10/25 09:18:15 Maternal Aunt Malignant neoplasm of bone [email or web address] Not available 10/25 09:18:46 Medical History Condition [...] colitis N Cerebrovascular Disease N Depression N Guillain-Gardner N Sleep Apnea N Aneurysm N Bronchitis [...] virus, trivalent, preservative 9 completed Not Available [facility] 03/30/2025 13:52:29 Tdap 6 completed Not Available [facility] 03/30/2025 13:52:29 Influenza, split virus, trivalent, preservative 6 completed Not Available [facility] 03/30/2025 13:52:29 Influenza, split virus, quadrivalent, preservative 7 completed Not Available [facility] 03/30/2025 13:52:29 COVID-19, mRNA, LNP-S, PF, 100 mcg/0.5mL dose or 50 mcg/0.25mL dose 1 completed Not Available [facility] 03/30/2025 13:52:29 COVID-19, mRNA, LNP-S, PF, 100 mcg/0.5mL dose or 50 mcg/0.25mL dose 1 completed Not Available [facility] 03/30/2025 13:52:29 Hep B, adult 3 completed Not Available [facility] 03/30/2025 13:52:29 Influenza, split virus, quadrivalent, PF 3 completed Not Available [facility] 03/30/2025 13:52:29 COVID-19, mRNA, LNP-S, PF, 50 mcg/0.5 mL 3 completed Not Available [facility] 03/30/2025 13:52:29 Influenza, split virus, quadrivalent, preservative 0 completed [place] - [facility] 10/25/2020 09:14:55 Past Encounters Encounter ID Performer Location Encounter Start Date Encounter Closed Date Diagnosis/Indication Diagnosis SNOMED-CT Code Diagnosis ICD10 Code Diagnosis Note [id number] RED [facility] [address] [facility] [place] [address] 10/25/2020 09:01:42 10/25/2020 09:59:18 Routine gynecologic examination done 6980278585 9101 Z01.419 Depression screening 171 538244 Z13.89 PHQ-9 completed today. Diet education 99068458 Z71.3 Counseling 292590500 Z71 .82 Exercise counseljeny conte Patient encouraged to exercise 30 minutes 5 days a week. Examinatio n of blood pressure 318926781 Z01.30 Vaccine de clined by patient 2116233877 02 Z28.21 Pt declined flu vaccine today. History of total hysterectomy 269482918 Z90.710 Hormone re placement therapy 245323335 Z79.890 Patient advised of the risks and benefits associated with HRT. Patient will report any new or worsening symptoms. Screening mammography 24 343011 Z12.31 Vaginal dryness 59201138 N89.8 Will proceed with oral E2. If this does not help, will add PVC at her F/U appt. Tobacco user 322714197 Z 72.0 [id number] 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 [place] 8[address] 12/29/2024 11:20:07 12/29/2024 12:09:05 Migraine 37995390 G43.909 stop qulipta Heart murmur 73838868 R0 1.1 [id number] 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 [place] [address] 01/19/2025 15:14:28 01/19/2025 16:13:45 Body mass index 30+ - obesity 136392264 E66.9 Acute maxi llary sinusitis 70930453 J01.00 Diarrhea 70356206 R19.7 valerie dietif no improvemen t will need stool sample [id number] 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 [address] [address] 03/27/2025 13:35:16 03/27/2025 14:20:26 Acute maxillary sinusitis 35935942 J01.00 Supportive care reviewed: raising HOB, humidifier use, saline nasal spray, rest, encourage PO fluids and monitor hydration status, infection control measures. Recommende d acetaminop hen/ibupro fen PRN pain, fever Follow-up as needed if no improvemen t or worsening [id number] 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 APRN [facility] [address] [place] [address] 03/30/2025 13:51:27 03/30/2025 14:30:11 Acute bronchitis 19747067 J20.9 steroidsco ntinue medsif worsen or no improvemen t return Candidiasis of mouth 797 72064 B37.0 Health Concerns Section Related Observation LastModified by Organization Detai ls LastModified Time None Recorded Concern Status LastModified by Organization Details LastModified Time None Recorded Advance Directives Directive N: Payers Insurance Date Sequence Insurance Name Policy Number Policy Barrow Covered Member ID Barrow Member ID Guarantor Name 02/01/2025 2 [place] [employer] - FFS/TRADITION AL Desire Blevins [id number] Desire Blevins 12/29/2024 1 [facility] (MEDICARE HMO) Desire Blevins [id number] Desire Blevins 02/01/2025 1 [facility] (MEDICAID REPLACEMENT - HMO) Desire Blevins [id number] Desire Blevins 03/27/2025 [place] [place] Desire Blevins [id number] Desire Blevins 03/27/2025 1 [facility] (MEDICAID REPLACEMENT - HMO) Desire Blevins [id number] Desire Blevins Notes Date Note Type Note [...] greater than three years since her last [facility] visit), for an annual exam. Her previous annual exam was several years ago with an outside provider.She is surgically menopausal. She has had a TLH with unknown ovarian status in [place], [place] for endometriosis. She has never used [...] refills. Cathy Logan, RED [address], [place], [address], [place] [facility] 10/25/2020 09:48:51 12/29/2024 text/html [...] she has been cutting them in half Nicolasramona RED [facility]ares [address], [place], [address], [facility] - [facility] 12/29/2024 15:47:53 01/19/2025 text/html 49 yr old female presents for a follow up on migraines. She has been on doxycycline with no improvement of congestion- states she has still been having diarrhea and vomiting. She seen Dalai Shannon at Urgent care on 01/15 and dx with a virus and given nausea medication. Larissa Patterson sent in doxycycline for sinuses. Samsonahmet RED [facility] [address], [place], [address], [facility] - [facility] 01/19/2025 16:20:26 03/27/2025 text/html 50 yr old female presents with sore throat, cough, green sinus drainage,tendernes s and sinus pressure. Patient had fever of 102 last night. Reports mild muscle aches, and neck pain. no ill contacts Samsonahmet RED [facility] [address], [place], [address], [place] [facility] 03/27/2025 14:29:30 03/30/2025 text/html 50 yr old female presents with right ear pain, states she isn't getting much better. She is on a z pack. Samsonahmet Magana APRN [address], [place], [address], [place] - [facility] 03/30/2025 15:01:30 OBGyn Episode No OBEpisode recorded.
--- OUTSIDE RECORDS SUMMARY | 2025-04-20 13:27 | XMS_ITS | Continuity of Care Document ---
Author Organization [facility] Address [address] [place] [address] Assessment No assessment recorded. Plan of Treatment Reminders Order Date Submit Date Provider Last Modified By Organization Details Last Modified Time Details Appointments None recorded. Lab None recorded. Referral None recorded. Procedures None recorded. Surgeries None recorded. Imaging None recorded. Medication Orders nystatin 100,000 unit/mL oral suspension 2024 025 [facility], [address], [address], 5 05:02:02 prednisone 20 mg tablet 2024 025 [facility], [address], [address], 5 05:02:00 Patient TargetsNo targets recorded. Patient InstructionsNo instructions recorded. Reason for Referral None Reported. Problems Name Problem SNOMED Code Status Onset Date Resolution Date Notes Provider Name and Address Organization Details Recorded Time Bipolar disorder 28332911 Active 2020 Jasmina bhatti, [place] - [facility] 09:15:02 Asthma 889160136 Active 2020 Jasmina bhatti, [place] - [facility] 09:15:08 Hyperlipidemi a 38141128 Active 2020 Jasmina bhatti, [place] - [facility] 1 09:15:15 Depressive disorder 70270363 Active 2020 Jasmina bhatti, [place] - [facility] 09:15:22 Anxiety 62879452 Active 2020 Jasminacecil Frye null, [place] - [facility] 09:15:30 Migraine 22538776 Active 2020 Jasminacecil Frye null, [place] - [facility] 09:15:42 Hypothyroidis m 81858989 Active 2024 Lana Snow null, [place] - [facility] 5 11:50:11 Patent foramen ovale 189464962 Active 2024 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, GEOLOGICAL AIDE [address], [place], [address] , [place] - [facility] 5 16:20:14 Problem [...] completed Cathy Logan APRN [address], [place], [address], [place] [facility] 01/20/2021 16:20:51 11/09/19 12 excision of bilateral fallopian tubes and ovaries completed Cathy Logan APRN [address], [place], [address], [place] [facility] 01/20/2021 16:28:55 06/12/20 08 [...] 2:08PM;U ser: meeses;I ndicatio n: Pain - (7809 ) Not Available Not Available Not Available levofloxa [...] Recorded on: 01/09/20 09 11:33AM; User: Amish Lyons on: 02/08/20 09;Print ed: 01/09/20 Not Available Not Available Not [...] Nurtec ODT 75 mg disintegr ating tablet active [...] Last Updated DateTime 149.86 cm 27.7 kg/m2 36097.1 5 g 89 /min 98 % 98 % 18 /min 110/70 mm[Hg] Desire Sandy [place] - [facility] 14:22:26 Social History Question Answer Notes LastModified by Organizat ion Details LastModified Time Tobacco Smoking Status Current Every Day Smoker Lana bhatti, [place] - [facility] 12/29/2024 11:51:28 Do You Have An Advance Directive? No [email or web address] Information not available 10/25/2020 Are You Blind Or Do You Have Difficulty Seeing? No Information not available 12/29/2024 Is Blood Transfusion Acceptable In An Emergency? Yes [email or web address] Information not available 10/25/2020 What Is Your Level Of Caffeine Consumption? Heavy Information not available 12/29/2024 How Much Tobacco Do You Chew? None [email or web address] Information not available 10/25/2020 Are You Deaf Or Do You Have Serious Difficulty Hearing? No Information not available 12/29/2024 What Type Of Diet Are You Following? REGULAR [email or web address] Information not available 10/25/2020 Which Illicit Or Recreational Drugs Have You Used? None [email or web address] Information not available 10/25/2020 What Is The Highest Grade Or Level Of School You Have Completed Or The Highest Degree You Have Received? DS11702-2 Information not available 12/29/2024 Have There Been Any Changes To Your Family Or Social Situation? No Information not available 12/29/2024 Live Alone Or With Others? With Others With Mom And Son [email or web address] Information not available 10/25/2020 Do You Have A Medical Power Of Machine Pecan Picker? No Information not available 12/29/2024 What Was The Date Of Your Most Recent Tobacco Screening? 12/29/2024 Information not available 12/29/2024 How Many Children Do You Have? 2 [email or web address] Information not available 10/25/2020 What Is Your Current Pack Years? 30ormorepac kyears Information not available 12/29/2024 Performs Monthly Self-breast Exam? No [email or web address] Information not available 10/25/2020 What Is Your Relationship Status? Information not available 10/25/2020 Seat Belts Used Routinely Yes [email or web address] Information not available 10/25/2020 Are You Sexually [...] not available 10/25/2020 General Stress Level Low [email or web address] Information not available 10/25/2020 Do You Use Sunscreen Routinely? No [email or web address] Information not available 10/25/2020 Has Tobacco Cessation [...] used smokeless tobacco? Never used smokeless tobacco [email or web address] Information not available 10/25/2020 Are you currently employed? Yes [email or web address] Information not available 10/25/2020 Do you have transportation difficulties? No Information not available 12/29/2024 Urinary incontinence assessment performed? Yes [email or web address] Information not available 10/25/2020 Are you able to care for yourself? Yes Information n ot available 12/29/2024 Do you have difficulty dressing or bathing? No Information not available 12/29/2024 Do you or have you ever used e-cigarettes or vape? Never used electronic cigarettes Information not available 10/25/2020 What is your exercise level? None [email or web address] Information not available 10/25/2020 Do you use any illicit or recreational drugs? No Information not available 12/29/2024 Do you or have you ever used any other forms of tobacco or nicotine? No Information not available 12/29/2024 What is your level of alcohol consumption? None [email or web address] Information not available 10/25/2020 Are you able to walk? [email or web address] Information not available 10/25/2020 Do you have difficulty doing errands alone? 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 [id number] Information not available 12/29/2024 Do you have difficulty concentrating, remembering or making decisions? No Information no t available 12/29/2024 Family History Relationship Description Onset Age of this Age Resolved Age Notes LastModified by Organization Details LastModified Time Daughter Polycystic ovary syndrome [email or web address] Not available 10/25 09:17:36 Paternal Uncle Diabetes mellitus [email or web address] Not available 10/25 09:17:46 Paternal Aunt Malignant neoplasm of lung [email or web address] Not available 10/25 09:18:07 Paternal Aunt Malignant tumor of breast [email or web address] Not available 10/25 09:18:15 Maternal Aunt Malignant neoplasm of bone [email or web address] Not available 10/25 09:18:46 Medical History Condition [...] N Restless Leg Syndrome N Arthritis N Infertility N Polyps N Carpal Tunnel N Acid Reflux (GERD) N Cancer N Stroke N Varicosities N Tendonitis N Crohn's Disease N Hypercholesterolemia N Skin Cancer N Fibromyalgia N Headaches N Anal Fissure N Irritable Bowel Syndrome N Kidney Disease N Heart Problems N [...] colitis N Cerebrovascular Disease N Depression N Guillain-[place] N Sleep Apnea N Aneurysm N Bronchitis [...] preservative 9 completed Not Available [facility] 03/30/2025 13:52:29 Tdap 6 completed Not Available [facility] 03/30/2025 13:52:29 Influenza, split virus, trivalent, preservative 6 completed Not Available [facility] 03/30/2025 13:52:29 Influenza, split virus, quadrivalent, preservative 7 completed Not Available [facility] 03/30/2025 13:52:29 COVID-19, mRNA, LNP-S, PF, 100 mcg/0.5mL dose or 50 mcg/0.25mL dose 1 completed Not Available [facility] 03/30/2025 13:52:29 COVID-19, mRNA, LNP-S, PF, 100 mcg/0.5mL dose or 50 mcg/0.25mL dose 1 completed Not Available [facility] 03/30/2025 13:52:29 Hep B, adult 3 completed Not Available [facility] 03/30/2025 13:52:29 Influenza, split virus, quadrivalent, PF 3 completed Not Available [facility] 03/30/2025 13:52:29 COVID-19, mRNA, LNP-S, PF, 50 mcg/0.5 mL 3 completed Not Available [facility] 03/30/2025 13:52:29 Influenza, split virus, quadrivalent, preservative 0 completed PATITO Jensen - [facility] 10/25/2020 09:14:55 Past Encounters Encounter ID Performer Location Encounter Start Date Encounter Closed Date Diagnosis/Indication Diagnosis SNOMED-CT Code Diagnosis ICD10 Code Diagnosis Note [id number] 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 APRN [address] [address] 03/27/2025 13:35:16 03/27/2025 14:20:26 Acute maxillary sinusitis 79053914 J01.00 Supportive care reviewed: raising HOB, humidifier use, saline nasal spray, rest, encourage PO fluids and monitor hydration status, infection control measures. Recommende d acetaminop hen/ibupro fen PRN pain, fever Follow-up as needed if no improvemen t or worsening [id number] 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 APRN [address] [address] 03/30/2025 13:51:27 03/30/2025 14:30:11 Acute bronchitis 31132223 J20.9 steroidsco ntinue medsif worsen or no improvemen t return Candidiasis of mouth 797 [address] B37.0 Health Concerns Section Related Observation LastModified by Organization Detai ls LastModified Time None Recorded Concern Status LastModified by Organization Details LastModified Time None Recorded Payers Encounter Date Sequence Insurance Name Policy Number Policy Barrow Covered Member ID Barrow Member ID Guarantor Name 03/30/2025 1 [facility] (MEDICAID REPLACEMENT - HMO) Desire Blevins [id number] Desire Blevins Notes Date Note Type Note Provider Name and Address Organization Details Recorded Time 03/30/2025 text/html 50 yr old female presents with right ear pain, states she isn't getting much better. She is on a z pack. 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, GEOLOGICAL AIDE [address], [place], [address], [place] - [facility] 03/30/2025 15:01:30 OBGyn Episode No OBEpisode recorded.
--- OUTSIDE RECORDS SUMMARY | 2025-04-20 13:27 | XMS_ITS | Clinical Summary ---
Author Organization Healthcare Address [address] [place] [address] Care Team Providers Care Maxillofacial Prosthetics Dentist Name Role Phone 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 RED Primary Care Provider +1- [phone] Allergies No known active allergies Medications Qulipta [...] Description 03/21/2025 9:30 AM EDT Office Visit [facility] [place] [place] [address] [address] Valdemar Orr MD Patent foramen ovale (Primary Dx) 03/21/2025 Travel 01/19/2025 Telephone [facility] [address] [phone] None, None HCN Clinical Concern/Question from Last 3 Months Immunizations Immunization Administration Dates Next Due Hep B, adult 02/01/2023 Influenza, injectable, quadrivalent 07/28/2017 Influenza, injectable, quadrivalent, preservativ e free 07/30/2023 Influenza, seasonal, injectable 08/31/2016,10/31 Moderna COVID-19 Vaccine (Sack Maker) 12+ years Tdap 08/31/2016 Family History Medical [...] Description 05/16/2025 9:15 AM EDT Office Visit [facility] [place] Niranjan [address] [facility] [address] [place] [address] Valdemar Orr MD [address] [place] [address] Health Maintenance Due Date Last Done Comments [facility]-HIV Screening 1975 [facility]-Hepatitis C Screening 1975 [facility]-/Child/Adol SDOH Screenings 1975 [facility]- SDOH Screenings 1993 [...] 3 - 19+ 3-dose series) 03/01/2023 02/01/2023 [id number] Vaccine (4 - 2023- season) 2024 07/30/2023, 03/28/2021, 02/28/2021 [facility]-Breast Cancer Screening 2025 [facility]-Lung Cancer Screening 2025 [facility]-Zoster Vaccines (1 of 2) 2025 [facility]-Influenza Vaccine (#1) 06/11/202507/30, 07/28/2017, 08/31/2016, Additional history exists [facility]-Depression Screening [...] EDT [facility] MR #: [id number] [facility] [place] [address] 1975 (Age: 22) FW Collect Date: 01/30/1997 00:00 Receipt Date: 01/31/1997 00:00 Page 1 DEPARTMENT OF PATHOLOGY AND LABORATORY MEDICINE CYTOPATHOLOGY REPORT Email: [email or web address] * Converted Case * This report may not match the original report format ATTENDING MD/Practitioner: Uvaldo Padilla MD Service: [facility] [place]: Reported: 02/08/1997 00:00 Collected: 01/30/1997 00:00 [...] results is suggested (please call Microbiology at [phone] for results). CLINICAL INFORMATION: Menstrual History: {Not Provided} Date of Last Menstrual Period: {Not Provided} SPECIMEN DESCRIPTION: A: CERVICAL/VAGINAL SMEAR, PAP ICD: F: {Not Entered} SNOMED CODES: 1; S9M037 L16778 C65089 In cases where a pathologist has signed out the report, the service has been rendered in part by a resident. The signing pathologist has performed and is responsible for the reported pathologic evaluation. us Historical Provider MD LAB PATHOLOGY ORDERABLES Final Result SUNQUEST from Last 3 Months or Most Recently Relevant to Health Maintenance Insurance [facility] Care Teams Maxillofacial Prosthetics Dentist Relationship Specialty Start Date End Date 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 APRN [address] [place] [address] PCP - General 01/26/25
--- OUTSIDE RECORDS SUMMARY | 2025-04-20 13:27 | XMS_ITS | Encounter Summary ---
Author Organization Healthcare Address [address] [place] [address] Care Team Providers Care What Job Titles Mean Name Role Phone 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 RED Primary Care Provider +1- [phone] Reason for Visit * Reason Onset Date Comments HCN Clinical Concern/Question 01/19/2025 Encounter Details Date Type Department Care Team (Late st Contact Info) Description 01/19/2025 Telephone [facility] [place] Niranjan [address] [place] [address] None, None [address] [place] [address] HCN Clinical Concern/Question Social History Tobacco Use [...] request. Patients phone number was incorrect in [employer] and has since been updated. Best contact number: [phone] (mobile) Optimal time of day to reach [...] Description 05/16/2025 9:15 AM EDT Office Visit [facility] [place] Niranjan [address] [facility]. [address] [place] [address] Valdemar Orr MD [address] [place] [address] documented as of this encounter Visit Diagnoses Not on filedocumented in this encounter Care Teams What Job Titles Mean Relationship Specialty Start Date End Date 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 APRN [address] [place] [address] PCP - General 01/26/25 documented as of this encounter
--- OUTSIDE RECORDS SUMMARY | 2025-04-20 13:28 | XMS_ITS | Clinical Summary ---
Author Organization [facility] Address [address] [place] [address] Phone Care Team Providers Care Truck Chauffeur Name Role Phone Unavailable Primary Care Provider [...] Zoster (1 of 2) 2025 Influenza Vaccine (#1) 2025 7, 08/31/2016, 10/31/2008 DTaP/TDaP/Td (2 - Td or Tdap) 08/31/2026 08/31/2016 Meningococcal B Vaccine Aged Out No l onger eligible based on patient's age to complete this topic Insurance [facility]
== END 2025-04-19 23:59 | disposition home or self-care (01) ==
LOC: LAB.DROPOF 04-20 13:25
PROVIDERS: PCP Family Medicine; Visit Provider Family Medicine
DX: J02.0 Streptococcal pharyngitis (principal)
CPT/HCPCS: 87070; 87077; 87186

== ENCOUNTER 2025-05-01 08:42 | Emergency (ER) | payer MEDICAID, SELFPAY ==
--- OUTSIDE RECORDS SUMMARY | 2025-03-21 09:30 | XMS_ITS | Encounter Summary ---
Author Organization Healthcare Address [address] [place] [address] Care Team Providers Care Promotions Associate Name Role Phone 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 APRN Primary Care Provider +1- [phone] Reason for Referral * Consultation (Routine) - Authorized Specialty Diagnoses / Procedures Referred By Bart victor Referred To Contact Diagnoses Patent foramen ovale Lavinia Washburn APRN [address] [place] [address] Phone: tel: fax: Referral ID Status Reason Start Date Expiration Date V isits Requested Visits Authorized [id number] Authorized 03/21/2025 09/20/2026 1 1 Reason for Visit * Reason Comments Consult * Consultation (Routine) - Closed Specialty Diagnoses / Procedures Referred By Bart victor Referred To Contact Cardiology Diagnoses Other specified congenital malformations of heart 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 APRN [address] [place] [address] Phone: tel: fax: Valdemar Orr MD [address] [place] [address] Phone: tel: fax: Referral ID Status Reason Start Date Expiration Date V isits Requested Visits Authorized [id number] Closed Specialty Services Required 01/12/2025 07/14/2026 1 1 Encounter Details Date Type Department Care Team ([facility] st Contact Info) Description 03/21/2025 9:30 AM EDT Office Visit [facility] [place] [facility] [facility] [address] [place] [address] Valdemar Orr MD [address] [place] [address] Patent foramen ovale (Primary Dx) Social History Tobacco Use Types Packs/Day Years Used Date Smoking Tobacco: Every Day Cigarettes 1 35.1 Started: 03/21/1990 Smokeless Tobacco: Never Alcohol Use [...] things Not at all 03/21/2025 9:37 AM EDT Consuelo Mao Feeling down, depressed, or hopeless [...] Not at all 03/21/2025 9:37 AM Consuelo Wnag Poor appetite or overeating Not at all [...] Desire Blevins, a 50 y.o. female at [facility] for consultation regarding PFO at the request [...] Description 05/16/2025 9:15 AM EDT Office Visit [facility] [place] [facility] [address] [place] [address] Valdemar Orr MD [address] [place] [address] Scheduled Referrals Name Type Priority Associated Diagnoses [...] documented as of this encounter Care Teams Promotions Associate Relationship Specialty Start Date End Date 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 APRN [address] [place] [id number] PCP - General 01/26/25 documented as of this encounter
[2025-05-01 08:47] VITALS: BP 118/73
[2025-05-01 08:51] VITALS: BP 118/73; PULSE 92; RESP 16; TEMP 36.4; O2SAT 98; BMI 28.3
--- NOTE | 2025-05-01 08:55 | XR_ITS ---
FINAL REPORT CLINICAL HISTORY: Fall, right elbow and wrist pain COMPARISON: None FINDINGS: 2 views of the right forearm were obtained. There is no acute fracture or dislocation. The joints are intact. There are no soft tissue abnormalities. IMPRESSION: No acute process. Reviewed, Interpreted and Dictated by Bran Aguilar MD Transcribed by Savi Baer Authenticated and [facility]
--- NOTE | 2025-05-01 08:55 | XR_ITS ---
FINAL REPORT CLINICAL HISTORY: Fall, right elbow and wrist pain COMPARISON: None FINDINGS: Two views of the right wrist were obtained. There is no acute fracture or dislocation. The joint spaces are well preserved. There is no acute soft tissue abnormality. IMPRESSION: No acute abnormality identified. Reviewed, Interpreted and Dictated by Bran Aguilar MD Transcribed by Savi Baer Authenticated and [facility]
--- NOTE | 2025-05-01 08:55 | XR_ITS ---
FINAL REPORT CLINICAL HISTORY: Fall, right elbow and wrist pain COMPARISON: None FINDINGS: 2 views of the right elbow were obtained. There is no acute fracture or dislocation. The joint spaces are intact. The soft tissues are unremarkable. IMPRESSION: No acute bony abnormality. Reviewed, Interpreted and Dictated by Bran Aguilar MD Transcribed by Savi Baer Authenticated and [facility]
--- NOTE | 2025-05-01 08:56 | HMH.EDGENADL ---
Discharge Plan Disposition Patient Disposition: Home, Self-Care Prescriptions Prescriptions: New methocarbamol 750 mg tablet 750 mg PO Q6H PRN (Reason: muscle spasm) Qty: 30 0RF No Action venlafaxine 150 mg capsule,extended release 24hr See Rx Instructions .ROUTE .COMPLEX Qty: 90 2RF Dose Instruction: Take 1 capsule by mouth once daily Rx Instructions: Take 1 capsule by mouth once daily sumatriptan succinate 100 mg tablet PO Patient Comments: TAKE 1 TABLET BY MOUTH ONCE NEEDED FOR MIGRAINE HEADACHE Emgality Pen 120 mg/mL pen injector 120 mg SQ QMONTH Qty: 1 5RF atorvastatin 20 mg tablet 20 mg PO HS Qty: 90 2RF topiramate 100 mg tablet 100 mg PO BID Qty: 180 0RF Vraylar 6 mg capsule 6 mg PO DAILY Qty: 30 2RF cyclobenzaprine 5 mg tablet See Rx Instructions .ROUTE .COMPLEX Qty: 90 1RF Dose Instruction: Take 1 tablet by mouth three times daily as needed for muscle spasm Rx Instructions: Take 1 tablet by mouth three times daily as needed for muscle spasm buspirone 30 mg tablet 30 mg PO TID Qty: 90 2RF levothyroxine 25 mcg tablet See Rx Instructions .ROUTE .COMPLEX Qty: 30 0RF Dose Instruction: Take 1 tablet by mouth once daily Rx Instructions: Take 1 tablet by mouth once daily Referrals Follow up/Referrals: Larissa Patterson APRN [Primary Care Provider, Family Practice] - See instructions Activity Restrictions/Add. Instructions Additional Instructions/Restrictions: Your x-rays did not show any broken bones or dislocations. You likely have a deep bruise. You can take Tylenol, ibuprofen to help with the symptoms. You can use the sling to help with comfort, however do not wear this all the time as this can make the stiffness worse. You can use ice packs and heating pads on the area. You are being prescribed a course of Robaxin, a muscle relaxer, to help with your symptoms. Follow with your primary care physician if symptoms do not improve. Clinical Impressions Clinical Impression: Elbow pain, right, Acute pain of right wrist, Fall Stand Alone Forms Stand Alone Forms: Work/School Release Print Language Print Language: Mongolian Discharge ED Provider: Karl Kendrick Adult [facility] General Chief complaint: Fall Stated complaint: AO 05/01/25. R arm pain/swelling/brusing Time Seen by Provider: 05/01/25 08:51 Mode of Arrival: Ambulatory Source of Information: Patient Limitations: No Limitations History of Present Illness HPI narrative: Desire Blevins is a 50-year-old female with no significant past medical history who presents to the emergency department after fall with right arm pain. Patient states that at 230 this morning, her dog caused her to trip and she fell forward. She states that she landed on her right arm. Since then she is having pain in her right elbow and right wrist. She states that she has been able to move it, however it hurts to do so. She denies any numbness or tingling. She denies any blood thinner use. She states that she has a shooting pain running from her elbow up to her wrist. Related Data Home Medications ?Medication ?Instructions ?Recorded ?Confirmed sumatriptan succinate 100 mg tablet mg PO 04/30/25 04/30/25 Previous Rx's ?Medication ?Instructions ?Recorded venlafaxine 150 mg See Rx Instructions .Route 09/26/24 capsule,extended release 24 hr .COMPLEX #90 caps atorvastatin 20 mg tablet 20 mg PO HS #90 tabs 01/22/25 topiramate 100 mg tablet 100 mg PO BID #180 tabs 03/13/25 cariprazine 6 mg capsule (Vraylar) 6 mg PO DAILY #30 caps 03/21/25 cyclobenzaprine 5 mg tablet See Rx Instructions .Route 04/09/25 .COMPLEX #90 tabs buspirone 30 mg tablet 30 mg PO TID #90 tabs 04/18/25 galcanezumab-gnlm 120 mg/mL 120 mg SQ QMONTH Migraine #1 mL 04/30/25 subcutaneous pen injector (Emgality Pen) levothyroxine 25 mcg tablet See Rx Instructions .Route 05/01/25 .COMPLEX #30 tabs methocarbamol 750 mg tablet 750 mg PO Q6H PRN muscle spasm #30 05/01/25 tabs Allergies Allergy/AdvReac Type Severity Reaction Status Date / Time No Known Allergies Allergy Verified 05/01/25 09:07 [facility] Disclaimer: The information contained in this section may have been updated after the patient was seen, as this information can be updated by other users. Medical History (Updated 05/01/25 @ 09:27 by Karl Kendrick MD) Macrocytic Hypoxemia History of thyroid disease History of hyperlipidemia History of COPD Sinusitis Nausea vomiting and diarrhea Influenza A Facet hypertrophy of lumbar region Lumbar back pain Sciatica of right side Bipolar disorder Constipation Vertigo GERD (gastroesophageal reflux disease) Anxiety Encounter for smoking cessation counseling Depression Surgical History History of hysterectomy History of section History of cholecystectomy Family History (Updated 04/30/25 @ 15:28 by Sofia Ram) Other Asthma Cancer Diabetes Hyperlipidemia Hypertension Social History Smoking Status: Current every day smoker tobacco type: cigarettes packs per day: 2 second hand exposure: Yes alcohol intake: never substance use type: denies use current occupational status: other Travel in the last 8 weeks?: None household members: none housing: house current occupational exposures/hazards: No caffeine: Yes Have you lived/traveled outside US in past 30 days?: No Contact w/someone who lives/traveled outside US past 30 days?: No Exposure to someone with infectious disease in past 14 days?: No Do you have a fever (greater than 100.4 F or 38 C)?: No Have you tested positive for COVID-19?: No Exposed to someone with COVID-19 in past 14 days?: No Do you have a sore throat?: No Do you have a cough?: No Do you have any weakness?: No Do you have any diarrhea?: No Are you experiencing any unusual bleeding?: No Do you have any muscle aches/pain?: No Do you have any abdominal pain?: No Are you experiencing loss of taste or smell?: No Other Medical History Have you received the Flu Vaccine for this season: No Have you received the Pneumonia Vaccine: No ROS Obtained: Yes Systems reviewed as appropriate & no additional complaints except as documented Physical Exam General General appearance: alert and in no apparent distress Head Head exam: atraumatic Eye Eye exam: Present normal appearance ENT ENT exam: Present normal external ear exam Neck Neck exam: Present full ROM Chest Chest inspection: Present symmetric chest wall rise Respiratory Respiratory exam: Present normal lung sounds bilaterally; Absent respiratory distress Cardiovascular Cardiovascular exam: Present regular rate and normal rhythm Abdominal Exam Abdominal exam: Present soft; Absent tenderness or guarding Extremities Exam Extremities exam: Present normal inspection and other (Right upper extremity: Tenderness over the lateral aspect of the right elbow without significant swelling or deformity. Mild amount of bruising in this area. Tenderness over the radial head. 2+ radial pulse, neuro vastly intact distally with good sensation in the hand. 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 Carmelo Inquiry Pt receiving controlled substance: No Vital Signs: 05/01/25 08:47 05/01/25 08:51 05/01/25 09:25 Temperature 97.6 F Temperature Source Oral Pulse Rate 92 H Pulse Rate [Left] 92 H Respiratory Rate 16 16 Blood Pressure 118/73 105/72 L Blood Pressure [Left Arm] 118/73 Blood Pressure Mean 83 Blood Pressure Mean [Left Arm] 88 02 Sat by Pulse Oximetry 98 95 Oxygen Delivery Method Room Air Room Air 05/01/25 09:35 Temperature 98.2 F Temperature Source Pulse Rate 96 H Pulse Rate [Left] Respiratory Rate 16 Blood Pressure 109/74 L Blood Pressure [Left Arm] Blood Pressure Mean Blood Pressure Mean [Left Arm] 02 Sat by Pulse Oximetry Oxygen Delivery Method Room Air Orders (Tests/Meds): ED MEDICATIONS Discontinued Medications Generic Name Dose Route Start Last Admin Trade Name Freq PRN Reason Stop Dose Admin Acetaminophen 1,000 mg 05/01/25 08:55 05/01/25 09:04 Acetaminophen 500mg Tab PO 05/01/25 08:56 1,000 mg ONCE ONE Administration Methocarbamol 1,000 mg 05/01/25 08:56 05/01/25 09:04 Methocarbamol 500mg Tablet PO 05/01/25 08:57 1,000 mg ONCE ONE Administration ORDERS Category Date Time Status Elbow XR right 2 views [XR elbow RT 2V] Stat Exams 05/01/25 08:55 Completed Forearm XR right 2 views [XR forearm RT 2V] Stat Exams 05/01/25 08:55 Completed Wrist XR right 2 views [XR wrist RT 2V] Stat Exams 05/01/25 08:55 Completed Medical Decision Narrative: Desire Blevins is a 50-year-old female with no significant past medical history who presents to the emergency department after fall with right arm pain. Patient states that at 230 this morning, her dog caused her to trip and she fell forward. She states that she landed on her right arm. Since then she is having pain in her right elbow and right wrist. She states that she has been able to move it, however it hurts to do so. She denies any numbness or tingling. She denies any blood thinner use. She states that she has a shooting pain running from her elbow up to her wrist. On arrival, patient is normotensive, borderline tachycardic with heart rate of 92 bpm, afebrile, 98% SpO2 on room air. Physical exam, as stated above, revealed an overall well-appearing female in no respiratory distress. She has tenderness over the lateral aspect of the right elbow and over the radial head but 2+ radial pulse. She has full range of motion at the elbow with passive range of motion. No significant swelling. Mild amount of bruising at the elbow. Neuro vastly intact to the hand with good subway conductor strength and sensation to all fingers. Good capillary refill. No tenderness or pain proximal to this injury. Differential diagnosis includes, but is not limited to: Fracture, soft tissue injury, low concern for neurovascular injury given strong pulses and normal sensory exam. Low concern for ligamentous or tendon injury. Workup here in the emergency department included: X-ray right elbow, patient was treated with 1 g of oral Tylenol, 1 g of oral Robaxin X-ray imaging interpreted by me personally. No fracture or dislocation along the elbow, forearm or distal radius and ulna/wrist. See final radiology report for details. Is felt the patient likely has bruising secondary to her fall. Recommending conservative management at this time with Tylenol, ibuprofen will send prescription for Robaxin. Will provide sling for comfort. Encouraged her to follow with her primary care physician. All questions were answered. She demonstrated understanding and was in agreement this plan. She was then discharged from the emergency department in stable condition. Critical Care Critical Care Time Critical Care Time: No
--- OUTSIDE RECORDS SUMMARY | 2025-05-01 09:00 | XMS_ITS | Encounter Summary ---
Author Organization Healthcare Address [address] [place] [address] Care Team Providers Care Driller Machine Name Role Phone 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 RED Primary Care Provider [phone]- [phone] Encounter Details Date Type Department Care Team [...] Description 05/16/2025 9:15 AM EDT Office Visit [facility] [place] [facility] [address] [facility] [place] [address] Valdemar Orr MD [address] [place] [address] documented as of this encounter [...] documented as of this encounter Care Teams Driller Machine Relationship Specialty Start Date End Date 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 APRN [address] [place] [address] [id number] PCP - General 01/26/25 documented as of this encounter
--- NOTE | 2025-05-01 09:01 | PC.NURSE ---
Radiology at bedside.
--- OUTSIDE RECORDS SUMMARY | 2025-05-01 09:01 | XMS_ITS | Clinical Summary ---
Author Organization [facility] Address [address] [place] [address] Phone Care Team Providers Care Press Tender Smoke Signal Name Role Phone Unavailable Primary Care Provider [...] patient's age to complete this topic Insurance [facility]
--- OUTSIDE RECORDS SUMMARY | 2025-05-01 09:01 | XMS_ITS | Clinical Summary ---
Author Organization Healthcare Address [address] [place] [address] Care Team Providers Care Kitchenhand Name Role Phone 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 RED Primary Care Provider [phone]- [phone] Allergies No known active allergies Medications Qulipta [...] Description 03/21/2025 9:30 AM EDT Office Visit [facility] [place] [address] [place] [address] Valdemar Orr MD Patent foramen ovale (Primary Dx) 03/21/2025 Travel from Last 3 Months Immunizations Immunization Administration Dates Next Due Hep B, adult 02/01/2023 Influenza, injectable, quadrivalent 07/28/2017 Influenza, injectable, quadrivalent, preservativ e free 07/30/2023 Influenza, seasonal, injectable 08/31/2016,10/31 Moderna COVID-19 Vaccine (Enrollment Nurse) 12+ years Tdap 08/31/2016 Family History Medical [...] Description 05/16/2025 9:15 AM EDT Office Visit [facility] [place] [address] Valdemar Orr MD [address] [place] [address] Health Maintenance Due Date Last [...] 3 - 19+ 3-dose series) 03/01/2023 02/01/2023 [id number] Vaccine (4 - 2023- season) 2024 07/30/2023, [...] Narrative [facility] - 02/08/1997 12:00 AM EDT [facility] MR #: [id number] [facility] [place] [place], [place] [address] 1975 (Age: 22) FW Collect Date: 01/30/1997 00:00 Receipt Date: 01/31/1997 00:00 Page 1 DEPARTMENT OF PATHOLOGY AND LABORATORY MEDICINE CYTOPATHOLOGY REPORT Email: [email or web address] * Converted Case * This report may not match the original report format ATTENDING MD/Practitioner: Uvaldo Padilla MD Service: [facility] Location: Reported: 02/08/1997 00:00 Collected: 01/30/1997 00:00 [...] results is suggested (please call Microbiology at [phone] for results). CLINICAL INFORMATION: Menstrual History: {Not Provided} Date of Last Menstrual Period: {Not Provided} SPECIMEN DESCRIPTION: A: CERVICAL/VAGINAL SMEAR, PAP ICD: F: {Not Entered} SNOMED CODES: 1; [id number] In cases where a pathologist has signed out the report, the service has been rendered in part by a resident. The signing pathologist has performed and is responsible for the reported pathologic evaluation. us Historical Provider MD LAB PATHOLOGY ORDERABLES Final Result [facility] from Last 3 Months or Most Recently Relevant to Health Maintenance Insurance [employer] Care Teams Kitchenhand Relationship Specialty Start Date End Date 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 APRN [address] [place] [id number] PCP - General 01/26/25
[2025-05-01] MEDS: ACETAMINOPHEN 500MG TAB 1000 MG PO (09:04)
[2025-05-01] MEDS: METHOCARBAMOL 500MG TABLET 1000 MG PO (09:04)
[2025-05-01 09:25] VITALS: BP 105/72; PULSE 92; RESP 16; O2SAT 95
[2025-05-01 09:35] VITALS: BP 109/74; PULSE 96; RESP 16; TEMP 36.8; O2SAT 96
== END 2025-05-01 09:42 | disposition home or self-care (01) ==
PROVIDERS: Emergency Provider Student in an Organized Health Care Education/Training Program; PCP Family Medicine
DX: M25.531 Pain in right wrist (principal); M25.521 Pain in right elbow; W19.XXXA Unspecified fall, initial encounter; E03.9 Hypothyroidism, unspecified
CPT/HCPCS: 73070; 73090; 73100; 99284

== ENCOUNTER 2025-05-30 10:22 | Emergency (ER) | payer MEDICAID, SELFPAY ==
--- OUTSIDE RECORDS SUMMARY | 2025-05-16 09:15 | XMS_ITS | Encounter Summary ---
Author Organization Healthcare Address [address] [place] [address] Care Team Providers Care Black Belt Name Role Phone Chino Samsonahmet London WELL REACTIVATOR OPERATOR Primary Care Provider [phone]- [phone] Reason for Visit * Consultation (Routine) - Closed Specialty Diagnoses / Procedures Referred By Bart t Referred To Contact Diagnoses Patent foramen ovale Lavinia Washburn APRN [address] [place] [address] Phone: tel: fax: Referral ID Status Reason Start Date Expiration Date Visits Re quested Visits Authorized [id number] Closed 03/21/2025 09/20/2026 1 1 Encounter Details Date Type Department Care Team (Late st Contact Info) Description 05/16/2025 9:15 AM EDT Office Visit [facility] [place] [address] [facility] [place] [address] Valdemar Orr MD [address] [place] [address] Patent foramen ovale (Primary Dx) Social History Tobacco Use Types Packs/Day Years Used Date Smoking Tobacco: Every Day Cigarettes 1 35.2 Started: 03/21/1990 Smokeless Tobacco: Never Tobacco Cessation:Ready [...] much Not at all 05/16/2025 9:23 AM Estephnaia Mckee CNA Feeling tired or having little [...] television Not at all 05/16/2025 9:23 AM Estephania Mckee CNA Moving or speaking so slowly that [...] 05/16/2025 9:23 AM Loly Mckee CNA * If you checked off any problems on this questionnaire so far, Question Answer Date of Assessment Author How difficult have these problems made it for you to do your work, take care of things at home, or get along with other people? Not difficult at all 05/16/2025 9:23 AM Estephania Mckee CNA documented as of this encounter Miscellaneous Notes * Progress Notes - Lyn Mansfield, RED - 05/16/2025 9:15 AM EDT Images from the original note were not included. Cardiology Clinic Note Date of Visit 05/16/25 Patient Desire Blevins [address] [facility] [address] PCP 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, WELL REACTIVATOR OPERATOR SUBJECTIVE History of Present Illness Today I saw Desire Blevins, a 50 y.o. female at the [facility] [place] [place] for follow up. PMH includes: HLD, migraines, hypothyroidism bipolar disorder, anxiety, current 1 ppd smoker Ms. Blevins saw Dr. Fabi Wilkinson, neurologist in [place], and states that she was told that [...] Continue ASA per neurology recs Follow up PRN Cortney Mansfield, WELL REACTIVATOR OPERATOR I personally spent a total of 16 [...] documented as of this encounter Care Teams Black Belt Relationship Specialty Start Date End Date 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 APRN [address] [place] [address] PCP - General 01/26/25 documented as of this encounter
[2025-05-30 10:27] VITALS: BP 126/81; PULSE 89; RESP 17; TEMP 36.8; O2SAT 99; BMI 27.2
[2025-05-30] MEDS: TET/DIPHTH/PERT-ADULT 0.5ML SYRINGE 0.5 ML IM (10:39)
--- NOTE | 2025-05-30 10:44 | ED_ITS ---
<Statement entered by Sadie Mccarthy MD - 05/31/25 15:57> I was consulted by the ELMER, and we discussed the complexity of the problems being addressed. I approved the treatment and management plan for this patient's care in the emergency department, thus performing a substantive portion of the medical decision making. Sadie Mccarthy MD, DANIELA, FACEP Discharge Plan Disposition Patient Disposition: Home, Self-Care Prescriptions Prescriptions: New amoxicillin-pot clavulanate 875-125 mg tablet 1 tab PO Q12H Qty: 20 0RF No Action venlafaxine 150 mg capsule,extended release 24hr See Rx Instructions .ROUTE .COMPLEX Qty: 90 2RF Dose Instruction: Take 1 capsule by mouth once daily Rx Instructions: Take 1 capsule by mouth once daily sumatriptan succinate 100 mg tablet PO Patient Comments: TAKE 1 TABLET BY MOUTH ONCE NEEDED FOR MIGRAINE HEADACHE Emgality Pen 120 mg/mL pen injector 120 mg SQ QMONTH Qty: 1 5RF loratadine 10 mg tablet PO Patient Comments: TAKE 1 TABLET BY MOUTH ONCE DAILY methylprednisolone [Medrol (Jayy)] 4 mg tablets,dose pack See Rx Instructions PO PER PKG DIR Qty: 21 0RF Rx Instructions: PO PER PKG DIR atorvastatin 20 mg tablet 20 mg PO HS Qty: 90 2RF Vraylar 6 mg capsule 6 mg PO DAILY Qty: 30 2RF cyclobenzaprine 5 mg tablet See Rx Instructions .ROUTE .COMPLEX Qty: 90 1RF Dose Instruction: Take 1 tablet by mouth three times daily as needed for muscle spasm Rx Instructions: Take 1 tablet by mouth three times daily as needed for muscle spasm buspirone 30 mg tablet 30 mg PO TID Qty: 90 2RF levothyroxine 25 mcg tablet See Rx Instructions .ROUTE .COMPLEX Qty: 30 0RF Dose Instruction: Take 1 tablet by mouth once daily Rx Instructions: Take 1 tablet by mouth once daily Referrals Follow up/Referrals: Larissa Patterson APRN [Primary Care Provider, Family Practice] - See instructions Activity Restrictions/Add. Instructions Additional Instructions/Restrictions: Take antibiotic as directed. Please follow-up with PCP if any other problems or concerns arise. Clinical Impressions Clinical Impression: Animal bite Instructions Patient Instructions: Animal Bites, Skin Wound Print Language Print Language: Central African Discharge ED Provider: Sadie Mccarthy General Adult HPI General Chief complaint: Skin/Abscess/Foreign Body Stated complaint: AO-05/28/25 scratched by raccon, right arm Time Seen by Provider: 05/30/25 10:25 Mode of Arrival: Ambulatory Source of Information: Patient Description of Symptoms (Recalled from ER Triage Doc. by RN): Patient states she got scratched by a raccoon on Wednesday05/28/25 on her right arm. Patient with abrasions to right arm. History of Present Illness HPI narrative: 50-year-old female presents to the ED today for complaint of being scratched by a raccoon on Wednesday. She was taking the garbage out and he scared her and scratched her. She is not sure when she had her last tetanus shot. She does have diarrhea that started yesterday. No nausea no vomiting. No fevers or chills. No other symptoms. She does have history of a murmur, depression, thyroid problems and high cholesterol. No other problems or concerns today. Related Data Home Medications ?Medication ?Instructions ?Recorded ?Confirmed sumatriptan succinate 100 mg tablet mg PO 04/30/2505/04 loratadine 10 mg tablet mg PO 05/10/25 05/17/25 Previous Rx's ?Medication ?Instructions ?Recorded venlafaxine 150 mg See Rx Instructions .Route 1 11/27/23 capsule,extended release 24 hr .COMPLEX #90 caps atorvastatin 20 mg tablet 20 mg PO HS #90 tabs 5 cariprazine 6 mg capsule (Vraylar) 6 mg PO DAILY #30 c aps 03/21/25 cyclobenzaprine 5 mg tablet See Rx Instructions .Route 04/09/25 .COMPLEX #90 tabs buspirone 30 mg tablet 30 mg PO TID #90 tabs galcanezumab-gnlm 120 mg/mL 120 mg SQ QMONTH Migraine #1 mL 04/30/25 subcutaneous pen injector (Emgality Pen) levothyroxine 25 mcg tablet See Rx Instructions .Route 05/01/25 .COMPLEX #30 tabs methylprednisolone 4 mg tablets in See Rx Instructions PO PER PKG DIR 05/10/25 a dose pack (Medrol (Jayy)) #21 tabs amoxicillin 875 mg-potassium 1 tab PO Q12H #20 tabs clavulanate 125 mg tablet Allergies Allergy/AdvReac Type Severity Reaction Status Date / Time No Known Allergies Allergy Verified 05/30/25 10:31 [facility] Disclaimer: The information contained in this section may have been updated after the arely ent was seen, as this information can be updated by other users. Medical History Nocturnal hypoxemia Macrocytic Hypoxemia History of thyroid disease History of hyperlipidemia History of COPD Sinusitis Nausea vomiting and diarrhea Influenza A Facet hypertrophy of lumbar region Lumbar back pain Patient sees pain management later this morning but requests injections Sciatica of right side Bipolar disorder Constipation Vertigo GERD (gastroesophageal reflux disease) Anxiety Encounter for smoking cessation counseling Depression Surgical History History of hysterectomy History of section History of cholecystectomy Family History Other Asthma Cancer Diabetes Hyperlipidemia Hypertension Social History Smoking Status: Current every day smoker tobacco type: cigarettes packs per day: 2 second hand exposure: Yes alcohol intake: never substance use type: denies use current occupational status: other Travel in the last 8 weeks?: None household members: none housing: house current occupational exposures/hazards: No caffeine: Yes Have you lived/traveled outside US in past 30 days?: No Contact w/someone who lives/traveled outside US past 30 days?: No Exposure to someone with infectious disease in past 14 days?: No Do you have a fever (greater than 100.4 F or 38 C)?: No Have you tested positive for COVID-19?: No Exposed to someone with COVID-19 in past 14 days?: No Do you have a sore throat?: No Do you have a cough?: No Do you have any weakness?: No Do you have any diarrhea?: No Are you experiencing any unusual bleeding?: No Do you have any muscle aches/pain?: No Do you have any abdominal pain?: No Are you experiencing loss of taste or smell?: No Other Medical History Have you received the Flu Vaccine for this season: No Have you received the Pneumonia Vaccine: No ROS Obtained: Yes Systems reviewed as appropriate & no additional complaints except as documented Constitutional Constitutional: Reports as per HPI Physical Exam General General appearance: alert and in no apparent distress Head Head exam: atraumatic and normocephalic Eye Eye exam: Present PERRL and EOMI ENT ENT exam: Present mucous membranes moist Neck Neck exam: Present full ROM and trachea midline Respiratory Respiratory exam: Present normal lung sounds bilaterally Cardiovascular Cardiovascular exam: Present regular rate, normal rhythm, normal heart sounds, +S1 and +S2 Abdominal Exam Abdominal exam: Present soft and normal bowel sounds Extremities Exam Extremities exam: Present full ROM, tenderness (Scratches on her right upper arm from the raccoon, tender to touch) and normal capillary refill Neurological Exam Neurological exam: Present alert, oriented X3 and normal gait Skin Skin exam: Present warm, dry and erythema (3 scratches on right upper arm) Medical Decision Making Medical Records Screening: Per USPSTF and CDC recommendations, given the prevalence of disease in our region, it is our hospital?s policy to screen for HIV and viral Hepatitis for all patients aged 18 and over and those with ongoing risk factors. Carmelo Inquiry Pt receiving controlled substance: No Carmelo was queried for this patient: No Vital Signs: 05/30/25 10:27 05/30/25 11:39 05/30/25 12:00 Temperature 98.3 F Temperature Source Oral Pulse Rate 79 82 Pulse Rate [Right Brachial] 89 Respiratory Rate 17 16 Blood Pressure 108/74 L 116/77 Blood Pressure [Right Arm] 126/81 Blood Pressure Mean 87 Blood Pressure Mean [Right Arm] 96 Blood Pressure Source Blood Pressure Position Blood Pressure Position [Right Arm] Sitting 02 Sat by Pulse Oximetry 99 100 96 Oxygen Delivery Method Room Air Room Air Room Air 05/30/25 12:35 05/30/25 12:45 Temperature 98.3 F Temperature Source Oral Pulse Rate 80 80 Pulse Rate [Right Brachial] Respiratory Rate 17 Blood Pressure 115/81 115/81 Blood Pressure [Right Arm] Blood Pressure Mean Blood Pressure Mean [Right Arm] Blood Pressure Source Automatic Cuff Blood Pressure Position Sitting Blood Pressure Position [Right Arm] 02 Sat by Pulse Oximetry 97 Oxygen Delivery Method Room Air Room Air Orders (Tests/Meds): ED MEDICATIONS Discontinued Medications Generic Name Dose Route Start Last Admin Trade Name Freq PRN Reason Stop Dose Admin Rabies Immune Globulin 1,200 unit 05/30/25 11:04 05/30/25 11:43 Rabies Immune Globulin/Pf 300 Unit/Ml 5ml Vial IM 05/30/25 11:05 1,200 unit ONCE ONE Administration Rabies Vaccine 2.5 unit 05/30/25 11:04 05/30/25 11:41 Rabies Vaccine (Pcec)/Pf 2.5 Unit Vial IM 05/30/25 11:05 2.5 unit .ONCE ONE Administration Tetanus/Reduced Diphtheria/Acell Pertussis 0.5 ml 05/30/25 10:31 05/30/25 10:39 Tet/Diphth/Pert-Adult 0.5ml Syringe IM 05/30/25 10:32 0.5 ml .ONCE ONE Administration Medical Decision Narrative: patient is a 50-year-old female presenting to the emergency department for evaluation of raccoon scratch. Patient is hemodynamically stable and nontoxic- appearing upon arrival, afebrile. Differential diagnosis includes raccoon scratch, cellulitis. Discussed with patient that she needed to get the rabies immunoglobulin and the rabies vaccine along with tetanus shot. She is agreeable to this. Discussed this with Dr. Mccarthy. Patient was given this here in the ER she will come back for the RabAvert on days 3, 10, 14. Patient is safe for discharge home. She also was given Augmentin. Critical Care Critical Care Time Critical Care Time: No
--- OUTSIDE RECORDS SUMMARY | 2025-05-30 10:49 | XMS_ITS | Encounter Summary ---
Author Organization Healthcare Address [address] [place] [address] Care Team Providers Care Manufacturing Process Technician Name Role Phone 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 APRN Primary Care Provider [phone]- [phone] Encounter Details Date Type Department Care Team (Latest Contact Info) Description 05/16/2025 Travel Social History Tobacco Use Types Packs/Day Years Used Date Smoking Tobacco: Every Day Cigarettes 1 35.2 Started: 03/21/1990 Smokeless Tobacco: Never Alcohol Use [...] hopeless Not at all 05/16/2025 9:23 AM Estephania Mckee CNA Patient Health Questionnaire-2 Score 0 05/16/2025 9:23 AM Loly Mckee CNA * Question Answer Date of Assessment Author Trouble falling or staying asleep, or sleeping too much Not at all 05/16/2025 9:23 AM Estephania Mckee CNA Feeling tired or having little energy Not at all 05/16/2025 9:23 AM Estephania Mckee CNA Poor appetite or overeating Not at all 05/16/2025 9: 23 AM Estephania Mckee CNA Feeling bad about yourself - or [...] Mckee CNA documented as of this encounter Plan of Treatment Not on file documented as of this encounter Visit Diagnoses Not on filedocumented in this encounter Additional Health Concerns Assessment Noted Time PHQ-9 Depression Total Score: 0 05/16/20 25 9:23 AM EDT A fall risk assessment has been complete d for the patient 05/16/2025 9:15 AM EDT A Body Mass Index follow-up plan has been documented for the patient 05/16/2025 9:55 AM EDT documented as of this encounter Care Teams Manufacturing Process Technician Relationship Specialty Start Date End Date 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 APRN [address] [facility] [place] [address] PCP - General 01/26/25 documented as of this encounter
--- OUTSIDE RECORDS SUMMARY | 2025-05-30 10:49 | XMS_ITS | Clinical Summary ---
Author Organization Healthcare Address [address] [place] [address] Care Team Providers Care Biomed Tech Name Role Phone 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 RED Primary Care Provider [phone]- [phone] Allergies No known active allergies Medications Qulipta [...] mouth 1 time as needed for migraine. 4 Active clindamycin (Cleocin) 300 MG capsule Take 1 capsule by mouth 3 times a day. Active lidocaine (Lidoderm) 5 % patch Active methylPREDNISolone (Medrol Dospak) 4 MG tablets take by mouth as directed on inside of package 5 Active ondansetron ODT (Zofran-ODT) 4 MG disintegrating tablet DISSOLVE 1 TABLET IN MOUTH EVERY 8 HOURS NEEDED FOR NAUSEA AND VOMITING 5 Active Active Problems Problem Noted Date Diagnosed Date Patent foramen ovale 01/19/2025 Hypothyroidism 12/29/2024 Anxiety 10/25/2020 Asthma 10/25/2020 Bipolar disorder 10/25/2020 Hyperlipidemia 10/25/2020 Depressive disorder 10/25/2020 Migraine 10/25/2020 Encounters Date Type Department Care Team Description 05/16/2025 9:15 AM EDT Office Visit [facility] [address] [place] [address] Valdemar Orr MD Patent foramen ovale (Primary Dx) 05/16/2025 Travel 03/21/2025 9:30 AM EDT Office Visit [facility] [address] [place] [address] Valdemar Orr MD Patent foramen ovale (Primary Dx) 03/21/2025 Travel from Last 3 Months Immunizations Immunization Administration Dates Next Due Hep B, adult 02/01/2023 Influenza, injectable, quadrivalent 07/28/2017 Influenza, injectable, quadrivalent, preservativ e free 07/30/2023 Influenza, seasonal, injectable 08/31/2016,10/31 Moderna COVID-19 Vaccine (Barrel Filler) 12+ years Tdap 08/31/2016 Family History Medical [...] Mass Index 27.83 05/16/2025 9:13 AM EDT Plan of Treatment Health Maintenance Due [...] 3 - 19+ 3-dose series) 03/01/2023 02/01/2023 [id number] Vaccine ( season) 2024 07/30/2023, 03/28/2021, 02/28/2021 [facility]-Breast Cancer Screening 2025 [facility]-Lung Cancer Screening 2025 [facility]-Zoster Vaccines (1 of 2) 2025 [facility]-Influenza Vaccine (#1) 06/11/202507/30, 07/28/2017, 08/31/2016, Additional history exists [facility]-Depression Screening 05/16/2026 05/16/2025, 0803/2025 [facility]-DTaP,Tdap,and Td Vaccines (2 - Td or Tdap) 08/31/2026 08/31/2016 [facility]-Obesity Intervention Completed 05/16/2025, 03/11 HPV Vaccines Aged Out No longer eligi [...] Narrative SUNQUEST - 02/08/1997 12:00 AM EDT [id number] [facility] [place] [place] [address] 1975 (Age: 22) FW Collect Date: 01/30/1997 00:00 Receipt Date: 01/31/1997 00:00 Page 1 DEPARTMENT OF PATHOLOGY AND LABORATORY MEDICINE CYTOPATHOLOGY REPORT Email: [email or web address] * Converted Case * This report may not match the original report format ATTENDING MD/Practitioner: Uvaldo Padilla MD Service: [facility] Location: Reported: 02/08/1997 00:00 Collected: 01/30/1997 00:00 [...] results is suggested (please call Microbiology at [phone] for results). CLINICAL INFORMATION: Menstrual History: {Not Provided} Date of Last Menstrual Period: {Not Provided} SPECIMEN DESCRIPTION: A: CERVICAL/VAGINAL SMEAR, PAP ICD: F: {Not Entered} SNOMED CODES: 1; O1I007 [id number] [id number] In cases where a pathologist has signed out the report, the service has been rendered in part by a resident. The signing pathologist has performed and is responsible for the reported pathologic evaluation. us Historical Provider LAB PATHOLOGY ORDERABLES Fin al Result SUNQUEST from Last 3 Months or Most Recently Relevant to Health Maintenance Insurance [facility] [employer] [facility] MEDICAID MEDICAID [facility] Care Teams Biomed Tech Relationship Specialty Start Date End Date 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 APRN [address] [place], [place] [id number] [facility] - General 01/26/25
--- OUTSIDE RECORDS SUMMARY | 2025-05-30 10:50 | XMS_ITS | Clinical Summary ---
Author Organization [facility] Address [address] [place] [address] Phone Care Team Providers Care Business Systems Administrator Name Role Phone Unavailable Primary Care Provider [...] patient's age to complete this topic Insurance [facility] [facility]
[2025-05-30 11:39] VITALS: BP 108/74; PULSE 79; RESP 16; O2SAT 100
[2025-05-30] MEDS: RABIES VACCINE (PCEC)/PF 2.5 UNIT VIAL IM (11:41)
[2025-05-30] MEDS: RABIES IMMUNE GLOBULIN/PF 300 UNIT/ML 5ML VIAL 1200 UNIT IM (11:43)
[2025-05-30 12:00] VITALS: BP 116/77; PULSE 82; O2SAT 96
[2025-05-30 12:35] VITALS: BP 115/81; PULSE 80; O2SAT 97
[2025-05-30 12:45] VITALS: BP 115/81; PULSE 80; RESP 17; TEMP 36.8; O2SAT 97
== END 2025-05-30 12:48 | disposition home or self-care (01) ==
PROVIDERS: Emergency Provider Student in an Organized Health Care Education/Training Program; PCP Family Medicine
DX: S41.151A Open bite of right upper arm, initial encounter (principal); W55.51XA Bitten by raccoon, initial encounter
CPT/HCPCS: 90375; 90471; 90472; 90675; 90715; 96372; 99284

== ENCOUNTER 2025-06-04 13:05 | Outpatient (POV) | payer MEDICAID, SELFPAY ==
--- OUTSIDE RECORDS SUMMARY | 2025-05-16 09:15 | XMS_ITS | Encounter Summary ---
Author Organization Healthcare Address [address] [place] [place] [address] Care Team Providers Care Business Affairs Manager Name Role Phone Chino Samsonahmet London CROWN IRONER OPERATOR Primary Care Provider [phone]- [phone] Reason for Visit * Consultation (Routine) - Closed Specialty Diagnoses / Procedures Referred By Bart t Referred To Contact Diagnoses Patent foramen ovale Lavinia Washburn APRN [address] [place] [address] Phone: tel: fax: Referral ID Status Reason Start Date Expiration Date Visits Re quested Visits Authorized [id number] Closed 03/21/2025 09/20/2026 1 1 Encounter Details Date Type Department Care Team (Late st Contact Info) Description 05/16/2025 9:15 AM EDT Office Visit [facility] [place] [address] [facility] [place] [address] Valdemar Orr MD [address] [place] [address] Patent foramen ovale (Primary Dx) [...] things Not at all 05/16/2025 9:23 AM Estephnaia Mckee CNA Feeling down, depressed, or hopeless [...] Not at all 05/16/2025 9:23 AM Estephania Mceke CNA Trouble concentrating on things, such as [...] 05/16/25 Patient Desire Blevins [address] [facility] [address] PCP 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, CROWN IRONER OPERATOR SUBJECTIVE History of Present Illness Today I saw Desire Blevins, a 50 y.o. female at the [facility] [place] [facility] [place] for follow up. PMH includes: HLD, migraines, hypothyroidism bipolar disorder, anxiety, current 1 ppd smoker Ms. Blevins saw Dr. Fabi Wilkinson, neurologist in [place], and states that she was told that [...] neurology recs Follow up PRN Cortney Mansfield, CROWN IRONER OPERATOR I personally spent a total of [...] documented as of this encounter Care Teams Business Affairs Manager Relationship Specialty Start Date End Date 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 APRN [address] [place] [address] PCP - General 01/26/25 documented as of this encounter
--- OUTSIDE RECORDS SUMMARY | 2025-06-04 13:10 | XMS_ITS | Encounter Summary ---
Author Organization Healthcare Address [address] [place] [address] Care Team Providers Care Tax Manager Public Name Role Phone 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 APRN Primary Care Provider +1- [phone] Encounter Details Date Type Department Care Team [...] documented as of this encounter Care Teams Tax Manager Public Relationship Specialty Start Date End Date 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 APRN [address] [facility] [place] [address] PCP - General 01/26/25 documented as of this encounter
--- OUTSIDE RECORDS SUMMARY | 2025-06-04 13:10 | XMS_ITS | Clinical Summary ---
Author Organization Healthcare Address [address] [place] [address] Care Team Providers Care Water Supervisor Name Role Phone 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 RED Primary Care Provider +1- [phone] Allergies No known active allergies Medications Qulipta [...] 9:15 AM EDT Office Visit [facility] [address] [place] [address] Valdemar Orr MD Patent foramen ovale (Primary Dx) 05/16/2025 Travel 03/21/2025 9:30 AM EDT Office Visit [facility] [address] [place] [address] Valdemar Orr MD Patent foramen ovale (Primary Dx) 03/21/2025 Travel from Last 3 Months Immunizations Immunization Administration Dates Next Due Hep B, adult 02/01/2023 Influenza, injectable, quadrivalent 07/28/2017 Influenza, injectable, quadrivalent, preservativ e free 07/30/2023 Influenza, seasonal, injectable 08/31/2016,10/31 Moderna COVID-19 Vaccine (Data Modeling Specialist) 12+ years Tdap 08/31/2016 Family History Medical [...] 3 - 19+ 3-dose series) 03/01/2023 02/01/2023 [id number] Vaccine ( season) 2024 07/30/2023, 03/28/2021, 02/28/2021 [...] Narrative SUNQUEST - 02/08/1997 12:00 AM EDT [facility] MR #[facility] [id number] [facility] [place] [place] [address] 1975 (Age: 22) FW Collect Date: 01/30/1997 00:00 Receipt Date: 01/31/1997 00:00 Page 1 DEPARTMENT OF PATHOLOGY AND LABORATORY MEDICINE CYTOPATHOLOGY REPORT Email: [email or web address] * Converted Case * This report may not match the original report format ATTENDING MD/Practitioner: Uvaldo Padilla MD Service: [facility] Location: Reported: 02/08/1997 00:00 Collected: 01/30/1997 00:00 [...] results is suggested (please call Microbiology at [phone] for results). CLINICAL INFORMATION: Menstrual History: {Not Provided} Date of Last Menstrual Period: {Not Provided} SPECIMEN DESCRIPTION: A: CERVICAL/VAGINAL SMEAR, PAP ICD: F: {Not Entered} SNOMED CODES: 1; [id number] [id number] In cases where a pathologist has signed out the report, the service has been rendered in part by a resident. The signing pathologist has performed and is responsible for the reported pathologic evaluation. us Historical Provider LAB PATHOLOGY ORDERABLES Fin al Result SUNQUEST from Last 3 Months or Most Recently Relevant to Health Maintenance Insurance [facility] [employer] [facility] MEDICAID MEDICAID [facility] Care Teams Water Supervisor Relationship Specialty Start Date End Date 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 APRN [address] [place], [place] [id number] [facility] - General 01/26/25
--- OUTSIDE RECORDS SUMMARY | 2025-06-04 13:10 | XMS_ITS | Clinical Summary ---
Author Organization [facility] Address [address] [place] [address] Phone Care Team Providers Care Vegetable Loader Name Role Phone Unavailable Primary Care Provider [...] patient's age to complete this topic Insurance [facility]
--- NOTE | 2025-06-04 13:39 | EXP.PAIN.SOA ---
[facility] Disclaimer: The information contained in this section may have been updated after the patient was seen, as this information can be updated by other users. Medical History Nocturnal hypoxemia Macrocytic Hypoxemia History of thyroid disease History of hyperlipidemia History of COPD Sinusitis Nausea vomiting and diarrhea Influenza A Facet hypertrophy of lumbar region Lumbar back pain Patient sees pain management later this morning but requests injections Sciatica of right side Bipolar disorder Constipation Vertigo GERD (gastroesophageal reflux disease) Anxiety Encounter for smoking cessation counseling Depression Surgical History History of hysterectomy History of section History of cholecystectomy Family History Other Asthma Cancer Diabetes Hyperlipidemia Hypertension Social History Smoking Status: Current every day smoker tobacco type: cigarettes packs per day: 2 second hand exposure: Yes alcohol intake: never substance use type: denies use current occupational status: other Travel in the last 8 weeks?: None household members: none housing: house current occupational exposures/hazards: No caffeine: Yes PM Subjective & Objective Subjective Subjective:: Patient is a pleasant 50-year-old female who presents today for worsening back pain. She rates her pain a 7 out of 10. She denies any new falls or injuries. Patient states the pain is just killing her they are in her low back and that it is even waking her up in the middle the night. Patient does state that it typically goes into her left upper thigh. Patient does state from her last appointment that the manager environmental health is no longer going to do heart surgery. She states that he has basically said unless she has a stroke he will not be doing anything. Patient has been prescribed Flexeril 5 mg 3 times daily from our office however states that she would like something stronger as that she is not cutting it. Patient was evaluated for a pain pump in the past and did undergo the trial in 2022 with 100% relief for 3 days. Patient did not ultimately go on through with this because she was trying to limit how much time off she had to take but does state today she would like to get this back to being scheduled. Her Carmelo has been reviewed and is appropriate. Review of Systems: General: No recent weight changes, no fever, no sleep disturbances Respiratory: No cough, no shortness of air, no recurring pulmonary infections Cardiovascular/peripheral vascular: No chest pain, no palpitations, no edema, no shortness of breath Gastrointestinal: No new onset incontinence, normal bowel movements reported Genitourinary: No new onset incontinence Musculoskeletal: Low back pain Psychiatric: [Normal mood/affect] Neurological: [Denies weakness in extremities], [denies balance issues] Pain at rest (0-10 scale): 7 Objective Objective:: Physical Exam: General: Alert and oriented x3, no acute distress, pleasant and cooperative Lungs: Respirations even and unlabored, symmetrical chest expansion Eyes: PERRL Musculoskeletal: Flexion and extension of lumbar [spine] somewhat guarded secondary to pain, [antalgic gait noted] Neurological: Speech clear, no gross sensory deficit Has patient had previous pain injection?: No Conservative treatment options previously tried: Home exercise plan Length of treatment: Longer than 12 weeks Meds Home Medications and Allergies Home Medications ?Medication ?Instructions ?Recorded ?Confirmed ?Type venlafaxine 150 mg See Rx Instructions .Route 09/26/24 05/17/25 Rx capsule,extended release 24 hr .COMPLEX #90 caps atorvastatin 20 mg tablet 20 mg PO HS #90 tabs 01/22/25 05/17/25 Rx cariprazine 6 mg capsule (Vraylar) 6 mg PO DAILY #30 caps 03/21/25 05/17/25 Rx cyclobenzaprine 5 mg tablet See Rx Instructions .Route 04/09/25 05/17/25 Rx .COMPLEX #90 tabs buspirone 30 mg tablet 30 mg PO TID #90 tabs 04/18/25 05/17/25 Rx galcanezumab-gnlm 120 mg/mL 120 mg SQ QMONTH Migraine #1 mL 04/30/25 05/17/25 Rx subcutaneous pen injector (Emgality Pen) sumatriptan succinate 100 mg tablet mg PO 04/30/25 05/17/25 History levothyroxine 25 mcg tablet See Rx Instructions .Route 05/01/25 05/17/25 Rx .COMPLEX #30 tabs loratadine 10 mg tablet mg PO 05/10/25 05/17/25 History methylprednisolone 4 mg tablets in See Rx Instructions PO PER PKG DIR 05/10/25 05/17/25 Rx a dose pack (Medrol (Jayy)) #21 tabs amoxicillin 875 mg-potassium 1 tab PO Q12H #20 tabs 05/30/25 Rx clavulanate 125 mg tablet New Prescriptions to Start Prescriptions: Allergies Allergy/AdvReac Type Severity Reaction Status Date / Time No Known Allergies Allergy Verified 05/30/25 10:31 Assessment and Plan *Assessment and plan (1) Lumbar radiculopathy: Status: Chronic Category: Medical Code(s): M54.16 - Radiculopathy, lumbar region (2) Degenerative joint disease (DJD) of lumbar spine: Status: Chronic Qualifiers: Spinal osteoarthritis complication: with radiculopathy Qualified Code(s): M47.26 - Other spondylosis with radiculopathy, lumbar region Category: Medical Code(s): M47.816 - Spondylosis without myelopathy or radiculopathy, lumbar region (3) Chronic pain syndrome: Status: Acute Category: Medical Code(s): G89.4 - Chronic pain syndrome Plan I did review over with the patient regarding the pump trial and that since it has been since 2022 we would have to redo the psych eval and also send her for neurosurgery evaluation. Patient does state that she would like to go ahead and get this scheduled. I will order her psychological evaluation and if she is deemed an appropriate candidate we will proceed forward with the trial at a later date. Patient will also be sent for neurosurgery evaluation to [facility]. Patient will return to clinic in 1 month. I will also change her muscle relaxer. Patient has been instructed to contact the clinic with any concerns before the next appointment. Dr. Briones has reviewed this note and agrees with this plan of care. This note was dictated using voice recognition software and make contain errors or omissions. All injections are used with Lidocaine, Bupivacaine and dexamethasone. Occasionally urine drug screen is needed to verify patient's compliance with our office pain contract. This is ordered based off specific treatments related to chronic pain with the potential to abuse certain medications.
[2025-06-04 14:21] VITALS: BP 112/66; PULSE 90; RESP 14; O2SAT 97; BMI 28.0
== END 2025-06-04 23:59 | disposition home or self-care (01) ==
PROVIDERS: PCP Family Medicine; Visit Provider Nurse Practitioner Family
DX: M46.26 Osteomyelitis of vertebra, lumbar region (principal); G89.4 Chronic pain syndrome; Z79.899 Other long term (current) drug therapy
CPT/HCPCS: 99212; G0463

== ENCOUNTER 2025-07-13 09:18 | Outpatient (CLI) | payer MEDICAID, SELFPAY ==
--- OUTSIDE RECORDS SUMMARY | 2025-05-16 09:15 | XMS_ITS | Encounter Summary ---
Author Organization Healthcare Address [address] [place] [address] Care Team Providers Care Customer Data Technician Name Role Phone Chino Samsonahmet London PIPELINE CONSTRUCTION INSPECTOR Primary Care Provider [phone] Reason for Visit * Consultation (Routine) - Closed Specialty Diagnoses / Procedures Referred By Bart t Referred To Contact Diagnoses Patent foramen ovale Lavinia Washburn APRN [address] [place] [address] Phone: tel: fax: Referral ID Status Reason Start Date Expiration Date Visits Re quested Visits Authorized [id number] Closed 03/21/2025 09/20/2026 1 1 Encounter Details Date Type Department Care Team (Late st Contact Info) Description 05/16/2025 9:15 AM EDT Office Visit [facility] [place] [address] [facility]. [address] [place] [address] Valdemar Orr MD [address] [place] [address] Patent foramen ovale (Primary Dx) Social History Tobacco Use Types Packs/Day Years Used Date Smoking Tobacco: Every Day Cigarettes 1 35.3 Started: 03/21/1990 Smokeless Tobacco: Never Tobacco Cessation:Ready to Q uit: Not Asked; Counseling Given: Not Answered Alcohol Use Standard Drinks/Week Comments Not Currently 0 (1 standard drink = 0.6 oz pur e alcohol) PHQ-2 Answer Date Recorded Patient Health Questionnaire-2 Score 0 05/16/2025 PHQ-9 Answer Date Recorded Patient Health Questionnaire-9 Score 0 05/16/2025 Comments Unknown Sex and Gender Information Value Date Recorded Sex Assigned at Not on file Legal Sex Female 8:33 PM EDT Gender Identity Not on file Sexual Orientation Not on file documented as of this encounter Last Filed Vital Signs Vital Sign Reading Time Taken Comments Blood Pressure 127/87 05/16/2025 9:13 AM EDT Pulse 85 05/16/2025 9:13 AM EDT Temperature - - Respiratory Rate - - Oxygen Saturation 99% 05/16/2025 9:13 AM EDT Inhaled Oxygen Concentration - - Weight 62.5 kg (137 lb 12.6 oz) 05/16/2025 9:13 AM EDT Height 149.9 cm (4' 11 ) 05/16/2025 9:13 AM EDT Body Mass Index 27.83 05/16/2025 9:13 AM EDT documented in this encounter Functional Status * Over the past 2 weeks, how often have you been bothered by any of the following problems? Question Answer Date of Assessment Author Little interest or pleasure in doing things Not at all 05/16/2025 9:23 AM Estephania Mckee CNA Feeling down, depressed, or hopeless Not at all 05/16/2025 9:23 AM ELIZABETHT Estephania Fowler CNA Patient Health Questionnaire-2 Score 0 05/16/2025 9:23 AM ELIZABETHT Loly Fowler CNA * Question Answer Date of Assessment Author Trouble falling or staying asleep, or sleeping too much Not at all 05/16/2025 9:23 AM Estephania Mckee CNA Feeling tired or having little energy Not at all 05/16/2025 9:23 AM Estephania Mckee CNA Poor appetite or overeating Not at all 05/16/2025 9: 23 AM ELIZABETHT Estephania Fowler CNA Feeling bad about yourself - or that you are a failure or have let yourself or your family down Not at all 05/16/2025 9:23 AM Estephania Mckee CNA Trouble concentrating on things, such as reading the newspaper or watching television Not at all 05/16/2025 9:23 AM EDEstephania Okeefe CNA Moving or speaking so slowly that other people could have noticed? Or the opposite - being so fidgety or restless that you have been moving around a lot more than usual. Not at all 05/16/2025 9:23 AM Estephania Mckee CNA Thoughts that you would be better off or hurting yourself in some way Not at all 05/16/2025 9:23 AM Estephania Mckee CNA Patient Health Questionnaire-9 Score 0 05/16/2025 9:23 AM Loly Mckee CNA * How difficult have these problems made it for you to do your work, take care of things at home, or get along with other people? Answer Date of Assessment Author Not difficult at all 05/16/2025 9:23 AM EDT Estephania Rivera CNA documented as of this encounter Miscellaneous Notes * Progress Notes - Lyn Mansfield APRN - 05/16/2025 9:15 AM EDT Images from the original note were not included. Cardiology Clinic Note Date of Visit 05/16/25 Patient Desire Blevins [address] [facility] [address] PCP 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, RED SUBJECTIVE History of Present Illness Today I saw Desire Blevins, a 50 y.o. female at [facility] for follow up. PMH includes: HLD, migraines, hypothyroidism bipolar disorder, anxiety, current 1 ppd smoker Ms. Blevins saw Dr. Fabi Wilkinson, neurologist in [place], and states that she was told that she didnot need to undergo an operation . Patient is doing well without neurologic complaints or stroke like symptoms. Review of neurology note does not specifically address MD's recommendations, but does note PFO- apparently no indication for closure . Daily ASA prophylaxis was recommended at her neurology appointment. Problem List[1] Past Medical History Past Medical History[2] Past Surgical History Surgical History[3] Family History Family History[4] Social History Social History[5] Current Medications Current Medications[6] Allergies Allergies[7] The following portions of the chart were reviewed this encounter and updated as appropriate: Tobacco Allergies Meds Problems Med Hx Surg Hx Fam Hx Review of Systems 14 Point ROS reviewed and is otherwise negative except as per HPI. OBJECTIVE Vitals Visit Vitals BP 127/87 Pulse 85 Ht 1.499 m (4' 11 ) Wt 62.5 kg (137 lb 12.6 oz) SpO2 99% BMI 27.83 kg/m?? Physical Exam Physical Exam Vitals reviewed. Constitutional: General: She is not in acute distress. HENT: Head: Normocephalic. Neck: Vascular: No carotid bruit. Cardiovascular: Rate and Rhythm: Normal rate and regular rhythm. Pulses: Normal pulses. Heart sounds: S1 normal and S2 normal. No murmur heard. No gallop. Pulmonary: Effort: Pulmonary effort is normal. No respiratory distress. Breath sounds: Normal breath sounds. Musculoskeletal: Right lower leg: No edema. Left lower leg: No edema. Skin: General: Skin is warm and dry. Neurological: Mental Status: She is alert and oriented to person, place, and time. Psychiatric: Mood and Affect: Mood normal. Behavior: Behavior normal. Diagnostics No echocardiogram results found for the past 12 months Lab Review No results found for: WBC , RBC , HGB , HCT , LABPLAT Lab Results Component Value Date/Time GLUCOSE 88 06/26/2022 1541 BUN 7 06/26/2022 1541 CREATININE 0.58 06/26/2022 1541 NA 141 06/26/2022 1541 K 3.5 06/26/2022 1541 CL 107 06/26/2022 1541 No results found for: AST , ALT , ALKPHOS No results found for: CHOL , LDL , LDLCALC , HDL , TRIG No results found for: HGBA1C No results found for: TSH , FREET4 ASSESSMENT AND PLAN Visit Diagnoses and Orders 1. Patent foramen ovale Discussion Summary The patient's cardiac evaluation was discussed with Dr. Orr who agrees with the plan. #PFO - PFO noted Echo - no history of stroke or DVT - History of worsening migraines, now followed by neurology - no indication to close PFO at this time - Advised patient to be sure to include this on her medical history - No indication from neurology note that PFO closure indicated from neuro standpoint - Continue ASA per neurology recs Follow up MIQUEL Mansfield APRN I personally spent a total of 16 minutes on this encounter. This time includes face to face with patient, counseling, discussion and/or coordination of care, and documentation. [1] Patient Active Problem List Diagnosis Anxiety Asthma Bipolar disorder Hyperlipidemia Depressive disorder Hypothyroidism Migraine Patent foramen ovale [2] History reviewed. No pertinent past medical history. [3] History reviewed. No pertinent surgical history. [4] Family History Problem Relation Name Age of Onset Hypertension Mother [5] Social History Tobacco Use Smoking status: Every Day Current packs/day: 1.00 Average packs/day: 1 pack/day for 35.2 years (35.2 ttl pk-yrs) Types: Cigarettes Start date: 03/21/1990 Smokeless tobacco: Never Substance Use Topics Alcohol use: Not Currently Drug use: Never [6] Current Outpatient Medications: atorvastatin (Lipitor) 20 MG tablet, Take 1 tablet by mouth daily., Disp: , Rfl: busPIRone (Buspar) 30 MG tablet, Take 1 tablet by mouth 3 times a day., Disp: , Rfl: clindamycin (Cleocin) 300 MG capsule, Take 1 capsule by mouth 3 times a day., Disp: , Rfl: levothyroxine (Synthroid, Levoxyl) 25 MCG tablet, Take 1 tablet by mouth daily., Disp: , Rfl: lidocaine (Lidoderm) 5 % patch, , Disp: , Rfl: loratadine (Claritin) 10 MG tablet, Take 1 tablet by mouth daily., Disp: , Rfl: methylPREDNISolone (Medrol Dospak) 4 MG tablets, take by mouth as directed on inside of package, Disp: , Rfl: ondansetron ODT (Zofran-ODT) 4 MG disintegrating tablet, DISSOLVE 1 TABLET IN MOUTH EVERY 8 HOURS NEEDED FOR NAUSEA AND VOMITING, Disp: , Rfl: Qulipta 60 MG tablet, Take 60 mg by mouth daily., Disp: , Rfl: topiramate (Topamax) 100 MG tablet, Take 1 tablet by mouth 2 times a day., Disp: , Rfl: Ubrelvy 100 MG tablet, Take 1 tablet by mouth 1 time as needed for migraine., Disp: , Rfl: Vraylar 6 MG capsule, Take 1 capsule by mouth daily., Disp: , Rfl: celecoxib (CeleBREX) 200 MG capsule, Take 1 capsule by mouth 1 time each day. (Patient not taking: Reported on 05/16/2025), Disp: , Rfl: SUMAtriptan (Imitrex) 100 MG tablet, Take 1 tablet by mouth 1 time as needed for migraine. (Patientnot taking: Reported on 05/16/2025), Disp: , Rfl: [7] No Known Allergies documented in this encounter Plan of Treatment Not on file documented as of this encounter Visit Diagnoses Diagnosis Patent foramen ovale- Primary Ostium secundum type atrial septal defect documented in this encounter Additional Health Concerns Assessment Noted Time PHQ-9 Depression Total Score: 0 05/16/20 9:23 AM EDT A fall risk assessment has been complete d for the patient 05/16/2025 9:15 AM EDT A Body Mass Index follow-up plan has been documented for the patient 05/16/2025 9:55 AM EDT documented as of this encounter Care Teams Customer Data Technician Relationship Specialty Start Date End Date 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 APRN [address] [place] [address] PCP - General 01/26/25 documented as of this encounter
[2025-07-13 20:09] LABS: Coronavirus 19, PCR Not Detected (NotDetected); Influenza A, PCR Not Detected (NotDetected); Influenza B, PCR Not Detected (NotDetected)
--- OUTSIDE RECORDS SUMMARY | 2025-07-16 09:22 | XMS_ITS | Continuity of Care Document ---
Author Organization [facility] Address [address] [place] [address] Assessment No assessment recorded. Plan of Treatment Reminders Order Date Submit Date Provider Last Modified By Organization Details Last Modified Time Details Appointments None recorded. Lab None recorded. Referral None recorded. Procedures None recorded. Surgeries None recorded. Imaging None recorded. Medication Orders prednisone 20 mg tablet 2024 025 [facility], [address], [address], 5 05:02:01 albuterol sulfate HFA 90 mcg/actuati on aerosol inhaler 2024 025 [facility], [address], [address], 5 16:04:37 nicotine 21 mg/24 hr daily transdermal patch 2024 025 [facility], [address], [address], 5 16:05:33 doxycycline hyclate 100 mg capsule 2024 025 [facility], [address], [address], 5 05:02:07 Patient TargetsNo targets recorded. Patient InstructionsNo instructions recorded. Reason for Referral None Reported. Problems Name Problem SNOMED Code Status Onset Date Resolution Date Notes Provider Name and Address Organization Details Recorded Time Bipolar disorder 93121114 Active 2020 Jasmina Frye null, [place] - [facility] 09:15:02 Asthma 973515881 Active 2020 Jasmina Frye null, [place] - [facility] 1 09:15:08 Hyperlipidemi a 20383880 Active 2020 Jasmina Frye null, [place] - [facility] 09:15:15 Depressive disorder 69837660 Active 2020 Jasmina Frye null, [place] - [facility] 09:15:22 Anxiety 75193660 Active 2020 Jasmina Frey null, [place] - [facility] 09:15:30 Migraine 74884583 Active 2020 Jasmina Frye null, [place] - [facility] 09:15:42 Hypothyroidis m 59851977 Active 2024 Lana Edy null, [place] - [facility] 5 11:50:11 Patent foramen ovale 618799910 Active 2024 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, [employer] [address], [place], [address] , [place] - [facility] 5 16:20:14 Problem [...] 09:27:23 11/09/19 12 Hysterectomy completed Cathy Logan [employer] [address], [place], [address], [place] - [facility] 01/20/2021 16:20:51 11/09/19 12 excision of bilateral fallopian tubes and ovaries completed Cathy Logan [employer] [address], [place], [address], [place] - [facility] 01/20/2021 16:28:55 06/12/20 08 [...] 1 CAPSULE BY MOUTH TWICE DAILY FOR 10 DAYS 07/02 completed Not Available Not Available Not Available [...] Not Available doxycycli ne hyclate 100 mg capsule Take 1 capsule twice a day by oral route for 7 days. 07/16 completed Not Available Not Available Not Available [...] DAY ON DAY 2 THROUGH DAY 5 04/26 completed Not Available Not Available Not Available [...] day by oral route for 5 days. 07/14 completed Not Available Not Available Not Available [...] Available Not Available amoxicill in 500 mg tablet Take 1 tablet twice a day by oral route for 10 days. 05/13 completed Not Available Not Available Not Available [...] Available Not Available Not Available methocarb nguyen 750 mg tablet TAKE 1 TABLET BY MOUTH EVERY 6 HOURS NEEDED FOR MUSCLE SPASM 07/02 completed Not Available Not Available Not Available baclofen 10 mg tablet TAKE 1 TABLET BY MOUTH THREE TIMES DAILY 07/02 completed Not Available Not Available Not Available benzonata te 100 mg capsule TAKE 1 CAPSULE BY MOUTH TWICE DAILY NEEDED FOR COUGH FOR 5 DAYS active Not Available Not Available No t Available gemfibroz il 600 mg tablet TAKE [...] completed Not Available Not Available Not Available nicotine 21 mg/24 hr daily transderm al patch APPLY 1 PATCH TOPICALL Y ONCE DAILY active Not Available Not Available No t Available diclofena c sodium 75 mg tablet,de [...] 2:08PM;U ser: meeses;I ndicatio n: Pain - ([phone]) Not Available Not Available Not Available levofloxa abdulaziz 500 mg tablet Take 1 tablet every 24 hours by oral route for 7 days. 07/02 completed Not Available Not Available Not Available methylpre dnisolone 4 mg tablets in a dose pack TAKE BY MOUTH DIRECTED ON INSIDE OF PACKAGE 07/02 completed Not Available Not Available Not Available [...] 1 TABLET BY MOUTH EVERY 12 HOURS 07/02 completed Not Available Not Available Not Available Ventolin HFA 90 mcg/actua tion aerosol inhaler INHALE 2 PUFFS BY MOUTH EVERY 4 HOURS NEEDED active Not Available Not Available No t Available buspirone 15 mg tablet TAKE 1 TABLET BY MOUTH THREE TIMES DAILY 12/29 completed Not Available Not Available Not Available NuvaRing 0.12 mg-0.015 mg/24 hr vaginal insert 1 ring vaginall y q month 02/07 completed NuvaRing Vaginal 0.12-0.0 15 mg/24 hr;Recor ded Status: Recorded on: 01/09/20 11:33AM; User: Amish Lyons on: 02/08/20;Print ed: 01/09/20 09 Not Available Not Available Not Available Vitamin D3 25 mcg (1,000 unit) capsule TAKE 1 CAPSULE BY MOUTH ONCE DAILY WITH MEALS 07/02 completed Not Available Not Available Not Available cyclobenz aprine 5 mg tablet TAKE [...] completed Not Available Not Available Not Available Emgality Pen 120 mg/mL subcutane ous pen injector INJECT CONTENTS OF 1 PEN SUBCUTAN EOUSLY ONCE EVERY MONTH active Not Available Not Available No t Available Ubrelvy 100 mg tablet TAKE 1 TABLET BY MOUTH ONCE NEEDED FOR MIGRAINE 12/29 completed Not Available Not Available Not Available [facility] mg disintegr ating [...] Arterial blood by Pulse oximetry Respiratory rate Pain severity - 0-10 verbal numeric rating [Score] - Reported Body temperature Systolic And Diastolic Provider Name and Address Organization Details Last Updated DateTime 5 149.86 cm 27.9 kg/m2 25104.7 5 g 89 /min 98 % 98 % 20 /min 6 97.8 [degF] 108/70 mm[Hg] Desire Sandy [place] - [facility] 15:47:09 Social History Question Answer Notes LastModified by Organizat ion Details LastModified Time Tobacco Smoking Status Current Every Day Smoker Lana bhatti, [place] - [facility] 12/29/2024 11:51:28 Do You Have An Advance Directive? No [email or web address] Information not available 10/25/2020 Are You Blind Or Do You Have Difficulty Seeing? No Information not available 12/29/2024 Is Blood Transfusion Acceptable In An Emergency? Yes [email or web address] Information not available 10/25/2020 What Is Your Level Of Caffeine Consumption? Heavy Information not available 12/29/2024 How Much Tobacco Do You Chew? None [email or web address] Information not available 10/25/2020 Are You Deaf Or Do You Have Serious Difficulty Hearing? No Information not available 12/29/2024 What Type Of Diet Are You Following? REGULAR [email or web address] Information not available 10/25/2020 Which Illicit Or Recreational Drugs Have You Used? None [email or web address] Information not available 10/25/2020 What Is The Highest Grade Or Level Of School You Have Completed Or The Highest Degree You Have Received? [id number] Information not available 12/29/2024 Have There Been Any Changes To Your Family Or Social Situation? No Information not available 12/29/2024 Live Alone Or With Others? With Others With Mom And Son [email or web address] Information not available 10/25/2020 Do You Have A Medical Power Of Truck And Transport Mechanic? No Information not available 12/29/2024 What Was The Date Of Your Most Recent Tobacco Screening? 12/29/2024 Information not available 12/29/2024 How Many Children Do You Have? 2 [email or web address] Information not available 10/25/2020 What Is Your Current Pack Years? [email or web address] [email or web address] Information not available 12/29/2024 Performs Monthly Self-breast Exam? No Information not available 10/25/2020 What Is Your Relationship Status? [email or web address] Information not available 10/25/2020 Seat Belts Used Routinely Yes [email or web address] Information not available 10/25/2020 Are You Sexually Active? No 2018 Due To Passing Of Stroke Information not available 12/29/2024 Do You Have Smoke And Carbon Monoxide Detectors In Your Home? Yes Information not available 12/29/2024 At What Age Did You Start Smoking Tobacco? 16 Information not available 12/29/2024 How Much Tobacco Do You Smoke? 2 PPD [email or web address] Information not available 10/25/2020 General Stress Level Low [email or web address] Information not available 10/25/2020 Do You Use Sunscreen Routinely? No [email or web address] Information not available 10/25/2020 Has Tobacco Cessation [...] used smokeless tobacco? Never used smokeless tobacco [email or web address] Information not available 10/25/2020 Are you currently employed? Yes [email or web address] Information not available 10/25/2020 Do you have transportation difficulties? No Information not available 12/29/2024 Urinary incontinence assessment performed? Yes [email or web address] Information not available 10/25/2020 Are you able to care for yourself independently? Yes Information not available 12/29/2024 Do you have difficulty dressing, bathing, grooming, or toileting? No Information not available 12/29/2024 Do you or have you ever used e-cigarettes or vape? Never used electronic cigarettes [email or web address] Information not available 10/25/2020 What is your exercise level? None [email or web address] Information not available 10/25/2020 Do you use any illicit or recreational drugs? No Information not available 12/29/2024 Do you or have you ever used any other forms of tobacco or nicotine? No Information not available 12/29/2024 What is your level of alcohol consumption? None [email or web address] Information not available 10/25/2020 Are you able to walk independently without assistance or assistive devices? [email or web address] Information not available 10/25/2020 Do you have difficulty doing errands alone? 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 [id number] Information not available 12/29/2024 Do you have difficulty concentrating, remembering or making decisions? No Information no t available 12/29/2024 Family History Relationship Description Onset Age of this Age Resolved Age Notes LastModified by Organization Details LastModified Time Daughter Polycystic ovary syndrome [email or web address] Not available 10/25 09:17:36 Paternal Uncle Diabetes mellitus [email or web address] Not available 10/25 09:17:46 Paternal Aunt Malignant neoplasm of lung [email or web address] Not available 10/25 09:18:07 Paternal Aunt Malignant neoplasm of breast [email or web address] Not available 10/25 09:18:15 Maternal Aunt Malignant neoplasm of bone Not available 10/25 09:18:46 Medical History Condition [...] colitis N Cerebrovascular Disease N Depression N Guillain-[place] N Sleep Apnea N Aneurysm N Bronchitis [...] virus, trivalent, preservative 9 completed Not Available [facility] 07/06/2025 13:35:11 Tdap 6 completed Not Available [facility] 07/06/2025 13:35:11 Influenza, split virus, trivalent, preservative 6 completed Not Available [facility] 07/06/2025 13:35:11 Influenza, split virus, quadrivalent, preservative 7 completed Not Available [facility] 07/06/2025 13:35:11 COVID-19, mRNA, LNP-S, PF, 100 mcg/0.5mL dose or 50 mcg/0.25mL dose 1 completed Not Available [facility] 07/06/2025 13:35:11 COVID-19, mRNA, LNP-S, PF, 100 mcg/0.5mL dose or 50 mcg/0.25mL dose 1 completed Not Available [facility] 07/06/2025 13:35:11 Hep B, adult 3 completed Not Available [facility] 07/06/2025 13:35:11 Influenza, split virus, quadrivalent, PF 3 completed Not Available [facility] 07/06/2025 13:35:11 COVID-19, mRNA, LNP-S, PF, 50 mcg/0.5 mL 3 completed Not Available [facility] 07/06/2025 13:35:11 Tdap 5 completed Not Available [facility] 07/06/2025 13:35:11 Rabies - IM fibroblast culture 5 completed Not Available [facility] 07/06/2025 13:35:11 Influenza, split virus, quadrivalent, preservative 0 completed PATITO [place] - [facility] 10/25/2020 09:14:55 Past Encounters Encounter ID Performer Location Encounter Start Date Encounter Closed Date Diagnosis/Indication Diagnosis SNOMED-CT Code Diagnosis ICD10 Code Diagnosis IMO Codes Diagnosis Note [id number] 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 APRN [address] [address] 07/02/2025 15:24:55 07/02/2025 15:53:47 Acute maxillary sinusitis 80996723 J01.00 54417693 Supportive care reviewed: raising HOB, humidifier use, saline nasal spray, rest, encourage PO fluids and monitor hydration status, infection control measures. Recommende d acetaminop hen/ibupro fen PRN pain, fever Follow-up as needed if no improvemen t or worsening Bronchitis 51578731 J40 82543 steroidsan tibioticsi f worsen or no improvemen t return Cigarette smoker 0963667 7 F17.210 735060 med discussed in detail Health Concerns Section Related Observation LastModified by Organization Detai ls LastModified Time None Recorded Concern Status LastModified by Organization Details LastModified Time None Recorded Payers Encounter Date Sequence Insurance Name Policy Number Policy Barrow Covered Member ID Barrow Member ID Guarantor Name 07/02/2025 1 [facility] (MEDICAID REPLACEMENT - HMO) Desire Blevins [id number] Desire Gen Notes Date Note Type Note Provider Name and Address Organization Details Recorded Time 07/02/2025 text/html ROS as noted in the HPI 50 yr old female presents for lung pain, coughing up thick green mucus, sinus drainage causing a sore throat,sinus pressure,and tenderness. Patient has been sick x 1 week.pt states she would like to try to quit smoking 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, [employer] [address], [place], [address], [facility] - [facility] 07/02/2025 16:05:53 OBGyn Episode No OBEpisode recorded.
--- OUTSIDE RECORDS SUMMARY | 2025-07-16 09:23 | XMS_ITS | Clinical Summary ---
Author Organization [facility] Address [address] [place] [address] Phone Care Team Providers Care Redipper Name Role Phone Unavailable Primary Care Provider [...] of 3 - 19+ 3-dose series) 1994 Cervical Cancer Screening 01/22/1996 Pap Smear 01/22/1996 HPV/Pap Cotest 2005 Breast Cancer Screening 2015 Cologuard 01/22/2020 Colon Cancer Screening 01/22/2020 Colonoscopy 01/22/2020 FIT 01/22/2020 Sigmoidoscopy 01/22/2020 Virtual Colonography 01/22/2020 Pneumococcal Vaccine 50+ (1 of 1 - PCV) 2025 Zoster (1 of 2) 2025 COVID-19 Vaccine (3 - 2024-2 6 season) 2025 03/28/2021, 02/28/2021 Influenza Vaccine (#1) 2025 7, 08/31/2016, 10/31/2008 DTaP/TDaP/Td (2 - Td or Tdap) 08/31/2026 08/31/2016 Meningococcal B Vaccine Aged Out No l onger eligible based on patient's age to complete this topic Insurance [facility]
--- OUTSIDE RECORDS SUMMARY | 2025-07-16 09:23 | XMS_ITS | Clinical Summary ---
Author Organization Healthcare Address [address] [place] [address] Care Team Providers Care Executive Coach Name Role Phone 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 RED Primary Care Provider [phone]- [phone] Allergies No known active allergies Medications Qulipta [...] Description 05/16/2025 9:15 AM EDT Office Visit [facility] [address] [place] [address] Valdemar Orr MD Patent foramen ovale (Primary Dx) 05/16/2025 Travel from Last 3 Months Immunizations Immunization Administration Dates Next Due Hep B, adult 02/01/2023 Influenza, injectable, quadrivalent 07/28/2017 Influenza, injectable, quadrivalent, preservativ e free 07/30/2023 Influenza, seasonal, injectable 08/31/2016,10/31 Moderna COVID-19 Vaccine (Account Associate) 12+ years Tdap 08/31/2016 Family History Medical [...] 3 - 19+ 3-dose series) 03/01/2023 02/01/2023 [facility]-Breast Cancer Screening 2025 [facility]-Lung Cancer Screening 2025 [facility]-Zoster Vaccines (1 of 2) 2025 [id number] Vaccine (4 - 2024- season) 2025 07/30/2023, 03/28/2021, 02/28/2021 [facility]-Influenza Vaccine (#1) 06/11/202507/30, 07/28/2017, 08/31/2016, Additional [...] Narrative [facility] - 02/08/1997 12:00 AM EDT [facility] MR #: [id number] [facility] [place], [place] [address] 1975 (Age: 22) FW Collect Date: 01/30/1997 00:00 Receipt Date: 01/31/1997 00:00 Page 1 DEPARTMENT OF PATHOLOGY AND LABORATORY MEDICINE CYTOPATHOLOGY REPORT Email: [email or web address] [phone] * Converted Case * This report may not match the original report format ATTENDING MD/Practitioner: Uvaldo Padilla MD Service: [facility] Location: Reported: 02/08/1997 00:00 Collected: 01/30/1997 00:00 [...] results is suggested (please call Microbiology at [phone] for results). CLINICAL INFORMATION: Menstrual History: {Not Provided} Date of Last Menstrual Period: {Not Provided} SPECIMEN DESCRIPTION: A: CERVICAL/VAGINAL SMEAR, PAP ICD: F: {Not Entered} SNOMED CODES: 1; U2L036 [id number] U64299 In cases where a pathologist has signed out the report, the service has been rendered in part by a resident. The signing pathologist has performed and is responsible for the reported pathologic evaluation. us Historical Provider LAB PATHOLOGY ORDERABLES Fin al Result [facility]QUEST from Last 3 Months or Most Recently Relevant to Health Maintenance Insurance [facility] MEDICAID MEDICAID O [facility] Care Teams Executive Coach Relationship Specialty Start Date End Date 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 APRN [address] [place] [id number] PCP - General 01/26/25
== END 2025-07-13 23:59 ==
LOC: LAB.DROPOF 07-16 09:18
PROVIDERS: PCP Family Medicine; Visit Provider Family Medicine
DX: R68.89 Other general symptoms and signs (principal)
CPT/HCPCS: 87636

== ENCOUNTER 2025-07-18 10:20 | Outpatient (CLI) | payer MEDICAID, SELFPAY ==
--- NOTE | 2025-07-18 10:23 | XR_ITS ---
FINAL REPORT CLINICAL HISTORY: cough X3DAYS COMPARISON: 01/30/2025 FINDINGS: PA and lateral views of the chest were obtained. The cardiac and mediastinal silhouettes are within normal limits. The lungs are clear. There is no pleural effusion or pneumothorax. No acute osseous abnormality is identified. IMPRESSION: No radiographic evidence of acute cardiac or pulmonary disease. Reviewed, Interpreted and Dictated by Rivka Garcia MD Transcribed by Nadiya More Authenticated and [facility]
[2025-07-18 11:04] LABS: Hematocrit 41.8 % (37.0-47.0); Hemoglobin 14.0 g/dL (12.2-16.2); Immature Granulocytes % 0.3 %; Mean Corpuscular HGB Conc 33.5 g/dL (31.8-35.4); Mean Corpuscular Hemoglobin 33.5 pg (27.0-31.2); Mean Corpuscular Volume 100.0 fl (81-99); Nucleated Red Blood Cells % 0 %; Platelet Count 274 K/mm3 (142-424); Red Blood Count 4.18 M/mm3 (4.20-5.40); Red Cell Distribution Width-SD 47.1 fL; White Blood Count 11.9 K/mm3 (4.8-10.8)
[2025-07-18 11:27] LABS: Chloride 104 mmol/L (98-107)
[2025-07-18 11:28] LABS: Albumin Level 3.4 g/dl (3.5-5.0); Potassium 4.0 mmoL/L (3.5-5.1); Sodium 143 mmol/L (136-145)
[2025-07-18 11:31] LABS: Alanine Aminotransferase 28 U/L (12-78); Albumin/Globulin Ratio 1.1 (1.1-1.8); Alkaline Phosphatase 102 U/L (38-126); Anion Gap 13.0 mEq/L (5-15); Aspartate Amino Transferase 23 U/L (14-36); Calcium 8.6 mg/dl (8.4-10.2); Carbon Dioxide 30 mmol/L (22.0-30.0); Globulin 3.1 g/dL (1.3-3.2); Glucose 67 mg/dl (74-100); Total Protein,Serum 6.5 g/dl (6.3-8.2)
[2025-07-18 12:16] LABS: Bilirubin,Total 0.1 mg/dl (0.2-1.3)
[2025-07-18 13:08] LABS: Blood Urea Nitrogen 7 mg/dl (7-17); Creatinine,Serum 0.70 mg/dl (0.52-1.04); Estimated Glomerular Filt Rate 89 ml/min (>60); GFR (African American) 107 ML/MIN (>60)
== END 2025-07-18 23:59 | disposition home or self-care (01) ==
LOC: LAB 10:21
PROVIDERS: PCP Family Medicine; Visit Provider Family Medicine
DX: R05.9 Cough, unspecified (principal); R09.89 Other specified symptoms and signs involving the circulatory and respiratory systems; R06.2 Wheezing; A49.9 Bacterial infection, unspecified; R51.9 Headache, unspecified; G47.34 Idiopathic sleep related nonobstructive alveolar hypoventilation
CPT/HCPCS: 36415; 71046; 80053; 85025

== ENCOUNTER 2025-07-27 09:16 | Emergency (ER) | payer MEDICAID, SELFPAY ==
[2025-07-27] VITALS (7 sets, daily range): BP systolic 101–133; BP diastolic 75–85; PULSE 75–92; RESP 15–16; TEMP 36.8; O2SAT 95–99; BMI 28.5
--- NOTE | 2025-07-27 09:29 | CT_ITS ---
FINAL REPORT TECHNIQUE: Thin section axial images are obtained through the abdomen and pelvis after intravenous contrast. Reconstruction images were obtained from the axial data. Exam was performed using dose reduction techniques. This study was performed with techniques to keep radiation doses as low as reasonably achievable (ALARA). Individualized dose reduction techniques using automated exposure control or adjustment of mA and/or kV according to the patient's size were employed. CLINICAL HISTORY: b/l flank pain, dysuria x 3 days COMPARISON: 02/29/2024 FINDINGS: LUNG BASES: Bilateral lower lobe atelectasis is present. Heart size is normal. LIVER: Homogeneous. No focal lesion. GALLBLADDER/BILIARY SYSTEM: Gallbladder is absent. No biliary dilatation. SPLEEN: Unremarkable. PANCREAS: Unremarkable. ADRENALS: Unremarkable. KIDNEYS/URETERS/BLADDER: No hydronephrosis, renal mass, or renal stone. The urinary bladder is incompletely distended, otherwise unremarkable in appearance. GI TRACT: No small bowel obstruction or dilatation. Normal appendix. No acute colon abnormality. LYMPH NODES/RETROPERITONEUM/MESENTERY: No lymphadenopathy. No abdominal aortic aneurysm. ABDOMINAL WALL: The abdominal wall is intact. FREE FLUID: No ascites. BONES: No acute osseous abnormality. IMPRESSION: No acute abnormality of the abdomen or pelvis. Reviewed, Interpreted and Dictated by Rivka Garcia MD Transcribed by Nadiya More Authenticated and . [facility]
[2025-07-27 09:34] LABS: Microscopic, Urine URINE MICROSCOPIC (MICROSCOPIC)
--- NOTE | 2025-07-27 09:35 | [facility].EDGENADL ---
Discharge Plan Disposition Patient Disposition: Home, Self-Care Prescriptions Prescriptions: New dicyclomine 20 mg tablet 20 mg PO TID Qty: 21 0RF ibuprofen 800 mg tablet 800 mg PO Q8H PRN (Reason: pain) Qty: 21 0RF No Action Emgality Pen 120 mg/mL pen injector 120 mg SQ QMONTH Qty: 1 5RF amoxicillin 500 mg tablet 500 mg PO BID 10 Days Qty: 20 0RF atorvastatin 20 mg tablet 20 mg PO HS Qty: 90 2RF buspirone 30 mg tablet 30 mg PO TID Qty: 90 2RF Vraylar 6 mg capsule 6 mg PO DAILY Qty: 30 2RF levothyroxine 25 mcg tablet See Rx Instructions .ROUTE .COMPLEX Qty: 30 0RF Dose Instruction: Take 1 tablet by mouth once daily Rx Instructions: Take 1 tablet by mouth once daily loratadine [Allergy Relief (loratadine)] 10 mg tablet See Rx Instructions .ROUTE .COMPLEX Qty: 90 0RF Dose Instruction: Take 1 tablet by mouth once daily Rx Instructions: Take 1 tablet by mouth once daily Referrals Follow up/Referrals: Larissa Patterson APRN [Primary Care Provider, Family Practice] - See instructions Valdemar Church MD [Staff Physician, Urology] - See instructions Activity Restrictions/Add. Instructions Additional Instructions/Restrictions: At this time it was felt you are safe to be discharged home. If new or worsening symptoms please do not hesitate to return the emergency department. If your symptoms persist please follow-up with either your family doctor or call and schedule appoint with Dr. Church as soon as you are able. Clinical Impressions Clinical Impression: Abdominal pain Instructions Patient Instructions: DI for Acute Abdominal Pain Print Language Print Language: Mongolian Discharge ED Provider: Zhao Menjivar General Adult HPI General Chief complaint: Abdominal Pain Stated complaint: Pain while urinating Time Seen by Provider: 07/27/25 09:20 History of Present Illness HPI narrative: Patient is a 50-year-old female with multiple comorbidities who presents emergency department for evaluation of dysuria and flank pain. Onset was acute over the last 72 hours, she has this deep pain in her suprapubic area that radiates up her bilateral flanks into her back. No chest pain reported no shortness of breath reported no bleeding diathesis or anticoagulants no trauma. Abdominal surgical history of previous hysterectomy. No other acute complaints at this time. Please note that above description of symptoms, in this electronic medical record under categorization of recalled from ER triage doctor by RN are reflective of an initial nursing assessment, however, is not reflective of my full history and physical exam that was personally taken and clarified. Consequentially, this preceding description of symptoms, which may include the patient's categorized chief complaint in the EMR, do not reflect my personal clinical impression, and the ultimate description of history of present illness and patient stated complaints should be deferred to this section of the note. Unless stated otherwise or congruent with this section of the note, additional signs, symptoms, or incongruence should be interpreted as inaccurate with my clinical impression. Related Data Previous Rx's ?Medication ?Instructions ?Recorded atorvastatin 20 mg tablet 20 mg PO HS #90 tabs 01/22/25 buspirone 30 mg tablet 30 mg PO TID #90 tabs 04/18/25 galcanezumab-gnlm 120 mg/mL 120 mg SQ QMONTH Migraine #1 mL 04/30/25 subcutaneous pen injector (Emgality Pen) cariprazine 6 mg capsule (Vraylar) 6 mg PO DAILY #30 caps 06/19/25 levothyroxine 25 mcg tablet See Rx Instructions .Route 06/19/25 .COMPLEX #30 tabs loratadine 10 mg tablet (Allergy See Rx Instructions .Route 07/16/25 Relief (loratadine)) .COMPLEX #90 tabs amoxicillin 500 mg tablet 500 mg PO BID 10 days #20 tabs 07/18/25 dicyclomine 20 mg tablet 20 mg PO TID abdominal spasm #21 07/27/25 tabs ibuprofen 800 mg tablet 800 mg PO Q8H PRN pain #21 tabs 07/27/25 Allergies Allergy/AdvReac Type Severity Reaction Status Date / Time varenicline (From Chantix) AdvReac Severe suicidal Verified 07/27/25 08:40 thoughts / actions [facility] Disclaimer: The information contained in this section may have been updated after the patient was seen, as this information can be updated by other users. Medical History Nocturnal hypoxemia Macrocytic Hypoxemia History of thyroid disease History of hyperlipidemia History of COPD Sinusitis Nausea vomiting and diarrhea Influenza A Facet hypertrophy of lumbar region Lumbar back pain Patient sees pain management later this morning but requests injections Sciatica of right side Bipolar disorder Constipation Vertigo GERD (gastroesophageal reflux disease) Anxiety Encounter for smoking cessation counseling Depression Surgical History History of hysterectomy History of section History of cholecystectomy Family History Other Asthma Cancer Diabetes Hyperlipidemia Hypertension Social History Smoking Status: Current every day smoker tobacco type: cigarettes packs per day: 2 second hand exposure: Yes alcohol intake: never substance use type: denies use current occupational status: other Travel in the last 8 weeks?: None household members: none housing: house current occupational exposures/hazards: No caffeine: Yes Have you lived/traveled outside [place] in past 30 days?: No Contact w/someone who lives/traveled outside [place] past 30 days?: No Exposure to someone with infectious disease in past 14 days?: No Do you have a fever (greater than 100.4 F or 38 C)?: No Have you tested positive for COVID-19?: No Exposed to someone with COVID-19 in past 14 days?: No Do you have a sore throat?: No Do you have a cough?: No Do you have any weakness?: No Do you have any diarrhea?: No Are you experiencing any unusual bleeding?: No Do you have any muscle aches/pain?: No Do you have any abdominal pain?: No Are you experiencing loss of taste or smell?: No Other Medical History Have you received the Flu Vaccine for this season: No Have you received the Pneumonia Vaccine: No ROS Obtained: Yes Systems reviewed as appropriate & no additional complaints except as documented Physical Exam General General appearance: alert and in no apparent distress Head Head exam: atraumatic and normocephalic Eye Eye exam: Present PERRL and EOMI ENT ENT exam: Present mucous membranes moist Neck Neck exam: Present normal inspection Chest Chest inspection: Present normal inspection and symmetric chest wall rise Respiratory Respiratory exam: Absent respiratory distress Cardiovascular Cardiovascular exam: Present regular rate Abdominal Exam Abdominal exam: Present soft and tenderness (Suprapubic) Extremities Exam Extremities exam: Present normal inspection Back Exam Back exam: Present other (Bilateral CVA tenderness no midline tenderness) Neurological Exam Neurological exam: Present alert and CN II-XII intact Psychiatric Psychiatric exam: Present normal affect Skin Skin exam: Present warm and dry Medical Decision Making Medical Records Screening: Per USPSTF and CDC recommendations, given the prevalence of disease in our region, it is our hospital?s policy to screen for HIV and viral Hepatitis for all patients aged 18 and over and those with ongoing risk factors. Carmelo Inquiry Pt receiving controlled substance: No Vital Signs: 07/27/25 09:28 07/27/25 09:30 07/27/25 09:30 Temperature 98.3 F Temperature Source Oral Pulse Rate 88 88 Pulse Rate [Right Radial] 85 Respiratory Rate 16 Blood Pressure 133/83 123/84 Blood Pressure [Right Arm] 123/84 Blood Pressure Mean Blood Pressure Mean [Right Arm] 97 Blood Pressure Source [Right Arm] Automatic Cuff Blood Pressure Position [Right Arm] Supine 02 Sat by Pulse Oximetry 97 97 98 Oxygen Delivery Method Room Air Room Air Room Air 07/27/25 10:00 07/27/25 10:30 07/27/25 11:00 Temperature Temperature Source Pulse Rate 92 H 83 88 Pulse Rate [Right Radial] Respiratory Rate 15 Blood Pressure 101/75 L 116/76 112/75 Blood Pressure [Right Arm] Blood Pressure Mean Blood Pressure Mean [Right Arm] Blood Pressure Source [Right Arm] Blood Pressure Position [Right Arm] 02 Sat by Pulse Oximetry 95 99 99 Oxygen Delivery Method Room Air Room Air Room Air 07/27/25 11:30 Temperature Temperature Source Pulse Rate 84 Pulse Rate [Right Radial] Respiratory Rate Blood Pressure 123/83 Blood Pressure [Right Arm] Blood Pressure Mean 91 Blood Pressure Mean [Right Arm] Blood Pressure Source [Right Arm] Blood Pressure Position [Right Arm] 02 Sat by Pulse Oximetry 96 Oxygen Delivery Method Lab Data Lab Results 07/27/25 09:28: Urine Color Yellow, Urine Appearance Clear, Urine pH 5.5, Ur Specific Olds <= 1.005, Urine Protein Negative, Urine Glucose (UA) Negative, Urine Ketones Negative, Urine Blood Negative, Urine Nitrate Negative, Urine Bilirubin Negative, Urine Urobilinogen 0.2, Ur Leukocyte Esterase Negative 07/27/25 09:33: WBC 11.3 H, RBC 4.18 L, Hgb 14.0, Hct 41.1, MCV 98.3, MCH 33.5 H, MCHC 34.1, RDW 12.5, Plt Count 306, MPV 9.9, Neut % (Auto) 51.1, Lymph % (Auto) 38.8, Bailey % (Auto) 7.7, Eos % (Auto) 1.6, Baso % (Auto) 0.4, Neut # (Auto) 5.8, Lymph # (Auto) 4.4, Bailey # (Auto) 0.9, Eos # (Auto) 0.2, Baso # (Auto) 0.1, Sodium 139, Potassium 3.6, Chloride 102, Carbon Dioxide 30, Anion Gap 10.6, BUN 5 L, Creatinine 0.70, Estimated Creat Clear 97, Estimated GFR 89, Est GFR ( Amer) 107, Glucose 91, Calcium 8.8, Total Bilirubin 0.2, AST 26, ALT 30, Alkaline Phosphatase 105, Total Protein 7.6, Albumin 4.0, Globulin 3.6 H, Albumin/Globulin Ratio 1.1, Lipase 83, HIV Ag/Ab Combo Qual Negative 07/27/25 09:33 07/27/25 09:33 Orders (Tests/Meds): ED MEDICATIONS Generic Name Dose Route Start Last Admin Trade Name Freq PRN Reason Stop Dose Admin Sodium Chloride 10 ml 07/27/25 09:53 07/27/25 09:54 Sodium Chloride 0.9% 10ml Syr (Rad Only) IV 08/26/25 09:52 10 ml NEEDED PRN Administration Maintain IV Site Discontinued Medications Generic Name Dose Route Start Last Admin Trade Name Freq PRN Reason Stop Dose Admin Acetaminophen 1,000 mg 07/27/25 09:30 07/27/25 10:03 Acetaminophen 500mg Tab PO 07/27/25 09:31 1,000 mg ONCE ONE Administration Dicyclomine HCl 10 mg 07/27/25 10:29 07/27/25 10:37 Dicyclomine 10mg Capsule PO 07/27/25 10:30 10 mg ONCE ONE Administration Iopamidol 50 ml 07/27/25 09:53 07/27/25 09:54 Iopamidol-370 (76%);100ml Bottle IV 07/27/25 09:54 50 ml ONCE ONE Administration Ketorolac Tromethamine 30 mg 07/27/25 09:30 07/27/25 10:03 Ketorolac 30mg/Ml Vial IV 07/27/25 09:31 30 mg ONCE ONE Administration Morphine Sulfate 4 mg 10/17/25 10:55 07/27/25 10:59 Morphine 4mg/Ml Syringe IV 07/27/25 10:56 4 mg ONCE ONE Administration Ondansetron HCl 4 mg 07/27/25 09:30 07/27/25 10:03 Ondansetron 4mg/2ml Vial IV 07/27/25 09:31 4 mg ONCE ONE Administration ORDERS Category Date Time Status CT abdomen pelvis w con Stat Cat Scan 07/27/25 09:29 Completed CBC w/Auto Diff [Complete Blood Count Auto Diff] Stat Lab 07/27/25 09:33 Completed CMP [Comprehensive Metabolic Panel] Stat Lab 07/27/25 09:33 Completed HIV Combo Stat Lab 07/27/25 09:33 Completed Lipase Stat Lab 07/27/25 09:33 Completed UA [Urinalysis and Microscopic] Stat Lab 07/27/25 09:28 Completed Urine Chlam/Gono/Trich ([facility]) Stat Lab 07/27/25 07:25 Received Medical Decision Narrative: In summary patient is a 50-year-old female with past medical history described above who presents to the emergency department for evaluation of abdominal pain and dysuria. Patient is hemodynamically stable and nontoxic-appearing upon arrival, afebrile. Differential diagnosis includes cystitis, pyelonephritis, ureteritis, perinephric abscess, ureterolithiasis, among others. No concern for vaginal or uterine pathology given that patient has previous hysterectomy has no vaginal discharge or bleeding. Initial workup will be conducted with hematologic labs urinalysis CT abdomen pelvis with IV contrast. Initial interventions include multimodal pain control, antiemetic. Patient appears euvolemic on my exam crystalloid resuscitation was considered will be deferred. Initial workup reviewed by me hematologic labs are nonactionable no significant leukocytosis no transfusable anemia no BIJU or critical electrolyte abnormality, urine dip negative for all analytes. Upon repeat evaluation patient was resting in bed, formal read CT abdomen pelvis no acute abnormality. The exact etiology of her abdominal pain is unclear it may be that she has bladder spasms it does line up in a anatomic distribution with her ureters and bladder. Patient is appropriate for discharge at this time will be discharged with a course of dicyclomine will follow-up with PCP versus urologist if symptoms persistent was given return precautions and verbalized understanding. Critical Care Critical Care Time Critical Care Time: No
[2025-07-27 09:45] LABS: Hematocrit 41.1 % (37.0-47.0); Hemoglobin 14.0 g/dL (12.2-16.2); Immature Granulocytes % 0.4 %; Mean Corpuscular HGB Conc 34.1 g/dL (31.8-35.4); Mean Corpuscular Hemoglobin 33.5 pg (27.0-31.2); Mean Corpuscular Volume 98.3 fl (81-99); Nucleated Red Blood Cells % 0 %; Platelet Count 306 K/mm3 (142-424); Red Blood Count 4.18 M/mm3 (4.20-5.40); Red Cell Distribution Width-SD 45.4 fL; White Blood Count 11.3 K/mm3 (4.8-10.8)
[2025-07-27 09:48] LABS: Albumin Level 4.0 g/dl (3.5-5.0); Chloride 102 mmol/L (98-107); Potassium 3.6 mmoL/L (3.5-5.1); Sodium 139 mmol/L (136-145)
--- OUTSIDE RECORDS SUMMARY | 2025-07-27 09:49 | XMS_ITS | Continuity of Care Document ---
[facility] Address [address] [place] [id number] Assessment No assessment recorded. Plan of Treatment Reminders Order Date Submit Date Provider Last Modified By Organization Details Last Modified Time Details Appointments None recorded. Lab rapid flu (A+B) 2024 025 [facility], [address] [place] [address], [id number], 5 15:05:01 rapid SARS CoV + SARS CoV 2 Ag, QL IA, respiratory specimen 2024 025 [facility], [address] [place] [address], [address], 5 15:05:01 rapid strep group A, throat 2024 025 [facility], [address] [place] [address], [address], 15:05:00 Referral None recorded. Procedures None recorded. Surgeries None recorded. Imaging None recorded. Medication Orders fluticasone propionate 50 mcg/actuati on nasal spray,suspe nsion 2024 025 [facility], [address], [address], 5 15:05:07 benzonatate 100 mg capsule 2024 025 [facility], [address], [address], 05:02:00 Patient TargetsNo targets recorded. Patient InstructionsNo instructions recorded. Reason for Referral None Reported. Results Created Date Observation Date Name Description Value Unit Range Abnormal Flag Note LastModifiedBy Organization Detail LastModifiedTime 07/06/2007/06/2025 rapid SARS CoV + SARS CoV 2 Ag, QL IA, respi rator y speci men SARS CoV antigen Invali d Not Available [address], [address], 07/06/2025 14:15:40 07/06/2007/06/2025 rapid flu (A+B) Flu negati ve Not Available [address], [address], 07/06/2025 14:15:32 07/06/2007/06/2025 rapid flu (A+B) Type Both A & B Not Available [address], [address], 07/06/2025 14:15:32 07/06/2007/06/2025 rapid strep group A, throa t Strep negati ve Not Available [address], [address], 07/06/2025 14:15:47 07/06/2007/06/2025 rapid strep group A, throa t Culture No Not Available [address], [address], 07/06/2025 14:15:47 Result Notes None recorded. Problems Name Problem SNOMED Code Status Onset Date Resolution Date Notes Provider Name and Address Organization Details Recorded Time Bipolar disorder 35026372 Active 2020 PATITO Jensen - [facility] 09:15:02 Asthma 026522834 Active 2020 Jasminacecil Frye null, [place] - [facility] 09:15:08 Hyperlipidemi a 46776159 Active 2020 Jasminacecil Frye null, [place] - [facility] 1 09:15:15 Depressive disorder 62895449 Active 2020 Jasmina Frye null, [place] - [facility] 09:15:22 Anxiety 07899509 Active 2020 Jasminacecil Frye null, [place] - [facility] 09:15:30 Migraine 53955693 Active 2020 Jasminacecil Frye null, [place] - [facility] 09:15:42 Hypothyroidis m 85698585 Active 2024 Lana Edy null, [place] - [facility] 5 11:50:11 Patent foramen ovale 562673016 Active 2024 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, [employer]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 [address], [place], [address] , [place] - [facility] 5 16:20:14 Problem [...] completed Cathy Logan APRN [address], [place], [address], [place] - [facility] 01/20/2021 16:20:51 11/09/19 12 excision of bilateral fallopian tubes and ovaries completed Cathy Logan APRN [address], [place], [address], [place] - [facility] 01/20/2021 16:28:55 06/12/20 08 laser surgery completed Jasmina Frye [place] - [facility] 10/25/2020 09:11:01 12/11/19 02 Cholecystectomy, laparoscopic completed Jasmina CAPUTO - [facility] 10/25/2020 09:12:05 01/13/20 00 section [facility]2020 09:12:17 05/13/19 93 section completed [facility]/25/2020 09:12:26 Colposcopy completed [facility]/25[facility]2020 09:19:24 LEEP completed [facility]mina [facility]2020 09:19:31 Imaging Results None recorded. Procedure [...] Not Available Not Available No t Available furosemid e 40 mg tablet TAKE [...] Not Available benzonata te 100 mg capsule Take 1 capsule twice a day by oral route as needed for 5 days, for cough. 07/18 completed Not Available Not Available Not Available [...] Not Available Not Available No t Available ondansetr on 4 mg disintegr ating [...] (42) tablets in a dose pack TAKE 1 TABLET BY MOUTH IN MORNING WITH FOOD FOR 3 DAYS, THEN INCREASE TO 1 TABLET BY MOUTH TWICE DAILY WITH FOOD THEREAFT ER DIRECTED ON PACKAGE active Not Available Not Available No t Available hydrochlo rothiazid e 12.5 mg tablet [...] completed Not Available Not Available Not Available Mucus Relief ER 1,200 mg tablet, extended release TAKE 1 TABLET BY MOUTH TWICE DAILY NEEDED FOR COLD SYMPTOMS active Not Available Not Available No t Available Linzess 72 mcg capsule TAKE 1 [...] completed Not Available Not Available Not Available [facility] mg disintegr ating [...] height Body mass index (BMI) Body weight Body temperature Heart rate Oxygen saturation Oxygen saturation in Arterial blood by Pulse oximetry Respiratory rate Systolic And Diastolic Provider Name and Address Organization Details Last Updated DateTime 5 149.86 cm 28.1 kg/m2 19875.3 4 g 98.1 [degF] 98 /min 100 % 100 % 18 /min 120/78 mm[Hg] Lana Snow [place] - [facility] 14:13:43 Social History Question Answer Notes LastModified by Organizat ion Details LastModified Time Tobacco Smoking Status Current Every Day Smoker Lana Snow null, [place] - [facility] 12/29/2024 11:51:28 Do You Have An Advance Directive? No [email or web address] Information not available 10/25/2020 Are You Blind Or Do You Have Difficulty Seeing? No Information not available 12/29/2024 Is Blood Transfusion Acceptable In An Emergency? Yes [email or web address] Information not available 10/25/2020 What Is Your Level Of Caffeine Consumption? Heavy Information not available 12/29/2024 How Much Tobacco Do You Chew? None [email or web address] Information not available 10/25/2020 Are You Deaf Or Do You Have Serious Difficulty Hearing? No Information not available 12/29/2024 What Type Of Diet Are You Following? REGULAR [email or web address] Information not available 10/25/2020 Which Illicit Or Recreational Drugs Have You Used? None [email or web address] Information not available 10/25/2020 What Is The Highest Grade Or Level Of School You Have Completed Or The Highest Degree You Have Received? [id number] Information not available 12/29/2024 Have There Been Any Changes To Your Family Or Social Situation? No Information not available 12/29/2024 Live Alone Or With Others? With Others With Mom And Son [email or web address] Information not available 10/25/2020 Do You Have A Medical Power Of Bike Mechanic? No Information not available 12/29/2024 What Was The Date Of Your Most Recent Tobacco Screening? 12/29/2024 Information not available 12/29/2024 How Many Children Do You Have? 2 Information not available 10/25/2020 What Is Your Current Pack Years? [email or web address] Information not available 12/29/2024 Performs Monthly Self-breast Exam? No [email or web address] Information not available 10/25/2020 What Is Your Relationship Status? [email or web address] Information not available 10/25/2020 Seat Belts Used Routinely Yes [email or web address] Information not available 10/25/2020 Are You Sexually [...] not available 10/25/2020 General Stress Level Low [email or web address] Information not available 10/25/2020 Do You Use Sunscreen Routinely? No [email or web address] Information not available 10/25/2020 Has Tobacco Cessation [...] used smokeless tobacco? Never used smokeless tobacco [email or web address] Information not available 10/25/2020 Are you currently employed? Yes [email or web address] Information not available 10/25/2020 Do you have transportation difficulties? No Information not available 12/29/2024 Urinary incontinence assessment performed? Yes [email or web address] Information not available 10/25/2020 Are you able to care for yourself independently? Yes Information not available 12/29/2024 Do you have difficulty dressing, bathing, grooming, or toileting? No Information not available 12/29/2024 Do you or have you ever used e-cigarettes or vape? Never used electronic cigarettes Information not available 10/25/2020 What is your exercise level? None [email or web address] Information not available 10/25/2020 Do you use any illicit or recreational drugs? No Information not available 12/29/2024 Do you or have you ever used any other forms of tobacco or nicotine? No Information not available 12/29/2024 What is your level of alcohol consumption? None [email or web address] Information not available 10/25/2020 Are you able to walk independently without assistance or assistive devices? YESWOREST [email or web address] Information not available 10/25/2020 Do you have difficulty doing errands alone? 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 [id number] Information not available 12/29/2024 Do you have difficulty concentrating, remembering or making decisions? No Information no t available 12/29/2024 Family History Relationship Description Onset Age of this Age Resolved Age Notes LastModified by Organization Details LastModified Time Daughter Polycystic ovary syndrome [email or web address] Not available 10/25 09:17:36 Paternal Uncle Diabetes mellitus [email or web address] Not available 10/25 09:17:46 Paternal Aunt Malignant neoplasm of lung [email or web address] Not available 10/25 09:18:07 Paternal Aunt Malignant neoplasm of breast [email or web address] Not available 10/25 09:18:15 Maternal Aunt Malignant neoplasm of bone [email or web address] Not available 10/25 09:18:46 Medical History Condition [...] colitis N Cerebrovascular Disease N Depression N Guillain-[place] N Sleep Apnea N Aneurysm N Bronchitis [...] virus, trivalent, preservative 9 completed Not Available [facility] 07/06/2025 13:35:11 Tdap 6 completed Not Available [facility] 07/06/2025 13:35:11 Influenza, split virus, trivalent, preservative 6 completed Not Available [facility] 07/06/2025 13:35:11 Influenza, split virus, quadrivalent, preservative 7 completed Not Available [facility] 07/06/2025 13:35:11 COVID-19, mRNA, LNP-S, PF, 100 mcg/0.5mL dose or 50 mcg/0.25mL dose 1 completed Not Available [facility] 07/06/2025 13:35:11 COVID-19, mRNA, LNP-S, PF, 100 mcg/0.5mL dose or 50 mcg/0.25mL dose 1 completed Not Available [facility] 07/06/2025 13:35:11 Hep B, adult 3 completed Not Available [facility] 07/06/2025 13:35:11 Influenza, split virus, quadrivalent, PF 3 completed Not Available [facility] 07/06/2025 13:35:11 COVID-19, mRNA, LNP-S, PF, 50 mcg/0.5 mL 3 completed Not Available [facility] 07/06/2025 13:35:11 Tdap 5 completed Not Available [facility] 07/06/2025 13:35:11 Rabies - IM fibroblast culture 5 completed Not Available [facility] 07/06/2025 13:35:11 Influenza, split virus, quadrivalent, preservative 0 completed PATITO Jensen - [facility] 10/25/2020 09:14:55 Past Encounters Encounter ID Performer Location Encounter Start Date Encounter Closed Date Diagnosis/Indication Diagnosis SNOMED-CT Code Diagnosis ICD10 Code Diagnosis IMO Codes Diagnosis Note [id number] 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 [address] [address] 07/02/2025 15:24:55 07/02/2025 15:53:47 Acute maxillary sinusitis 72493567 J01.00 34574321 Supportive care reviewed: raising HOB, humidifier use, saline nasal spray, rest, encourage PO fluids and monitor hydration status, infection control measures. Recommende d acetaminop hen/ibupro fen PRN pain, fever Follow-up as needed if no improvemen t or worsening Bronchitis 48455628 J40 69954 steroidsan tibioticsi f worsen or no improvemen t return Cigarette smoker 7634362 7 F17.210 242112 med discussed in detail [id number] 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 APRN [address] [address] 07/06/2025 13:34:08 07/06/2025 15:13:14 Bronchitis 86946797 J40 91585 continue steroidsco ntinue antibiotic sif worsen or no improvemen t return Acute cough 1907204424 08152455 R05.5 9972206508 Nasal congestion 2104090 0 R09.81 95728 Health Concerns Section Related Observation LastModified by Organization Detai ls LastModified Time None Recorded Concern Status LastModified by Organization Details LastModified Time None Recorded Payers Encounter Date Sequence Insurance Name Policy Number Policy [place] Covered Member ID B[place] Member ID Guarantor Name 07/06/2025 1 [facility] (MEDICAID REPLACEMENT - HMO) Desire Blevins [id number] Desire Blevins Notes Date Note Type Note Provider Name and Address Organization Details Recorded Time 07/06/2025 text/html ROS as noted in the HPI 50 year old female who presents to the office today with concerns ofcontinued headache, sore throat, lung pain, diarrhea, body aches, congestion, coughhave a few doxycycline and prednisone left to take 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, 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
--- OUTSIDE RECORDS SUMMARY | 2025-07-27 09:49 | XMS_ITS | Data Portability ---
Author Organization [facility] Address [address] [place] [address] Assessment No assessment recorded. Plan of Treatment Reminders Order Date Submit Date Provider Last Modified By Organization Details Last Modified Time Details Appointments None recorded. Lab rapid flu (A+B) 2024 025 [facility], [address] [place] [address], [id number], 5 15:05:01 rapid SARS CoV + SARS CoV 2 Ag, QL IA, respiratory specimen 2024 025 [facility], [address] [place] [address], [id number], 5 15:05:01 rapid strep group A, throat 2024 025 [facility], [address] [place] [address], [address], 5 15:05:00 rapid strep group A, throat 2024 025 [facility], [address] [place] [address], [address], 5 17:26:23 rapid strep group A, throat 2024 025 [facility], [address] [place] [address], [address], 5 14:29:02 rapid SARS CoV + SARS CoV 2 Ag, QL IA, respiratory specimen 2024 025 [facility], [address] [place] [address], [address], 5 14:29:02 rapid flu (A+B) 2024 025 [facility], [address] [place] [address], [address], 5 14:29:02 Referral None recorded. Procedures None recorded. Surgeries None recorded. Imaging None recorded. Medication Orders fluticasone propionate 50 mcg/actuati on nasal spray,suspe nsion 2024 025 [facility], [address], [address], 5 15:05:07 benzonatate 100 mg capsule 2024 025 [facility], [address], [address], 5 05:02:00 prednisone 20 mg tablet 2024 025 [facility], [address], [address], 5 05:02:01 albuterol sulfate HFA 90 mcg/actuati on aerosol inhaler 2024 025 [facility], [address], [address], 5 16:04:37 nicotine 21 mg/24 hr daily transdermal patch 2024 025 [facility], [address], [address], 5 16:05:33 doxycycline hyclate 100 mg capsule 2024 025 [facility], [address] [place], [address], 5 05:02:07 amoxicillin 500 mg tablet 2024 025 [facility], [address], [address], 5 05:01:51 nystatin 100,000 unit/mL oral suspension 2024 025 [facility], [address], [address], 5 05:02:02 prednisone 20 mg tablet 2024 025 [facility], [address], [address], 5 05:02:01 Zithromax Z-Jayy 250 mg tablet 2024 025 [facility], [address], [address], 5 13:29:06 fluticasone propionate 50 mcg/actuati on nasal spray,suspe nsion 2024 025 [facility], [address], [address], 5 15:40:37 Patient TargetsNo targets recorded. Patient InstructionsNo instructions recorded. Reason for Referral None Reported. Results Created Date Observation Date Name Description Value Unit Range Abnormal Flag Note LastModifiedBy Organization Detail LastModifiedTime 03/27/20 25 03/27/2025 rapid flu (A+B) Flu negati ve Not Available [address], [address], 03/27/2025 14:19:54 03/27/20 25 03/27/2025 rapid flu (A+B) Type Both A & B Not Available [address], [address], 03/27/2025 14:19:54 03/27/20 25 03/27/2025 rapid SARS CoV + SARS CoV 2 Ag, QL IA, respi rator y speci men SARS CoV antigen Negati ve Not Available [address], [address], 03/27/2025 14:19:45 03/27/20 25 03/27/2025 rapid strep group A, throa t Strep negati ve Not Available [address], [address], 03/27/2025 14:19:35 03/27/20 25 03/27/2025 rapid strep group A, throa t Culture No Not Available [address], [address], 03/27/2025 14:19:35 04/26/20 25 04/26/2025 rapid strep group A, throa t Strep negati ve Not Available [address], [address], 04/26/2025 14:30:52 04/26/20 25 04/26/2025 rapid strep group A, throa t Culture No Not Available [address], [address], 04/26/2025 14:30:52 07/06/20 25 07/06/2025 rapid SARS CoV + SARS CoV 2 Ag, QL IA, respi rator y speci men SARS CoV antigen Invali d Not Available [address], [address], 07/06/2025 14:15:40 07/06/20 25 07/06/2025 rapid flu (A+B) Flu negati ve Not Available [address], [address], 07/06/2025 14:15:32 07/06/2007/06/2025 rapid flu (A+B) Type Both A & B Not Available [address], [address], 07/06/2025 14:15:32 07/06/2007/06/2025 rapid strep group A, throa t Strep negati ve Not Available [address], [address], 07/06/2025 14:15:47 07/06/2007/06/2025 rapid strep group A, throa t Culture No Not Available [address], [address], 07/06/2025 14:15:47 Result Notes None recorded. Problems Name Problem SNOMED Code Status Onset Date Resolution Date Notes Provider Name and Address Organization Details Recorded Time Bipolar disorder 33853947 Active 2020 Jasmina Frye null, [place] - [facility] 09:15:02 Asthma 418900918 Active 2020 Jasmina Frye null, [place] - [facility] 09:15:08 Hyperlipidemi a 63920662 Active 2020 Jasmina Frye null, [place] - [facility] 09:15:15 Depressive disorder 82660431 Active 2020 Jasmina Frye null, [place] - [facility] 09:15:22 Anxiety 46667772 Active 2020 Jasmina Frye null, [place] - [facility] 09:15:30 Migraine 28019761 Active 2020 Jasmina Frye null, [place] - [facility] 09:15:42 Hypothyroidis m 00970060 Active 2024 Lana Snow null, [place] - [facility] 5 11:50:11 Patent foramen ovale 516002036 Active 2024 Brenton Leivaednaniharika, DIRECTOR [employer] [address], [place], [address] , [place] - [facility] 5 16:20:14 Problem Notes None recorded. Procedures Surgical History Date Name Laterality Status Provider Name and Address Organization Details Recorded Time 10/25/19 21 Systolic B/P less than 130 mm Hg completed Jasmina Frye [place] - [facility] 10/25/2020 09:27:20 10/25/19 21 Diastolic B/P less than 80 mm Hg completed Jasmina Frye [facility] 10/25/2020 09:27:23 11/09/19 12 Hysterectomy completed Cathy Logan APRN [address], [place], [address], [facility] - [facility] 01/20/2021 16:20:51 11/09/19 12 excision of bilateral fallopian tubes and ovaries completed Cathy Logan APRN [address], [place], [address], [facility] - [facility] 01/20/2021 16:28:55 06/12/20 08 laser surgery completed Jasmina Frye [facility] 10/25/2020 09:11:01 12/11/19 02 Cholecystectomy, laparoscopic completed Jasmina Frye [facility] 10/25/2020 09:12:05 01/13/20 00 section completed Jasmina Frye [facility] 10/25/2020 09:12:17 05/13/19 93 section completed Jasmina Frye [place] - [facility] 10/25/2020 09:12:26 Colposcopy completed Jasmina Frye [facility] 10/25/2020 09:19:24 LEEP completed Jasmina Frye [facility] 10/25/2020 09:19:31 Imaging Results None recorded. [...] 2:08PM;U ser: meeses;I ndicatio n: Pain - (02.5793 28) Not Available Not Available Not Available levofloxa [...] completed Not Available Not Available Not Available [facility] ODT 75 mg disintegr ating tablet [...] 0-10 verbal numeric rating [Score] - Reported Systolic And Diastolic Provider Name and Address Organization Details Last Updated DateTime 5 149.86 cm 27.7 kg/m2 76284.2 5 g 68 /min 98 % 98 % 18 /min 0 128/82 mm[Hg] Desire CAPUTO - [facility] 5 13:49:46 Date Recorded Body height Body mass index (BMI) Body weight Heart rate Oxygen saturation Oxygen saturation in Arterial blood by Pulse oximetry Respiratory rate Pain severity - 0-10 verbal numeric rating [Score] - Reported Systolic And Diastolic Provider Name and Address Organization Details Last Updated DateTime 5 149.86 cm 27.7 kg/m2 33220.1 5 g 89 /min 98 % 98 % 18 /min 2 110/70 mm[Hg] Desire Sandy [place] - [facility] 5 14:22:26 Date Recorded Body height Body mass index (BMI) Body weight Heart rate Oxygen saturation Oxygen saturation in Arterial blood by Pulse oximetry Respiratory rate Pain severity - 0-10 verbal numeric rating [Score] - Reported Body temperature Systolic And Diastolic Provider Name and Address Organization Details Last Updated DateTime 5 149.86 cm 27.9 kg/m2 71542.7 5 g 107 /min 97 % 97 % 20 /min 8 98.1 [degF] 102/74 mm[Hg] Desire Munozler [place] - [facility] 5 13:28:24 Date Recorded Body height Body mass index (BMI) Body weight Heart rate Oxygen saturation Oxygen saturation in Arterial blood by Pulse oximetry Respiratory rate Pain severity - 0-10 verbal numeric rating [Score] - Reported Body temperature Systolic And Diastolic Provider Name and Address Organization Details Last Updated DateTime 5 149.86 cm 27.9 kg/m2 45656.7 5 g 89 /min 98 % 98 % 20 /min 6 97.8 [degF] 108/70 mm[Hg] Desire Sandy [place] - [facility] 5 15:47:09 Date Recorded Body height Body mass index (BMI) Body weight Body temperature Heart rate Oxygen saturation Oxygen saturation in Arterial blood by Pulse oximetry Respiratory rate Systolic And Diastolic Provider Name and Address Organization Details Last Updated DateTime 5 149.86 cm 28.1 kg/m2 04225.3 4 g 98.1 [degF] 98 /min 100 % 100 % 18 /min 120/78 mm[Hg] Lana Edy [place] - [facility] 5 14:13:43 Social History Question Answer Notes LastModified by Organizat ion Details LastModified Time Tobacco Smoking Status Current Every Day Smoker Lana Edy [facility], [place] - [facility] 12/29/2024 11:51:28 Do You Have An Advance Directive? No [email or web address] Information not available 10/25/2020 Are You Blind Or Do You Have Difficulty Seeing? No Information not available 12/29/2024 Is Blood Transfusion Acceptable In An Emergency? Yes [email or web address] Information not available 10/25/2020 What Is Your Level Of Caffeine Consumption? Heavy Information not available 12/29/2024 How Much Tobacco Do You Chew? None [email or web address] Information not available 10/25/2020 Are You Deaf Or Do You Have Serious Difficulty Hearing? No Information not available 12/29/2024 What Type Of Diet Are You Following? REGULAR [email or web address] Information not available 10/25/2020 Which Illicit Or Recreational Drugs Have You Used? None [email or web address] Information not available 10/25/2020 What Is The Highest Grade Or Level Of School You Have Completed Or The Highest Degree You Have Received? [id number] Information not available 12/29/2024 Have There Been Any Changes To Your Family Or Social Situation? No Information not available 12/29/2024 Live Alone Or With Others? With Others With Mom And Son [email or web address] Information not available 10/25/2020 Do You Have A Medical Power Of Switchboard Manager? No Information not available 12/29/2024 What Was The Date Of Your Most Recent Tobacco Screening? 12/29/2024 Information not available 12/29/2024 How Many Children Do You Have? 2 [email or web address] Information not available 10/25/2020 What Is Your Current Pack Years? [email or web address] kyears Information not available 12/29/2024 Performs Monthly Self-breast Exam? No [email or web address] Information not available 10/25/2020 What Is Your Relationship Status? [email or web address] Information not available 10/25/2020 Seat Belts Used [...] Much Tobacco Do You Smoke? 2 PPD [email or web address] Information not available 10/25/2020 General Stress Level [...] used smokeless tobacco? Never used smokeless tobacco [email or web address] Information not available 10/25/2020 Are you currently employed? Yes [email or web address] Information not available 10/25/2020 Do you have transportation difficulties? No Information not available 12/29/2024 Urinary incontinence assessment performed? Yes [email or web address] Information not available 10/25/2020 Are you able to care for yourself independently? Yes Information not available 12/29/2024 Do you have difficulty dressing, bathing, grooming, or toileting? No Information not available 12/29/2024 Do you or have you ever used e-cigarettes or vape? Never used electronic cigarettes [email or web address] Information not available 10/25/2020 What is your exercise level? None [email or web address] Information not available 10/25/2020 Do you use any illicit or recreational drugs? No Information not available 12/29/2024 Do you or have you ever used any other forms of tobacco or nicotine? No Information not available 12/29/2024 What is your level of alcohol consumption? None [email or web address] Information not available 10/25/2020 Are you able [...] anxious, or unable to sleep at night)? [id number] Information not available 12/29/2024 Do you have difficulty concentrating, remembering or making decisions? No Information no t available 12/29/2024 Family History Relationship Description Onset Age of this Age Resolved Age Notes LastModified by Organization Details LastModified Time Daughter Polycystic ovary syndrome [email or web address] Not available 10/25 09:17:36 Paternal Uncle Diabetes mellitus [email or web address] Not available 10/25 09:17:46 Paternal Aunt Malignant neoplasm of lung [email or web address] Not available 10/25 09:18:07 Paternal Aunt Malignant neoplasm of breast [email or web address] Not available 10/25 09:18:15 Maternal Aunt Malignant [...] colitis N Cerebrovascular Disease N Depression N Guillain-[place] N Sleep Apnea N Aneurysm N Bronchitis [...] virus, trivalent, preservative 9 completed Not Available [facility] 07/06/2025 13:35:11 Tdap 6 completed Not Available [facility] 07/06/2025 13:35:11 Influenza, split virus, trivalent, preservative 6 completed Not Available [facility] 07/06/2025 13:35:11 Influenza, split virus, quadrivalent, preservative 7 completed [facility] 13:35:11 COVID-19, mRNA, LNP-S, PF, 100 mcg/0.5mL dose or 50 mcg/0.25mL dose 1 completed Not Available [facility] 07/06/2025 13:35:11 COVID-19, mRNA, LNP-S, PF, 100 mcg/0.5mL dose or 50 mcg/0.25mL dose 1 completed Not Available [facility] 07/06/2025 13:35:11 Hep B, adult 3 completed Not [facility] 07/06/2025 13:35:11 Influenza, split virus, quadrivalent, PF 3 completed Not Available [facility] 07/06/2025 13:35:11 COVID-19, mRNA, LNP-S, PF, 50 mcg/0.5 mL 3 completed Not Available [facility] 07/06/2025 13:35:11 Tdap 5 completed Not Available [facility] 07/06/2025 13:35:11 Rabies - IM fibroblast culture 5 completed Not Available [facility] 07/06/2025 13:35:11 Influenza, split virus, quadrivalent, preservative 0 completed Jasmina bhattiPATITO - [facility] 10/25/2020 09:14:55 Past Encounters Encounter ID Performer Location Encounter Start Date Encounter Closed Date Diagnosis/Indication Diagnosis SNOMED-CT Code Diagnosis ICD10 Code Diagnosis IMO Codes Diagnosis Note [id number] RED Schofield PICK[employer] PU[employer]ER [address] [facility] [place] [address] 10/25/2020 09:01:42 10/25/2020 09:59:18 Routine gynecologic examination done 0385840739 9101 Z01.419 Depression screening 171 124343 Z13.89 PHQ-9 completed today. Diet education 74060481 Z71.3 Counseling 097360685 Z71 .82 Exercise counseljeny conte Patient encouraged to exercise 30 minutes 5 days a week. Examinatio n of blood pressure 554824422 Z01.30 Vaccine de clined by patient 9244850881 02 Z28.21 Pt declined flu vaccine today. History of total hysterectomy 790002230 Z90.710 Hormone re placement therapy 286276832 Z79.890 Patient advised of the risks and benefits associated with HRT. Patient will report any new or worsening symptoms. Screening mammography 24 604241 Z12.31 Vaginal dryness 99968117 N89.8 Will proceed with oral E2. If this does not help, will add PVC at her F/U appt. Tobacco user 438239214 Z 72.0 [id number] 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 APRN [address] [address] 12/29/2024 11:20:07 12/29/2024 12:09:05 Migraine 42180580 G43.909 stop qulipta Heart murmur 64613240 R0 1.1 [id number] 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 APRN [address] [address] 01/19/2025 15:14:28 01/19/2025 16:13:45 Body mass index 30+ - obesity 836909051 E66.9 55044919 Acute maxi llary sinusitis 65386554 J01.00 78057361 Diarrhea 57160254 R19.7 [id number] valerie dietif no improvemen t will need stool sample [id number] [facility] [place] [address] 03/27/2025 13:35:16 03/27/2025 14:20:26 Acute maxillary sinusitis 05117603 J01.00 77301095 Supportive care reviewed: raising HOB, humidifier use, saline nasal spray, rest, encourage PO fluids and monitor hydration status, infection control measures. Recommende d acetaminop hen/ibupro fen PRN pain, fever Follow-up as needed if no improvemen t or worsening [id number] [facility] [place] [address] 03/30/2025 13:51:27 03/30/2025 14:30:11 Acute bronchitis 77949806 J20.9 28708068 steroidsco ntinue medsif worsen or no improvemen t return Candidiasis of mouth 797 88513 B37.0 337622 [id number] [facility] [place] [address] 04/26/2025 13:17:12 04/26/2025 14:27:11 Streptococcal sore throat 50830698 J02.0 6188222 stop levaquinst art amoxicilli ncontact precaution sent referral placed per [id number] [facility] [address] 07/02/2025 15:24:55 07/02/2025 15:53:47 Acute maxillary sinusitis 90592113 J01.00 11461161 Supportive care reviewed: raising HOB, humidifier use, saline nasal spray, rest, encourage PO fluids and monitor hydration status, infection control measures. Recommende d acetaminop hen/ibupro fen PRN pain, fever Follow-up as needed if no improvemen t or worsening Bronchitis 88969560 J40 54242 steroidsan tibioticsi f worsen or no improvemen t return Cigarette smoker 4639447 7 F17.210 138951 med discussed in detail [id number] 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 APRN [facility] [address] [place] [address] 07/06/2025 13:34:08 07/06/2025 15:13:14 Bronchitis 33192619 J40 99835 continue steroidsco ntinue antibiotic sif worsen or no improvemen t return Acute cough 6255831408 57897634 R05.1 4171848360 Nasal congestion 3860690 0 R09.81 60814 Health Concerns Section Related Observation LastModified by Organization Detai ls LastModified Time None Recorded Concern Status LastModified by Organization Details LastModified Time None Recorded Advance Directives Directive N: Payers Insurance Date Sequence Insurance Name Policy Number Policy Barrow Covered Member ID Barrow Member ID Guarantor Name 02/01/2025 2 [place] [employer] - FFS/TRADITION [place] Desire Blevins [id number] Desire Blevins 12/29/2024 1 [facility] (MEDICARE HMO) Desire Blevins [id number] Desire Blevins 02/01/2025 1 [facility] (MEDICAID REPLACEMENT - HMO) Desire Blevins [id number] Desire Blevins 06/18/2025 [place] [facility] [place] Desire Blevins [id number] Desire Blevins 07/02/2025 1 [facility] (MEDICAID REPLACEMENT - HMO) Desire Blevins [id number] Desire Blevins Notes Date Note Type Note Provider Name and Address Organization Details Recorded Time 03/27/2025 text/html 50 yr old female presents with sore throat, cough, green sinus drainage,tendernes s and sinus pressure. Patient had fever of 102 last night. Reports mild muscle aches, and neck pain. no ill contacts 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 APRN [address], [place], [address], [facility] - [facility] 03/27/2025 14:29:30 03/30/2025 text/html 50 yr old female presents with right ear pain, states she isn't getting much better. She is on a z pack. 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 APRN [address], [place], [address], [facility] - [facility] 03/30/2025 15:01:30 04/26/2025 text/html 50 yr old female presents for abdominal pain in left lower quad- state the pain started after she started levaquin for strep throat. Also states she has had diarrhea. pt states she was seen last week and swab was negative but they did a throat cx and then called to tell her she has strep and they sent in levaquin. pt states she would like referral to ent due to freq strep 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 APRN [address], [place], [address], [facility] - [facility] 04/26/2025 14:46:30 07/02/2025 text/html ROS as noted in the HPI 50 yr old female presents for lung pain, coughing up thick green mucus, sinus drainage causing a sore throat,sinus pressure,and tenderness. Patient has been sick x 1 week.pt states she would like to try to quit smoking 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 APRN [address], [place], [address], [facility] - [facility] 07/02/2025 16:05:53 07/06/2025 text/html ROS as noted in the HPI 50 year old female who presents to the office today with concerns ofcontinued headache, sore throat, lung pain, diarrhea, body aches, congestion, coughhave a few doxycycline and prednisone left to take 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 APRN [address], [place], [address], [facility] - [facility] 07/06/2025 15:05:25 OBGyn Episode No OBEpisode recorded.
--- OUTSIDE RECORDS SUMMARY | 2025-07-27 09:49 | XMS_ITS | Clinical Summary ---
Author Organization Healthcare Address [address] [place] [address] Care Team Providers Care White Shoe Ragger Name Role Phone 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 RED Primary Care Provider [phone]- [phone] Allergies No known active allergies Medications Qulipta [...] Description 05/16/2025 9:15 AM EDT Office Visit [facility] [address] [place] [address] Valdemar Orr MD Patent foramen ovale (Primary Dx) 05/16/2025 Travel from Last 3 Months Immunizations Immunization Administration Dates Next Due Hep B, adult 02/01/2023 Influenza, injectable, quadrivalent 07/28/2017 Influenza, injectable, quadrivalent, preservativ e free 07/30/2023 Influenza, seasonal, injectable 08/31/2016,10/31 Moderna COVID-19 Vaccine (Vault Keeper) 12+ years Tdap 08/31/2016 Family History Medical History Relation Name Comments Hypertension Mother Relation Name Status Comments Mother Social History Tobacco Use Types Packs/Day Years Used Date Smoking Tobacco: Every Day Cigarettes 1 35.4 Started: 03/21/1990 Smokeless Tobacco: Never Tobacco Cessation:Ready [...] 2025 UKY-Zoster Vaccines (1 of 2) 2025 [id number] Vaccine (4 - 2024- season) 2025 07/30/2023, [...] Narrative SUNQUEST - 02/08/1997 12:00 AM EDT [facility] MR #: [id number] [facility] [place], [place] [address] 1975 (Age: 22) FW Collect Date: 01/30/1997 00:00 Receipt Date: 01/31/1997 00:00 Page 1 DEPARTMENT OF PATHOLOGY AND LABORATORY MEDICINE CYTOPATHOLOGY REPORT Email: [email or web address] * Converted Case * This report may not match the original report format ATTENDING MD/Practitioner: Uvaldo Padilla MD Service: [facility] Location: Reported: 02/08/1997 00:00 Collected: 01/30/1997 00:00 [...] results is suggested (please call Microbiology at [phone] for results). CLINICAL INFORMATION: Menstrual History: {Not Provided} Date of Last Menstrual Period: {Not Provided} SPECIMEN DESCRIPTION: A: CERVICAL/VAGINAL SMEAR, PAP ICD: F: {Not Entered} SNOMED CODES: 1; E4F409 [id number] O45328 In cases where a pathologist has signed out the report, the service has been rendered in part by a resident. The signing pathologist has performed and is responsible for the reported pathologic evaluation. us Historical Provider LAB PATHOLOGY ORDERABLES Fin al Result SUNQUEST from Last 3 Months or Most Recently Relevant to Health Maintenance Insurance [facility] MEDICAID MEDICAID O [facility]AQUEST Care Teams White Shoe Ragger Relationship Specialty Start Date End Date 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 APRN [address] [place] [id number] PCP - General 01/26/25
--- OUTSIDE RECORDS SUMMARY | 2025-07-27 09:49 | XMS_ITS | Continuity of Care Document ---
Author Organization [facility] Address [address] [place] [address] Assessment No assessment recorded. Plan of Treatment Reminders Order Date Submit Date Provider Last Modified By Organization Details Last Modified Time Details Appointments None recorded. Lab None recorded. Referral None recorded. Procedures None recorded. Surgeries None recorded. Imaging None recorded. Medication Orders prednisone 20 mg tablet 2024 025 [facility], [address], [address], 5 05:02:01 albuterol sulfate HFA 90 mcg/actuati on aerosol inhaler 2024 025 [facility], [address], [address], 5 16:04:37 nicotine 21 mg/24 hr daily transdermal patch 2024 025 [facility], [address], [address], 5 16:05:33 doxycycline hyclate 100 mg capsule 2024 025 [facility], [address], [address], 5 05:02:07 Patient TargetsNo targets recorded. Patient InstructionsNo instructions recorded. Reason for Referral None Reported. Problems Name Problem SNOMED Code Status Onset Date Resolution Date Notes Provider Name and Address Organization Details Recorded Time Bipolar disorder 95308769 Active 2020 Jasmina Frye null, [place] - [facility] 09:15:02 Asthma 225293128 Active 2020 Jasmina Frye null, [place] - [facility] 1 09:15:08 Hyperlipidemi a 59769471 Active 2020 Jasmina Frye null, [place] - [facility] 09:15:15 Depressive disorder 63180449 Active 2020 Jasmina Frye null, [place] - [facility] 09:15:22 Anxiety 73984111 Active 2020 Jasmina Frye null, [place] - [facility] 09:15:30 Migraine 96031317 Active 2020 Jasmina Frye null, [place] - [facility] 09:15:42 Hypothyroidis m 70179934 Active 2024 Lana Edy null, [place] - [facility] 5 11:50:11 Patent foramen ovale 656254108 Active 2024 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, PHYSICAL THERAPY TEACHER [address], [place], [address] , [place] - [facility] 5 16:20:14 Problem [...] 09:27:23 11/09/19 12 Hysterectomy completed Cathy Logan PHYSICAL THERAPY TE[employer]ER [address], [place], [address], [place] - [facility] 01/20/2021 16:20:51 11/09/19 12 excision of bilateral fallopian tubes and ovaries completed Cathy Logan PHYSICAL THERAPY TE[employer]ER [address], [place], [address], [place] [facility] 01/20/2021 16:28:55 06/12/20 08 laser surgery completed Jasmina Frye [place] - [facility] 10/25/2020 09:11:01 12/11/19 02 Cholecystectomy, laparoscopic completed Jasmina [facility] 10/25/2020 09:12:05 01/13/20 00 section completed Jasmina CAPUTO [facility] 10/25/2020 09:12:17 05/13/19 93 section completed Jasmina CAPUTO [facility] 10/25/2020 09:12:26 Colposcopy completed Jasmina CAPUTO [facility] 10/25/2020 09:19:24 LEEP completed Jasmina [facility]UTO [facility] 10/25/2020 09:19:31 Imaging Results None recorded. [...] 2:08PM;U ser: meeses;I ndicatio n: Pain - (45.0759 00) Not Available Not Available Not Available [...] Updated DateTime 5 149.86 cm 27.9 kg/m2 72755.7 5 g 89 /min 98 % 98 % 20 /min 6 97.8 [degF] 108/70 mm[Hg] Desire Sandy [place] - [facility] 15:47:09 Social History Question Answer Notes LastModified by Organizat ion Details LastModified Time Tobacco Smoking Status Current Every Day Smoker Lana Snow magy, [place] - [facility] 12/29/2024 11:51:28 Do You Have An Advance Directive? No [email or web address] Information not available 10/25/2020 Are You Blind Or Do You Have Difficulty Seeing? No Information not available 12/29/2024 Is Blood Transfusion Acceptable In An Emergency? Yes [email or web address] Information not available 10/25/2020 What Is Your Level Of Caffeine Consumption? Heavy Information not available 12/29/2024 How Much Tobacco Do You Chew? None [email or web address] Information not available 10/25/2020 Are You Deaf Or Do You Have Serious Difficulty Hearing? No Information not available 12/29/2024 What Type Of Diet Are You Following? REGULAR [email or web address] Information not available 10/25/2020 Which Illicit Or Recreational Drugs Have You Used? None [email or web address] Information not available 10/25/2020 What Is The Highest Grade Or Level Of School You Have Completed Or The Highest Degree You Have Received? [id number] Information not available 12/29/2024 Have There Been Any Changes To Your Family Or Social Situation? No Information not available 12/29/2024 Live Alone Or With Others? With Others With Mom And Son Information not available 10/25/2020 Do You Have A Medical Power Of Manager Data Warehousing? No Information not available 12/29/2024 What Was The Date Of Your Most Recent Tobacco Screening? 12/29/2024 Information not available 12/29/2024 How Many Children Do You Have? 2 Information not available 10/25/2020 What Is Your Current Pack Years? [email or web address] Information not available 12/29/2024 Performs Monthly Self-breast Exam? No [email or web address] Information not available 10/25/2020 What Is Your Relationship Status? [email or web address] Information not available 10/25/2020 Seat Belts Used Routinely Yes [email or web address] Information not available 10/25/2020 Are You Sexually Active? No 2018 Due To Passing Of Stroke Information not available 12/29/2024 Do You Have Smoke And Carbon Monoxide Detectors In Your Home? Yes Information not available 12/29/2024 At What Age Did You Start Smoking Tobacco? 16 Information not available 12/29/2024 How Much Tobacco Do You Smoke? 2 PPD [email or web address] Information not available 10/25/2020 General Stress Level Low [email or web address] Information not available 10/25/2020 Do You Use Sunscreen Routinely? No [email or web address] Information not available 10/25/2020 Has Tobacco Cessation [...] used smokeless tobacco? Never used smokeless tobacco [email or web address] Information not available 10/25/2020 Are you currently employed? Yes [email or web address] Information not available 10/25/2020 Do you have transportation difficulties? No Information not available 12/29/2024 Urinary incontinence assessment performed? Yes [email or web address] Information not available 10/25/2020 Are you able to care for yourself independently? Yes Information not available 12/29/2024 Do you have difficulty dressing, bathing, grooming, or toileting? No Information not available 12/29/2024 Do you or have you ever used e-cigarettes or vape? Never used electronic cigarettes [email or web address] Information not available 10/25/2020 What is your exercise level? None [email or web address] Information not available 10/25/2020 Do you use [...] anxious, or unable to sleep at night)? [id number] Information not available 12/29/2024 Do you have difficulty concentrating, remembering or making decisions? No Information no t available 12/29/2024 Family History Relationship Description Onset Age of this Age Resolved Age Notes LastModified by Organization Details LastModified Time Daughter Polycystic ovary syndrome [email or web address] Not available 10/25 09:17:36 Paternal Uncle Diabetes mellitus [email or web address] Not available 10/25 09:17:46 Paternal Aunt Malignant neoplasm of lung [email or web address] Not available 10/25 09:18:07 Paternal Aunt Malignant neoplasm of breast Not available 10/25 09:18:15 Maternal [...] colitis N Cerebrovascular Disease N Depression N Guillain-[place] N Sleep Apnea N Aneurysm N Bronchitis [...] virus, trivalent, preservative 9 completed Not Available [facility] 07/06/2025 13:35:11 Tdap 6 completed Not Available [facility] 07/06/2025 13:35:11 Influenza, split virus, trivalent, preservative 6 completed Not Available [facility] 07/06/2025 13:35:11 Influenza, split virus, quadrivalent, preservative 7 completed Not Available [facility] 07/06/2025 13:35:11 COVID-19, mRNA, LNP-S, PF, 100 mcg/0.5mL dose or 50 mcg/0.25mL dose 1 completed Not Available [facility] 07/06/2025 13:35:11 COVID-19, mRNA, LNP-S, PF, 100 mcg/0.5mL dose or 50 mcg/0.25mL dose 1 completed Not Available [facility] 07/06/2025 13:35:11 Hep B, adult 3 completed Not Available [facility] 07/06/2025 13:35:11 Influenza, split virus, quadrivalent, PF 3 completed Not Available [facility] 07/06/2025 13:35:11 COVID-19, mRNA, LNP-S, PF, 50 mcg/0.5 mL 3 completed Not Available [facility] 07/06/2025 13:35:11 Tdap 5 completed Not Available [facility] 07/06/2025 13:35:11 Rabies - IM fibroblast culture 5 completed Not Available [facility] 07/06/2025 13:35:11 Influenza, split virus, quadrivalent, preservative 0 [facility]25/2020 09:14:55 Past Encounters Encounter ID Performer Location Encounter Start Date Encounter Closed Date Diagnosis/Indication Diagnosis SNOMED-CT Code Diagnosis ICD10 Code Diagnosis IMO Codes Diagnosis Note [id number] 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 APRN [address] [address] 07/02/2025 15:24:55 07/02/2025 15:53:47 Acute maxillary sinusitis 12104927 J01.00 39951067 Supportive care reviewed: raising HOB, humidifier use, saline nasal spray, rest, encourage PO fluids and monitor hydration status, infection control measures. Recommende d acetaminop hen/ibupro fen PRN pain, fever Follow-up as needed if no improvemen t or worsening Bronchitis 51103568 J40 55379 steroidsan tibioticsi f worsen or no improvemen t return Cigarette smoker 0256081 7 F17.210 157607 med discussed in detail Health Concerns Section Related Observation LastModified by Organization Detai ls LastModified Time None Recorded Concern Status LastModified by Organization Details LastModified Time None Recorded Payers Encounter Date Sequence Insurance Name Policy Number Policy [place] Covered Member ID Barrow Member ID Guarantor Name 07/02/2025 1 [facility] (MEDICAID REPLACEMENT - HMO) Desire Blevins [id number] Desire Blevins Notes Date Note Type Note Provider Name and Address Organization Details Recorded Time 07/02/2025 text/html ROS as noted in the HPI 50 yr old female presents for lung pain, coughing up thick green mucus, sinus drainage causing a sore throat,sinus pressure,and tenderness. Patient has been sick x 1 week.pt states she would like to try to quit smoking 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, PHYSICAL THERAPY TEACHER [address], [place], [address], [place] - [facility] 07/02/2025 16:05:53 OBGyn Episode No OBEpisode recorded.
--- OUTSIDE RECORDS SUMMARY | 2025-07-27 09:49 | XMS_ITS | Clinical Summary ---
Author Organization 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
[2025-07-27 09:50] LABS: Bilirubin,Urine Negative (Negative); Color,Urine YELLOW (Yellow); Glucose,Urine (UA) Negative (Negative); Ketones,Urine Negative (Negative); Leukocyte Esterase,Urine Negative (Negative); PH,Urine 5.5 (5.0-8.5); Protein,Urine Negative (Negative); Specific Gravity, Urine <= 1.005 (1.005-1.030); Urobilinogen,Urine 0.2 EU/dl (0.2)
[2025-07-27 09:51] LABS: Alanine Aminotransferase 30 U/L (12-78); Albumin/Globulin Ratio 1.1 (1.1-1.8); Alkaline Phosphatase 105 U/L (38-126); Anion Gap 10.6 mEq/L (5-15); Aspartate Amino Transferase 26 U/L (14-36); Bilirubin,Total 0.2 mg/dl (0.2-1.3); Blood Urea Nitrogen 5 mg/dl (7-17); Calcium 8.8 mg/dl (8.4-10.2); Carbon Dioxide 30 mmol/L (22.0-30.0); Creatinine Clearance Estimated 97 mL/min (50-200); Creatinine,Serum 0.70 mg/dl (0.52-1.04); Estimated Glomerular Filt Rate 89 ml/min (>60); GFR (African American) 107 ML/MIN (>60); Globulin 3.6 g/dL (1.3-3.2); Glucose 91 mg/dl (74-100); Lipase 83 U/L (23-300); Total Protein,Serum 7.6 g/dl (6.3-8.2)
[2025-07-27] MEDS: SODIUM CHLORIDE 0.9% 10ML SYR (RAD ONLY) 10 ML IV (09:54)
[2025-07-27] MEDS: IOPAMIDOL-370 (76%);100ML BOTTLE 50 ML IV (09:54)
[2025-07-27] MEDS: ACETAMINOPHEN 500MG TAB 1000 MG PO (10:03)
[2025-07-27] MEDS: ONDANSETRON 4MG/2ML VIAL 4 MG IV (10:03)
[2025-07-27] MEDS: KETOROLAC 30MG/ML VIAL 30 MG IV (10:03)
[2025-07-27] MEDS: MORPHINE 4MG/ML SYRINGE 4 MG IV (10:59)
--- NOTE | 2025-07-27 12:08 | PC.NURSE ---
pt ambulatory to restroom without complications
[2025-07-27 12:36] LABS: WBC,Urine Occasional #/hpf (0-3)
== END 2025-07-27 12:24 | disposition home or self-care (01) ==
PROVIDERS: Emergency Provider Emergency Medicine; PCP Family Medicine
DX: R10.30 Lower abdominal pain, unspecified (principal); F17.210 Nicotine dependence, cigarettes, uncomplicated
CPT/HCPCS: 74177; 80053; 81001; 83690; 85025; 87389; 87491; 87591; 87661; 96374; 96375; 99285; J1885; J2270; J2405; Q9967

== ENCOUNTER 2025-07-30 08:48 | Emergency (ER) | payer MEDICAID, SELFPAY ==
[2025-07-30] VITALS (7 sets, daily range): BP systolic 124–162; BP diastolic 81–112; PULSE 86–95; RESP 15–18; TEMP 36.8; O2SAT 95–98; BMI 28.6
--- OUTSIDE RECORDS SUMMARY | 2025-07-30 09:11 | XMS_ITS | Data Portability ---
Author Organization [facility] Address [address] [place] [address] Assessment No assessment recorded. Plan of Treatment Reminders Order Date Submit Date Provider Last Modified By Organization Details Last Modified Time Details Appointments None recorded. Lab rapid flu (A+B) 2024 025 [facility], [address] [place] [address], [id number], 5 15:05:01 rapid SARS CoV + SARS CoV 2 Ag, QL IA, respiratory specimen 2024 025 [facility], [address] [place] [address], [address], 5 15:05:01 rapid strep group A, throat 2024 025 [facility], [address] [place] [address], [address], 5 15:05:00 rapid strep group A, throat 2024 025 [facility], [address] [place] [address], [address], 5 17:26:23 rapid strep group A, throat 2024 025 [facility], [address] [place] [address], [address], 5 14:29:02 rapid SARS CoV + SARS CoV 2 Ag, QL IA, respiratory specimen 2024 025 [facility], [address] [place] [address], [address], 5 14:29:02 rapid flu (A+B) 2024 025 [facility], [address] [place] [address], [address], 5 14:29:02 Referral None recorded. Procedures None recorded. Surgeries None recorded. Imaging None recorded. Medication Orders fluticasone propionate 50 mcg/actuati on nasal spray,suspe nsion 2024 025 [facility], [address], [address], 5 15:05:07 benzonatate 100 mg capsule 2024 025 [facility], [address], [address], 5 05:02:00 prednisone 20 mg tablet 2024 025 [facility], [address], [address], 5 05:02:01 albuterol sulfate HFA 90 mcg/actuati on aerosol inhaler 2024 025 [facility], [address], [address], 5 16:04:37 nicotine 21 mg/24 hr daily transdermal patch 2024 025 [facility], [address], [address], 5 16:05:33 doxycycline hyclate 100 mg capsule 2024 025 [facility], [address] [place], [address], 5 05:02:07 amoxicillin 500 mg tablet 2024 025 [facility], [address], [address], 5 05:01:51 nystatin 100,000 unit/mL oral suspension 2024 025 [facility], [address], [address], 5 05:02:02 prednisone 20 mg tablet 2024 025 [facility], [address], [address], 5 05:02:01 Zithromax Z-Jayy 250 mg tablet 2024 025 [facility], [address], [address], 5 13:29:06 fluticasone propionate 50 mcg/actuati on nasal spray,suspe nsion 2024 025 [facility], [address], [address], 5 15:40:37 Patient TargetsNo targets recorded. Patient InstructionsNo instructions recorded. Reason for Referral None Reported. Results Created Date Observation Date Name Description Value Unit Range Abnormal Flag Note LastModifiedBy Organization Detail LastModifiedTime 03/27/20 25 03/27/2025 rapid flu (A+B) Flu negati ve Not Available [address], [address], 03/27/2025 14:19:54 03/27/20 25 03/27/2025 rapid flu (A+B) Type Both A & B Not Available [address], [address], 03/27/2025 14:19:54 03/27/20 25 03/27/2025 rapid SARS CoV + SARS CoV 2 Ag, QL IA, respi rator y speci men SARS CoV antigen Negati ve Not Available [address], [address], 03/27/2025 14:19:45 03/27/20 25 03/27/2025 rapid strep group A, throa t Strep negati ve Not Available [address], [address], 03/27/2025 14:19:35 03/27/20 25 03/27/2025 rapid strep group A, throa t Culture No Not Available [address], [address], 03/27/2025 14:19:35 04/26/20 25 04/26/2025 rapid strep group A, throa t Strep negati ve Not Available [address], [address], 04/26/2025 14:30:52 04/26/20 25 04/26/2025 rapid strep group A, throa t Culture No Not Available [address], [address], 04/26/2025 14:30:52 07/06/20 25 07/06/2025 rapid SARS CoV + SARS CoV 2 Ag, QL IA, respi rator y speci men SARS CoV antigen Invali d Not Available [address], [address], 07/06/2025 14:15:40 07/06/20 25 07/06/2025 rapid flu (A+B) Flu negati ve Not Available [address], [address], 07/06/2025 14:15:32 07/06/2007/06/2025 rapid flu (A+B) Type Both A & B Not Available [address], [address], 07/06/2025 14:15:32 07/06/2007/06/2025 rapid strep group A, throa t Strep negati ve Not Available [address], [address], 07/06/2025 14:15:47 07/06/2007/06/2025 rapid strep group A, throa t Culture No Not Available [address], [address], 07/06/2025 14:15:47 Result Notes None recorded. Problems Name Problem SNOMED Code Status Onset Date Resolution Date Notes Provider Name and Address Organization Details Recorded Time Bipolar disorder 71090782 Active 2020 Jasmina Frye null, [place] - [facility] 09:15:02 Asthma 679257009 Active 2020 Jasmina Frye null, [place] - [facility] 09:15:08 Hyperlipidemi a 62513348 Active 2020 Jasmina Frye null, [place] - [facility] 09:15:15 Depressive disorder 06709620 Active 2020 Jasmina Frye null, [place] - [facility] 09:15:22 Anxiety 58588085 Active 2020 Jasmina Frye null, [place] - [facility] 09:15:30 Migraine 13328845 Active 2020 Jasmina Frye null, [place] - [facility] 09:15:42 Hypothyroidis m 38419879 Active 2024 Lana Snow null, [place] - [facility] 5 11:50:11 Patent foramen ovale 498267755 Active 2024 Brenton Leivaednaniharika, [employer] [address], [place], [address] , [place] - [facility] 5 16:20:14 Problem Notes None recorded. Procedures Surgical History Date Name Laterality Status Provider Name and Address Organization Details Recorded Time 10/25/19 21 Systolic B/P less than 130 mm Hg completed Jasmina Frye [place] - [facility] 10/25/2020 09:27:20 10/25/19 21 Diastolic B/P less than 80 mm Hg completed Jasmina Frye [facility] 10/25/2020 09:27:23 11/09/19 12 Hysterectomy completed Cathy Logan APRN [address], [place], [address], [facility] - [facility] 01/20/2021 16:20:51 11/09/19 12 excision of bilateral fallopian tubes and ovaries completed Cathy Logan APRN [address], [place], [address], [facility] - [facility] 01/20/2021 16:28:55 06/12/20 08 laser surgery completed Jasmina Frye [facility] 10/25/2020 09:11:01 12/11/19 02 Cholecystectomy, laparoscopic completed Jasmina Frye [facility] 10/25/2020 09:12:05 01/13/20 00 section completed Jasmina Frye [facility] 10/25/2020 09:12:17 05/13/19 93 section completed Jasmina Frye [place] - [facility] 10/25/2020 09:12:26 Colposcopy completed Jasmina Frye [facility] 10/25/2020 09:19:24 LEEP completed Jasmina Frye [facility] 10/25/2020 09:19:31 Imaging Results [...] 2:08PM;U ser: meeses;I ndicatio n: Pain - (54.6081 13) Not Available Not Available Not Available levofloxa [...] completed Not Available Not Available Not Available [facility] ODT 75 mg disintegr ating [...] Updated DateTime 5 149.86 cm 27.7 kg/m2 16939.2 5 g 68 /min 98 % 98 [...] Updated DateTime 5 149.86 cm 27.7 kg/m2 33436.1 5 g 89 /min 98 % 98 % 18 /min 2 110/70 mm[Hg] Desire Sandy [place] - [facility] 5 14:22:26 Date Recorded Body height Body mass index (BMI) Body weight Heart rate Oxygen saturation Oxygen saturation in Arterial blood by Pulse oximetry Respiratory rate Pain severity - 0-10 verbal numeric rating [Score] - Reported Body temperature Systolic And Diastolic Provider Name and Address Organization Details Last Updated DateTime 5 149.86 cm 27.9 kg/m2 28541.7 5 g 107 /min 97 % 97 % 20 /min 8 98.1 [degF] 102/74 mm[Hg] Desire Munozler [place] - [facility] 5 13:28:24 Date Recorded Body height Body mass index (BMI) Body weight Heart rate Oxygen saturation Oxygen saturation in Arterial blood by Pulse oximetry Respiratory rate Pain severity - 0-10 verbal numeric rating [Score] - Reported Body temperature Systolic And Diastolic Provider Name and Address Organization Details Last Updated DateTime 5 149.86 cm 27.9 kg/m2 13161.7 5 g 89 /min 98 % 98 % 20 /min 6 97.8 [degF] 108/70 mm[Hg] Desire Sandy [place] - [facility] 5 15:47:09 Date Recorded Body height Body mass index (BMI) Body weight Body temperature Heart rate Oxygen saturation Oxygen saturation in Arterial blood by Pulse oximetry Respiratory rate Systolic And Diastolic Provider Name and Address Organization Details Last Updated DateTime 5 149.86 cm 28.1 kg/m2 39745.3 4 g 98.1 [degF] 98 /min 100 % 100 % 18 /min 120/78 mm[Hg] Lana Edy [place] - [facility] 5 14:13:43 Social History Question Answer Notes LastModified by Organizat ion Details LastModified Time Tobacco Smoking Status Current Every Day Smoker Lana Edy [facility], [place] - [facility] 12/29/2024 11:51:28 Do You Have An Advance Directive? No [email or web address] Information not available 10/25/2020 Are You Blind Or Do You Have Difficulty Seeing? No Information not available 12/29/2024 Is Blood Transfusion Acceptable In An Emergency? Yes Information not available 10/25/2020 What Is Your Level Of Caffeine Consumption? Heavy Information not available 12/29/2024 How Much Tobacco Do You Chew? None [email or web address] Information not available 10/25/2020 Are You Deaf Or Do You Have Serious Difficulty Hearing? No Information not available 12/29/2024 What Type Of Diet Are You Following? REGULAR [email or web address] Information not available 10/25/2020 Which Illicit Or Recreational Drugs Have You Used? None [email or web address] Information not available 10/25/2020 What Is The Highest Grade Or Level Of School You Have Completed Or The Highest Degree You Have Received? [id number] Information not available 12/29/2024 Have There Been Any Changes To Your Family Or Social Situation? No Information not available 12/29/2024 Live Alone Or With Others? With Others With Mom And Son [email or web address] Information not available 10/25/2020 Do You Have A Medical Power Of Tube Dispatcher? No Information not available 12/29/2024 What Was The Date Of Your Most Recent Tobacco Screening? 12/29/2024 Information not available 12/29/2024 How Many Children Do You Have? 2 [email or web address] Information not available 10/25/2020 What Is Your Current Pack Years? [email or web address] [email or web address] Information not available 12/29/2024 Performs Monthly Self-breast Exam? No Information not available 10/25/2020 What Is Your Relationship Status? [email or web address] Information not available 10/25/2020 Seat Belts Used Routinely Yes [email or web address] Information not available 10/25/2020 Are You Sexually Active? No 2018 Due To Passing Of Stroke Information not available 12/29/2024 Do You Have Smoke And Carbon Monoxide Detectors In Your Home? Yes Information not available 12/29/2024 At What Age Did You Start Smoking Tobacco? 16 Information not available 12/29/2024 How Much Tobacco Do You Smoke? 2 PPD [email or web address] Information not available 10/25/2020 General Stress Level Low Information not available 10/25/2020 Do You Use Sunscreen Routinely? No [email or web address] Information not available 10/25/2020 Has Tobacco Cessation [...] used smokeless tobacco? Never used smokeless tobacco [email or web address] Information not available 10/25/2020 Are you currently employed? Yes [email or web address] Information not available 10/25/2020 Do you have transportation difficulties? No Information not available 12/29/2024 Urinary incontinence assessment performed? Yes [email or web address] Information not available 10/25/2020 Are you able to care for yourself independently? Yes Information not available 12/29/2024 Do you have difficulty dressing, bathing, grooming, or toileting? No Information not available 12/29/2024 Do you or have you ever used e-cigarettes or vape? Never used electronic cigarettes [email or web address] Information not available 10/25/2020 What is your exercise level? None [email or web address] Information not available 10/25/2020 Do you use any illicit or recreational drugs? No Information not available 12/29/2024 Do you or have you ever used any other forms of tobacco or nicotine? No Information not available 12/29/2024 What is your level of alcohol consumption? None [email or web address] Information not available 10/25/2020 Are you able [...] anxious, or unable to sleep at night)? [id number] Information not available 12/29/2024 Do you have difficulty concentrating, remembering or making decisions? No Information no t available 12/29/2024 Family History Relationship Description Onset Age of this Age Resolved Age Notes LastModified by Organization Details LastModified Time Daughter Polycystic ovary syndrome [email or web address] Not available 10/25 09:17:36 Paternal Uncle Diabetes mellitus [email or web address] Not available 10/25 09:17:46 Paternal Aunt Malignant neoplasm of lung [email or web address] Not available 10/25 09:18:07 Paternal Aunt Malignant neoplasm of breast [email or web address] Not available 10/25 09:18:15 Maternal Aunt Malignant neoplasm of bone [email or web address] Not available 10/25 09:18:46 Medical History Condition [...] colitis N Cerebrovascular Disease N Depression N Guillain-[place] N Sleep Apnea N Aneurysm N Heart [...] virus, trivalent, preservative 9 completed Not Available [facility] 07/06/2025 13:35:11 Tdap 6 completed Not Available [facility] 07/06/2025 13:35:11 Influenza, split virus, trivalent, preservative 6 completed Not Available [facility] 07/06/2025 13:35:11 Influenza, split virus, quadrivalent, preservative 7 completed [facility] 07/[facility]/2025 13:35:11 COVID-19, mRNA, LNP-S, PF, 100 mcg/0.5mL dose or 50 mcg/0.25mL dose 1 completed Not Available [facility] 07/06/2025 13:35:11 COVID-19, mRNA, LNP-S, PF, 100 mcg/0.5mL dose or 50 mcg/0.25mL dose 1 completed Not [facility] 07/06/2025 13:35:11 Hep B, adult 3 completed Not [facility] 07/06/2025 13:35:11 Influenza, split virus, quadrivalent, PF 3 completed Not [facility] 07/06/2025 13:35:11 COVID-19, mRNA, LNP-S, PF, 50 mcg/0.5 mL 3 completed Not Available [facility] 07/06/2025 13:35:11 Tdap 5 completed Not [facility] 07/06/2025 13:35:11 Rabies - IM fibroblast culture 5 completed Not 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 Diet education 15585260 Z71.3 Counseling 368176370 Z71 .82 Exercise counseljeny conte Patient encouraged to exercise 30 minutes 5 days a week. Examinatio n of blood pressure 387980918 Z01.30 Vaccine de clined by patient 5040873367 02 Z28.21 Pt declined flu vaccine today. History of total hysterectomy 972138662 Z90.710 Hormone re placement therapy 963058703 Z79.890 Patient advised of the risks and benefits associated with HRT. Patient will report any new or worsening symptoms. Screening mammography 24 857336 Z12.31 Vaginal dryness 39642997 N89.8 Will proceed with oral E2. If this does not help, will add PVC at her F/U appt. Tobacco user 885296841 Z 72.0 [id number] 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 APRN [address] [address] 12/29/2024 11:20:07 12/29/2024 12:09:05 Migraine 62952840 G43.909 stop qulipta Heart murmur 72821054 R0 1.1 [id number] 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 APRN [address] [address] 01/19/2025 15:14:28 01/19/2025 16:13:45 Body mass index 30+ - obesity 641453738 E66.9 65371386 Acute maxi llary sinusitis 73160092 J01.00 84721201 Diarrhea 26852620 R19.7 [id number] valerie dietif no improvemen t will need stool sample [id number] [facility] [place] [address] 03/27/2025 13:35:16 03/27/2025 14:20:26 Acute maxillary sinusitis 46790801 J01.00 56590116 Supportive care reviewed: raising HOB, humidifier use, saline nasal spray, rest, encourage PO fluids and monitor hydration status, infection control measures. Recommende d acetaminop hen/ibupro fen PRN pain, fever Follow-up as needed if no improvemen t or worsening [id number] [facility] [place] [address] 03/30/2025 13:51:27 03/30/2025 14:30:11 Acute bronchitis 91803271 J20.9 28737362 steroidsco ntinue medsif worsen or no improvemen t return Candidiasis of mouth 797 44802 B37.0 936528 [id number] [facility] [place] [address] 04/26/2025 13:17:12 04/26/2025 14:27:11 Streptococcal sore throat 48389241 J02.0 2176481 stop levaquinst art amoxicilli ncontact precaution sent referral placed per [id number] [facility] [address] 07/02/2025 15:24:55 07/02/2025 15:53:47 Acute maxillary sinusitis 62971856 J01.00 16703121 Supportive care reviewed: raising HOB, humidifier use, saline nasal spray, rest, encourage PO fluids and monitor hydration status, infection control measures. Recommende d acetaminop hen/ibupro fen PRN pain, fever Follow-up as needed if no improvemen t or worsening Bronchitis 17504038 J40 31730 steroidsan tibioticsi f worsen or no improvemen t return Cigarette smoker 1957676 7 F17.210 291530 med discussed in detail [id number] 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 APRN [facility] [address] [place] [address] 07/06/2025 13:34:08 07/06/2025 15:13:14 Bronchitis 25785557 J40 95613 continue steroidsco ntinue antibiotic sif worsen or no improvemen t return Acute cough 3671783477 86338707 R05.6 3387462021 Nasal congestion 8681083 0 R09.81 55421 Health Concerns Section Related Observation LastModified by Organization Detai ls LastModified Time None Recorded Concern Status LastModified by Organization Details LastModified Time None Recorded Advance Directives Directive N: Payers Insurance Date Sequence Insurance Name Policy Number Policy Barrow Covered Member ID Barrow Member ID Guarantor Name 02/01/2025 2 [place] [employer] - FFS/TRADITION AL Desire Blevins [id number] Desire Blevins 12/29/2024 1 [facility] (MEDICARE HMO) Desire Blevins [id number] Desire Blevins 02/01/2025 1 [facility] (MEDICAID REPLACEMENT - HMO) Desire Blevins [id number] Desire Blevins 06/18/2025 [place] [facility] [place] [facility] ([place]ICAID) Desire Blevins [id number] Desire Blevins 07/02/[address] [facility] (MEDICAID REPLACEMENT - HMO) Desire Blevins [id number] Desire Blevins Notes Date Note Type Note Provider Name and Address Organization Details Recorded Time 03/27/2025 text/html 50 yr old female presents with sore throat, cough, green sinus drainage,tendernes s and sinus pressure. Patient had fever of 102 last night. Reports mild muscle aches, and neck pain. no ill contacts 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 APRN [address], [place], [address], [facility] - [facility] 03/27/2025 14:29:30 03/30/2025 text/html 50 yr old female presents with right ear pain, states she isn't getting much better. She is on a z pack. 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 APRN [address], [place], [address], [facility] - [facility] 03/30/2025 15:01:30 04/26/2025 text/html 50 [...] strep 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 APRN [address], [place], [address], [facility] - [facility] 04/26/2025 14:46:30 07/02/2025 text/html ROS as noted in the HPI 50 yr old female presents for lung pain, coughing up thick green mucus, sinus drainage causing a sore throat,sinus pressure,and tenderness. Patient has been sick x 1 week.pt states she would like to try to quit smoking 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 APRN [address], [place], [address], [facility] - [facility] 07/02/2025 16:05:53 07/06/2025 text/html ROS as noted in the HPI 50 year old female who presents to the office today with concerns ofcontinued headache, sore throat, lung pain, diarrhea, body aches, congestion, coughhave a few doxycycline and prednisone left to take 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 APRN [address], [place], [address], [facility] - [facility] 07/06/2025 15:05:25 OBGyn Episode No OBEpisode recorded.
--- OUTSIDE RECORDS SUMMARY | 2025-07-30 09:12 | XMS_ITS | Clinical Summary ---
Author Organization Healthcare Address [address] [place] [address] Care Team Providers Care Corporate Fitness Program Coordinator Name Role Phone 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 RED Primary Care Provider [phone]- [phone] Allergies No known active allergies Medications Qulipta [...] Description 05/16/2025 9:15 AM EDT Office Visit [facility] 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) 12+ years Tdap 08/31/2016 Family History Medical [...] 2025 UKY-Zoster Vaccines (1 of 2) 2025 [id number] Vaccine (4 - 2024- season) 2025 07/30/2023, [...] Narrative SUNQUEST - 02/08/1997 12:00 AM EDT [facility] MR #: [id number] [facility] [place], [place] [address] 1975 (Age: 22) FW Collect Date: 01/30/1997 00:00 Receipt Date: 01/31/1997 00:00 Page 1 DEPARTMENT OF PATHOLOGY AND LABORATORY MEDICINE CYTOPATHOLOGY REPORT Email: [email or web address] * Converted Case * This report may not match the original report format ATTENDING MD/Practitioner: Uvaldo Padilla MD Service: [facility] Location: Reported: 02/08/1997 00:00 Collected: 01/30/1997 00:00 [...] results is suggested (please call Microbiology at [phone] for results). CLINICAL INFORMATION: Menstrual History: {Not Provided} Date of Last Menstrual Period: {Not Provided} SPECIMEN DESCRIPTION: A: CERVICAL/VAGINAL SMEAR, PAP ICD: F: {Not Entered} SNOMED CODES: 1; A2I685 T64517 Q86573 In cases where a pathologist has signed out the report, the service has been rendered in part by a resident. The signing pathologist has performed and is responsible for the reported pathologic evaluation. us Historical Provider LAB PATHOLOGY ORDERABLES Fin al Result SUNQUEST from Last 3 Months or Most Recently Relevant to Health Maintenance Insurance [facility] MEDICAID MEDICAID O [facility] Care Teams Corporate Fitness Program Coordinator Relationship Specialty Start Date End Date 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 APRN [address] [place] [id number] PCP - General 01/26/25
--- OUTSIDE RECORDS SUMMARY | 2025-07-30 09:12 | XMS_ITS | Continuity of Care Document ---
Author Organization [facility] Address [address] [place] [address] Assessment No assessment recorded. Plan of Treatment Reminders Order Date Submit Date Provider Last Modified By Organization Details Last Modified Time Details Appointments None recorded. Lab None recorded. Referral None recorded. Procedures None recorded. Surgeries None recorded. Imaging None recorded. Medication Orders prednisone 20 mg tablet 2024 025 [facility] 591, [address], [address], 5 05:02:01 albuterol sulfate HFA 90 mcg/actuati on aerosol inhaler 2024 025 [facility] 591, [address], [address], 5 16:04:37 nicotine 21 mg/24 hr daily transdermal patch 2024 025 [facility] 591, [address], [address], 5 16:05:33 doxycycline hyclate 100 mg capsule 2024 025 [facility] 591, [address], [address], 5 05:02:07 Patient TargetsNo targets recorded. Patient InstructionsNo instructions recorded. Reason for Referral None Reported. Problems Name Problem SNOMED Code Status Onset Date Resolution Date Notes Provider Name and Address Organization Details Recorded Time Bipolar disorder 62297334 Active 2020 Jasmina Frye null, [place] - [facility] 09:15:02 Asthma 497003575 Active 2020 Jasmina Frye null, [place] - [facility] 1 09:15:08 Hyperlipidemi a 42028869 Active 2020 Jasmina Frye null, [place] - [facility] 09:15:15 Depressive disorder 75171404 Active 2020 Jasmina Frye null, [place] - [facility] 09:15:22 Anxiety 38922292 Active 2020 Jasmina Frye null, [place] - [facility] 09:15:30 Migraine 93002701 Active 2020 Jasmina [place], [place] - [facility] 09:15:42 Hypothyroidis m 20114591 Active 2024 Lana Edy null, [place] - [facility] 5 11:50:11 Patent foramen ovale 670991072 Active 2024 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, [employer] [address], [place], [address] , [place] - [facility] 5 16:20:14 Problem [...] 09:27:23 11/09/19 12 Hysterectomy completed Cathy Logan [employer] [address], [place], [address], [place] - [facility] 01/20/2021 16:20:51 11/09/19 12 excision of bilateral fallopian tubes and ovaries completed Cathy Logan [employer] [address], [place], [address], [place] [facility] 01/20/2021 16:28:55 06/12/20 08 laser surgery completed Jasmina Frye [place] - [facility] 10/25/2020 09:11:01 12/11/19 02 Cholecystectomy, laparoscopic completed Jasmina CAPUTO [facility] 10/25/2020 09:12:05 01/13/20 00 section completed Jasmina CAPUTO [facility] 10/25/2020 09:12:17 05/13/19 93 section completed Jasmina CAPUTO [facility] 10/25/2020 09:12:26 Colposcopy completed Jasmina CAPUTO [facility] 10/25/2020 09:19:24 LEEP completed Jasmina CAPUTO [facility] 10/25/2020 09:19:31 Imaging Results [...] 2:08PM;U ser: meeses;I ndicatio n: Pain - (94.0088 00) Not Available Not Available Not Available [...] Updated DateTime 5 149.86 cm 27.9 kg/m2 10947.7 5 g 89 /min 98 % 98 % 20 /min 6 97.8 [degF] 108/70 mm[Hg] Desire Sandy [place] - [facility] 15:47:09 Social History Question Answer Notes LastModified by Organizat ion Details LastModified Time Tobacco Smoking Status Current Every Day Smoker Lana Snow magy, [place] - [facility] 12/29/2024 11:51:28 Do You Have An Advance Directive? No [email or web address] Information not available 10/25/2020 Are You Blind Or Do You Have Difficulty Seeing? No Information not available 12/29/2024 Is Blood Transfusion Acceptable In An Emergency? Yes [email or web address] Information not available 10/25/2020 What Is Your Level Of Caffeine Consumption? Heavy Information not available 12/29/2024 How Much Tobacco Do You Chew? None Information not available 10/25/2020 Are You Deaf Or Do You Have Serious Difficulty Hearing? No Information not available 12/29/2024 What Type Of Diet Are You Following? REGULAR [email or web address] Information not available 10/25/2020 Which Illicit Or Recreational Drugs Have You Used? None [email or web address] Information not available 10/25/2020 What Is The Highest Grade Or Level Of School You Have Completed Or The Highest Degree You Have Received? [id number] Information not available 12/29/2024 Have There Been Any Changes To Your Family Or Social Situation? No Information not available 12/29/2024 Live Alone Or With Others? With Others With Mom And Son [email or web address] Information not available 10/25/2020 Do You Have A Medical Power Of Habilitation Assistant? No Information not available 12/29/2024 What Was The Date Of Your Most Recent Tobacco Screening? 12/29/2024 Information not available 12/29/2024 How Many Children Do You Have? 2 [email or web address] Information not available 10/25/2020 What Is Your Current Pack Years? 30ormorepac kyears Information not available 12/29/2024 Performs Monthly Self-breast Exam? No [email or web address] Information not available 10/25/2020 What Is Your Relationship Status? [email or web address] Information not available 10/25/2020 Seat Belts Used Routinely Yes [email or web address] Information not available 10/25/2020 Are You Sexually Active? No 2018 Due To Passing Of Stroke Information not available 12/29/2024 Do You Have Smoke And Carbon Monoxide Detectors In Your Home? Yes Information not available 12/29/2024 At What Age Did You Start Smoking Tobacco? 16 Information not available 12/29/2024 How Much Tobacco Do You Smoke? 2 PPD [email or web address] Information not available 10/25/2020 General Stress Level Low [email or web address] Information not available 10/25/2020 Do You Use Sunscreen Routinely? No [email or web address] Information not available 10/25/2020 Has Tobacco Cessation [...] used smokeless tobacco? Never used smokeless tobacco [email or web address] Information not available 10/25/2020 Are you currently employed? Yes [email or web address] Information not available 10/25/2020 Do you have transportation difficulties? No Information not available 12/29/2024 Urinary incontinence assessment performed? Yes [email or web address] Information not available 10/25/2020 Are you able to care for yourself independently? Yes Information not available 12/29/2024 Do you have difficulty dressing, bathing, grooming, or toileting? No Information not available 12/29/2024 Do you or have you ever used e-cigarettes or vape? Never used electronic cigarettes [email or web address] Information not available 10/25/2020 What is your exercise level? None [email or web address] Information not available 10/25/2020 Do you use any illicit or recreational drugs? No Information not available 12/29/2024 Do you or have you ever used any other forms of tobacco or nicotine? No Information not available 12/29/2024 What is your level of alcohol consumption? None [email or web address] Information not available 10/25/2020 Are you able to walk independently without assistance or assistive devices? YESWOREST [email or web address] Information not available 10/25/2020 Do you have difficulty doing errands alone? 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 [id number] Information not available 12/29/2024 Do you have difficulty concentrating, remembering or making decisions? No Information no t available 12/29/2024 Family History Relationship Description Onset Age of this Age Resolved Age Notes LastModified by Organization Details LastModified Time Daughter Polycystic ovary syndrome [email or web address] Not available 10/25 09:17:36 Paternal Uncle Diabetes mellitus [email or web address] Not available 10/25 09:17:46 Paternal Aunt Malignant neoplasm of lung [email or web address] Not available 10/25 09:18:07 Paternal Aunt Malignant neoplasm of breast [email or web address] Not available 10/25 09:18:15 Maternal Aunt Malignant neoplasm of bone [email or web address] Not available 10/25 09:18:46 Medical History Condition [...] colitis N Cerebrovascular Disease N Depression N Guillain-[place] N Sleep Apnea N Aneurysm N Bronchitis [...] trivalent, preservative 9 completed Not Available [facility] 07/06/2025 13:35:11 Tdap 6 completed Not Available [facility] 07/06/2025 13:35:11 Influenza, split virus, trivalent, preservative 6 completed Not Available [facility] 07/06/2025 13:35:11 Influenza, split virus, quadrivalent, preservative 7 completed Not Available [facility] 07/06/2025 13:35:11 COVID-19, mRNA, LNP-S, PF, 100 mcg/0.5mL dose or 50 mcg/0.25mL dose 1 completed Not Available [facility] 07/06/2025 13:35:11 COVID-19, mRNA, LNP-S, PF, 100 mcg/0.5mL dose or 50 mcg/0.25mL dose 1 completed Not Available [facility] 07/06/2025 13:35:11 Hep B, adult 3 completed Not Available [facility] 07/06/2025 13:35:11 Influenza, split virus, quadrivalent, PF 3 completed Not Available [facility] 07/06/2025 13:35:11 COVID-19, mRNA, LNP-S, PF, 50 mcg/0.5 mL 3 completed Not Available [facility] 07/06/2025 13:35:11 Tdap 5 completed Not Available [facility] 07/06/2025 13:35:11 Rabies - IM fibroblast culture 5 completed Not Available [facility] 07/06/2025 13:35:11 Influenza, split virus, quadrivalent, preservative 0 completed [facility] 10/25/2020 09:14:55 Past Encounters Encounter ID Performer Location Encounter Start Date Encounter Closed Date Diagnosis/Indication Diagnosis SNOMED-CT Code Diagnosis ICD10 Code Diagnosis IMO Codes Diagnosis Note [id number] 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 APRN [address] [address] 07/02/2025 15:24:55 07/02/2025 15:53:47 Acute maxillary sinusitis 17757443 J01.00 13529785 Supportive care reviewed: raising HOB, humidifier use, saline nasal spray, rest, encourage PO fluids and monitor hydration status, infection control measures. Recommende d acetaminop hen/ibupro fen PRN pain, fever Follow-up as needed if no improvemen t or worsening Bronchitis 74603822 J40 24757 steroidsan tibioticsi f worsen or no improvemen t return Cigarette smoker 1691690 7 F17.210 757342 med discussed in detail Health Concerns Section Related Observation LastModified by Organization Detai ls LastModified Time None Recorded Concern Status LastModified by Organization Details LastModified Time None Recorded Payers Encounter Date Sequence Insurance Name Policy Number Policy [place] Covered Member ID Barrow Member ID Guarantor Name 07/02/2025 1 [facility] (MEDICAID REPLACEMENT - HMO) Desire Blevins [id number] Desire Blevins Notes Date Note Type Note Provider Name and Address Organization Details Recorded Time 07/02/2025 text/html ROS as noted in the HPI 50 yr old female presents for lung pain, coughing up thick green mucus, sinus drainage causing a sore throat,sinus pressure,and tenderness. Patient has been sick x 1 week.pt states she would like to try to quit smoking 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, [employer] [address], [place], [address], [place] - [facility] 07/02/2025 16:05:53 OBGyn Episode No OBEpisode recorded.
--- OUTSIDE RECORDS SUMMARY | 2025-07-30 09:12 | XMS_ITS | Data Portability ---
Author Organization [facility] ADMIN Address [address] [place] [address] Assessment No assessment recorded. Plan of Treatment Reminders Order Date Submit Date Provider Last Modified By Organization Details Last Modified Time Details Appointments None recorde d. Lab None recorde d. Referral None recorde d. Procedures None recorde d. Surgeries None recorde d. Imaging XR, ankle 024 08/04/[address] [facility], [address] [place] [address] [place], [address], 11:52:30 Medication Orders None recorde d. Patient TargetsNo targets recorded. Patient InstructionsNo instructions recorded. Reason for Referral None Reported. Results Created Date Observation Date Name Description Value Unit Range Abnormal Flag Note LastModifiedBy Organization Detail LastModifiedTime 08/04/20 XR, ankle No observ ation record ed. KRYSTAL [address] [place], [address], 08/04/2024 11:16:43 Result Notes None recorded. Procedures Surgical History Date Name Laterality Status Provider Name and Address Organization Details Recorded Time 0 Cardiovascular Surgical Tech Surgery completed Lis Solis [facility] & [place] 08/04/2024 11:11:32 Imaging Results None recorded. Procedure [...] Lis Solis null, [place] - [facility] [place] [facility] [place] 08/04/2024 11:11:27 Do You Have An Advance [...] or have you ever used smokeless tobacco? [id number] Information n ot available 08/04/2024 Mental Status [...] ICD10 Code Diagnosis IMO Codes Diagnosis Note [id number] DO JESE NOVA [address] [address] 08/04/2024 10:40:35 08/04/2024 11:47:03 Injury of left ankle 5916793591 0876980 S99.912A Sprain of left ankle 892 7593228 1162865 S93.402A Health Concerns Section Related Observation LastModified by Organization Detai ls LastModified Time None Recorded Concern Status LastModified by Organization Details LastModified Time None Recorded Advance Directives Directive N: Payers Insurance Date Sequence Insurance Name Policy Number Policy Barrow Covered Member ID Barrow Member ID Guarantor Name 07/21/2024 [employer] [id number] Npw Desire Blevins 08/28/2024 1 [facility] (MEDICAID REPLACEMENT - HMO) Desire Blevins [id number] Desire Blevins Notes Date Note Type Note Provider Name and Address Organization Details Recorded Time 08/04/2024 text/html ROS as noted in the HPI Pt presents today with left ankle pain. Pt was seen at [facility] and had 3v left foot and ankle x-rays [facility] .24: Negative for fractures. Lateral ankle soft tissue edema. Pt is no longer wearing boot she was given in the ER for 2 weeks. Pt is taking ibuprofen for pain. Pt only has pain when walking or standing up for long periods of time.[email or web address] ISAEL DAVENPORT, DO [address], [place], [address], [place] - [facility] [place] [facility] [place] 08/04/2024 15:19:06 OBGyn Episode No OBEpisode recorded.
--- OUTSIDE RECORDS SUMMARY | 2025-07-30 09:12 | XMS_ITS | Continuity of Care Document ---
Author Organization [facility] Address [address] [place] [id number] Assessment No assessment recorded. Plan of Treatment Reminders Order Date Submit Date Provider Last Modified By Organization Details Last Modified Time Details Appointments None recorded. Lab rapid flu (A+B) 2024 025 [facility], [address] [place] [address], [phone], 5 15:05:01 rapid SARS CoV + SARS CoV 2 Ag, QL IA, respiratory specimen 2024 025 [facility], [address] [place] [address], [phone], 5 15:05:01 rapid strep group A, throat 2024 025 [facility], [address] [place] [address], [phone], 15:05:00 Referral None recorded. Procedures None recorded. Surgeries None recorded. Imaging None recorded. Medication Orders fluticasone propionate 50 mcg/actuati on nasal spray,suspe nsion 2024 025 [facility], [address], [address], 5 15:05:07 benzonatate 100 mg capsule 2024 025 [facility], [address], [address], 05:02:00 Patient TargetsNo targets recorded. Patient InstructionsNo instructions recorded. Reason for Referral None Reported. Results Created Date Observation Date Name Description Value Unit Range Abnormal Flag Note LastModifiedBy Organization Detail LastModifiedTime 07/06/2007/06/2025 rapid SARS CoV + SARS CoV 2 Ag, QL IA, respi rator y speci men SARS CoV antigen Invali d Not Available [address], [address], 07/06/2025 14:15:40 07/06/2007/06/2025 rapid flu (A+B) Flu negati ve Not Available [address], [address], 07/06/2025 14:15:32 07/06/2007/06/2025 rapid flu (A+B) Type Both A & B Not Available [address], [address], 07/06/2025 14:15:32 07/06/2007/06/2025 rapid strep group A, throa t Strep negati ve Not Available [address], [address], 07/06/2025 14:15:47 07/06/2007/06/2025 rapid strep group A, throa t Culture No Not Available [address], [address], 07/06/2025 14:15:47 Result Notes None recorded. Problems Name Problem SNOMED Code Status Onset Date Resolution Date Notes Provider Name and Address Organization Details Recorded Time Bipolar disorder 93223102 Active 2020 PATITO Jensen - [facility] 09:15:02 Asthma 650641713 Active 2020 Jasminacecil Frye null, [place] - [facility] 09:15:08 Hyperlipidemi a 66458928 Active 2020 Jasminacecil Frye null, [place] - [facility] 1 09:15:15 Depressive disorder 10739357 Active 2020 Jasmina Frye null, [place] - [facility] 09:15:22 Anxiety 64178875 Active 2020 Jasminacecil Frye null, [place] - [facility] 09:15:30 Migraine 83143031 Active 2020 Jasminacecil Frye null, [place] - [facility] 09:15:42 Hypothyroidis m 25604860 Active 2024 Lana Edy null, [place] - [facility] 5 11:50:11 Patent foramen ovale 661622640 Active 2024 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, [employer]PERVIS[employer] [address], [place], [address] , [place] - [facility] 5 16:20:14 Problem [...] completed Cathy Logan APRN [address], [place], [address], [place] - [facility] 01/20/2021 16:20:51 11/09/19 12 excision of bilateral fallopian tubes and ovaries completed Cathy Logan APRN [address], [place], [address], [place] - [facility] 01/20/2021 16:28:55 06/12/20 08 laser surgery completed Jasmina Frye [place] - [facility] 10/25/2020 09:11:01 12/11/19 02 Cholecystectomy, [...] completed Not Available Not Available Not Available [facility] 75 mg disintegr ating tablet active [...] Updated DateTime 5 149.86 cm 28.1 kg/m2 96416.3 4 g 98.1 [degF] 98 /min 100 % 100 % 18 /min 120/78 mm[Hg] Lana Snow [place] - [facility] 14:13:43 Social History Question Answer Notes LastModified by Organizat ion Details LastModified Time Tobacco Smoking Status Current Every Day Smoker Lana Snow null, [place] - [facility] 12/29/2024 11:51:28 Do You Have An Advance Directive? No [email or web address] Information not available 10/25/2020 Are You Blind Or Do You Have Difficulty Seeing? No Information not available 12/29/2024 Is Blood Transfusion Acceptable In An Emergency? Yes [email or web address] Information not available 10/25/2020 What Is Your Level Of Caffeine Consumption? Heavy Information not available 12/29/2024 How Much Tobacco Do You Chew? None Information not available 10/25/2020 Are You Deaf Or Do You Have Serious Difficulty Hearing? No Information not available 12/29/2024 What Type Of Diet Are You Following? REGULAR Information not available 10/25/2020 Which Illicit Or Recreational Drugs Have You Used? None Information not available 10/25/2020 What Is The Highest Grade Or Level Of School You Have Completed Or The Highest Degree You Have Received? [id number] Information not available 12/29/2024 Have There Been Any Changes To Your Family Or Social Situation? No Information not available 12/29/2024 Live Alone Or With Others? With Others With Mom And Son [email or web address] Information not available 10/25/2020 Do You Have A Medical Power Of Instructional Services Specialist? No Information not available 12/29/2024 What Was The Date Of Your Most Recent Tobacco Screening? 12/29/2024 Information not available 12/29/2024 How Many Children Do You Have? 2 [email or web address] Information not available 10/25/2020 What Is Your Current Pack Years? 30ormorepac kyears Information not available 12/29/2024 Performs Monthly Self-breast Exam? No [email or web address] Information not available 10/25/2020 What Is Your Relationship Status? [email or web address] Information not available 10/25/2020 Seat Belts Used Routinely Yes [email or web address] Information not available 10/25/2020 Are You Sexually Active? No 2018 Due To Passing Of Stroke Information not available 12/29/2024 Do You Have Smoke And Carbon Monoxide Detectors In Your Home? Yes Information not available 12/29/2024 At What Age Did You Start Smoking Tobacco? 16 Information not available 12/29/2024 How Much Tobacco Do You Smoke? 2 PPD [email or web address] Information not available 10/25/2020 General Stress Level Low [email or web address] Information not available 10/25/2020 Do You Use [...] used smokeless tobacco? Never used smokeless tobacco [email or web address] Information not available 10/25/2020 Are you currently employed? Yes [email or web address] Information not available 10/25/2020 Do you have transportation difficulties? No Information not available 12/29/2024 Urinary incontinence assessment performed? Yes [email or web address] Information not available 10/25/2020 Are you able to care for yourself independently? Yes Information not available 12/29/2024 Do you have difficulty dressing, bathing, grooming, or toileting? No Information not available 12/29/2024 Do you or have you ever used e-cigarettes or vape? Never used electronic cigarettes [email or web address] Information not available 10/25/2020 What is your exercise level? None [email or web address] Information not available 10/25/2020 Do you use any illicit or recreational drugs? No Information not available 12/29/2024 Do you or have you ever used any other forms of tobacco or nicotine? No Information not available 12/29/2024 What is your level of alcohol consumption? None [email or web address] Information not available 10/25/2020 Are you able to walk independently without assistance or assistive devices? YESWOREST [email or web address] Information not available 10/25/2020 Do you have difficulty doing errands alone? 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 [id number] Information not available 12/29/2024 Do you have difficulty concentrating, remembering or making decisions? No Information no t available 12/29/2024 Family History Relationship Description Onset Age of this Age Resolved Age Notes LastModified by Organization Details LastModified Time Daughter Polycystic ovary syndrome [email or web address] Not available 10/25 09:17:36 Paternal Uncle Diabetes mellitus [email or web address] Not available 10/25 09:17:46 Paternal Aunt Malignant neoplasm of lung [email or web address] Not available 10/25 09:18:07 Paternal Aunt Malignant neoplasm of breast [email or web address] Not available 10/25 09:18:15 Maternal Aunt Malignant neoplasm of bone [email or web address] Not available 10/25 09:18:46 Medical History Condition [...] colitis N Cerebrovascular Disease N Depression N Guillain-Inglis N Sleep Apnea N Aneurysm N Bronchitis [...] virus, trivalent, preservative 9 completed Not Available [facility] 07/06/2025 13:35:11 Tdap 6 completed Not Available [facility] 07/06/2025 13:35:11 Influenza, split virus, trivalent, preservative 6 completed Not Available [facility] 07/06/2025 13:35:11 Influenza, split virus, quadrivalent, preservative 7 completed Not Available [facility] 07/06/2025 13:35:11 COVID-19, mRNA, LNP-S, PF, 100 mcg/0.5mL dose or 50 mcg/0.25mL dose 1 completed Not Available [facility] 07/06/2025 13:35:11 COVID-19, mRNA, LNP-S, PF, 100 mcg/0.5mL dose or 50 mcg/0.25mL dose 1 completed Not Available [facility] 07/06/2025 13:35:11 Hep B, adult 3 completed Not Available [facility] 07/06/2025 13:35:11 Influenza, split virus, quadrivalent, PF 3 completed Not Available [facility] 07/06/2025 13:35:11 COVID-19, mRNA, LNP-S, PF, 50 mcg/0.5 mL 3 completed Not Available [facility] 07/06/2025 13:35:11 Tdap 5 completed Not Available [facility] 07/06/2025 13:35:11 Rabies - IM fibroblast culture 5 completed Not Available [facility] 07/06/2025 13:35:11 Influenza, split virus, quadrivalent, preservative 0 completed PTAITO Jensen - [facility] 10/25/2020 09:14:55 Past Encounters Encounter ID Performer Location Encounter Start Date Encounter Closed Date Diagnosis/Indication Diagnosis SNOMED-CT Code Diagnosis ICD10 Code Diagnosis IMO Codes Diagnosis Note [id number] 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 [address] [address] 07/02/2025 15:24:55 07/02/2025 15:53:47 Acute maxillary sinusitis 52931773 J01.00 54521372 Supportive care reviewed: raising HOB, humidifier use, saline nasal spray, rest, encourage PO fluids and monitor hydration status, infection control measures. Recommende d acetaminop hen/ibupro fen PRN pain, fever Follow-up as needed if no improvemen t or worsening Bronchitis 01737272 J40 73243 steroidsan tibioticsi f worsen or no improvemen t return Cigarette smoker 9903474 7 F17.210 695074 med discussed in detail [id number] 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 APRN [address] [address] 07/06/2025 13:34:08 07/06/2025 15:13:14 Bronchitis 44202611 J40 42082 continue steroidsco ntinue antibiotic sif worsen or no improvemen t return Acute cough 7286931061 91772169 R05.2 0204596406 Nasal congestion 8924695 0 R09.81 35685 Health Concerns Section Related Observation LastModified by Organization Detai ls LastModified Time None Recorded Concern Status LastModified by Organization Details LastModified Time None Recorded Payers Encounter Date Sequence Insurance Name Policy Number Policy Barrow Covered Member ID Barrow Member ID Guarantor Name 07/06/2025 1 [facility] (MEDICAID REPLACEMENT - HMO) Desire Blevins [id number] Desire Blevins Notes Date Note Type Note Provider Name and Address Organization Details Recorded Time 07/06/2025 text/html ROS as noted in the HPI 50 year old female who presents to the office today with concerns ofcontinued headache, sore throat, lung pain, diarrhea, body aches, congestion, coughhave a few doxycycline and prednisone left to take 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, [employer] [address], [place], [address], [place] - [facility] 07/06/2025 15:05:25 OBGyn Episode No OBEpisode recorded.
--- OUTSIDE RECORDS SUMMARY | 2025-07-30 09:13 | XMS_ITS | Clinical Summary ---
Author Organization [facility] Address [address] [place] [address] Phone Care Team Providers Care Patient Support Associate Name Role Phone Unavailable Primary Care Provider [...] topic Insurance [facility]
--- NOTE | 2025-07-30 09:18 | CT_ITS ---
FINAL REPORT TECHNIQUE: Oral and IV contrast enhanced exam This study was performed with techniques to keep radiation doses as low as reasonably achievable, (ALARA). Individualized dose reduction techniques using automated exposure control or adjustment of mA and/or kV according to the patient''s size were employed. CLINICAL HISTORY: worsening lower abd pain COMPARISON: 07/27/2025 FINDINGS: Abdomen: No acute density is seen within the lung bases. Status post cholecystectomy. Solid abdominal organs are unremarkable. Fluid-filled nondistended small bowel could represent mild ileus. There is mild fecal impaction. There is no free air. No fluid collection is seen. There is no adenopathy. Pelvis: The appendix is normal. No bowel wall thickening is present. Severely distended bladder. Status post hysterectomy. There is no free fluid. No pelvic mass is seen. IMPRESSION: Fluid-filled nondistended small bowel could represent mild ileus. No evidence of obstruction. Severely distended bladder. Reviewed, Interpreted and Dictated by Bran Aguilar MD Transcribed by Savi Baer Authenticated and [facility]
--- NOTE | 2025-07-30 09:19 | HMH.EDGENADL ---
Discharge Plan Disposition Patient Disposition: Home, Self-Care Prescriptions Prescriptions: No Action Emgality Pen 120 mg/mL pen injector 120 mg SQ QMONTH Qty: 1 5RF amoxicillin 500 mg tablet 500 mg PO BID 10 Days Qty: 20 0RF atorvastatin 20 mg tablet 20 mg PO HS Qty: 90 2RF buspirone 30 mg tablet 30 mg PO TID Qty: 90 2RF Vraylar 6 mg capsule 6 mg PO DAILY Qty: 30 2RF levothyroxine 25 mcg tablet See Rx Instructions .ROUTE .COMPLEX Qty: 30 0RF Dose Instruction: Take 1 tablet by mouth once daily Rx Instructions: Take 1 tablet by mouth once daily loratadine [Allergy Relief (loratadine)] 10 mg tablet See Rx Instructions .ROUTE .COMPLEX Qty: 90 0RF Dose Instruction: Take 1 tablet by mouth once daily Rx Instructions: Take 1 tablet by mouth once daily dicyclomine 20 mg tablet 20 mg PO TID Qty: 21 0RF ibuprofen 800 mg tablet 800 mg PO Q8H PRN (Reason: pain) Qty: 21 0RF Referrals Follow up/Referrals: Larissa Patterson APRN [Primary Care Provider, Family Practice] - See instructions Valdemar Church MD [Staff Physician, Urology] - See instructions Activity Restrictions/Add. Instructions Additional Instructions/Restrictions: No emergent medical condition identified to cause her lower abdominal discomfort aside from a severely distended bladder that was noted on CT scan. You were offered to have a Jhaveri catheter that was inserted and anchored into follow-up with her urologist however you opted to not have that done. You have been able to get some urine out on your own please return with any worsening of your symptoms otherwise follow-up closely with our urologist Dr. Church. Clinical Impressions Clinical Impression: Lower abdominal pain, Nausea & vomiting, Acute urinary retention Instructions Patient Instructions: DI for Acute Abdominal Pain Print Language Print Language: Pashto Discharge ED Provider: Sadie Mccarthy General Adult HPI General Chief complaint: Abdominal Pain Stated complaint: Lower abd pain Time Seen by Provider: 07/30/25 09:11 History of Present Illness HPI narrative: Patient is a 50-year-old female presenting today with worsening lower abdominal pain. She was seen here on the had a workup including a CT scan labs urinalysis which were all unremarkable. She states that her symptoms began last Wednesday or 2 days before her ED visit and she had nausea vomiting and diarrhea associated with a lower abdominal discomfort. She states that the diarrhea has since stopped and she has had normal bowel movements however they are painful bowel movements no blood in them and that her nausea and vomiting has persisted but the abdominal pain has gotten significantly worse which is what ultimately brought her to the emergency department. States it is bilateral lower quadrants and suprapubic she also has dysuria associated with this. Urinalysis was unremarkable again. Denies any fevers or chills. States she has a history of a total abdominal hysterectomy secondary to endometriosis also has had an appendectomy. Related Data Previous Rx's ?Medication ?Instructions ?Recorded atorvastatin 20 mg tablet 20 mg PO HS #90 tabs 01/22/25 buspirone 30 mg tablet 30 mg PO TID #90 tabs 04/18/25 galcanezumab-gnlm 120 mg/mL 120 mg SQ QMONTH Migraine #1 mL 04/30/25 subcutaneous pen injector (Emgality Pen) cariprazine 6 mg capsule (Vraylar) 6 mg PO DAILY #30 caps 06/19/25 levothyroxine 25 mcg tablet See Rx Instructions .Route 06/19/25 .COMPLEX #30 tabs loratadine 10 mg tablet (Allergy See Rx Instructions .Route 07/16/25 Relief (loratadine)) .COMPLEX #90 tabs amoxicillin 500 mg tablet 500 mg PO BID 10 days #20 tabs 07/18/25 dicyclomine 20 mg tablet 20 mg PO TID abdominal spasm #21 07/27/25 tabs ibuprofen 800 mg tablet 800 mg PO Q8H PRN pain #21 tabs 07/27/25 Allergies Allergy/AdvReac Type Severity Reaction Status Date / Time varenicline (From Chantix) AdvReac Severe suicidal Verified 07/27/25 08:40 thoughts / actions [facility] Disclaimer: The information contained in this section may have been updated after the patient was seen, as this information can be updated by other users. Medical History Nocturnal hypoxemia Macrocytic Hypoxemia History of thyroid disease History of hyperlipidemia History of COPD Sinusitis Nausea vomiting and diarrhea Influenza A Facet hypertrophy of lumbar region Lumbar back pain Patient sees pain management later this morning but requests injections Sciatica of right side Bipolar disorder Constipation Vertigo GERD (gastroesophageal reflux disease) Anxiety Encounter for smoking cessation counseling Depression Surgical History History of hysterectomy History of section History of cholecystectomy Family History Other Asthma Cancer Diabetes Hyperlipidemia Hypertension Social History Smoking Status: Current every day smoker tobacco type: cigarettes packs per day: 2 second hand exposure: Yes alcohol intake: never substance use type: denies use current occupational status: other Travel in the last 8 weeks?: None household members: none housing: house current occupational exposures/hazards: No caffeine: Yes Have you lived/traveled outside US in past 30 days?: No Contact w/someone who lives/traveled outside US past 30 days?: No Exposure to someone with infectious disease in past 14 days?: No Do you have a fever (greater than 100.4 F or 38 C)?: No Have you tested positive for COVID-19?: No Exposed to someone with COVID-19 in past 14 days?: No Do you have a sore throat?: No Do you have a cough?: No Do you have any weakness?: No Do you have any diarrhea?: No Are you experiencing any unusual bleeding?: No Do you have any muscle aches/pain?: No Do you have any abdominal pain?: Yes Are you experiencing loss of taste or smell?: No Other Medical History Have you received the Flu Vaccine for this season: No Have you received the Pneumonia Vaccine: No ROS Obtained: Yes All systems reviewed & no additional complaints except as documented Physical Exam General General appearance: alert Respiratory Respiratory exam: Present normal lung sounds bilaterally Cardiovascular Cardiovascular exam: Present regular rate Abdominal Exam Abdominal exam: Present soft and tenderness (Lower abdominal tenderness no rebound or guarding) Neurological Exam Neurological exam: Present alert and oriented X3 Medical Decision Making Medical Records Screening: Per USPSTF and CDC recommendations, given the prevalence of disease in our region, it is our hospital?s policy to screen for HIV and viral Hepatitis for all patients aged 18 and over and those with ongoing risk factors. Carmelo Inquiry Pt receiving controlled substance: No Vital Signs: 07/30/25 08:52 07/30/25 08:52 07/30/25 09:59 Temperature 98.2 F 98.2 F Temperature Source Oral Oral Pulse Rate 95 H 86 Pulse Rate [Right] 95 H Respiratory Rate 18 18 Blood Pressure 124/81 128/97 H Blood Pressure [Right Arm] 124/81 Blood Pressure Mean Blood Pressure Mean [Right Arm] 95 Blood Pressure Source Automatic Cuff Blood Pressure Source [Right Arm] Automatic Cuff Blood Pressure Position Supine Blood Pressure Position [Right Arm] Supine 02 Sat by Pulse Oximetry 98 98 97 Oxygen Delivery Method Room Air Room Air 07/30/25 10:12 07/30/25 10:31 07/30/25 11:00 Temperature Temperature Source Pulse Rate 88 89 88 Pulse Rate [Right] Respiratory Rate Blood Pressure 152/86 H 145/92 H 162/107 H Blood Pressure [Right Arm] Blood Pressure Mean 123 Blood Pressure Mean [Right Arm] Blood Pressure Source Blood Pressure Source [Right Arm] Blood Pressure Position Blood Pressure Position [Right Arm] 02 Sat by Pulse Oximetry 97 95 Oxygen Delivery Method 07/30/25 11:31 Temperature Temperature Source Pulse Rate 86 Pulse Rate [Right] Respiratory Rate Blood Pressure 131/112 H Blood Pressure [Right Arm] Blood Pressure Mean 116 Blood Pressure Mean [Right Arm] Blood Pressure Source Blood Pressure Source [Right Arm] Blood Pressure Position Blood Pressure Position [Right Arm] 02 Sat by Pulse Oximetry Oxygen Delivery Method Lab Data Lab results reviewed: Yes I reviewed the patient's lab results. Lab Results 07/30/25 09:16: WBC 13.8 H, RBC 4.08 L, Hgb 13.7, Hct 40.2, MCV 98.5, MCH 33.6 H, MCHC 34.1, RDW 12.8, Plt Count 318, MPV 10.0, Neut % (Auto) 59.9, Lymph % (Auto) 29.4, [place] % (Auto) 7.5, Eos % (Auto) 2.3, Baso % (Auto) 0.4, Neut # (Auto) 8.3 H, Lymph # (Auto) 4.1, [place] # (Auto) 1.0, Eos # (Auto) 0.3, Baso # (Auto) 0.1, Sodium 141, Potassium 4.0, Chloride 106, Carbon Dioxide 26, Anion Gap 13.0, BUN 5 L, Creatinine 0.80, Estimated Creat Clear 86, Estimated GFR 76, Est GFR ( Amer) 92, Glucose 91, Calcium 8.8, Total Bilirubin 0.5, AST 31, ALT 26, Alkaline Phosphatase 116, Total Protein 6.8, Albumin 3.9, Globulin 2.9, Albumin/Globulin Ratio 1.3, Lipase 48, HIV Ag/Ab Combo Qual Negative 07/30/25 09:58: Urine Color Yellow, Urine Appearance Clear, Urine pH 6.0, Ur Specific [place] <= 1.005, Urine Protein Negative, Urine Glucose (UA) Negative, Urine Ketones Negative, Urine Blood Negative, Urine Nitrate Negative, Urine Bilirubin Negative, Urine Urobilinogen 0.2, Ur Leukocyte Esterase Negative, Urine RBC None, Urine WBC 3-5, Ur Squamous Epith Cells 5-10, Urine Bacteria Trace 07/30/25 09:16 07/30/25 09:16 Orders (Tests/Meds): ED MEDICATIONS Generic Name Dose Route Start Last Admin Trade Name Freq PRN Reason Stop Dose Admin Sodium Chloride 10 ml 07/30/25 09:44 07/30/25 09:46 Sodium Chloride 0.9% 10ml Syr (Rad Only) IV 08/29/25 09:43 10 ml NEEDED PRN Administration Maintain IV Site Discontinued Medications Generic Name Dose Route Start Last Admin Trade Name Freq PRN Reason Stop Dose Admin Lactated Ringer's 1,000 mls @ 999 mls/hr 07/30/25 09:30 07/30/25 11:19 Lactated Ringer's 1000 Ml Bag IV 07/30/25 10:30 Infused .Q1H1M LUDMILA Infusion Iopamidol 75 ml 07/30/25 09:44 07/30/25 09:46 Iopamidol-370 (76%);100ml Bottle IV 07/30/25 09:45 75 ml ONCE ONE Administration Morphine Sulfate 4 mg 07/30/25 09:18 07/30/25 09:52 Morphine 4mg/Ml Syringe IV 07/30/25 09:19 4 mg ONCE ONE Administration Ondansetron HCl 4 mg 07/30/25 09:18 07/30/25 09:52 Ondansetron 4mg/2ml Vial IV 07/30/25 09:19 4 mg ONCE ONE Administration ORDERS Category Date Time Status CT abdomen pelvis w con Stat Cat Scan 07/30/25 09:18 Completed CBC w/Auto Diff [Complete Blood Count Auto Diff] Stat Lab 07/30/25 09:16 Completed CMP [Comprehensive Metabolic Panel] Stat Lab 07/30/25 09:16 Completed HIV Combo Stat Lab 07/30/25 09:16 Completed Hepatitis C Ab Qual. W/ RFX Stat Lab 07/30/25 09:16 Received Lactic Acid Stat Lab 07/30/25 09:18 Ordered Lipase Stat Lab 07/30/25 09:16 Completed UA [Urinalysis and Microscopic] Stat Lab 07/30/25 09:58 Completed Urinalysis and Microscopic Stat Lab 07/30/25 10:49 Ordered Medical Decision Narrative: 50-year-old with above history and physical she has significant abdominal tenderness on my exam which is from historical standpoint much worse than it was a few days ago she had a CT scan at that time it is possible she had an early inflammatory process that did not show up radiographically therefore we will repeat her CT scan today given the amount of tenderness that she is complaining about. In the meantime we will give pain medicine nausea medicine and IV fluids. It is possible this is simply gastroenteritis or could be a bowel obstruction or an intra-abdominal process such as colitis diverticulitis etc. Urinary tract infection remains in the differential given her urinary symptoms as well. Will reassess after this initial workup is complete. Reassessment 12:[address] scan performed to person interpreted shows no intra-abdominal emergency other than severely distended bladder. Patient was able to get a few 100 cc out while urinating post void bladder scan showed a few 100 cc but then she was able to get 800 more out after that. Jhaveri catheter was offered to be inserted for urinary retention she is on multiple medications that could be causing this. She has no other signs or symptoms of cauda equina syndrome or spinal pathology at the moment. She refused this and would like to follow-up with urology. No alternative explanation for her lower abdominal discomfort at this point. Urology referral was given. Critical Care Critical Care Time Critical Care Time: No
[2025-07-30 09:26] LABS: Hematocrit 40.2 % (37.0-47.0); Hemoglobin 13.7 g/dL (12.2-16.2); Immature Granulocytes % 0.5 %; Mean Corpuscular HGB Conc 34.1 g/dL (31.8-35.4); Mean Corpuscular Hemoglobin 33.6 pg (27.0-31.2); Mean Corpuscular Volume 98.5 fl (81-99); Nucleated Red Blood Cells % 0 %; Platelet Count 318 K/mm3 (142-424); Red Blood Count 4.08 M/mm3 (4.20-5.40); Red Cell Distribution Width-SD 46.5 fL; White Blood Count 13.8 K/mm3 (4.8-10.8)
[2025-07-30 09:37] LABS: Alanine Aminotransferase 26 U/L (12-78); Albumin Level 3.9 g/dl (3.5-5.0); Albumin/Globulin Ratio 1.3 (1.1-1.8); Alkaline Phosphatase 116 U/L (38-126); Anion Gap 13.0 mEq/L (5-15); Aspartate Amino Transferase 31 U/L (14-36); Bilirubin,Total 0.5 mg/dl (0.2-1.3); Blood Urea Nitrogen 5 mg/dl (7-17); Calcium 8.8 mg/dl (8.4-10.2); Carbon Dioxide 26 mmol/L (22.0-30.0); Chloride 106 mmol/L (98-107); Creatinine Clearance Estimated 86 mL/min (50-200); Creatinine,Serum 0.80 mg/dl (0.52-1.04); Estimated Glomerular Filt Rate 76 ml/min (>60); GFR (African American) 92 ML/MIN (>60); Globulin 2.9 g/dL (1.3-3.2); Glucose 91 mg/dl (74-100); Lipase 48 U/L (23-300); Potassium 4.0 mmoL/L (3.5-5.1); Sodium 141 mmol/L (136-145); Total Protein,Serum 6.8 g/dl (6.3-8.2)
[2025-07-30] MEDS: SODIUM CHLORIDE 0.9% 10ML SYR (RAD ONLY) 10 ML IV (09:46)
[2025-07-30] MEDS: IOPAMIDOL-370 (76%);100ML BOTTLE 75 ML IV (09:46)
[2025-07-30] MEDS: MORPHINE 4MG/ML SYRINGE 4 MG IV (09:52)
[2025-07-30] MEDS: LACTATED RINGERS 1000ML 1,000 ML 999 ML IV (09:52)
[2025-07-30] MEDS: ONDANSETRON 4MG/2ML VIAL 4 MG IV (09:52)
[2025-07-30 10:04] LABS: Microscopic, Urine URINE MICROSCOPIC (MICROSCOPIC)
[2025-07-30 10:14] LABS: Bilirubin,Urine Negative (Negative); Color,Urine YELLOW (Yellow); Glucose,Urine (UA) Negative (Negative); Ketones,Urine Negative (Negative); Leukocyte Esterase,Urine Negative (Negative); PH,Urine 6.0 (5.0-8.5); Protein,Urine Negative (Negative); Specific Gravity, Urine <= 1.005 (1.005-1.030); Urobilinogen,Urine 0.2 EU/dl (0.2)
[2025-07-30 10:36] LABS: Bacteria,Urine Trace /lpf
--- NOTE | 2025-07-30 11:36 | PC.NURSE ---
pt voided 800mls of urine in a measuring hat. Post void bladder scan showed 144mls. notified.
[2025-07-30 12:23] LABS: Hepatitis C Ab Qual. W/ RFX NEGATIVE (Negative)
== END 2025-07-30 12:44 | disposition home or self-care (01) ==
PROVIDERS: Emergency Provider Student in an Organized Health Care Education/Training Program; PCP Family Medicine
DX: R10.30 Lower abdominal pain, unspecified (principal); R33.9 Retention of urine, unspecified; R11.2 Nausea with vomiting, unspecified; F17.210 Nicotine dependence, cigarettes, uncomplicated
CPT/HCPCS: 51798; 74177; 80053; 81001; 83690; 85025; 86803; 87389; 96361; 96374; 96375; 99285; J2270; J2405; J7120; Q9967

== ENCOUNTER 2025-07-31 08:42 | Outpatient (CLI) | payer MEDICAID, SELFPAY ==
[2025-07-31 19:09] LABS: Microscopic, Urine URINE MICROSCOPIC (MICROSCOPIC)
[2025-07-31 20:26] LABS: Bilirubin,Urine Negative (Negative); Color,Urine YELLOW (Yellow); Glucose,Urine (UA) Negative (Negative); Ketones,Urine Negative (Negative); Leukocyte Esterase,Urine Negative (Negative); PH,Urine 5.5 (5.0-8.5); Protein,Urine Negative (Negative); Specific Gravity, Urine <= 1.005 (1.005-1.030); Urobilinogen,Urine 0.2 EU/dl (0.2)
--- OUTSIDE RECORDS SUMMARY | 2025-08-02 08:55 | XMS_ITS | Clinical Summary ---
Author Organization Healthcare Address [address] [place] [address] Care Team Providers Care Peoples[employer] H[employer] Developer Name Role Phone 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 RED Primary Care Provider [phone] Allergies No known active allergies Medications Qulipta [...] Description 05/16/2025 9:15 AM EDT Office Visit [facility] [place] [address] [place] [address] Valdemar Orr MD Patent foramen ovale (Primary Dx) 05/16/2025 Travel from Last 3 Months Immunizations Immunization Administration Dates Next Due Hep B, adult 02/01/2023 Influenza, injectable, quadrivalent 07/28/2017 Influenza, injectable, quadrivalent, preservativ e free 07/30/2023 Influenza, seasonal, injectable 08/31/2016,10/31 Moderna COVID-19 Vaccine (Duct Layer Helper) 12+ years Tdap 08/31/2016 Family History [...] 3 - 19+ 3-dose series) 03/01/2023 02/01/2023 Lung Cancer Screening Shared Decision Making 2025 [facility]-Breast Cancer Screening 2025 [facility]-Lung Cancer Screening 2025 [facility]-Zoster Vaccines (1 of 2) 2025 [id number] Vaccine ( - 2024- season) 2025 07/30/2023, 03/28/2021, 02/28/2021 [facility]-Influenza Vaccine (#1) 06/11/202507/30, 07/28/2017, 08/31/2016, Additional history exists [facility]-Depression Screening 05/16/2026 05/16/2025, 03/2025 [facility]-DTaP,Tdap,and Td Vaccines (2 - Td or [...] Narrative SUNQUEST - 02/08/1997 12:00 AM EDT [facility] MR #: [id number] [facility] [address] [place], [place] [address] 1975 (Age: 22) FW Collect Date: 01/30/1997 00:00 Receipt Date: 01/31/1997 00:00 Page 1 DEPARTMENT OF PATHOLOGY AND LABORATORY MEDICINE CYTOPATHOLOGY REPORT Email: [email or web address] * Converted Case * This report may not match the original report format ATTENDING MD/Practitioner: Uvaldo Padilla MD [place] [facility] [place]: Reported: 02/08/1997 00:00 [...] results is suggested (please call Microbiology at [phone] for results). CLINICAL INFORMATION: Menstrual History: {Not Provided} Date of Last Menstrual Period: {Not Provided} SPECIMEN DESCRIPTION: A: CERVICAL/VAGINAL SMEAR, PAP ICD: F: {Not Entered} SNOMED CODES: 1; [id number] In cases where a pathologist has signed out the report, the service has been rendered in part by a resident. The signing pathologist has performed and is responsible for the reported pathologic evaluation. us Historical Provider LAB PATHOLOGY ORDERABLES Fin al Result SUNQUEST from Last 3 Months or Most Recently Relevant to Health Maintenance Insurance [facility] MEDICAID MEDICAID O D[employer]AQUEST Care Teams [employer] H[employer] Developer Relationship Specialty Start Date End Date 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 APRN [address] [place] [id number] PCP - General 01/26/25
--- OUTSIDE RECORDS SUMMARY | 2025-08-02 08:56 | XMS_ITS | Clinical Summary ---
Author Organization [facility] Address [address] [place] [address] Phone Care Team Providers Care Recycle Worker Name Role Phone Unavailable Primary Care Provider [...] patient's age to complete this topic Insurance [facility]
== END 2025-07-31 23:59 ==
LOC: LAB.DROPOF 08-02 08:43
PROVIDERS: PCP Student in an Organized Health Care Education/Training Program; Visit Provider Student in an Organized Health Care Education/Training Program
DX: R35.0 Frequency of micturition (principal); R30.9 Painful micturition, unspecified
CPT/HCPCS: 81001